=== PATIENT | female | born 1960 | race Caucasian/White ===

== ENCOUNTER 2022-07-14 12:40 | Inpatient (IN) | payer SELFPAY ==
--- OUTSIDE RECORDS SUMMARY | 2022-07-14 12:45 | XMS REPORT | Continuity of Care Document ---
:1960 Author Organization [facility] t Address [address] [place] [address] Care Team Providers Name Role Phone Cecilia Jimenez Primary Care Physician Remedios Sullivan Attending Clinician Unavailable Chayito Dick Attending Clinician Unavailable KAILA BERGER Attending Clinician Unavailable Juno Angel Attending Clinician Lesa Chan Attending Clinician MAY GAVIN Attending Clinician Unavailable Jeffry Gauthier Attending Clinician Chadd Perez Attending Clinician KAILA BERGER Admitting Clinician Unavailable Jeffry Gauthier Admitting Clinician Chadd Perez Admitting Clinician Problems Condition Condition Condition Status Onset Resolution Last Treating Co mments Source Name Details Category Date Date Treatment Clinician Date BROUGHT BY BROUGHT Diagnosis Active 2018-03-28 Fredy MORAES BY 03-28 16:13:00 l NG, CHEST DR/PAO 00:00: Her aquino PAIN, HRA NG, CHEST 00 PAIN, HRA Active 03/28/2018 [facility] COPD COPD Diagnosis Active 2018-03-29 Mem oria EXACERBATI EXACERBATI - 10:12:00 l ON ON Active 00:00: Jonah 03/28/2018 00 [facility] PNA PNA Diagnosis Active 2016-102017-11-08 Mem oria Active 12-24 21:57:00 l 10/23/2017 00:00: Dean mo [address] No known No known Disease Unive rs active active ity of problems problems [facility] Pneumonia, Pneumonia Problem 2017-11-02 Memoria unspecifie , 01:13:22 l d organism unspecifie He rmann d organism 8 [facility] Chronic Chronic Problem 2018-04-02 Me moria obstructiv obstructiv 01:43:25 l e e Jonah pulmonary pulmonary disease disease with with (acute) (acute) exacerbati exacerbati on on 04/02/2018 [facility] Chronic Chronic Problem Resolve 2022-02-23 M emoria obstructiv obstructiv d 00:35:14 l e lung e lung [place] disease disease (disorder) (disorder) Resolved Problem 02/23/2022 [facility] Hypertensi Hypertens Problem Resolve 2022-02-23 Memoria ve yuki d 00:35:14 l disorder, disorder, Herm clara systemic systemic arterial arterial (disorder) (disorder) Resolved Problem 02/23/2022 [facility] Congestive Congestiv Problem Active 2022-02-23 Memoria heart e heart 00:35:14 l failure failure [place] (disorder) (disorder) Active Problem 02/23/2022 [facility] Ganglion Ganglion Problem Active 2022-02-23 Memoria cyst cyst 00:35:14 l (disorder) (disorder) He rmann Active Problem 02/23/2022 [facility] Hand pain Hand pain Problem Active 2022-02-23 Memoria (finding) (finding) 00:35:14 l Active Jonah Problem 02/23/2022 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 Social History Social Habit Start Date Stop Date Quantity Comments Source Tobacco use and 2021-07-11 2021-07-11 Never used [facility] [place] exposure 00:00:00 00:00:00 Medical Branch Social History 2018-03-29 2018-03-29 [facility] ermann 03:48:29 03:48:29 Sex Assigned At [birth year] [facility] 00:00:00 00:00:00 Smoking Status Start Date Stop Date Source Tobacco smoking consumption [facility] unknown Current some day smoker 2021-07-11 00:00:00 [facility] Medications Ordered Filled Start Stop Current Ordering Indication Dosage Frequency Signature Comments Components Source Medication Medication Date Date Medication? Clinician (SIG) Name Name gabapentin No 300 mg = 1 M emoria 300 MG Oral 2-28 cap, PO, l Capsule 23:40: Bedtime, # Herm clara 00 30 cap, 2 Refill(s), Pharmacy: [id number], 170.18, cm, 12/18/21 10:08:00 BEAM RACKER, Height, 85, kg, 12/18/21 10:08:00 BEAM RACKER, Weight ondansetron Yes [id number] 8mg Take 1 Univers (ZOFRAN 9-11 tablet by ity of ODT) 8 mg 00:00: mouth [place] disintegrat 00 every 8 Medic al ing tablet (eight) Branch hours as needed for Nausea and Vomiting (N/V). diphenoxyla Yes [id number] 2{tbl} Take 2 Univers te-atropine 9-11 tablets by it y of 2.5-0.025 00:00: mouth [place] mg tablet 00 every 6 Medical (six) Branch hours as needed for Other (diarrhea) . atorvastati Yes One tab po Univers n 10 mg 4-05 each night ity of tablet 00:00: for 00 cholestero Medical l Branch fluticasone 2021- No 1{puff} Inhale 1 Univers propionate 4-05 04-06 Puff. ity of (FLOVENT 00:00: 04:59 [place] HFA) 110 00 :00 Medical mcg/actuati Branch on inhaler PARoxetine 2019-10 Yes 40mg Take 40 mg U nivers 40 mg 2-18 by mouth. ity of tablet 00:00: [place] 00 Medical Branch ALPRAZolam 2019-10 Yes TAKE 1 Unive rs 0.5 mg 2-02 TABLET BY ity of tablet 00:00: MOUTH 00 THREE Medical TIMES A Branch DAY NEEDED FOR ANXIETY PROAIR HFA 2019-10 Yes INHALE 2 Uni vers 90 1-16 PUFFS BY ity of mcg/actuati 00:00: MOUTH [place] on inhaler 00 EVERY 4 TO Med ical 6 HOURS Branch NEEDED levothyroxi 2019-10 Yes TAKE 1 Univ ers ne 50 mcg 1-12 TABLET BY ity o f tablet 00:00: MOUTH ON 00 AN EMPTY Medical STOMACH Branch albuterol 2019-10 Yes Univers 2.5 mg /3 1-03 ity of mL (0.083 00:00: [place] %) 00 Medical nebulizer Branch solution carvediloL 2019-10 Yes 3.125mg Take 3.125 Univers 3.125 mg 1-03 mg by ity of tablet 00:00: mouth 2 00 (two) Medical times Branch daily. famotidine 2019-10 Yes 20mg Take 20 mg U nivers 20 mg 1-03 by mouth 2 ity of tablet 00:00: (two) [place] 00 times Medical daily. Branch gabapentin 2019-10 Yes 300mg Take 300 Un nasir 300 mg 1-03 mg by ity of capsule 00:00: mouth 00 daily. Medical Branch Levothyroxi Levothyroxi Yes Remedios 1 tablet Common ne Sodium ne Sodium 7-13 [place] in the Sp david 00:00: morning on an empty St stomach [facility] carvedilol No Notes: [place] morelos 03-31 Give with l 02:00: food. Jonah 00 (Same As: Coreg) Albuterol Yes 3 mL, NEB, Me moria 0.833 MG/ML 5-31 QID, PRN l / 22:31: as needed [place] Ipratropium 09 for [place] shortness 0.167 MG/ML of breath Inhalant or Solution wheezing, # 180 mL, 2 Refill(s), Pharmacy: [id number] Ventolin Yes 2 puff, Memori a HFA 90 5-31 INHALER, l mcg/inh 22:31: Q4H, PRN Dean n inhalation 02 wheezing, aerosol coughing, with or adapter shortness of breath, # 1 ea, 1 Refill(s), Pharmacy: [facility] doxycycline Yes 100 mg = 1 Memoria hyclate 100 5-31 tab, PO, l MG Oral 22:30: Q12H, X 10 Herm clara Tablet 50 day, # 20 tab, 0 Refill(s), Pharmacy: [facility] losartan 50 Yes 50 mg = 1 M emoria mg oral 5-31 tab, PO, l tablet 19:00: Daily, # Jonah 36 30 tab, 2 Refill(s), Pharmacy: [facility] Guaifenesin Yes 200 mg = Me moria 20 MG/ML 5-31 10 mL, PO, l Oral 19:00: QID, X 7 [place] Solution 27 day, # 280 mL, 0 Refill(s), Pharmacy: [facility] Famotidine Yes 20 mg = 1 Me moria 20 MG Oral 5-31 tab, PO, l Tablet 19:00: Q12H, # 60 Paula nn [Pepcid] 16 tab, 0 Refill(s), Pharmacy: [facility]08 carvedilol Yes 3.125 mg, Me moria 3.125 mg 5-31 PO, Q12H, l oral tablet 18:59: Hold if HR Jonah 38 is less than 60, # 60 tab, 0 Refill(s), Pharmacy: [facility]08 Ventolin No 2 puff, Memori a HFA 90 5-31 INHALER, l mcg/inh 18:59: Q4H, PRN Dean n inhalation 25 wheezing, aerosol coughing, with or adapter shortness of breath, # 1 ea, 1 Refill(s) Albuterol 2017-0 No 3 mL, NEB, Me moria 0.833 MG/ML 5-31 QID, PRN l / 18:59: as needed Jonah Ipratropium 15 for [place] shortness 0.167 MG/ML of breath Inhalant or Solution wheezing, # 180 mL, 2 Refill(s) doxycycline No 100 mg = 1 Memoria hyclate 100 5-31 tab, PO, l MG Oral 18:58: Q12H, X 10 Herm clara Tablet 48 day, # 20 tab, 0 Refill(s) Ventolin No 2 puff, Memori a HFA 90 5-31 INHALER, l mcg/inh 18:31: Q4H, PRN Dean n inhalation 46 wheezing, aerosol coughing, with or adapter shortness of breath, # 1 ea, 1 Refill(s), Pharmacy: [facility] Albuterol No 3 mL, NEB, Me moria 0.833 MG/ML 5-31 QID, PRN l / 18:31: as needed [place] Ipratropium 41 for [place] shortness 0.167 MG/ML of breath Inhalant or Solution wheezing, # 180 mL, 2 Refill(s), Pharmacy: [facility] carvedilol No 3.125 mg, Me moria 3.125 mg 5-31 PO, Q12H, l oral tablet 18:31: Hold if HR [place] 00 is less than 60, # 60 tab, 0 Refill(s), Pharmacy: [facility] doxycycline 2017-0 No 100 mg = 1 Memoria hyclate 100 5-31 tab, PO, l MG Oral 18:31: Q12H, X 10 Herm clara Tablet 00 day, # 20 tab, 0 Refill(s), Pharmacy: [facility] Famotidine 2017- No 20 mg = 1 Me moria 20 MG Oral 5-31 tab, PO, l Tablet 18:31: Q12H, # 60 Paula nn [Pepcid] 00 tab, 0 Refill(s), Pharmacy: [facility] predniSONE 2017- Yes See Memoria 20 mg oral 5-31 Special l tablet 18:31: Instructio Paula nn 00 ns, PO, Daily, 16 day regimen: Days 1-4 - 40 mg (2 tabs) daily Days 5-8 - 30 mg (1 1/2 tabs) daily Days 9-12 - 20 mg (1 tab) daily Day 13-16 - 10 mg (1/2 tab) daily, X 16 day, # 24 tab, 0 Refill(s) Guaifenesin No 200 mg = Me moria 20 MG/ML 5-31 10 mL, PO, l Oral 18:31: QID, X 7 [place] Solution 00 day, # 280 mL, 0 Refill(s), Pharmacy: [facility] Acetaminoph No Notes: Yadiel felipe en 325 MG / 5-31 (Same as: l Hydrocodone 18:28: [place] Paula nn Bitartrate 00 325/5) Do 5 MG Oral not exceed Tablet 4gm/day of acetaminop hen. Guaifenesin No Notes: Yadiel felipe 5-30 (Same as: l 22:00: Robitussin ) Aspirin No Notes: Memoria 5-30 Take with l 14:00: food. Alprazolam No Notes: Memor ia 1 MG Oral 5-30 With food l Tablet 14:00: or milk (Same as: Xanax) Losartan No Notes: Memoria 5-30 (Same as: l 14:00: Cozaar) Levofloxaci No Notes: Yadiel felipe n 5-30 (Same l 14:00: as:Levaqui n) Famotidine No Notes: Memor ia 20 MG Oral 5-30 (Same as: l Tablet 14:00: Pepcid) [Pepcid] methylPREDN No Notes: Yadiel felipe ISolone 5-30 (Same l SODium 07:00: as:Solu-ME Paula nn SUCCinate 00 DROL, A-Methapre d) Lovenox No Notes: Memoria 5-30 (Same as: l 06:00: Lovenox) Acetaminoph No Notes: Do M emoria en 300 MG / 5-30 not exceed l Codeine 05:46: 4gm/day of Herm clara Phosphate 00 acetaminop 30 MG Oral hen. (Same Tablet as: [Tylenol Tylenol with with Codeine #3] Codeine # 3) Albuterol No Notes: Memori a 0.833 MG/ML 5-30 (Same as: l / 04:00: Duoneb) Ipratropium 00 [place] 0.167 MG/ML Inhalant Solution NS 1,000 mL No 1,000 mL, M emoria 5-30 Rate: 75 l 03:51: ml/hr, Infuse over: 13.3 hr, Route: IV, Dosing Weight 96 kg, Total Volume: 1,000, Start date: 03/28/18 22:51:00 CDT, Duration: 30 day, Stop date: 04/27/18 22:50:00 CDT, 2.17, m2 Albuterol No Notes: SEE Me moria 0.83 MG/ML 5-30 RT l Inhalant 03:50: DOCUMENTAT Her aquino Solution 00 ION (Same as: Proventil) Alprazolam Yes 1 mg = 1 Mem oria 1 MG Oral 5-30 tab, PO, l Tablet 03:49: BID, 0 [place] 00 Refill(s) Ceftriaxone No Notes: Yadiel felipe 5-30 (Same As: l 02:17: Rocephin). Use with 100 mL NS and infuse over 30 min MEDICATION WASTE Product Size: 1000 mg Product Wasted: ___ mg Azithromyci No Notes: Yadiel felipe n 5-30 (Same As: l 02:17: Zithromax IV) Magnesium No Notes: Memori a Sulfate 5-30 WASTE: F/P l 01:47: - Sink; E [place] [facility] methylPREDN No Notes: Yadiel felipe ISolone 5-29 (Same l SODium 23:36: as:Solu-ME Paula nn SUCCinate 00 DROL, A-Methapre d) Albuterol No Notes: Memori a 0.833 MG/ML 5-29 (Same as: l / 23:36: Duoneb) Ipratropium 00 [place] 0.167 MG/ML Inhalant Solution Saline No Notes: Memoria Flush 0.9% -29 (Same as: l 20:07: BD [place] 00 Posiflush) Reglan No Notes: Memoria 5-29 (Same as: l 20:06: Reglan) Albuterol No Notes: Memori a 0.833 MG/ML -29 (Same as: l / 20:05: Duoneb) Ipratropium 00 [place] 0.167 MG/ML Inhalant Solution [DuoNeb] Dexamethaso No 10 mg, 2.5 Memoria ne -29 mL, Route: l 20:05: IVP, Drug form: INJ, ONCE, Dosing Weight 90.273, kg, Priority: STAT, Start date: 03/28/18 15:05:00 CDT, Stop date: 03/28/18 15:05:00 CDT Fluconazole 2016-10 Yes 150 mg = 1 Memoria 150 MG Oral 2-31 tab, PO, l Tablet 19:26: ONCE, # 1 Dean n [Diflucan] 00 tab, 0 Refill(s) Levofloxaci 2016-10 No 750 mg = 1 Memoria n 750 MG 2-31 tab, PO, l Oral Tablet 18:13: Daily, X 2 [place] [Levaquin] 00 day, # 2 tab, 0 Refill(s) Oxygen 2016-10 Yes 1 btl, Memoria 2-31 MISC, PRN, l 18:10: PRN Jonah 00 Shortness of breath, # 1 btl, 2 Refill(s) Paroxetine 2016-10 Yes 30 mg = 1 Me moria 30 MG Oral 2-31 tab, PO, l Tablet 18:05: Daily, # [place] [Paxil] 00 30 tab, 2 Refill(s), Pharmacy: [facility] Symbicort 2016-10 Yes 1 puff, Memor ia 80/4.5 2-31 INHALATION l inhalation 18:05: , BID, # 1 H ermann aerosol 00 ea, 2 with Refill(s), adapter Pharmacy: [facility] losartan 50 2016-10 Yes 50 mg = 1 M emoria mg oral 2-31 tab, PO, l tablet 18:05: Daily, # Jonah 00 30 tab, 2 Refill(s), Pharmacy: [facility] Alprazolam 2016-10 Yes 0.25 mg = Me moria 0.25 MG 2-31 1 tab, PO, l Oral Tablet 18:05: BID, PRN He rmann [Xanax] 00 as needed for anxiety, X 10 day, # 20 tab, 0 Refill(s) Ventolin 2016-10 Yes 2 puff, Memori a HFA 90 2-31 INHALER, l mcg/inh 18:05: Q4H, PRN Dean n inhalation 00 wheezing, aerosol coughing, with or adapter shortness of breath, # 1 ea, 1 Refill(s), Pharmacy: [facility] predniSONE 2016-10 Yes See Memoria 10 mg oral 2-31 Special l tablet 18:05: Instructio Paula nn 00 ns, PO, Daily, 16 day regimen: 1st week - 40 mg (4 tabs) daily x 4 days, 2nd week - 30 mg (3 tabs) daily x 4 days, 3rd week - 20 mg (2 tabs) daily x 4days, 4th week - 10 mg (1 tab) daily x 4 days then stop. X16 days, #42 Tabs, X... Albuterol 2016-10 Yes 3 mL, NEB, Me moria 0.833 MG/ML 2-31 QID, PRN l / 18:05: as needed Jonah Ipratropium 00 for [place] shortness 0.167 MG/ML of breath Inhalant or Solution wheezing, # 180 mL, 2 Refill(s), Pharmacy: [facility] Prednisone 2016-10 No Notes: Memor ia 2-31 Take with l 15:00: food. [place] Alprazolam 2016-10 No Notes: Memor ia 2-30 With food l 23:00: or milk [place] 00 (Same as: Xanax) Albuterol 2016-10 No Notes: Memori a 0.833 MG/ML 2-30 (Same as: l / 15:25: Duoneb) [place] Ipratropium 00 [place] 0.167 MG/ML Inhalant Solution methylPREDN 2016-10 No Notes: Yadiel felipe ISolone 2-30 (Same l SODium 15:00: as:Solu-ME Paula nn SUCCinate 00 DROL, A-Methapre d) Levaquin 2016-10 No Notes: Do Yadiel felipe 2-29 not give l 16:00: w/antacids , dairy pdt & minerals Take 1 hr before or 2 hr after dairy pdt (Same as:Levaqui n) Lasix 2016-10 No Notes: Memoria 2-29 (Same as: l 15:34: Lasix) K-Dur 20 2016-10 No Notes: Memoria 2-29 (Same as: l 15:29: K-Dur 20) "Do Not Crush" With food and full glass of water Lasix 2016-10 No Notes: Memoria 2-28 (Same as: l 16:25: Lasix) Famotidine 2016-10 No Notes: Memor ia 20 MG Oral 2-27 (Same as: l Tablet 23:00: Pepcid) Symbicort 2016-10 No Notes: Memori a 160/4.5 2-27 (Same as: l inhalation 19:00: Symbicort) H ermann aerosol 00 WASTE: with Aerosol - adapter Return to Pharmacy methylPREDN 2016-10 No Notes: Yadiel felipe ISolone 2-27 (Same l SODium 03:00: as:Solu-ME Paula nn SUCCinate 00 DROL, A-Methapre d) Paxil 2016-10 No Notes: Memoria 2-26 (Same as: l 15:00: Paxil) Losartan 2016-10 No Notes: Memoria 2-26 (Same as: l 15:00: Cozaar) Aspirin 2016-10 No Notes: Do Memor ia 2-26 not crush l 15:00: or chew. (Same As: Ecotrin) Alprazolam 2016-10 No Notes: Memor ia 0.25 MG 2-26 With food l Oral Tablet 15:00: or milk Her aquino [Xanax] 00 (Same as: Xanax) Alprazolam 2016-10 No Notes: Memor ia 0.25 MG 2-26 With food l Oral Tablet 14:23: or milk Her aquino [Xanax] 00 (Same as: Xanax) potassium 2016-10 No Notes: Memori a chloride 20 - (Same as: l mEq oral 14:13: K-Dur 20) Herm clara tablet, 00 "Do Not extended Crush" release With food and full glass of water Azithromyci 2016-10 No Notes: Yadiel felipe n 2-26 Take 1 l 05:00: hour Jonah 00 before or 2 hours after meals. (Same As: Zithromax) Mupirocin 2016-10 No 1 appl, Memor ia 0.02 MG/MG 12-26 Route: l Topical 03:00: TOP, Q12H, Herm clara Ointment 00 Drug form: OINT, Start date: 10/24/17 21:00:00 BEAM RACKER, Duration: 5 day, Stop date: 10/29/17 9:00:00 BEAM RACKER Benadryl 2016-10 No Notes: Memoria 2-26 (Same as: l 01:22: Benadryl) Famotidine 2016-10 No Notes: Memor ia 40 MG Oral 12-26 (Same as: l Tablet 01:22: Pepcid) [place] [Pepcid] 00 Benadryl 2016-10 No Notes: Memoria 2-25 (Same as: l 19:59: Benadryl) pneumococca 2016-10 No Notes: Yadiel felipe l capsular 2-25 (Same as: l polysacchar 15:00: Pneumovax H ermann miky type 1 00 23) vaccine / Refrigerat pneumococca e l capsular polysacchar imky type 10A vaccine / pneumococca l capsular polysacchar miky type 11A vaccine / pneumococca l capsular polysacchar miky type 12F vaccine / pneumococca l capsular polysacchar Albuterol 2016-10 No Notes: Memori a 0.833 MG/ML 2-25 (Same as: l / 08:00: Duoneb) Ipratropium 00 [place] 0.167 MG/ML Inhalant Solution Aspirin 2016-10 Yes 81 mg, PO, Yadiel felipe 2-25 Daily, 0 l 06:11: Refill(s) Alprazolam 2016-10 No 0.25 mg = Me moria 0.25 MG 2-25 1 tab, PO, l Oral Tablet 06:11: BID, 0 Herm clara [Xanax] 00 Refill(s) Paroxetine 2016-10 No 30 mg = 1 Me moria 30 MG Oral 2-25 tab, PO, l Tablet 06:11: Daily, # [place] [Paxil] 00 30 tab, 0 Refill(s) Acetaminoph 2016-10 Yes 1 tab, PO, Memoria en 300 MG / 2-25 Q4H, PRN l Codeine 06:11: Pain, # 42 Herm clara Phosphate 00 tab, 0 30 MG Oral Refill(s) Tablet [Tylenol with Codeine #3] losartan 50 2016-10 No 50 mg = 1 M emoria mg oral 2-25 tab, PO, l tablet 06:11: Daily, # Jonah 00 30 tab, 0 Refill(s) Symbicort 2016-10 No 1 puff, Memor ia 80/4.5 2-25 INHALATION l inhalation 06:11: , BID, 0 Her aquino aerosol 00 Refill(s) with adapter Albuterol 2016-10 No 3 mL, NEB, Me moria 0.833 MG/ML 2-25 PRN, 0 l / 06:11: Refill(s) [place] Ipratropium 00 [place] 0.167 MG/ML Inhalant Solution ProAir HFA 2016-10 No 2 puff, Yadiel felipe 2-25 PO, Q4H, l 06:11: PRN Jonah 00 Wheezing / cough / shortness of breath, # 1 ea, 0 Refill(s) heparin 2016-10 No Notes: Memoria 2-25 porcine l 06:00: heparin Jonah 00 methylPREDN 2016-10 No Notes: Yadiel felipe ISolone 2-25 (Same l SODium 06:00: as:Solu-ME Paula nn SUCCinate 00 DROL, A-Methapre d) Ceftriaxone 2016-10 No Notes: Yadiel felipe 2-25 (Same As: l 05:00: Rocephin). [place] 00 Use with 100 mL NS and infuse over 30 min MEDICATION WASTE Product Size: 1000 mg Product Wasted: ___ mg Levofloxaci 2016-10 No Notes: Yadiel felipe n 2-25 (Same l 05:00: as:Levaqui [place] 00 n) azithromyci 2016-10 No Notes: Yadiel felipe n 250 mg 2-25 Take 1 l oral tablet 04:47: hour Dean n 00 before or 2 hours after meals. (Same As: Zithromax) Diphenhydra 2016-10 No 25 mg, 1 Me moria mine 2-25 tab, l Hydrochlori 04:37: Route: PO, [place] de 25 MG 00 Drug form: Disintegrat TAB, ONCE, ing Tablet Dosing Weight 90.273, kg, Priority: STAT, Start date: 10/23/17 22:37:00 BEAM RACKER, Stop date: 10/23/17 22:37:00 BEAM RACKER Albuterol 2016-10 No Notes: SEE Me moria 0.83 MG/ML 2-25 RT l Inhalant 04:33: DOCUMENTAT Her aquino Solution 00 ION (Same as: Proventil) Immunizations Ordered Immunization Filled Immunization Date Status Commen ts Source Name Name pneumococcal 2017-10-25 Completed [facility] 23-valent vaccine 14:46:00 [place] Vital Signs Vital Name Observation Time Observation Value Comments Source Systolic (mm Hg) 2022-01-04 15:39:00 Yadiel rial Jonah Diastolic (mm Hg) 2022-01-04 15:39:00 Mem orial [place] Heart Rate 2022-01-04 15:39:00 [facility] [place] Respitory Rate 2022-01-04 15:39:00 Memori al Jonah Height 2022-01-04 15:39:00 170.18 cm [facility] [place] Weight 2022-01-04 15:39:00 [facility] Jonah BMI Calculated 2022-01-04 15:39:00 Memori al [place] Systolic (mm Hg) 2021-12-18 16:08:00 Yadiel rial Jonah Diastolic (mm Hg) 2021-12-18 16:08:00 Mem orial [place] Heart Rate 2021-12-18 16:08:00 [facility] [place] Respitory Rate 2021-12-18 16:08:00 Memori al [place] Height 2021-12-18 16:08:00 170.18 cm [facility] [place] Weight 2021-12-18 16:08:00 [facility] Jonah BMI Calculated 2021-12-18 16:08:00 Memori al [place] Heart Rate 2018-03-30 21:23:00 [facility] [place] Temperature Oral (F) 2018-03-30 21:23:00 98.1 F [facility] [place] Systolic (mm Hg) 2018-03-30 21:23:00 Yadiel rial Jonah Diastolic (mm Hg) 2018-03-30 21:23:00 Mem orial [place] Heart Rate 2018-03-30 16:21:00 [facility] [place] Temperature Oral (F) 2018-03-30 16:21:00 98.2 F [facility] [place] Systolic (mm Hg) 2018-03-30 16:21:00 Yadiel rial [place] Diastolic (mm Hg) 2018-03-30 16:21:00 Mem orial [place] Respitory Rate 2018-03-30 16:21:00 Memori al [place] Respitory Rate 2018-03-30 12:30:00 Memori al [place] Systolic (mm Hg) 2018-03-30 12:26:00 Yadiel rial [place] Diastolic (mm Hg) 2018-03-30 12:26:00 Mem orial Jonah Temperature Oral (F) 2018-03-30 12:26:00 98.2 F [facility] [place] Heart Rate 2018-03-30 12:26:00 [facility] [place] Respitory Rate 2018-03-30 08:36:00 Memori al [place] Height 2018-03-29 03:26:00 172.72 cm [facility] [place] Weight 2018-03-29 03:26:00 [facility] [place] BMI Calculated 2018-03-29 03:26:00 Memori al [place] Heart Rate 2017-10-30 17:49:00 [facility] [place] Respitory Rate 2017-10-30 17:49:00 Memori al [place] Systolic (mm Hg) 2017-10-30 17:49:00 Yadiel rial Jonah Diastolic (mm Hg) 2017-10-30 17:49:00 Mem orial [place] Temperature Oral (F) 2017-10-30 17:49:00 98.0 F [facility] [place] Respitory Rate 2017-10-30 15:24:00 Memori al [place] Heart Rate 2017-10-30 14:06:00 [facility] [place] Temperature Oral (F) 2017-10-30 14:06:00 98.5 F [facility] [place] Respitory Rate 2017-10-30 14:06:00 Memori al [place] Systolic (mm Hg) 2017-10-30 14:06:00 Yadiel thakur Jonah Diastolic (mm Hg) 2017-10-30 14:06:00 Mem orial [place] Systolic (mm Hg) 2017-10-30 09:30:00 Yadiel wangl [place] Diastolic (mm Hg) 2017-10-30 09:30:00 Kassie Ballardann Heart Rate 2017-10-30 09:30:00 [facility] Temperature Oral (F) 2017-10-30 09:30:00 [facility] Calculated 2017-10-24 04:03:00 Geoff Bearann Weight 2017-10-24 04:03:00 [facility] Height 2017-10-24 04:03:00 172.72 cm [facility] Procedures Procedure Date / Time Performed Performing Clinician Sourc e Oophorectomy [facility] Plan of Care Planned Activity Planned Date Details Comments Source Future Scheduled 2022-07-02 SHINGLES VACCINES (1 Met [facility] Test 21:47:45 of 2) [code = SHINGLES VACCINES (1 of 2)] Future Scheduled 2022-07-02 INFLUENZA VACCINE Method [facility] Test 21:47:45 [code = INFLUENZA VACCINE] Future Scheduled 2022-07-02 HEPATITIS B VACCINES Met [facility] Test 21:47:45 (1 of 3 - 3-dose series) [code = HEPATITIS B VACCINES (1 of 3 - 3-dose series)] Future Scheduled 2022-07-02 COVID-19 VACCINE (#1) [facility] Test 21:47:45 [code = COVID-19 VACCINE (#1)] Future Scheduled 2022-07-02 Hepatitis C screening [facility] Test 21:47:45 (procedure) [code = [id number]] Future Scheduled 2022-07-02 Screening for [facility] Test 21:47:45 malignant neoplasm of cervix (procedure) [code = [id number]] Future Scheduled 2022-07-02 BREAST CANCER [facility] Test 21:47:45 SCREENING [code = BREAST CANCER SCREENING] Future Scheduled 2022-07-02 COLONOSCOPY SCREENING [facility] Test 21:47:45 [code = COLONOSCOPY SCREENING] Future Scheduled 2022-07-02 Hepatitis C screening [facility] Test 21:47:45 (procedure) [code = [id number]] Future Scheduled 2022-07-02 [facility] [facility] Test 21:47:45 malignant neoplasm of cervix (procedure) [code = 434444416] Future Scheduled 2022-07-02 BREAST CANCER [facility] Test 21:47:45 SCREENING [code = BREAST CANCER SCREENING] Future Scheduled 2022-07-02 COLONOSCOPY SCREENING [facility] Test 21:47:45 [code = COLONOSCOPY SCREENING] Future Scheduled 2022-07-02 SHINGLES VACCINES (1 Met [facility] Test 21:47:45 of 2) [code = SHINGLES VACCINES (1 of 2)] Future Scheduled 2022-07-02 INFLUENZA VACCINE Method [facility] Test 21:47:45 [code = INFLUENZA VACCINE] Future Scheduled 2022-07-02 HEPATITIS B VACCINES Met [facility] Test 21:47:45 (1 of 3 - 3-dose series) [code = HEPATITIS B VACCINES (1 of 3 - 3-dose series)] Future Scheduled 2022-07-02 COVID-19 VACCINE (#1) [facility] Test 21:47:45 [code = COVID-19 VACCINE (#1)] Encounters Start End Encounter Admission Attending Care Care Encounter Source Date/Time Date/Time Type Type Clinicians Facility Department ID 2022-02-09 [facility] [id number] Common 09:47:00 Remedios [facility] 2022-01-21 [facility] S[facility] [id number] Common 10:25:01 Remedios [facility] 2021-11-25 Outpatient Safford, STSHANNALC STLC [id number] Common 14:36:53 Remedios [facility] 2021-11-25 [facility] [id number] Common 12:27:48 Remedios [id number] [facility] 2021-11-25 [facility] [id number] Common 12:12:39 Remedios [id number] [facility] 2021-11-25 [facility] [id number] Common 11:29:59 Remedios [id number] [facility] 2021-11-25 Outpatient Matthewender, STLMLC STLMLC [id number] Common 11:29:54 Chayito [id number] [facility] 2021-11-25 Outpatient Millender, STLMLC STLMLC [id number] Common 11:29:09 Chayito [id number] [facility] 2021-11-25 Outpatient Matthewender, STLMLC STLMLC [id number] Common 11:16:08 Chayito [id number] [facility] 2021-11-25 Outpatient Millender, STLMLC STLMLC [id number] Common 11:01:11 Chayito 91515 [facility] 2021-11-25 Outpatient Matthewender, STLMLC STLMLC [id number] Common 10:57:44 Chayito [id number] [facility] 2021-11-25 Outpatient Matthewender, STLMLC STLMLC [id number] Common 10:57:35 Chayito [id number] [facility] 2022-07-10 2022-07-13 Inpatient [facility] [id number] [facility] 20:04:00 17:04:00 KAILA 2022-02-19 2022-02-21 Outside nullFlavo MNA [id number] Memoria 14:47:36 04:59:59 Medical r Neurology 01 [facility] Bryan Mckenzie 2022-02-19 2022-02-20 Outpatient MHMISCHER MISCHER [id number] 09:47:36 23:59:59 2022-02-10 2022-02-10 ambulatory STLMLC STLMLC [id number] Common 00:00:00 00:00:00 [facility] 2022-01-25 2022-01-25 ambulatory STLMLC STLMLC [id number] Common 00:00:00 00:00:00 [facility] 2022-01-21 2022-01-21 ambulatory STLMLC STLMLC [id number] Common 00:00:00 00:00:00 [facility] 2022-01-18 2022-01-20 Outside nullFlavo MNA [id number] Memoria 15:32:25 04:59:59 Medical r Neurology 00 l Records Bryan Mckenzie 2022-01-18 2022-01-19 Outpatient MHMISCHER MHMISCHER [id number] 10:32:25 23:59:59 00 2022-01-11 2022-01-11 ambulatory STLMLC STLMLC [id number] Common 00:00:00 00:00:00 [facility] 2022-01-04 2022-01-05 Outpatient nullFlavo MNA [id number] Memoria 15:30:00 05:59:59 r Neurology 01 l Bryan Mckenzie 2022-01-05 2022-01-05 ambulatory STLMLC STLMLC [id number] Common 00:00:00 00:00:00 [facility] 2022-01-04 2022-01-04 Outpatient NATHAN AngelSCHER MHMISCHER [id number] 09:30:00 23:59:59 Juno Frandy 2022-01-04 2022-01-04 Outpatient MHIE MHIE [id number] Memoria 09:30:00 09:30:00 01 l Jonah 2021-12-30 2021-12-30 ambulatory STLMLC STLMLC [id number] Common 00:00:00 00:00:00 [facility] 2021-12-18 2021-12-19 Outpatient nullFlavo MNA [id number] Memoria 16:00:00 05:59:59 r Neurology 00 l Bryan Mckenzie 2021-12-18 2021-12-18 Outpatient NATHAN AngelSCHER MHMISCHER [id number] 10:00:00 23:59:59 Juno Frandy 2021-12-18 2021-12-18 Outpatient MHIE MHIE [id number] Memoria 10:00:00 10:00:00 00 reyes Mckenzie 2021-12-04 2021-12-04 ambulatory STLMLC STLMLC [id number] Common 00:00:00 00:00:00 [facility] 2021-12-03 2021-12-03 ambulatory STLMLC STLMLC [id number] Common 00:00:00 00:00:00 [facility] 2021-12-01 2021-12-01 ambulatory STLMLC STLMLC [id number] Common 00:00:00 00:00:00 [facility] 2021-11-25 2021-11-25 ambulatory STLMLC STLMLC [id number] Common 00:00:00 00:00:00 [facility] 2021-11-25 2021-11-25 ambulatory STLMLC STLMLC [id number] Common 00:00:00 00:00:00 [facility] 2021-11-25 2021-11-25 ambulatory STLMLC STLMLC [id number] Common 00:00:00 00:00:00 [facility] 2021-09-08 2021-09-08 Telephone Bakari [facility] [id number] 00:00:00 00:00:00 [facility] [id number] it y of [place] [id number] Francisco Javier as ZACK?BLEA [id number] [address] MEDICAL OFFICE BUILDING 2021-02-18 2021-02-18 Outpatient [facility] [id number] [place] [address] 00:00:00 00:00:[address] 2021-02-18 2021-02-18 Outpatient [facility] [id number] [address] [place] [address] 00:00:00 00:00:00 MAY [address] 2021-02-09 2021-02-09 Outpatient STLMLC STLMLC [id number] Common 00:00:00 00:00:00 [facility] 2020-12-03 2020-12-03 Outpatient STLMLC STLMLC [id number] Common 00:00:00 00:00:00 [facility] 2020-09-11 2020-09-11 Outpatient STLMLC STLMLC [id number] Common 00:00:00 00:00:00 [facility] 2020-09-09 2020-09-09 Outpatient STLMLC STLMLC [id number] Common 00:00:00 00:00:00 [facility] 2020-09-09 2020-09-09 Outpatient STLMLC STLMLC [id number] Common 00:00:00 00:00:00 [facility] 2020-09-02 2020-09-02 Outpatient STLMLC STLMLC [id number] Common 00:00:00 00:00:00 [facility] 2020-08-04 2020-08-04 Outpatient STLMLC STLMLC [id number] Common 00:00:00 00:00:00 [facility] 2020-07-22 2020-07-22 Outpatient STLMLC STLMLC [id number] Common 00:00:00 00:00:00 [facility] 2020-07-22 2020-07-22 Outpatient STLMLC STLMLC [id number] Common 00:00:00 00:00:00 [facility] 2020-07-15 2020-07-15 Outpatient STLMLC STLMLC [id number] Common 00:00:00 00:00:00 [facility] 2020-07-09 2020-07-09 Out[facility] [id number] Common 13:46:00 13:46:[address] [facility] [address] [facility] 2020-05-12 2020-05-12 [facility] [id number] Common 17:56:00 17:56:00 [address] [facility] [address] [facility] 2020-05-12 2020-05-12 [facility] [id number] Common 16:29:00 16:29:00 [address] [facility] [address] [facility] 2020-05-05 2020-05-05 [facility] [id number] Common 14:20:00 14:20:00 [address] [facility] [address] [facility] 2020-01-17 2020-01-17 [facility] [id number] Common 10:06:00 10:06:[address] [facility] 2019-12-31 2019-12-31 [facility] [id number] Common 08:14:00 08:14:[address] [facility] 2019-11-30 2019-11-30 [facility] [id number] Common 10:00:00 10:00:00 [address] [facility] [address] [facility] 2019-11-16 2019-11-16 [facility] [id number] Common 08:15:00 08:15:00 [address] [facility] [address] [facility] 2019-11-02 2019-11-02 [facility] [id number] Common 11:03:00 11:03:00 [address] [facility] [address] [facility] 2019-09-07 2019-09-07 [facility] [id number] Common 15:40:00 15:40:00 [address] [facility] [address] [facility] 2019-07-31 2019-07-31 [facility] [id number] Common 15:00:00 15:00:00 [address] [facility] [address] [facility] 2018-03-28 2018-03-30 [facility] [id number] Memoria 19:51:00 20:00:00 yareli Mckenzie 00 l [facility] 2018-03-28 2018-03-30 Outpatient Disha [facility] [id number] 14:51:00 15:00:00 Jeffry Owens 2017-10-24 2017-10-30 Inpatient nullFlavo [facility] [id number] Memoria 03:14:00 19:52:00 yareli Mckenzie 59 l [facility] 2017-10-23 2017-10-30 Outpatient Chris [facility] [id number] 21:14:00 13:52:00 Chadd Rooney Results Test Description Test Time Test Comments Results Result Comments Source ELECTROLYTES 2018-03-30 17:04:00 Test Item Value Reference Range Interpretation Comme nts CO2 (test code = CO2) [facility]xdltkcHEVKZHHQAFGN2553-02-65 17:04:00 Test Item Value Reference Range Interpretation Comments Calcium Lvl (test code = Calcium Lvl) 8.2 8.5-10.5 [facility]HGQP7997-47-05 17:04:00 Test Item Value Reference Range Interpretation Comments eGFR (test code = eGFR) 90 [facility] HospitalFhzhdekRVYNJSJACAQP4712-81-73 17:04:00 Test Item Value Reference Range Interpretation Comments Glucose Lvl (test code = Glucose Lvl) 141 70-99 [facility]XzhfdabVXVDCPKDZGMK4776-77-86 17:04:00 Test Item Value Reference Range Interpretation Comments Sodium Lvl (test code = Sodium Lvl) 135 135-145 [facility] HospitalAviedtmYIJWZGQDNJAG7810-02-19 17:04:00 Test Item Value Reference Range Interpretation Comments Chloride Lvl (test code = Chloride Lvl) 106 95-109 [facility] HospitalKerfhmvMIYTBYESZPKT2970-98-12 17:04:00 Test Item Value Reference Range Interpretation Comments Potassium Lvl (test code = Potassium 4.3 3.5-5.1 Lvl) [facility] HospitalYjyrctcDPIEKPUDSBLR1605-12-35 17:04:00 Test Item Value Reference Range Interpretation Comments Creatinine Lvl (test code = Creatinine 0.74 0.50-1.40 Lvl) [facility] HospitalLmcohjqGVVWZIGTTQEB1426-47-73 17:04:00 Test Item Value Reference Range Interpretation Comments BUN (test code = BUN) 11 7-22 [facility] HospitalYvzyewnWXPPRMRLIIHL3749-43-66 17:04:00 Test Item Value Reference Range Interpretation Comments AGAP (test code = AGAP) 12.3 10.0-20.0 [facility] HospitalDfjpoexEYHFRPQXMU0221-12-64 17:04:00 Test Item Value Reference Range Interpretation Comments Basophils # (test code 0.1 See_Comment [Aut omated message] The = Basophils #) system which generated this result tra nsmitted reference range : <=0.2. The reference r jodi was not used to int erpret this result as normal/abnormal . [facility] HospitalCchpsvqNEPYNDIFMG9442-12-41 17:04:00 Test Item Value Reference Range Interpretation Comments Monocytes # (test code 1.4 See_Comment [Aut omated message] The = Monocytes #) system which generated this result tra nsmitted reference range : <=0.8. The reference r jodi was not used to int erpret this result as normal/abnormal . [facility] HospitalDkguwyuGQEBBXQGIK3837-65-66 17:04:00 Test Item Value Reference Range Interpretation Comments Lymphocytes # (test code = Lymphocytes 1.7 1.0-5.5 #) [facility] HospitalUvslmxePYAYQAJQHL9205-03-15 17:04:00 Test Item Value Reference Range Interpretation Comments Segs-Bands # (test code = Segs-Bands #) 19.4 1.5-8.1 [facility] HospitalBmlprfmAGKTJRMUST9450-12-86 17:04:00 Test Item Value Reference Range Interpretation Comments Basophils (test code = 0.4 See_Comment [Aut omated message] The Basophils) system which ge nerated this result tra nsmitted reference range : <=1.0. The reference r jodi was not used to int erpret this result as normal/abnormal . [facility] HospitalHsmgvtfZYXJDDXTFL7512-83-30 17:04:00 Test Item Value Reference Range Interpretation Comments Monocytes (test code = Monocytes) 6.1 2.0-12.0 [facility] HospitalFwdzinfCRQMLZOTRL5080-76-01 17:04:00 Test Item Value Reference Range Interpretation Comments Lymphocytes (test code = Lymphocytes) 7.7 20.0-40.0 [facility] HospitalTcymrwaJFPGFZGPLA1821-72-95 17:04:00 Test Item Value Reference Range Interpretation Comments Segs (test code = Segs) 85.8 45.0-75.0 [facility] HospitalVouztioRYCHPYOBCE5103-39-52 17:04:00 Test Item Value Reference Range Interpretation Comments MPV (test code = MPV) 7.4 7.4-10.4 [facility] HospitalBzemgoeYWVFFIUIAH4274-95-87 17:04:00 Test Item Value Reference Range Interpretation Comments Platelet (test code = Platelet) 387 133-450 [facility] HospitalMcwmvvvMYIVRPUZAV0328-59-71 17:04:00 Test Item Value Reference Range Interpretation Comments MCHC (test code = MCHC) 34.1 32.0-36.0 [facility] HospitalAfbbsdyGDXPRCZANZ3349-13-60 17:04:00 Test Item Value Reference Range Interpretation Comments RDW (test code = RDW) 14.1 11.5-14.5 [facility] HospitalYtzchtaTECBJGNJIK0209-63-11 17:04:00 Test Item Value Reference Range Interpretation Comments MCH (test code = MCH) 32.8 pg 27.0-31.0 [facility] HospitalQcypwpkIZLBSJGNEE4924-48-76 17:04:00 Test Item Value Reference Range Interpretation Comments MCV (test code = MCV) 96.3 80.0-98.0 [facility]KyeyqcxLFAAAYGXNZ8361-93-38 17:04:00 Test Item Value Reference Range Interpretation Comments Hct (test code = Hct) 37.7 36.0-48.0 [facility]JhhxuvyUINVJQTOOP7902-57-03 17:04:00 Test Item Value Reference Range Interpretation Comments Hgb (test code = Hgb) 12.9 12.0-16.0 [facility] HospitalJcunxlgBEYQSKCWHX1459-35-34 17:04:00 Test Item Value Reference Range Interpretation Comments RBC (test code = RBC) 3.92 4.20-5.40 [facility] HospitalFzkheclETMEXQQXFZ0435-26-48 17:04:00 Test Item Value Reference Range Interpretation Comments WBC (test code = WBC) 22.6 3.7-10.4 [facility] FDIQPTBTF9882-29-95 15:41:24 Test Item Value Reference Range Interpretation Comments Hgb A1C (test code = Hgb A1C) 5.5 [facility] HospitalD[facility]zywoodH[facility] CLOBAGF0723-25-29 11:37:00 Test Item Value Reference Range Interpretation Comments Total CK (test code = Total CK) 99 12-191 [facility] OCNKVCU9751-54-35 11:37:00 Test Item Value Reference Range Interpretation Comments Troponin-I (test code no gt See_Comment [Auto mated message] The = Troponin-I) system which g enerated this result transmit narayna reference range : <=0.40. The reference r jodi was not used to interpr et this result as shreya l/abnormal. [facility]wood[facility] XIIPFZE1382-67-81 11:37:00 Test Item Value Reference Range Interpretation Comments CK MB Index (test no gt See_Comment [Automate d message] The code = CK MB Index) system w [facility] generated this result transmit narayan reference range : <=2.5. The reference range was not used to interpr et this result as shreya l/abnormal. [facility] MLSWRDA0039-87-51 11:37:00 Test Item Value Reference Range Interpretation Comments CK MB (test code = CK MB) no gt 0.5-3.6 [facility] CI[facility]ZDSE8187[facility]04-40 07:00:00 Test Item Value Reference Range Interpretation Comments CK MB Index (test 1.0 1 See_Comment [Automate d message] The code = CK MB Index) [facility] generated this result transmit narayan reference range : <=2.5. The reference range was not used to interpr et this result as shreya l/abnormal. [facility] 07:00:00 Test Item Value Reference Range Interpretation Comments CK MB (test code = CK MB) 1.2 0.5-3.6 [facility]2018-05-30 07:00:00 Test Item Value Reference Range Interpretation Comments Troponin-I (test code no gt See_Comment [Auto mated message] The = Troponin-I) system which g enerated this result transmit narayan reference range : <=0.40. The reference r jodi was not used to interpr et this result as shreya l/abnormal. [facility]2018-05-30 07:00:00 Test Item Value Reference Range Interpretation Comments Total CK (test code = Total CK) 117 12-191 [facility] [employer] YITHE1257-74-91 07:00:00 Test Item Value Reference Range Interpretation Comments eGFR (test code = eGFR) 94 [facility]Lett[facility] NWLPF0832-80-13 07:00:00 Test Item Value Reference Range Interpretation Comments Bili Total (test code = Bili Total) 0.4 0.2-1.3 [facility] [employer] SQXEH1469-17-47 07:00:00 Test Item Value Reference Range Interpretation Comments Alk Phos (test code = Alk Phos) 135 39-136 [facility] [employer] AXHED5574-23-44 07:00:00 Test Item Value Reference Range Interpretation Comments Potassium Lvl (test code = Potassium 3.7 3.5-5.1 Lvl) [facility] [employer]2018-05-30 07:00:00 Test Item Value Reference Range Interpretation Comments Chloride Lvl (test code = Chloride Lvl) 100 95-109 [facility] [employer] [id number] 07:00:00 Test Item Value Reference Range Interpretation Comments Sodium Lvl (test code = Sodium Lvl) 130 135-145 [facility] [employer] POVLD1592-40-79 07:00:00 Test Item Value Reference Range Interpretation Comments Calcium Lvl (test code = Calcium Lvl) 8.6 8.5-10.5 [facility]2018-05-30 07:00:00 Test Item Value Reference Range Interpretation Comments B/C Ratio (test code = B/C Ratio) 6 1 6-25 [place] 074858-05-30 07:00:00 Test Item Value Reference Range Interpretation Comments Total Protein (test code = Total 7.4 6.4-8.4 Protein) [facility]2018-05-30 07:00:00 Test Item Value Reference Range Interpretation Comments BUN (test code = BUN) 4 7-22 [place] 074858-05-30 07:00:00 Test Item Value Reference Range Interpretation Comments Creatinine Lvl (test code = Creatinine 0.71 0.50-1.40 Lvl) [place] 074858-05-30 07:00:00 Test Item Value Reference Range Interpretation Comments ALT (test code = ALT) 15 See_Comment [Auto mated message] The system which ge nerated this result transmit narayan reference range : <=65. The reference range was not used to interpr et this result as shreya l/abnormal. [place] 074858-05-30 07:00:00 Test Item Value Reference Range Interpretation Comments AST (test code = AST) 17 See_Comment [Auto mated message] The system which ge nerated this result transmit narayan reference range : <=37. The reference range was not used to interpr et this result as shreya l/abnormal. [place] 074858-05-30 07:00:00 Test Item Value Reference Range Interpretation Comments AGAP (test code = AGAP) 11.7 10.0-20.0 [place] 074858-05-30 07:00:00 Test Item Value Reference Range Interpretation Comments CO2 (test code = CO2) 22 24-32 [place] 074858-05-30 07:00:00 Test Item Value Reference Range Interpretation Comments A/G Ratio (test code = A/G Ratio) 0.8 1 0.7-1.6 [place] 074858-05-30 07:00:00 Test Item Value Reference Range Interpretation Comments Albumin Lvl (test code = Albumin Lvl) 3.2 3.5-5.0 [place] 074858-05-30 07:00:00 Test Item Value Reference Range Interpretation Comments Globulin (test code = Globulin) 4.2 2.7-4.2 [facility]2018-05-30 07:00:00 Test Item Value Reference Range Interpretation Comments Glucose Lvl (test code = Glucose Lvl) 215 70-99 [facility]2018-05-30 07:00:00 Test Item Value Reference Range Interpretation Comments Osmolality (test code = Osmolality) 280 280-300 [facility] HospitalIiafdmnBZSNGAQIBD8397-88-11 07:00:00 Test Item Value Reference Range Interpretation Comments MPV (test code = MPV) 7.3 7.4-10.4 [facility] HospitalIzsatpfAXSPGOYCCL8429-27-19 07:00:00 Test Item Value Reference Range Interpretation Comments MCHC (test code = MCHC) 34.5 32.0-36.0 [facility] HospitalWgzdneuXNRIKJRRDA8354-26-75 07:00:00 Test Item Value Reference Range Interpretation Comments RDW (test code = RDW) 13.8 11.5-14.5 [facility] HospitalFdbykbaKKNRSBCYFC1290-67-06 07:00:00 Test Item Value Reference Range Interpretation Comments MCH (test code = MCH) 32.4 pg 27.0-31.0 [facility] HospitalGvcxbznGBPMTGHMEQ3607-87-73 07:00:00 Test Item Value Reference Range Interpretation Comments Platelet (test code = Platelet) 389 133-450 [facility] HospitalWmtimeaWRYLQHEEFU9533-29-31 07:00:00 Test Item Value Reference Range Interpretation Comments WBC (test code = WBC) 16.1 3.7-10.4 [facility] HospitalHnavfxzGHMXVQUCGF0869-23-81 07:00:00 Test Item Value Reference Range Interpretation Comments RBC (test code = RBC) 4.35 4.20-5.40 [facility] HospitalRtmmepoSLNBCXDWUY2002-29-61 07:00:00 Test Item Value Reference Range Interpretation Comments Hgb (test code = Hgb) 14.1 12.0-16.0 [facility] HospitalNqcksinNJMHWBCBMQ5944-09-91 07:00:00 Test Item Value Reference Range Interpretation Comments Hct (test code = Hct) 40.9 36.0-48.0 [facility] HospitalFtqdxgeANEIXZSMJZ0005-40-01 07:00:00 Test Item Value Reference Range Interpretation Comments MCV (test code = MCV) 94.0 80.0-98.0 [facility] HospitalVjbbislZCSUXJCZTI5141-59-93 07:00:00 Test Item Value Reference Range Interpretation Comments Lymphocytes # (test code = Lymphocytes 0.6 1.0-5.5 #) [facility] HospitalFncmzoiPOYKTMSWYR8176-94-41 07:00:00 Test Item Value Reference Range Interpretation Comments Segs-Bands # (test code = Segs-Bands #) 15.3 1.5-8.1 [facility] HospitalTgfdiozSJIEWAISUI1570-80-76 07:00:00 Test Item Value Reference Range Interpretation Comments Basophils (test code = 0.1 See_Comment [Aut omated message] The Basophils) system which ge nerated this result tra nsmitted reference range : <=1.0. The reference r jodi was not used to int erpret this result as normal/abnormal . [facility] HospitalSzyxfitQXSIXCWEDT3868-16-66 07:00:00 Test Item Value Reference Range Interpretation Comments Lymphocytes (test code = Lymphocytes) 3.5 20.0-40.0 [facility] HospitalQccgjsvDXODFHLKGY1682-81-73 07:00:00 Test Item Value Reference Range Interpretation Comments Monocytes (test code = Monocytes) 1.2 2.0-12.0 [facility] HospitalBmcnftgQNHWAKOVVZ4138-23-50 07:00:00 Test Item Value Reference Range Interpretation Comments Monocytes # (test code 0.2 See_Comment [Aut omated message] The = Monocytes #) system which generated this result tra nsmitted reference range : <=0.8. The reference r jodi was not used to int erpret this result as normal/abnormal . [facility] HospitalCwgbuykWBWMFCORXQ5370-16-72 07:00:00 Test Item Value Reference Range Interpretation Comments RBC Morph (test code = Normal (03/29/18 2:00 RBC Morph) AM) [facility] HospitalVbgllvsXJRTWQQGBW0300-75-62 07:00:00 Test Item Value Reference Range Interpretation Comments Segs (test code = Segs) 95.2 45.0-75.0 [facility] HospitalAthhjhlAVBCDVUHGP1231-05-26 07:00:00 Test Item Value Reference Range Interpretation Comments Plt Morph (test code = Normal (03/29/18 2:00 Plt Morph) AM) [facility]2018-05-30 05:14:00 Test Item Value Reference Range Interpretation Comments Lactic Acid Lvl (test code = Lactic 1.7 0.5-2.2 Acid Lvl) [facility]2018-05-30 03:04:00 Test Item Value Reference Range Interpretation Comments Lactic Acid Lvl (test code = Lactic 3.5 0.5-2.2 Acid Lvl) [facility] AND [id number] 20:23:00 Test Item Value Reference Range Interpretation Comments UA Urobilinogen (test code = UA <=1.0 mg/dL 0.1-1.0 Urobilinogen) [facility] AND [id number] 20:23:00 Test Item Value Reference Range Interpretation Comments UA Color (test code = UA Color) [facility] AND [id number] 20:23:00 Test Item Value Reference Range Interpretation Comments UA Nitrite (test code Negative (03/28/18 3:23 = UA Nitrite) PM) [facility] AND [id number] 20:23:00 Test Item Value Reference Range Interpretation Comments UA Leuk Est (test Negative (03/28/18 3:23 code = UA Leuk Est) PM) [facility] AND [id number] 20:23:00 Test Item Value Reference Range Interpretation Comments UA Bili (test code = Negative *NA*(03/28/18 UA Bili) 3:23 PM) [facility] AND [id number] 20:23:00 Test Item Value Reference Range Interpretation Comments UA Blood (test code = Negative (03/28/18 3:23 UA Blood) PM) [facility] AND [id number] 20:23:00 Test Item Value Reference Range Interpretation Comments UA Sq Epi (test code = UA Sq Epi) None Seen [facility] AND [id number] 20:23:00 Test Item Value Reference Range Interpretation Comments UA Glucose (test code = UA Negative mg/dL Glucose) [facility] AND [id number] 20:23:00 Test Item Value Reference Range Interpretation Comments UA Ketones (test code = UA Negative mg/dL Ketones) [facility] AND [id number] 20:23:00 Test Item Value Reference Range Interpretation Comments UA Protein (test code = UA Negative mg/dL Protein) [facility] AND [id number] 20:23:00 Test Item Value Reference Range Interpretation Comments UA pH (test code = UA pH) 6.0 1 5.0-8.0 [facility] [id number] 20:23:00 Test Item Value Reference Range Interpretation Comments UA Turbidity (test code = Clear (03/28/18 3:23 [facility]A Turbidity) PM) [facility] [id number] 20:23:00 Test Item Value Reference Range Interpretation Comments UA Spec Grav (test code = UA Spec 1.002 1 Grav) [facility] [id number] 20:10:00 Test Item Value Reference Range Interpretation Comments BNP (test code = BNP) no gt [facility] netFactorannCARDIAC [id number] 20:10:00 Test Item Value Reference Range Interpretation Comments Troponin-I (test code no gt See_Comment [Auto mated message] The = Troponin-I) system which g enerated this result transmit narayan reference range : <=0.40. The reference r jodi was not used to interpr et this result as shreya l/abnormal. [facility] HospitalDraftstreetCARForaAC [id number] 20:10:00 Test Item Value Reference Range Interpretation Comments proBNP (test code = 30 See_Comment [Automa narayan message] The proBNP) system which ge nerated this result tra nsmitted reference range : <=125. The reference r jodi was not used to int erpret this result as shreya l/abnormal. [facility] Operating AnalyticsCHEM [id number] 20:10:00 Test Item Value Reference Range Interpretation Comments Lipase Lvl (test code = Lipase Lvl) 71 73-393 [facility] XujuiwbFMEUUPTHRHPQ5857-57-79 20:10:00 Test Item Value Reference Range Interpretation Comments AGAP (test code = AGAP) 15.9 10.0-20.0 [facility] OxkdjjtHDNHONRUQNZX8870-62-84 20:10:00 Test Item Value Reference Range Interpretation Comments A/G Ratio (test code = A/G Ratio) 0.7 1 0.7-1.6 [facility] AqrikfhFEUAOTZLWHKO5358-22-62 20:10:00 Test Item Value Reference Range Interpretation Comments Globulin (test code = Globulin) 4.8 2.7-4.2 [facility] RhjxgjmGDLRAURJDLMU0829-56-44 20:10:00 Test Item Value Reference Range Interpretation Comments B/C Ratio (test code = B/C Ratio) 6 1 6-25 [facility]KdrsppoEPKHSFSQFXNH2491-07-88 20:10:00 Test Item Value Reference Range Interpretation Comments eGFR (test code = eGFR) 99 [facility] HospitalZjnxaabUJJBVZFVMLGF4694-55-36 20:10:00 Test Item Value Reference Range Interpretation Comments Bili Total (test code = Bili Total) 0.5 0.2-1.3 [facility] HospitalPjleobnYZZGZEMPJGJG4295-08-87 20:10:00 Test Item Value Reference Range Interpretation Comments Alk Phos (test code = Alk Phos) 147 39-136 [facility] HospitalJxweyqxTQBSFFRNSCEU3466-34-40 20:10:00 Test Item Value Reference Range Interpretation Comments AST (test code = AST) 17 See_Comment [Auto mated message] The system which ge nerated this result transmit narayan reference range : <=37. The reference range was not used to interpr et this result as shreya l/abnormal. [facility] HospitalFqynddhXEFLJVXFJPOX3851-69-14 20:10:00 Test Item Value Reference Range Interpretation Comments ALT (test code = ALT) 18 See_Comment [Auto mated message] The system which ge nerated this result transmit narayan reference range : <=65. The reference range was not used to interpr et this result as shreya l/abnormal. [facility] HospitalDibjaiuBICPFBCHQZBB3661-28-32 20:10:00 Test Item Value Reference Range Interpretation Comments CO2 (test code = CO2) 21 24-32 [facility] HospitalUzbszluBAIQJZZRLCRN7522-93-77 20:10:00 Test Item Value Reference Range Interpretation Comments Calcium Lvl (test code = Calcium Lvl) 8.8 8.5-10.5 [facility] HospitalIuxdwmdMYGCIWPLVORN7572-53-52 20:10:00 Test Item Value Reference Range Interpretation Comments Chloride Lvl (test code = Chloride Lvl) 94 95-109 [facility] HospitalXknyoxaHLTSZHNWETPC5446-79-99 20:10:00 Test Item Value Reference Range Interpretation Comments Potassium Lvl (test code = Potassium 3.9 3.5-5.1 Lvl) [facility] HospitalKtahmbbEADLFSOCBWSX2553-69-67 20:10:00 Test Item Value Reference Range Interpretation Comments Sodium Lvl (test code = Sodium Lvl) 127 135-145 [facility] HospitalMriuitlLKLTDQAVWRRS7794-08-75 20:10:00 Test Item Value Reference Range Interpretation Comments BUN (test code = BUN) 4 7-22 [facility] HospitalLxsrkvuNTBYXHSQGUQM2496-71-23 20:10:00 Test Item Value Reference Range Interpretation Comments Creatinine Lvl (test code = Creatinine 0.66 0.50-1.40 Lvl) [facility] HospitalXxtllmnWJSRMAKZEOPR5140-43-07 20:10:00 Test Item Value Reference Range Interpretation Comments Glucose Lvl (test code = Glucose Lvl) 92 70-99 [facility] HospitalUgnedjqTEKWZWNHHTPK6436-80-13 20:10:00 Test Item Value Reference Range Interpretation Comments Albumin Lvl (test code = Albumin Lvl) 3.4 3.5-5.0 [facility] HospitalDmtkqzgXSJLLVNHEUOA0720-08-60 20:10:00 Test Item Value Reference Range Interpretation Comments Total Protein (test code = Total 8.2 6.4-8.4 Protein) [facility] HospitalYnadbysGZIVHVFHCE7350-85-81 20:10:00 Test Item Value Reference Range Interpretation Comments Basophils (test code = 0.9 See_Comment [Aut omated message] The Basophils) system which ge nerated this result tra nsmitted reference range : <=1.0. The reference r jodi was not used to int erpret this result as normal/abnormal . [facility] HospitalNholzlyEGSCFGJVXL6089-67-24 20:10:00 Test Item Value Reference Range Interpretation Comments Eosinophils (test code = 3.7 See_Comment [A utomated message] The Eosinophils) system which ge nerated this result tra nsmitted reference range : <=4.0. The reference r jodi was not used to int erpret this result as normal/abnormal . [facility] HospitalNevdpseFEAHYEFFSZ2088-75-29 20:10:00 Test Item Value Reference Range Interpretation Comments Monocytes (test code = Monocytes) 8.1 2.0-12.0 [facility] HospitalTurfafqAZZYXUNWAL8702-30-65 20:10:00 Test Item Value Reference Range Interpretation Comments Lymphocytes (test code = Lymphocytes) 15.5 20.0-40.0 [facility] HospitalIpkhvsmYFUAMPWIEJ9806-36-40 20:10:00 Test Item Value Reference Range Interpretation Comments Segs-Bands # (test code = Segs-Bands #) 14.3 1.5-8.1 [facility] HospitalXeuhwhiRUEKVEKTSF6057-27-52 20:10:00 Test Item Value Reference Range Interpretation Comments Segs (test code = Segs) 71.8 45.0-75.0 [facility] HospitalDnmfxzkPKDERIJBPT4342-25-23 20:10:00 Test Item Value Reference Range Interpretation Comments Basophils # (test code 0.2 See_Comment [Aut omated message] The = Basophils #) system which generated this result tra nsmitted reference range : <=0.2. The reference r jodi was not used to int erpret this result as normal/abnormal . [facility] HospitalOxngqmlGKCEUGVXEF8297-24-58 20:10:00 Test Item Value Reference Range Interpretation Comments Eosinophils # (test code 0.7 See_Comment [A utomated message] The = Eosinophils #) system whic h generated this result tra nsmitted reference range : <=0.5. The reference r jodi was not used to int erpret this result as normal/abnormal . [facility] HospitalEoauxhiYZVBKREYDW1241-89-65 20:10:00 Test Item Value Reference Range Interpretation Comments Monocytes # (test code 1.6 See_Comment [Aut omated message] The = Monocytes #) system which generated this result tra nsmitted reference range : <=0.8. The reference r jodi was not used to int erpret this result as normal/abnormal . [facility] HospitalDmfcgraUKKSZYTPBJ1225-10-83 20:10:00 Test Item Value Reference Range Interpretation Comments Lymphocytes # (test code = Lymphocytes 3.1 1.0-5.5 #) [facility] HospitalJklbkosJYASEWJDBV6769-03-73 20:10:00 Test Item Value Reference Range Interpretation Comments MCHC (test code = MCHC) 35.0 32.0-36.0 [facility] HospitalDwfhsbwMVKMYIHQAO2530-10-72 20:10:00 Test Item Value Reference Range Interpretation Comments RDW (test code = RDW) 14.1 11.5-14.5 [facility] HospitalHxeaugrDOWYPDNCTC0906-64-61 20:10:00 Test Item Value Reference Range Interpretation Comments MCH (test code = MCH) 33.1 pg 27.0-31.0 [facility] HospitalEcbvwegAZLPMOLZYD0838-09-40 20:10:00 Test Item Value Reference Range Interpretation Comments MCV (test code = MCV) 94.5 80.0-98.0 [facility] HospitalFbdpepfCMVYRFAECY3170-05-17 20:10:00 Test Item Value Reference Range Interpretation Comments MPV (test code = MPV) 7.5 7.4-10.4 [facility] HospitalSocypuzMUQFMYOMBW4895-99-08 20:10:00 Test Item Value Reference Range Interpretation Comments Platelet (test code = Platelet) 405 133-450 [facility] HospitalIhisqilXXKRVIOFQE5612-91-29 20:10:00 Test Item Value Reference Range Interpretation Comments RBC (test code = RBC) 4.56 4.20-5.40 [facility] HospitalXzkdbnpTTAWPQEIEF9622-36-96 20:10:00 Test Item Value Reference Range Interpretation Comments Hgb (test code = Hgb) 15.1 12.0-16.0 [facility] HospitalTftbqjiBBDBWDWZWC5980-28-31 20:10:00 Test Item Value Reference Range Interpretation Comments WBC (test code = WBC) 20.0 3.7-10.4 [facility] HospitalAjpijmcJHRLESPOUS1106-37-47 20:10:00 Test Item Value Reference Range Interpretation Comments Hct (test code = Hct) 43.1 36.0-48.0 [facility]2017-12-31 10:37:00 Test Item Value Reference Range Interpretation Comments eGFR (test code = eGFR) 116 [facility]2017-12-31 10:37:00 Test Item Value Reference Range Interpretation Comments AGAP (test code = AGAP) 12.7 10.0-20.0 [facility]2017-12-31 10:37:00 Test Item Value Reference Range Interpretation Comments CO2 (test code = CO2) 26 24-32 [facility]2017-12-31 10:37:00 Test Item Value Reference Range Interpretation Comments Sodium Lvl (test code = Sodium Lvl) 133 135-145 [facility]2017-12-31 10:37:00 Test Item Value Reference Range Interpretation Comments Potassium Lvl (test code = Potassium 3.7 3.5-5.1 Lvl) [facility]2017-12-31 10:37:00 Test Item Value Reference Range Interpretation Comments Chloride Lvl (test code = Chloride Lvl) 98 95-109 [facility]2017-12-31 10:37:00 Test Item Value Reference Range Interpretation Comments BUN (test code = BUN) 7 7-22 [facility]2017-12-31 10:37:00 Test Item Value Reference Range Interpretation Comments Creatinine Lvl (test code = Creatinine 0.40 0.50-1.40 Lvl) [facility]2017-12-31 10:37:00 Test Item Value Reference Range Interpretation Comments Glucose Lvl (test code = Glucose Lvl) 106 70-99 [facility]2017-12-31 10:37:00 Test Item Value Reference Range Interpretation Comments Calcium Lvl (test code = Calcium Lvl) 8.5 8.5-10.5 [facility]2017-12-31 10:37:00 Test Item Value Reference Range Interpretation Comments Magnesium Lvl (test code = Magnesium 2.3 1.8-2.4 Lvl) [facility] HospitalJqvipjnDKDFFHBGRR2684-99-40 10:37:00 Test Item Value Reference Range Interpretation Comments Hct (test code = Hct) 35.3 36.0-48.0 [place] [address]-12-31 10:37:00 Test Item Value Reference Range Interpretation Comments RBC (test code = RBC) 3.71 4.20-5.40 [facility] HospitalBhyzomqWCQHYIFVSS9770-84-22 10:37:00 Test Item Value Reference Range Interpretation Comments Hgb (test code = Hgb) 11.9 12.0-16.0 [place] 839657-12-31 10:37:00 Test Item Value Reference Range Interpretation Comments MCV (test code = MCV) 95.1 80.0-98.0 [place] [address]-12-31 10:37:00 Test Item Value Reference Range Interpretation Comments MCHC (test code = MCHC) 33.8 32.0-36.0 [facility] HospitalZyfyzmnZZCCBYEVEX1960-99-69 10:37:00 Test Item Value Reference Range Interpretation Comments MCH (test code = MCH) 32.2 pg 27.0-31.0 [place] [address]-12-31 10:37:00 Test Item Value Reference Range Interpretation Comments MPV (test code = MPV) 7.7 7.4-10.4 [facility] HospitalWdbebzxGVAIQVVOFS8844-29-70 10:37:00 Test Item Value Reference Range Interpretation Comments RDW (test code = RDW) 13.7 11.5-14.5 [facility] HospitalChpzqzbBLPHFCXLQI4316-93-62 10:37:00 Test Item Value Reference Range Interpretation Comments Platelet (test code = Platelet) 496 711-848 [facility] HospitalYbzpufoXZHUWHOJJX0172-06-47 10:37:00 Test Item Value Reference Range Interpretation Comments WBC (test code = WBC) 18.2 3.7-10.4 [facility] HospitalPgyodgtUXPDDSPXKK8813-80-17 10:37:00 Test Item Value Reference Range Interpretation Comments Segs-Bands # (test code = Segs-Bands #) 12.4 1.5-8.1 [facility] HospitalZpvigttZTWLBTHXEV4602-08-42 10:37:00 Test Item Value Reference Range Interpretation Comments Basophils (test code = 0.4 See_Comment [Aut omated message] The Basophils) system which ge nerated this result tra nsmitted reference range : <=1.0. The reference r jodi was not used to int erpret this result as normal/abnormal . [facility] HospitalGpydusaWAASKJSVDC9948-74-08 10:37:00 Test Item Value Reference Range Interpretation Comments Segs (test code = Segs) 68.0 45.0-75.0 [facility] HospitalCllshayGLUOWANWTJ9451-21-69 10:37:00 Test Item Value Reference Range Interpretation Comments Lymphocytes (test code = Lymphocytes) 20.1 20.0-40.0 [facility] HospitalWqxmjmxPZXDAYIQAT1466-52-40 10:37:00 Test Item Value Reference Range Interpretation Comments Monocytes (test code = Monocytes) 9.3 2.0-12.0 [facility] HospitalXcbmorpSENVGBEQCB5423-40-25 10:37:00 Test Item Value Reference Range Interpretation Comments Eosinophils (test code = 2.2 See_Comment [A utomated message] The Eosinophils) system which ge nerated this result tra nsmitted reference range : <=4.0. The reference r jodi was not used to int erpret this result as normal/abnormal . [facility] HospitalYnyneqeQCKJUQOCTE9520-64-78 10:37:00 Test Item Value Reference Range Interpretation Comments Basophils # (test code 0.1 See_Comment [Aut omated message] The = Basophils #) system which generated this result tra nsmitted reference range : <=0.2. The reference r jodi was not used to int erpret this result as normal/abnormal . [facility] HospitalPsdrevlEZBTHBCSHP3648-61-83 10:37:00 Test Item Value Reference Range Interpretation Comments Eosinophils # (test code 0.4 See_Comment [A utomated message] The = Eosinophils #) system whic h generated this result tra nsmitted reference range : <=0.5. The reference r jodi was not used to int erpret this result as normal/abnormal . [facility] HospitalAvprosnJEKSDJUYVS7784-63-54 10:37:00 Test Item Value Reference Range Interpretation Comments Monocytes # (test code 1.7 See_Comment [Aut omated message] The = Monocytes #) system which generated this result tra nsmitted reference range : <=0.8. The reference r jodi was not used to int erpret this result as normal/abnormal . [facility] HospitalYlsvnzgXUOYAACZSV8579-41-25 10:37:00 Test Item Value Reference Range Interpretation Comments Lymphocytes # (test code = Lymphocytes 3.7 1.0-5.5 #) [facility]2017-12-30 15:39:00 Test Item Value Reference Range Interpretation Comments eGFR (test code = eGFR) 102 [facility]2017-12-30 15:39:00 Test Item Value Reference Range Interpretation Comments Chloride Lvl (test code = Chloride Lvl) 93 95-109 [facility]2017-12-30 15:39:00 Test Item Value Reference Range Interpretation Comments CO2 (test code = CO2) 23 24-32 [facility]2017-12-30 15:39:00 Test Item Value Reference Range Interpretation Comments Calcium Lvl (test code = Calcium Lvl) 8.3 8.5-10.5 [facility]2017-12-30 15:39:00 Test Item Value Reference Range Interpretation Comments Sodium Lvl (test code = Sodium Lvl) 129 135-145 [facility]2017-12-30 15:39:00 Test Item Value Reference Range Interpretation Comments Potassium Lvl (test code = Potassium 3.5 3.5-5.1 Lvl) [facility]2017-12-30 15:39:00 Test Item Value Reference Range Interpretation Comments BUN (test code = BUN) 7 7-22 [facility]2017-12-30 15:39:00 Test Item Value Reference Range Interpretation Comments Creatinine Lvl (test code = Creatinine 0.61 0.50-1.40 Lvl) [facility]2017-12-30 15:39:00 Test Item Value Reference Range Interpretation Comments Glucose Lvl (test code = Glucose Lvl) 148 70-99 [facility]2017-12-30 15:39:00 Test Item Value Reference Range Interpretation Comments AGAP (test code = AGAP) 16.5 10.0-20.0 [facility]2017-12-30 15:39:00 Test Item Value Reference Range Interpretation Comments Magnesium Lvl (test code = Magnesium 2.0 1.8-2.4 Lvl) [facility] HospitalRftsfpoQDBDDHRDHP8784-02-07 15:39:00 Test Item Value Reference Range Interpretation Comments Platelet (test code = Platelet) 519 133-450 [facility] HospitalNjtxiutHIUBFNGWFF7832-99-70 15:39:00 Test Item Value Reference Range Interpretation Comments MPV (test code = MPV) 8.0 7.4-10.4 [facility] HospitalOukuxcgEUWKURNZJS7378-10-90 15:39:00 Test Item Value Reference Range Interpretation Comments WBC (test code = WBC) 16.0 3.7-10.4 [facility] HospitalWrccqbeJCLMWPFFWF3031-73-08 15:39:00 Test Item Value Reference Range Interpretation Comments RBC (test code = RBC) 3.82 4.20-5.40 [facility] HospitalCrvzdllTLRDLKSMLO6559-74-22 15:39:00 Test Item Value Reference Range Interpretation Comments Hct (test code = Hct) 37.2 36.0-48.0 [facility] HospitalDbmlehwCHNRMAEJWD4229-80-43 15:39:00 Test Item Value Reference Range Interpretation Comments Hgb (test code = Hgb) 12.6 12.0-16.0 [facility] HospitalRvevrrqPYPDZBRRDN1304-30-73 15:39:00 Test Item Value Reference Range Interpretation Comments MCV (test code = MCV) 97.2 80.0-98.0 [facility] HospitalOwxyeugLNLQNKPPJO6439-42-58 15:39:00 Test Item Value Reference Range Interpretation Comments MCHC (test code = MCHC) 34.0 32.0-36.0 [facility] HospitalGprmhltEHCHJICGKF8536-84-60 15:39:00 Test Item Value Reference Range Interpretation Comments MCH (test code = MCH) 33.1 pg 27.0-31.0 [facility] HospitalIckyefcYFLWHAPHUO4755-73-46 15:39:00 Test Item Value Reference Range Interpretation Comments RDW (test code = RDW) 13.3 11.5-14.5 [facility] HospitalOynvdcsDNNXLVVHMU4413-28-29 15:39:00 Test Item Value Reference Range Interpretation Comments Atypical Lymphs (test code = Atypical 1.0 Lymphs) [facility] HospitalTtwoypbJCXQHKZXII6185-22-42 15:39:00 Test Item Value Reference Range Interpretation Comments RBC Morph (test code = Normal (10/29/17 9:39 RBC Morph) AM) [facility] HospitalJjbghzeCUXSLTFBYG6170-02-01 15:39:00 Test Item Value Reference Range Interpretation Comments Metamyelocytes (test code 3.0 See_Comment [ Automated message] = Metamyelocytes) The system which generated this result transmitted ref erence range: <=1.0. T he reference range was not used to int erpret this result as normal/abnormal . [facility] HospitalZhiaelxFFHLWKQDYU8590-82-18 15:39:00 Test Item Value Reference Range Interpretation Comments Eosinophils (test code = 4.0 See_Comment [A utomated message] The Eosinophils) system which ge nerated this result tra nsmitted reference range : <=4.0. The reference r jodi was not used to int erpret this result as normal/abnormal . [facility] HospitalBomfhnwCPINZRKWLH5509-91-48 15:39:00 Test Item Value Reference Range Interpretation Comments Monocytes (test code = Monocytes) 13.0 2.0-12.0 [facility] HospitalHwklllbEOBNWFVRMO8187-21-72 15:39:00 Test Item Value Reference Range Interpretation Comments Plt Morph (test code = Clumped (10/29/17 9:39 Plt Morph) AM) [facility] HospitalPackycbATCHPQYSUS9301-67-69 15:39:00 Test Item Value Reference Range Interpretation Comments Segs (test code = Segs) 60.0 45.0-75.0 [facility] HospitalKynacfbYWAHSTVYIG1239-67-08 15:39:00 Test Item Value Reference Range Interpretation Comments Monocytes # (test code 2.1 See_Comment [Aut omated message] The = Monocytes #) system which generated this result tra nsmitted reference range : <=0.8. The reference r jodi was not used to int erpret this result as normal/abnormal . [facility] HospitalXpotjwpVMTYQNBXTM1992-39-91 15:39:00 Test Item Value Reference Range Interpretation Comments Bands (test code = 0.0 See_Comment [Automat ed message] The Bands) system which ge nerated this result transmit narayan reference range : <=11.0. The reference r jodi was not used to interpr et this result as shreya l/abnormal. [facility] HospitalBplmvkgAKGVPQXKQX1419-84-28 15:39:00 Test Item Value Reference Range Interpretation Comments Eosinophils # (test code 0.6 See_Comment [A utomated message] The = Eosinophils #) system whic h generated this result tra nsmitted reference range : <=0.5. The reference r jodi was not used to int erpret this result as normal/abnormal . [facility] HospitalBdvuqnfVLBQPEXDTN8073-38-18 15:39:00 Test Item Value Reference Range Interpretation Comments Lymphocytes (test code = Lymphocytes) 19.0 20.0-40.0 [facility] HospitalZqkntqjAGNDQMLNHE1053-97-19 15:39:00 Test Item Value Reference Range Interpretation Comments Lymphocytes # (test code = Lymphocytes 3.2 1.0-5.5 #) [facility] HospitalZtiwhdbVBRAYGIYMF2677-34-79 15:39:00 Test Item Value Reference Range Interpretation Comments Segs-Bands # (test code = Segs-Bands #) 9.6 1.5-8.1 [facility] FDLVM8035-63-27 12:40:00 Test Item Value Reference Range Interpretation Comments Magnesium Lvl (test code = Magnesium 2.4 1.8-2.4 Lvl) [facility]BrxmgreZHGDMKOZZWRC4371-82-32 12:40:00 Test Item Value Reference Range Interpretation Comments Chloride Lvl (test code = Chloride Lvl) 96 95-109 [facility] HospitalTjtuptuWAARKYPOJLEY9312-18-10 12:40:00 Test Item Value Reference Range Interpretation Comments Potassium Lvl (test code = Potassium 3.4 3.5-5.1 Lvl) [facility] HospitalMbwjmltGNQAOQMQQNGB9682-32-67 12:40:00 Test Item Value Reference Range Interpretation Comments Calcium Lvl (test code = Calcium Lvl) 8.5 8.5-10.5 [facility] HospitalMhdfkhwWLAYNNCMNBWS4887-31-99 12:40:00 Test Item Value Reference Range Interpretation Comments CO2 (test code = CO2) 28 24-32 [facility] HospitalTshjellBSJDWHPHHNES4611-61-42 12:40:00 Test Item Value Reference Range Interpretation Comments BUN (test code = BUN) 6 7-22 [facility]LrejdrmGNGFHVAFJCWL3676-65-27 12:40:00 Test Item Value Reference Range Interpretation Comments Glucose Lvl (test code = Glucose Lvl) 119 70-99 [facility]HmcgkrxCOBRWTVOWXNK1804-69-34 12:40:00 Test Item Value Reference Range Interpretation Comments Creatinine Lvl (test code = Creatinine 0.41 0.50-1.40 Lvl) [facility] HospitalEogaziwFMKQJWKPXOAO5426-98-02 12:40:00 Test Item Value Reference Range Interpretation Comments Sodium Lvl (test code = Sodium Lvl) 132 135-145 [facility] HospitalZpsofvwZBXMSYQUSZSR9518-19-26 12:40:00 Test Item Value Reference Range Interpretation Comments eGFR (test code = eGFR) 116 [facility] HospitalMdeisayIVRFNCXKMYHW8988-41-60 12:40:00 Test Item Value Reference Range Interpretation Comments AGAP (test code = AGAP) 11.4 10.0-20.0 [facility]ZuguslhKMXDWTAUPC2118-05-44 12:40:00 Test Item Value Reference Range Interpretation Comments MPV (test code = MPV) 7.9 7.4-10.4 [facility] HospitalUqviuplESUPHNTFTT9067-20-44 12:40:00 Test Item Value Reference Range Interpretation Comments Platelet (test code = Platelet) 481 133-450 [facility] HospitalPtemohoEOHCCKDAJD0073-05-29 12:40:00 Test Item Value Reference Range Interpretation Comments RDW (test code = RDW) 13.3 11.5-14.5 [facility] HospitalOpylymaCIUHOPZJFZ7567-00-94 12:40:00 Test Item Value Reference Range Interpretation Comments MCHC (test code = MCHC) 33.9 32.0-36.0 [facility] HospitalZkoeeevSPDZYOGVWN4718-00-72 12:40:00 Test Item Value Reference Range Interpretation Comments RBC (test code = RBC) 3.89 4.20-5.40 [facility] HospitalNvmblopDOLEBGYTYL3367-95-02 12:40:00 Test Item Value Reference Range Interpretation Comments WBC (test code = WBC) 18.2 3.7-10.4 [facility] HospitalPndcmshEIQMPENVCG8432-57-26 12:40:00 Test Item Value Reference Range Interpretation Comments Hgb (test code = Hgb) 12.5 12.0-16.0 [facility] HospitalLuaniudDTYHHRKZXU6085-46-34 12:40:00 Test Item Value Reference Range Interpretation Comments MCV (test code = MCV) 94.9 80.0-98.0 [facility] HospitalUosxokfYNYCZYAVZI4329-64-15 12:40:00 Test Item Value Reference Range Interpretation Comments MCH (test code = MCH) 32.2 pg 27.0-31.0 [facility] HospitalRoukqelCAMTQMYPAR4835-71-16 12:40:00 Test Item Value Reference Range Interpretation Comments Hct (test code = Hct) 36.9 36.0-48.0 [facility] HospitalDywchqpENYOWMMDEW6217-60-52 12:40:00 Test Item Value Reference Range Interpretation Comments Lymphocytes # (test code = Lymphocytes 2.9 1.0-5.5 #) [facility] HospitalXvvduahANKWIIZOUK9956-05-97 12:40:00 Test Item Value Reference Range Interpretation Comments Eosinophils # (test code 0.2 See_Comment [A utomated message] The = Eosinophils #) system whic h generated this result tra nsmitted reference range : <=0.5. The reference r jodi was not used to int erpret this result as normal/abnormal . [facility] HospitalOkbtsnvKPYNHWQWUK6797-80-10 12:40:00 Test Item Value Reference Range Interpretation Comments Monocytes # (test code 1.3 See_Comment [Aut omated message] The = Monocytes #) system which generated this result tra nsmitted reference range : <=0.8. The reference r jodi was not used to int erpret this result as normal/abnormal . [facility] HospitalRgbaehyRHOYPQMGFC4267-51-33 12:40:00 Test Item Value Reference Range Interpretation Comments Basophils # (test code 0.1 See_Comment [Aut omated message] The = Basophils #) system which generated this result tra nsmitted reference range : <=0.2. The reference r jodi was not used to int erpret this result as normal/abnormal . [facility] HospitalGzewjilQEHLZKDAFR0195-58-20 12:40:00 Test Item Value Reference Range Interpretation Comments Segs-Bands # (test code = Segs-Bands #) 13.6 1.5-8.1 [facility] HospitalUnupbsiBOIXDSCHIL3421-49-42 12:40:00 Test Item Value Reference Range Interpretation Comments Basophils (test code = 0.7 See_Comment [Aut omated message] The Basophils) system which ge nerated this result tra nsmitted reference range : <=1.0. The reference r jodi was not used to int erpret this result as normal/abnormal . [facility] HospitalYiratqjLGDTBLYBPV9994-97-68 12:40:00 Test Item Value Reference Range Interpretation Comments Eosinophils (test code = 1.3 See_Comment [A utomated message] The Eosinophils) system which ge nerated this result tra nsmitted reference range : <=4.0. The reference r jodi was not used to int erpret this result as normal/abnormal . [facility] HospitalTyxxntjHGACAVJUIO3548-30-02 12:40:00 Test Item Value Reference Range Interpretation Comments Monocytes (test code = Monocytes) 7.2 2.0-12.0 [facility] HospitalVtxusanHBNOVXTBYV9521-62-22 12:40:00 Test Item Value Reference Range Interpretation Comments Lymphocytes (test code = Lymphocytes) 16.2 20.0-40.0 [facility] HospitalTficfdgCEOUORRSTE8058-29-99 12:40:00 Test Item Value Reference Range Interpretation Comments Segs (test code = Segs) 74.6 45.0-75.0 [facility] HospitalRcsosauNMKVOCLALX8373-97-75 12:26:00 Test Item Value Reference Range Interpretation Comments Basophils (test code = 0.6 See_Comment [Aut omated message] The Basophils) system which ge nerated this result tra nsmitted reference range : <=1.0. The reference r jodi was not used to int erpret this result as normal/abnormal . [facility] HospitalHvkmkapPCKOUETHTD6163-71-53 12:26:00 Test Item Value Reference Range Interpretation Comments Basophils # (test code 0.1 See_Comment [Aut omated message] The = Basophils #) system which generated this result tra nsmitted reference range : <=0.2. The reference r jodi was not used to int erpret this result as normal/abnormal . [facility] HospitalZdzztlkNEWQJGULPT0585-80-29 12:26:00 Test Item Value Reference Range Interpretation Comments RBC Morph (test code = Normal (10/26/17 6:26 RBC Morph) AM) [facility] HospitalOydadinEEQAWTLOOV0994-97-25 12:26:00 Test Item Value Reference Range Interpretation Comments Plt Morph (test code = Normal (10/26/17 6:26 Plt Morph) AM) [facility] MFMYCWP1986-79-15 05:00:00 Test Item Value Reference Range Interpretation Comments BNP (test code = BNP) [facility] LNCNVPY2385[facility]70[facility]40 05:00:00 Test Item Value Reference Range Interpretation Comments Troponin-I (test code no gt See_Comment [Auto mated message] The = Troponin-I) system which g enerated this result transmit narayan reference range : <=0.40. The reference r jodi was not used to interpr et this result as shreya l/abnormal. [facility]Lett[facility] [id number] 05:00:00 Test Item Value Reference Range Interpretation Comments A/G Ratio (test code = A/G Ratio) 0.4 0.7-1.6 [facility]2017-12-25 05:00:00 Test Item Value Reference Range Interpretation Comments Globulin (test code = Globulin) 5.0 2.7-4.2 [facility]Lett[facility] PUKCE9747-00-17 05:00:00 Test Item Value Reference Range Interpretation Comments B/C Ratio (test code = B/C Ratio) 22 -25 [facility]Lett[facility] [id number] 05:00:00 Test Item Value Reference Range Interpretation Comments AST (test code = AST) 23 See_Comment [Auto mated message] The system which ge nerated this result transmit narayan reference range : <=37. The reference range was not used to interpr et this result as shreya l/abnormal. [facility]Lett[facility] [id number] 05:00:00 Test Item Value Reference Range Interpretation Comments ALT (test code = ALT) 21 See_Comment [Auto mated message] The system which ge nerated this result transmit narayan reference range : <=65. The reference range was not used to interpr et this result as shreya l/abnormal. [facility]Lett[facility] [id number] 05:00:00 Test Item Value Reference Range Interpretation Comments Albumin Lvl (test code = Albumin Lvl) 2.0 3.5-5.0 [facility]Lett[facility] [id number] 05:00:00 Test Item Value Reference Range Interpretation Comments Total Protein (test code = Total 7.0 6.4-8.4 Protein) [facility] HospitalDraftstreetFORMERLY [facility] SUR[facility] COUNTYLDDGZ7988-82-17 05:00:00 Test Item Value Reference Range Interpretation Comments Alk Phos (test code = Alk Phos) 79 39-136 [facility] HospitalLettuce [id number] 05:00:00 Test Item Value Reference Range Interpretation Comments Bili Total (test code = Bili Total) 0.2 0.2-1.3 [facility] HospitalGhebesoNQQEASLQUB7580-31-81 05:00:00 Test Item Value Reference Range Interpretation Comments Neut Vac (test code = Neut Vac) Slight [facility] HospitalUjwsjyrUVADLTUBUX9288-21-04 05:00:00 Test Item Value Reference Range Interpretation Comments Toxic Gran (test code Moderate *ABN*(10/23/17 = Toxic Gran) 11:00 PM) [facility] HospitalGllvhxgSZXLYUQAEG0227-73-52 05:00:00 Test Item Value Reference Range Interpretation Comments Plt Morph (test code = Normal (10/23/17 11:00 Plt Morph) PM) [facility] HospitalLxnmuopSMSFTYWZUY1002-55-65 05:00:00 Test Item Value Reference Range Interpretation Comments RBC Morph (test code = Normal (10/23/17 11:00 RBC Morph) PM) [facility] HospitalMjhgqpnKEJZSMCZLN9842-05-57 05:00:00 Test Item Value Reference Range Interpretation Comments PT (test code = PT) 13.0 s 12.0-14.7 [facility] HospitalIcfzbuxXIUAOIPGRN0076-61-06 05:00:00 Test Item Value Reference Range Interpretation Comments PTT (test code = PTT) 31.2 s 22.9-35.8 [facility] HospitalMbgmirhKBSKXTMCHN0006-20-20 05:00:00 Test Item Value Reference Range Interpretation Comments INR (test code = INR) 0.98 0.85-1.17 [facility]
[2022-07-14] MEDS ORDERED: NA CHLORIDE 0.9% 250 ML ONE ×2 (12:59→14:02)
[2022-07-14] MEDS ORDERED: dilTIAZem HCL 25 MG/5 ML VIAL IV ONE (12:59)
[2022-07-14] MEDS ORDERED: MAGNESIUM SULFATE 1 gm IVPB 1 GM/100 ML BAG IV ONE (12:59)
[2022-07-14 13:12] LABS: Absolute Lymphocytes (CBC) 2.2 K/uL (0.7-4.9); Hematocrit 36.4 % (36.0-45.0); Lymphocytes % 20.6 % (15.3-44.8); MCV 96.8 fL (80-100); MPV 7.7 fL (7.6-11.3); RBC Red Blood Cell Count 3.75 M/uL (3.86-4.86)
[2022-07-14 13:17] LABS: Protime INR 0.98
[2022-07-14 13:32] LABS: Bicarbonate 26 mmol/L (21-32); Glomerular Filtration Rate 108 ml/min (=/>90); Glucose Level 165 mg/dL (74-106); NT PRO-BNP 5007 pg/mL (<125); Sodium Level 139 mmol/L (136-145); Troponin High Sensitivity 8.7 pg/mL (<58.9)
[2022-07-14 13:33] LABS: BUN Blood Urea Nitrogen < 3 mg/dL (7-18)
[2022-07-14 13:35] LABS: Potassium 2.8 mmol/L (3.5-5.1)
[2022-07-14] MEDS ORDERED: KCL 20 MEQ/100 mL IVPB 100 ML IV ONE (14:02)
--- NOTE | 2022-07-14 14:46 | RAD REPORT ---
EXAM DESCRIPTION: RAD - Chest Single View - 07/14/2022 2:37 pm CLINICAL HISTORY: Chest pain COMPARISON: Chest Pa And Lat (2 Views) dated 10/20/2017; Chest Single View dated 10/19/2017; CHEST S THOMAS VIEW dated 05/30/2015; CHEST PA AND LAT 2 VIEW dated 03/22/2012 FINDINGS: Lines: None. Lungs: Increased interstitial markings in the lung bases are nonspecific. Calcified lung nodules. Pleural: No significant pleural effusions or pneumothorax. Cardiac: The heart size is within normal limits. Mediastinum: Within normal limits. Bones: No acute fractures. Other: None IMPRESSION: Increased prominence of pulmonary interstitial markings in the lower lungs bilaterally f avored technique related. No definite acute process identified.
--- NOTE | 2022-07-14 15:58 | ER ---
Nurse's Notes [facility] Name: Tonya Michael Age: 62 yrs Sex: Female : 1960 Arrival Date: 07/14/2022 Time: 12:44 Bed 17 Private MD: Kaushal Johnston Diagnosis: Paroxysmal atrial fibrillation;Tachycardia, unspecified;COPD/ Chronic obstructive pulmonary disease with (acute) exacerbation Presentation: 07/14 12:40 Acuity: MARGARET 1 jl7 12:40 Chief complaint: EMS states: Toned out for SOB, gave 125 mg Solu-medrol and NEB jl7 treatment; noted pt in A Fib RVR gave 17.5 mg Cardizem X2,. Pt remains in A.fib on arrival to ED. 12:40 Coronavirus screen: Vaccine status: Patient reports receiving the 2nd dose of the covid jl7 vaccine. At this time, the client does not indicate any symptoms associated with coronavirus-19. Ebola Screen: No symptoms or risks identified at this time. Initial Sepsis Screen: Does the patient meet any 2 criteria? No. Patient's initial sepsis screen is negative. Does the patient have a suspected source of infection? No. Patient's initial sepsis screen is negative. Risk Assessment: Do you want to hurt yourself or someone else? Patient reports no desire to harm self or others. Onset of symptoms was July 14, 2022. Care prior to arrival: Medication(s) given: Albuterol Neb x 1, 17.5 mg Cardizem IVP x 2 IV initiated. 18 GA, in the right forearm, \T\ 22 in left hand. 12:40 Method Of Arrival: EMS: [facility] jl7 Triage Assessment: 12:40 General: Appears in no apparent distress. uncomfortable, Behavior is calm, cooperative, jl7 appropriate for age. Pain: Denies pain. Historical: - Allergies: 14:00 No Known Allergies; jl7 - Home Meds: 14:00 Keppra 500 mg Oral tab 1 tab 2 times per day [Active]; losartan 50 mg oral tab 1 tab jl7 once daily [Active]; paroxetine HCl 40 mg oral tab 1 tab once daily [Active]; metoprolol succinate 25 mg oral Tb24 2 tabs once daily [Active]; - PMHx: 14:00 CHF; COPD; Atrial fibrillation; jl7 - PSHx: 14:00 Cholecystectomy; jl7 - Immunization history:: Client reports receiving the 2nd dose of the Covid vaccine. - Social history:: Smoking status: Patient reports the use of cigarette tobacco products, smokes one-half pack cigarettes per day. Screenin:11 Abuse screen: Denies threats or abuse. Denies injuries from another. Nutritional ph screening: No deficits noted. Tuberculosis screening: No symptoms or risk factors identified. Fall Risk No fall in past 12 months (0 pts). No secondary diagnosis (0 pts). IV access (20 points). Ambulatory Aid- None/Bed Rest/Nurse Assist (0 pts). Gait- Weak (10 pts.). Mental Status- Oriented to own ability (0 pts). Total Hansen Fall Scale indicates Low Risk Score (25-44 pts). Fall prevention measures have been instituted. Side Rails Up X 2 Placed close to Nursing Station Frequent Obs/Assesments occuring Family Present and informed to notify staff if they need to leave bedside As available Patient and Family Educated on Fall Prevention Program and strategies. Assessment: 13:45 Reassessment: Pt cardiac rhythm converted to sinus rhythm, ERD notified, repeat EKG jl7 done. 14:10 Reassessment: Patient appears in no apparent distress at this time. Patient and/or ph family updated on plan of care and expected duration. Pain level reassessed. Patient is alert, oriented x 3, equal unlabored respirations, skin warm/dry/pink. 15:00 Reassessment: Patient appears in no apparent distress at this time. Patient and/or jl7 family updated on plan of care and expected duration. Pain level reassessed. Patient is alert, oriented x 3, equal unlabored respirations, skin warm/dry/pink. Patient states feeling better. Patient states symptoms have improved. 16:00 Reassessment: Patient appears in no apparent distress at this time. No changes from jl7 previously documented assessment. Patient and/or family updated on plan of care and expected duration. Pain level reassessed. Patient is alert, oriented x 3, equal unlabored respirations, skin warm/dry/pink. Pt's remains at bedside. 17:00 Reassessment: Patient appears in no apparent distress at this time. No changes from jl7 previously documented assessment. Patient and/or family updated on plan of care and expected duration. Pain level reassessed. Patient is alert, oriented x 3, equal unlabored respirations, skin warm/dry/pink. 18:00 Reassessment: Patient appears in no apparent distress at this time. No changes from jl7 previously documented assessment. Patient and/or family updated on plan of care and expected duration. Pain level reassessed. Patient is alert, oriented x 3, equal unlabored respirations, skin warm/dry/pink. Vital Signs: 12:40 BP 109 / 93; Pulse 144; Resp 23; Temp 98.4; Pulse Ox 97% on R/A; Weight 82.5 kg; Height jl7 5 ft. 4 in. (162.56 cm); Pain 0/10; 12:54 BP 120 / 80; Pulse 141; Resp 19; Pulse Ox 97% ; jl7 13:15 BP 123 / 80; Pulse 130; Resp 20; Pulse Ox 92% ; jl7 13:30 BP 125 / 76; Pulse 135; Resp 22; Pulse Ox 93% ; jl7 13:45 BP 119 / 71; Pulse 87; Resp 17; Pulse Ox 93% ; jl7 14:10 BP 97 / 69; Pulse 84; Resp 18; Pulse Ox 96% on R/A; ph 14:30 BP 120 / 78; Pulse 82; Resp 18; Pulse Ox 92% ; jl7 15:00 BP 125 / 73; Pulse 79; Resp 20; Pulse Ox 91% ; jl7 15:30 BP 115 / 70; Pulse 83; Resp 19; Pulse Ox 93% ; jl7 16:15 BP 120 / 68; Pulse 85; Resp 16; Pulse Ox 96% ; jl7 17:00 BP 127 / 76; Pulse 92; Resp 19; Pulse Ox 96% ; jl7 17:45 BP 111 / 68; Pulse 87; Resp 16; Pulse Ox 94% ; jl7 18:30 BP 130 / 80; Pulse 82; Resp 16; Pulse Ox 93% on R/A; jl7 12:40 Body Mass Index 31.22 (82.50 kg, 162.56 cm) jl7 Vitals: 14:10 Cardiac Rhythm Assessment Regular. ED Course: 12:40 Arm band placed on right wrist. jl7 12:44 Patient arrived in ED. rn 12:45 Kaushal Johnston MD is Attending Physician. rn 13:18 Bill Brunner RN is Primary Nurse. jl7 13:19 Triage completed. jl7 13:30 No provider procedures requiring assistance completed. Initial lab(s) drawn, by po obando sent to lab. EKG done, by ED staff, reviewed by Kaushal Johnston MD. 14:11 Patient has correct armband on for positive identification. Placed in gown. Bed in low ph position. Call light in reach. Side rails up X2. Client placed on continuous cardiac and pulse oximetry monitoring. NIBP monitoring applied. 14:11 Maintain EMS IV. Dressing intact. Good blood return noted. Site clean \T\ dry. Gauge \T\ ph site: 18G RFA. 14:39 XRAY Chest (1 view) In Process Unspecified. EDMS 15:57 Thai Ronquillo MD is Hospitalizing Provider. rn 19:27 Attending Physician role handed off by Kaushal Johnston MD tw5 19:41 Marcia Gonzalez F[facility]-C [facility]. kb 19:41 Milind Neves MD is Attending Physician. kb 20:12 Kaushal Johnston MD is Private Physician. kdr 23:15 Primary Nurse role handed off by Bill Brunner RN 07/15 05:24 Sonja Hill is Primary Nurse. tw5 05:24 Patient admitted, IV remains in place. tw5 Administered Medications: 07/14 12:48 Drug: Cardizem (diltiazem) 20 mg Route: IVP; Site: right forearm; jl7 13:45 Follow up: Response: No adverse reaction; Cardiac rhythm changed jl7 12:48 Drug: NS 0.9% 250 ml Route: IV; Rate: 1 bolus; Site: right forearm; jl7 16:10 Follow up: Response: No adverse reaction; IV Status: Completed infusion; IV Intake: jl7 250ml 12:51 Drug: Magnesium Sulfate 1 grams Route: IVPB; Infused Over: 1 hrs; Site: right upper arm;jl7 13:20 Follow up: Response: No adverse reaction; IV Status: Infusion continued jl7 14:10 Drug: Potassium Chloride 20 mEq Route: IV; Rate: calculated rate; Site: right forearm; ph 16:10 Follow up: Response: No adverse reaction; IV Status: Completed infusion jl7 Medication: 14:11 VIS not applicable for this client. ph Intake: 16:10 IV: 250ml; Total: 250ml. jl7 Outcome: 15:58 Decision to Hospitalize by Provider. rn 19:23 Patient left the ED. jl7 07/15 05:24 Admitted to Med/surg tw5 Admitted to ER Hold. Please see [facility] for further documentation. Condition: stable Instructed on 05:40 Patient left the ED. bb Signatures: Dispatcher [employer] EDMS Marcia Gonzalez, GRANITE BLOCK PAVER-C GRANITE BLOCK PAVER-CkMilind Canales MD MD kdr Ballard, Brenda RN RN bb Kaushal Johnston MD MD rn Hall, Patricia, RN RN Bill Brunner RN RN [place] [facility]
--- NOTE | 2022-07-14 15:59 | EDPHYS ---
Physician Documentation [facility] Name: Tonya Michael Age: 62 yrs Sex: Female : 1960 Arrival Date: 07/14/2022 Time: 12:44 Bed 17 Private MD: Kaushal Johnston ED Physician HPI: 07/14 15:49 This 62 yrs old Female presents to ER via EMS with complaints of A Fib RVR. rn 15:49 The patient presents with a history of irregular heart beat, heart racing. Onset: The rn symptoms/episode began/occurred this morning. Duration: The patient or guardian reports a single episode. Modifying factors: The symptoms are aggravated by nothing. The symptoms are alleviated by nothing. Severity of symptoms: At their worst the symptoms were severe. The patient has experienced similar episodes in the past. The patient has been recently seen by a physician:. Pt reports sob and palpitations, heart racing, began today. Has hx of afib. States last week "" and flown to [facility]. EMS reports that they ran on her, was resp failure, intubated and coded, life flight resuscitated. + chest pain and sob. . Historical: - Allergies: 14:00 No Known Allergies; jl7 - Home Meds: 14:00 Keppra 500 mg Oral tab 1 tab 2 times per day [Active]; losartan 50 mg oral tab 1 tab jl7 once daily [Active]; paroxetine HCl 40 mg oral tab 1 tab once daily [Active]; metoprolol succinate 25 mg oral Tb24 2 tabs once daily [Active]; - PMHx: 14:00 CHF; COPD; Atrial fibrillation; jl7 - PSHx: 14:00 Cholecystectomy; jl7 - Immunization history:: Client reports receiving the 2nd dose of the Covid vaccine. - Social history:: Smoking status: Patient reports the use of cigarette tobacco products, smokes one-half pack cigarettes per day. ROS: 15:52 Constitutional: Negative for fever, chills, and weight loss, Eyes: Negative for injury, rn pain, redness, and discharge, Neck: Negative for injury, pain, and swelling, Cardiovascular: + chest pain and Exam: 13:39 ECG was reviewed by the Attending Physician. rn Vital Signs: 12:40 BP 109 / 93; Pulse 144; Resp 23; Temp 98.4; Pulse Ox 97% on R/A; Weight 82.5 kg; Height jl7 5 ft. 4 in. (162.56 cm); Pain 0/10; 12:54 BP 120 / 80; Pulse 141; Resp 19; Pulse Ox 97% ; jl7 13:15 BP 123 / 80; Pulse 130; Resp 20; Pulse Ox 92% ; jl7 13:30 BP 125 / 76; Pulse 135; Resp 22; Pulse Ox 93% ; jl7 13:45 BP 119 / 71; Pulse 87; Resp 17; Pulse Ox 93% ; jl7 14:10 BP 97 / 69; Pulse 84; Resp 18; Pulse Ox 96% on R/A; ph 14:30 BP 120 / 78; Pulse 82; Resp 18; Pulse Ox 92% ; jl7 15:00 BP 125 / 73; Pulse 79; Resp 20; Pulse Ox 91% ; jl7 15:30 BP 115 / 70; Pulse 83; Resp 19; Pulse Ox 93% ; jl7 16:15 BP 120 / 68; Pulse 85; Resp 16; Pulse Ox 96% ; jl7 17:00 BP 127 / 76; Pulse 92; Resp 19; Pulse Ox 96% ; jl7 17:45 BP 111 / 68; Pulse 87; Resp 16; Pulse Ox 94% ; jl7 18:30 BP 130 / 80; Pulse 82; Resp 16; Pulse Ox 93% on R/A; jl7 12:40 Body Mass Index 31.22 (82.50 kg, 162.56 cm) 7 MDM: 12:45 Patient medically screened. rn 15:55 Differential diagnosis: arrythmia, dehydration, stress disorder. Data reviewed: vital rn signs, nurses notes, lab test result(s), EKG, radiologic studies, plain films, and as a result, I will admit patient. Counseling: I had a detailed discussion with the patient and/or guardian regarding: the historical points, exam findings, and any diagnostic results supporting the discharge/admit diagnosis, lab results, radiology results, the need for further work-up and treatment in the hospital. Response to treatment: the patient's symptoms have markedly improved after treatment, and as a result, I will admit patient. Admission orders: after a detailed discussion of the patient's condition and case, the admit orders are written by me. 15:55 ED course: Pt reports still sob but not as bad, now back in sinus rhythm, patient too rn scared to go home, had cardiac arrest last week for COPD/afib, will obs to hospitalist service. . 07/14 12:46 Order name: Basic Metabolic Panel; Complete Time: 13:36 rn 07/14 12:46 Order name: CBC with Diff; Complete Time: 13:36 rn 07/14 12:46 Order name: NT PRO-BNP; Complete Time: 13:36 rn 07/14 12:46 Order name: PT-INR; Complete Time: 13:36 rn 07/14 12:46 Order name: Troponin HS; Complete Time: 13:36 rn 07/14 17:14 Order name: SARS-COV-2 Antigen Rapid; Complete Time: 19:41 bd 07/14 17:19 Order name: Magnesium; Complete Time: 02:57 EDMS 07/14 17:19 Order name: Thyroid Stimulating Hormone; Complete Time: 02:57 EDMS 07/14 17:19 Order name: CBC with Automated Diff EDMS 07/14 17:19 Order name: CBC with Automated Diff EDMS 07/14 17:19 Order name: CBC with Automated Diff EDMS 07/14 17:19 Order name: CBC with Automated Diff EDMS 07/14 17:19 Order name: Comprehensive Metabolic Panel EDMS 07/14 17:19 Order name: Comprehensive Metabolic Panel EDMS 07/14 12:46 Order name: XRAY Chest (1 view); Complete Time: 14:59 rn 07/14 17:19 Order name: Comprehensive Metabolic Panel EDMS 07/14 17:19 Order name: Comprehensive Metabolic Panel EDMS 07/14 17:19 Order name: Magnesium EDMS 07/14 17:19 Order name: Magnesium EDMS 07/14 17:19 Order name: Phosphorus EDMS 07/14 17:19 Order name: Phosphorus EDMS 07/14 17:19 Order name: D-Dimer; Complete Time: 02:57 EDMS 07/14 21:13 Order name: Troponin High Sensitivity; Complete Time: 02:57 EDMS 07/14 21:22 Order name: Potassium; Complete Time: 02:57 EDMS 07/14 22:04 Order name: CT; Complete Time: 02:57 EDMS 07/15 01:24 Order name: Troponin High Sensitivity; Complete Time: 02:57 EDMS 07/14 12:46 Order name: EKG; Complete Time: 12:47 rn 07/14 12:46 Order name: Cardiac monitoring; Complete Time: 13:22 rn 07/14 12:46 Order name: EKG - Nurse/Tech; Complete Time: 13: rn 07/14 12:46 Order name: IV Saline Lock; Complete Time: 13:22 rn 07/14 12:46 Order name: Labs collected and sent; Complete Time: 13: rn 07/14 12:46 Order name: O2 Per Protocol; Complete Time: 13: rn 07/14 12:46 Order name: O2 Sat Monitoring; Complete Time: 13: rn 07/14 17:19 Order name: CONS Physician Consult EDMS 07/14 17:19 Order name: Heart Healthy EDMS 07/14 17:19 Order name: NPO EDMS EC:39 Rate is 143 beats/min. Rhythm is irregularly irregular. QRS [place] is Normal. MS interval rn is normal. QRS interval is normal. QT interval is normal. No Q waves. T waves are Normal. Clinical impression: Atrial Fibrillation. Interpreted by me. Reviewed by me. Administered Medications: 12:48 Drug: Cardizem (diltiazem) 20 mg Route: IVP; Site: right forearm; jl7 13:45 Follow up: Response: No adverse reaction; Cardiac rhythm changed jl7 12:48 Drug: NS 0.9% 250 ml Route: IV; Rate: 1 bolus; Site: right forearm; jl7 16:10 Follow up: Response: No adverse reaction; IV Status: Completed infusion; IV Intake: jl7 250ml 12:51 Drug: Magnesium Sulfate 1 grams Route: IVPB; Infused Over: 1 hrs; Site: right upper arm;jl7 13:20 Follow up: Response: No adverse reaction; IV Status: Infusion continued jl7 14:10 Drug: Potassium Chloride 20 mEq Route: IV; Rate: calculated rate; Site: right forearm; ph 16:10 Follow up: Response: No adverse reaction; IV Status: Completed infusion jl7 Disposition Summary: 07/14/22 15:58 Hospitalization Ordered Hospitalization Status: Observation rn Provider: Thai Ronquillo rn Condition: Stable rn Problem: new rn Symptoms: have improved rn Bed/Room Type: Standard rn Location: Telemetry/MedSurg (observation)(07/15/22 03:55) Room Assignment: 419(07/15/22 03:55) cg Diagnosis - Paroxysmal atrial fibrillation rn - Tachycardia, unspecified rn - COPD/ Chronic obstructive pulmonary disease with (acute) exacerbation rn Forms: - Medication Reconciliation Form rn - SBAR form government teacher time excluding procedures: 15:55 Critical care time: Bedside Care: 35 minutes. Total time: 35 minutes rn Signatures: Dispatcher [employer] EDMarcia Pedro, ROSIE-C ROSIE-Ckb Kaushal Johnston MD MD rn Attema, Lee, FNP-Padmini [id number] Aileen Jorgensen, RN RN Dianelys Lozoya, RN RN cg Bill Brunner, RN RN jl7 Corrections: (The following items were deleted from the chart) 19:18 15:58 Telemetry/MedSurg (observation) rn 19:18 15:58 rn cg 07/15 03:55 07/14 19:18 BR ER HOLD cg cg 07/15 03:55 07/14 19:18 ERHOLD- cg cg
--- NOTE | 2022-07-14 17:18 | P.HP ---
Certification for Inpatient Patient admitted to: Observation With expected LOS: <2 Midnights Patient will require the following post-hospital care: None Practitioner: I am a practitioner with admitting privileges, knowledge of patient current condition, hospital course, and medical plan of care. Services: Services provided to patient in accordance with Admission requirements found in Title 42 Section 412.3 of the Code of Federal Regulations Patient History Date of Service: 07/14/22 Reason for admission: Atrial Fibrillation with RVR History of Present Illness: Ms. Tonya Michael is a 62 year old female who has a past medical history of chronic congestive heart failure, chronic obstructive pulmonary disease, paroxysmal atrial fibrillation, hypertension, and depression who presents to the [facility] Emergency Department for chest pain and palpitations. She reports that, earlier this morning, she awoke with intermittent palpitations and chest pain. She describes the chest pain as sharp and left-sided. She states that the pain lasts for several minutes at a time without any obvious inciting or alleviating factors. She denies any radiation of the pain. She grades her pain a 9/10 in severity. She states that, about 1 week ago, she had a cardiac incident, but she cannot member the details of this incident. Per discussion with the ED provider, who was able to speak with the EMS personnel that took care of her last week, it appears that she went to respiratory arrest in her home. This was complicated by cardiac arrest and intubation in the field. They state that she took a LifeFlight to [facility] and she was discharged from there yesterday. The details of the hospitalization are unknown at this time. On review of systems, she denies any fevers, chills, headaches, dizziness, syncope, weakness, shortness of breath, wheezing, cough, abdominal pain, nausea/vomiting, diarrhea, constipation, hematochezia, melena, dysuria, hematuria, myalgia, or any other symptoms. She presented to the Emergency Department for further evaluation. Upon presentation, her vital signs were notable for a heart rate of 144 bpm and a respiratory rate of 23 breaths/min. Her EKG was notable for atrial fibrillation with rapid ventricular response. Her laboratory studies were notable for a potassium of 2.8 and a NT-Pro BNP of 5,007. She was given two rounds of diltiazem by EMS prior to arrival. She received an additional dose of dilitiazem in the ED and repeat EKG revealed normal sinus rhythm. Chest x-ray revealed, "increased prominence of pulmonary interstitial markings in the lower lungs bilaterally favored technique related. No definite acute process identified." In the Emergency Department, she was given diltiazem, 250 mL Normal Saline, potassium chloride, and magnesium sulfate. She was admitted to the General Internal Medicine service for further evaluation. Allergies No Known Drug Allergies Allergy (Verified 05/30/15 21:56) Unknown No Known Allergies Allergy (Uncoded 10/19/17 22:16) Unknown Home medications list reviewed: Yes Home Medications: RX: Aspirin [Aspirin EC 81 MG] 1 tab PO DAILY 10/19/17 RX: PARoxetine HCl [Paxil] 40 mg PO BEDTIME 10/19/17 ALPRAZolam [Xanax] 0.25 mg PO Q8H #30 tab 10/22/17 Budesonide/Formoterol Fumarate [Budesonide-Formoterol 160-4.5] 2 puff IN BID 07/14/22 Losartan Potassium [Cozaar] 50 mg PO DAILY 07/14/22 RX: Metoprolol Succinate 25 mg PO DAILY 07/14/22 - Past Medical/Surgical History Diabetic: No -: COPD -: CHF -: AFib -: Depression -: tubal ligation - Family History Mother -: Heart disease, Lung disease, Diabetes Father -: Cancer Notes: colon cancer - Social History Smoking Status: Current every day smoker Counseled patient to stop smoking for: less than 10 minutes Alcohol use: Yes CD- Drugs: Yes Caffeine use: Yes Review of Systems 10-point ROS is otherwise unremarkable General: Unremarkable Eyes: Unremarkable ENT: Unremarkable Respiratory: Unremarkable Cardiovascular: Chest Pain, Palpitations Gastrointestinal: Unremarkable Genitourinary: Unremarkable Musculoskeletal: Unremarkable Integumentary: Unremarkable Neurological: Unremarkable Lymphatics: Unremarkable Physical Examination - Vital Signs Temperature: 98.4 F Blood Pressure: 97/69 Pulse: 84 Respirations: 18 Pulse Ox (%): 96 (room air) - Physical Exam General: Alert, In no apparent distress, Oriented x3 HEENT: Atraumatic, PERRLA, Mucous membr. moist/pink, EOMI, Sclerae nonicteric Neck: Supple, JVD not distended Respiratory: Clear to auscultation bilaterally, Normal air movement Cardiovascular: No edema, Regular rate/rhythm, Normal S1 S2, No gallops, No rubs, No murmurs Gastrointestinal: Normal bowel sounds, Soft and benign, Non-distended, No tenderness, No rebound, No guarding Musculoskeletal: No clubbing Integumentary: No rashes Neurological: Normal speech, Cranial nerves 3-12 intact, Normal affect - Studies Laboratory Data (last 24 hrs) 07/14/22 13:04: PT 10.8, INR 0.98 07/14/22 13:04: WBC 10.70, Hgb 12.6, Hct 36.4, Plt Count 475 H 07/14/22 13:04: Sodium 139, Potassium 2.8 L*, BUN < 3 L, Creatinine 0.48 L, Glucose 165 H Assessment and Plan - Plan # Paroxysmal Atrial Fibrillation with Rapid Ventricular Response # SIRS Criteria (Tachycardia, Tachypnea) likely due to above - no infectious source identified # Chronic Compensated Congestive Heart Failure with Unknown Ejection Fraction # Severe Hypokalemia # Prolonged QTc Interval Differential diagnoses includes, but is not limited to, hyperthyroidism, valvular heart disease, ischemic heart disease, electrolyte derangements, medication noncompliance. Her [id number] = 3 (CHF=1, HTN=1, Sex=1), which warrants anticoagulation. - Evaluation thus far: - Troponin = 8.7 - Initial EKG = atrial fibrillation with RVR - CXR = "no definite acute process identified." - Potassium = 2.8, Magnesium = pending - Target K> 4, Mg >2 - TSH = pending - NT-Pro BNP = 5,007 - Transthoracic echocardiogram ordered - Counseled on importance of medication adherence - Cardiology consulted and spoke with Dr. Coffey - recommendations appreciated - For rate control: - Started metoprolol tartrate 50 mg BID - For anticoagulation: - Started enoxaparin for now, plan to switch to apixaban at discharge # Recent Admission for Cardiopulmonary Arrest - Reports being discharged from [facility] yesterday - Appears stable - Trend troponin - Cardiology notified - Records requested # Hypertension - Continue metoprolol, losartan # Chronic Obstructive Pulmonary Disease - No evidence of exacerbation - Continue home budesonide-formeterol # Depression with Anxiety - Continue PRN alprazolam - Hold paroxetine for now given prolonged QTc interval (500 msec) # Tobacco Use Disorder - Tobacco cessation counseling provided Thai Ronquillo M.D. Discharge Plan: Home Plan to discharge in: 24 Hours - Advance Directives Does patient have a Living Will: No Does patient have a Durable POA for Healthcare: No - Code Status/Comfort Care Code Status Assessed: Yes Code Status: Full Code
[2022-07-14] MEDS ORDERED: ALPRAZOLAM 0.25 MG TABLET PO PRN (18:41)
[2022-07-14] MEDS ORDERED: ALPRAZOLAM 0.25 MG TABLET PO SCH (19:00)
[2022-07-14 19:15] LABS: SARS-CoV-2 Antigen Rapid Res Negative (Negative)
[2022-07-14] MEDS ORDERED: POTASSIUM CL SA 10 MEQ TAB PO ONE (20:00)
[2022-07-14] MEDS ORDERED: KCL 20 MEQ/100 mL IVPB 20 MEQ/100 ML BAG IV SCH (20:00)
[2022-07-14 20:44] VITALS: BMI 28.5
[2022-07-14] MEDS: METOPROLOL TAR 50 MG TAB PO SCH (21:00)
[2022-07-14] MEDS: ENOXAPARIN 80 MG/0.8 ML SQ SCH (21:00)
[2022-07-14] MEDS ORDERED: METOPROLOL TAR 50 MG TAB ONE (21:02)
[2022-07-14] MEDS ORDERED: ENOXAPARIN 80 MG/0.8 ML SQ ONE (21:02)
[2022-07-14 21:08] LABS: Magnesium 1.8 mg/dL (1.8-2.4); Thyroid Stimulating Hormone 1.77 uIU/mL (0.360-3.740)
--- NOTE | 2022-07-14 22:03 | RAD REPORT ---
EXAM DESCRIPTION: CT - Chest For Pe Angio - 07/14/2022 9:39 pm CLINICAL HISTORY: R/O PE, elev. DD COMPARISON: No comparisons TECHNIQUE: Dynamically enhanced axial 3 mm thick images of the chest were obtained during administra tion of <100> mL Isovue 370 IV contrast. Coronal and oblique reconstruction images were generated and reviewed. Exam utilizes a protocol for optimal evaluation of pulmonary arterial tree. Maximum intensity projections 3D imaging was utilized All CT scans are performed using dose optimization technique as appropriate and may include automated exposure control or mA/KV adjustment according to patient size. FINDINGS: Chest Wall: No suspicious thyroid nodules or pathologic lymphadenopathy. Lungs: Minimal dependent atelectasis. No suspicious pulmonary nodules. No evidence of either edema or pneumonia. Pleura: Trace bilateral pleural effusions. Mediastinum/isaac: No pathologic lymphadenopathy. Pulmonary arteries/Aorta: No filling defect identified. No aortic aneurysm. Heart: No significant pericardial effusion. Normal heart size. Coronary artery calcifications in the LAD. Upper abdomen: No acute abnormality. Bones: No acute abnormality. Remote left-sided rib fractures. IMPRESSION: Negative for pulmonary embolism. Trace nonspecific bilateral pleural effusions.
[2022-07-15] MEDS ORDERED: KCL 20 MEQ/100 mL IVPB 100 ML IV ONE (01:08)
[2022-07-15] MEDS ORDERED: POTASSIUM CL SA 10 MEQ TAB PO ONE (01:08)
[2022-07-15] MEDS ORDERED: NA CHLORIDE 0.9% 100 ML ONE (01:17)
[2022-07-15 03:43] LABS: Absolute Lymphocytes (CBC) 2.4 K/uL (0.7-4.9); Hematocrit 30.8 % (36.0-45.0); Lymphocytes % 18.6 % (15.3-44.8); MCV 97.7 fL (80-100); MPV 7.7 fL (7.6-11.3); RBC Red Blood Cell Count 3.15 M/uL (3.86-4.86)
[2022-07-15 03:57] LABS: ALT/SGPT 14 U/L (12-78); AST/SGOT 13 U/L (15-37); Albumin 2.2 g/dL (3.4-5.0); Alkaline Phosphatase 95 U/L (45-117); Bicarbonate 29 mmol/L (21-32); Bilirubin Total 0.2 mg/dL (0.2-1.0); Glomerular Filtration Rate 108 ml/min (=/>90); Glucose Level 126 mg/dL (74-106); Magnesium 2.2 mg/dL (1.8-2.4); Phosphorus 2.9 mg/dL (2.5-4.9); Potassium 4.3 mmol/L (3.5-5.1); Sodium Level 140 mmol/L (136-145)
[2022-07-15 03:59] LABS: BUN Blood Urea Nitrogen < 3 mg/dL (7-18)
[2022-07-15] MEDS: ENOXAPARIN 80 MG/0.8 ML SQ SCH ×2 (08:11→20:39)
[2022-07-15] MEDS: ASPIRIN EC 81 MG TAB PO SCH (08:11)
[2022-07-15] MEDS: LOSARTAN POTASSIUM 50 MG TABLET PO SCH (08:12)
[2022-07-15] MEDS: METOPROLOL TAR 50 MG TAB PO SCH ×2 (08:12→20:37)
[2022-07-15] MEDS ORDERED: ONDANSETRON 4 MG/2 ML VIAL IV PRN (09:06)
--- NOTE | 2022-07-15 13:34 | EKG ---
Test Date: 2022-07-15 Test Time: 08:21:46 Director Patient Accounting: TW MEASUREMENT RESULTS: Intervals: Rate: 83 TX: 150 QRSD: 82 QT: 398 QTc: 467 [place]: P: 66 TX: 150 QRS: 74 T: 64 INTERPRETIVE STATEMENTS: Normal sinus rhythm Normal ECG Compared to ECG 07/14/2022 13:52:25 ST (T wave) deviation no longer present Prolonged QT interval no longer present Electronically Signed On 07-15-22 13:34:10 CDT by Anderson Coffey
--- NOTE | 2022-07-15 13:37 | EKG ---
Test Date: 2022-07-14 Test Time: 12:46:04 Steam Pressure Chamber Operator: KV MEASUREMENT RESULTS: Intervals: Rate: 143 AL: QRSD: 78 QT: 320 QTc: 493 [place]: P: AL: QRS: 65 T: -76 INTERPRETIVE STATEMENTS: Atrial fibrillation with rapid ventricular response Marked ST abnormality, possible inferior subendocardial injury Abnormal ECG Compared to ECG 10/19/2017 14:00:11 Sinus tachycardia no longer present Possible ischemia no longer present ST (T wave) deviation still present Electronically Signed On 07-15-22 13:35:09 CDT by Anderson Coffey
--- NOTE | 2022-07-15 14:20 | ECHO ---
HEIGHT: 5 ft 8 in WEIGHT: 187 lb 6.287 oz DATE OF STUDY: 07/15/[address]: Robles Tabor MD 2-DIMENSIONAL: YES M.MODE: YES DOPPLER: YES COLOR FLOW: YES TDS: NO PORTABLE: YES DEFINITY: NO BUBBLE STUDY: NO DIAGNOSIS: ATRIAL FIBRILLATION CARDIAC HISTORY: CATHERIZATION: NO SURGERY: NO PROSTHETIC VALVE: NO PACEMAKER: NO MEASUREMENTS (cm) DIASTOLIC (NORMALS) SYSTOLIC (NORMALS) IVSd 0.9 (0.6-1.2) LA Diam 2.2 (1.9-4.0) LVEF 69% LVIDd 3.1 (3.5-5.7) LVIDs 1.9 (2.0-3.5) %FS 37% LVPWd 1.1 (0.6-1.2) Ao Diam 1.7 (2.0-3.7) 2 DIMENSIONAL ASSESSMENT: RIGHT ATRIUM: NORMAL LEFT ATRIUM: NORMAL RIGHT VENTRICLE: NORMAL LEFT VENTRICLE: NORMAL TRICUSPID VALVE: NORMAL MITRAL VALVE: PULMONIC VALVE: NORMAL AORTIC VALVE: PERICARDIAL EFFUSION: NONE AORTIC ROOT: NORMAL LEFT VENTRICULAR WALL MOTION: NORMAL DOPPLER/COLOR FLOW: SEE BELOW COMMENTS: NORMAL LEFT VENTRICULAR EJECTION FRACTION 60-65%. NORMAL WALL MOTION. MILD MITRAL AND AORTIC REGURGITATION. TECHNOLOGIST: Clinton TREJO
--- NOTE | 2022-07-15 20:29 | P.PN ---
Subjective Date of Service: 07/15/22 Chief Complaint: Atrial Fibrillation with RVR Subjective: Improving No acute events overnight. She has not had any recurrence of rapid ventricular response. She reports that she is no longer experiencing chest pain or palpitaitons. Review of Systems 10-point ROS is otherwise unremarkable Respiratory: Unremarkable Cardiovascular: Unremarkable Physical Examination - Vital Signs Temperature: 98.6 F Blood Pressure: 159/79 Pulse: 82 Respirations: 18 Pulse Ox (%): 98 Assessment And Plan - Plan - Physical Exam General: Alert, In no apparent distress, Oriented x3 HEENT: Atraumatic, PERRLA, Mucous membr. moist/pink, EOMI, Sclerae nonicteric Neck: Supple, JVD not distended Respiratory: Clear to auscultation bilaterally, Normal air movement Cardiovascular: No edema, Regular rate/rhythm, Normal S1 S2, No gallops, No rubs, No murmurs Gastrointestinal: Normal bowel sounds, Soft and benign, Non-distended, No tenderness, No rebound, No guarding Musculoskeletal: No clubbing Integumentary: No rashes Neurological: Normal speech, Cranial nerves 3-12 intact, Normal affect # Paroxysmal Atrial Fibrillation with Rapid Ventricular Response # SIRS Criteria (Tachycardia, Tachypnea) likely due to above - no infectious source identified # Chronic Compensated Congestive Heart Failure with Unknown Ejection Fraction # Severe Hypokalemia # Prolonged QTc Interval Differential diagnoses includes, but is not limited to, hyperthyroidism, valvular heart disease, ischemic heart disease, electrolyte derangements, medication noncompliance. Her [id number] = 3 (CHF=1, HTN=1, Sex=1), which warrants anticoagulation. - Evaluation thus far: - Troponin = 8.7 - Initial EKG = atrial fibrillation with RVR - CXR = "no definite acute process identified." - Potassium = 2.8, Magnesium = pending - Target K> 4, Mg >2 - TSH = 1.77 - NT-Pro BNP = 5,007 - Transthoracic echocardiogram = "normal left ventricular ejection fraction 60-65%. normal wall motion. mild mitral and aortic regurgitation." - Counseled on importance of medication adherence - Cardiology consulted and spoke with Dr. Coffey - recommendations appreciated - For rate control: - Started metoprolol tartrate 50 mg BID - For anticoagulation: - Started enoxaparin for now, plan to switch to apixaban at discharge # Recent Admission for Cardiopulmonary Arrest - Reports being discharged from [facility] yesterday - Appears stable - Trend troponin - Cardiology notified - Records requested # Hypertension - Continue metoprolol, losartan # Chronic Obstructive Pulmonary Disease - No evidence of exacerbation - Continue home budesonide-formeterol # Depression with Anxiety - Continue PRN alprazolam - Hold paroxetine for now given prolonged QTc interval (500 msec) # Tobacco Use Disorder - Tobacco cessation counseling provided - Possible discharge tomorrow if no recurrent episodes of AFib. Waiting for records regarding possible cardiopulmonary arrest from [facility]. Thai Ronquillo M.D.
[2022-07-16 06:01] LABS: Absolute Lymphocytes (CBC) 3.3 K/uL (0.7-4.9); Hematocrit 33.2 % (36.0-45.0); Lymphocytes % 31.1 % (15.3-44.8); MCV 98.5 fL (80-100); MPV 8.2 fL (7.6-11.3); RBC Red Blood Cell Count 3.36 M/uL (3.86-4.86)
[2022-07-16 06:16] LABS: Albumin 2.3 g/dL (3.4-5.0); Bilirubin Total 0.2 mg/dL (0.2-1.0); Potassium 4.7 mmol/L (3.5-5.1); Protein, Total 6.2 g/dL (6.4-8.2)
[2022-07-16] MEDS: LOSARTAN POTASSIUM 50 MG TABLET PO SCH (07:56)
[2022-07-16] MEDS: METOPROLOL TAR 50 MG TAB PO SCH ×2 (07:56→20:22)
[2022-07-16] MEDS: ASPIRIN EC 81 MG TAB PO SCH (07:56)
[2022-07-16] MEDS: ENOXAPARIN 80 MG/0.8 ML SQ SCH ×2 (08:07→20:22)
[2022-07-16] MEDS ORDERED: METOPROLOL TARTRATE 5 MG/5 ML INJ IV STA (08:31)
[2022-07-16] MEDS: AMIODARONE HCL 200 MG TAB PO SCH ×2 (16:45→21:00)
--- NOTE | 2022-07-16 20:13 | P.PN ---
Subjective Date of Service: 07/16/22 Chief Complaint: Atrial Fibrillation with RVR No acute events overnight. This morning during rounds, she reverted back into atrial fibrillation with rapid ventricular response. Attempted IV metoprolol, with intermittent success. Spoke with Dr. Tabor, who recommended amiodarone 400 mg PO BID. Review of Systems 10-point ROS is otherwise unremarkable Cardiovascular: Palpitations Physical Examination - Vital Signs Temperature: 98.7 F Blood Pressure: 167/94 Pulse: 131 Respirations: 18 Pulse Ox (%): 99 Assessment And Plan - Plan - Physical Exam General: Alert, In no apparent distress, Oriented x3 HEENT: Atraumatic, PERRLA, Mucous membr. moist/pink, EOMI, Sclerae nonicteric Neck: Supple, JVD not distended Respiratory: Clear to auscultation bilaterally, Normal air movement Cardiovascular: No edema, Irregular, irregular rate/rhythm, Normal S1 S2, No gallops, No rubs, No murmurs Gastrointestinal: Normal bowel sounds, Soft and benign, Non-distended, No tenderness, No rebound, No guarding Musculoskeletal: No clubbing Integumentary: No rashes Neurological: Normal speech, Cranial nerves 3-12 intact, Normal affect # Paroxysmal Atrial Fibrillation with Rapid Ventricular Response # SIRS Criteria (Tachycardia, Tachypnea) likely due to above - no infectious source identified # Chronic Compensated Congestive Heart Failure with Unknown Ejection Fraction # Severe Hypokalemia # Prolonged QTc Interval Differential diagnoses includes, but is not limited to, hyperthyroidism, valvular heart disease, ischemic heart disease, electrolyte derangements, medication noncompliance. Her [id number] = 3 (CHF=1, HTN=1, Sex=1), which warrants anticoagulation. - Evaluation thus far: - Troponin = 8.7 - Initial EKG = atrial fibrillation with RVR - CXR = "no definite acute process identified." - Potassium = 2.8, Magnesium = pending - Target K> 4, Mg >2 - TSH = 1.77 - NT-Pro BNP = 5,007 - Transthoracic echocardiogram = "normal left ventricular ejection fraction 60-65%. normal wall motion. mild mitral and aortic regurgitation." - Counseled on importance of medication adherence - Cardiology consulted and spoke with Dr. Coffey - recommendations appreciated - For rate control: - Started metoprolol tartrate 50 mg BID - Per Dr. Baradhi, started amiodarone 400 mg PO BID - For anticoagulation: - Started enoxaparin for now, plan to switch to apixaban at discharge # Recent Admission for Cardiopulmonary Arrest - Reports being discharged from [facility] yesterday - Appears stable - Trend troponin - Cardiology notified - Records requested # Hypertension - Continue metoprolol, losartan # Chronic Obstructive Pulmonary Disease - No evidence of exacerbation - Continue home budesonide-formeterol # Depression with Anxiety - Continue PRN alprazolam - Hold paroxetine for now given prolonged QTc interval (500 msec) # Tobacco Use Disorder - Tobacco cessation counseling provided - Waiting for records regarding possible cardiopulmonary arrest from [facility]. Thai Ronquillo M.D.
[2022-07-17] MEDS: AMIODARONE HCL 200 MG TAB PO SCH ×2 (05:28→18:10)
[2022-07-17 06:32] LABS: Absolute Lymphocytes (CBC) 2.5 K/uL (0.7-4.9); Hematocrit 34.4 % (36.0-45.0); Lymphocytes % 25.7 % (15.3-44.8); MCV 98.7 fL (80-100); MPV 7.8 fL (7.6-11.3); RBC Red Blood Cell Count 3.48 M/uL (3.86-4.86)
[2022-07-17 06:52] LABS: Albumin 2.3 g/dL (3.4-5.0); Bilirubin Total 0.2 mg/dL (0.2-1.0); Potassium 3.3 mmol/L (3.5-5.1); Protein, Total 6.1 g/dL (6.4-8.2)
[2022-07-17] MEDS: METOPROLOL TAR 50 MG TAB PO SCH ×2 (08:39→21:15)
[2022-07-17] MEDS: ENOXAPARIN 80 MG/0.8 ML SQ SCH ×2 (08:39→21:14)
[2022-07-17] MEDS: LOSARTAN POTASSIUM 50 MG TABLET PO SCH (08:39)
[2022-07-17] MEDS: ASPIRIN EC 81 MG TAB PO SCH (08:39)
[2022-07-17] MEDS ORDERED: POTASSIUM 25 MEQ EFFERV TAB PO ONE (09:00)
[2022-07-17 13:00] LABS: C.diff Antigen/Toxin Ag neg : Tox neg (NEG : NEG)
[2022-07-17] MEDS: LOPERAMIDE HCL 2 MG CAPSULE PO PRN (15:41)
--- NOTE | 2022-07-17 18:54 | P.PN ---
Subjective Date of Service: 07/17/22 Chief Complaint: Atrial Fibrillation with RVR Overnight, she transiently reverted back into atrial fibrillation with rapid ventricular response. However, this morning, her rate appears controlled. She endorses concern going home given the frequency of these episodes. Will monitor her one additional day, and if she remains in normal sinus rhythm, plan is for discharge tomorrow. Additionally, she reports significant diarrhea and recently completing an outpatient course of amoxicillin. Review of Systems 10-point ROS is otherwise unremarkable Cardiovascular: Palpitations Physical Examination - Vital Signs Temperature: 98.3 F Blood Pressure: 140/73 Pulse: 70 Respirations: 14 Pulse Ox (%): 98 Assessment And Plan - Plan - Physical Exam General: Alert, In no apparent distress, Oriented x3 HEENT: Atraumatic, PERRLA, Mucous membr. moist/pink, EOMI, Sclerae nonicteric Neck: Supple, JVD not distended Respiratory: Clear to auscultation bilaterally, Normal air movement Cardiovascular: No edema, Regular rate/rhythm, Normal S1 S2, No gallops, No rubs, No murmurs Gastrointestinal: Normal bowel sounds, Soft and benign, Non-distended, No tenderness, No rebound, No guarding Musculoskeletal: No clubbing Integumentary: No rashes Neurological: Normal speech, Cranial nerves 3-12 intact, Normal affect # Paroxysmal Atrial Fibrillation with Rapid Ventricular Response # SIRS Criteria (Tachycardia, Tachypnea) likely due to above - no infectious source identified # Chronic Compensated Congestive Heart Failure with Unknown Ejection Fraction # Severe Hypokalemia # Prolonged QTc Interval Differential diagnoses includes, but is not limited to, hyperthyroidism, valvular heart disease, ischemic heart disease, electrolyte derangements, medication noncompliance. Her [id number] = 3 (CHF=1, HTN=1, Sex=1), which warrants anticoagulation. - Evaluation thus far: - Troponin = 8.7 - Initial EKG = atrial fibrillation with RVR - CXR = "no definite acute process identified." - Potassium = 2.8, Magnesium = pending - Target K> 4, Mg >2 - TSH = 1.77 - NT-Pro BNP = 5,007 - Transthoracic echocardiogram = "normal left ventricular ejection fraction 60-65%. normal wall motion. mild mitral and aortic regurgitation." - Counseled on importance of medication adherence - Cardiology consulted and spoke with Dr. Coffey - recommendations appreciated - For rate control: - Started metoprolol tartrate 50 mg BID - Per Dr. Tabor, started amiodarone 400 mg PO BID - For anticoagulation: - Started enoxaparin for now, plan to switch to apixaban at discharge - If she remains in normal sinus rhythm overnight, plan to discharge tomorrow morning # Acute Diarrhea with Recent Outpatient Course of Antibiotics - Ordered Clostridium Difficile stool antigen - If negative, will order PRN loperamide # Recent Admission for Cardiopulmonary Arrest - Reports being discharged from [facility] yesterday - Appears stable - Trend troponin - Cardiology notified - Records requested # Hypertension - Continue metoprolol, losartan # Chronic Obstructive Pulmonary Disease - No evidence of exacerbation - Continue home budesonide-formeterol # Depression with Anxiety - Continue PRN alprazolam - Hold paroxetine for now given prolonged QTc interval (500 msec) # Tobacco Use Disorder - Tobacco cessation counseling provided - Waiting for records regarding possible cardiopulmonary arrest from [facility]. Thai Ronquillo M.D.
[2022-07-18] MEDS: LOPERAMIDE HCL 2 MG CAPSULE PO PRN (00:24)
[2022-07-18] MEDS: AMIODARONE HCL 200 MG TAB PO SCH (05:59)
--- NOTE | 2022-07-18 08:12 | P.DS ---
Admission Date: 07/14/22 Discharge Date: 07/18/22 Disposition: ROUTINE DISCHARGE Discharge Condition: GOOD Reason for Admission: Atrial Fibrillation with RVR Consultations: 1. Cardiology Hospital Course: DIAGNOSES: # Paroxysmal Atrial Fibrillation with Rapid Ventricular Response # SIRS Criteria (Tachycardia, Tachypnea) likely due to above - no infectious source identified # Chronic Compensated Congestive Heart Failure with Unknown Ejection Fraction # Severe Hypokalemia # Prolonged QTc Interval # Acute Diarrhea - likely Antibiotic-Induced # Recent Admission for Reported Cardiopulmonary Arrest # Hypertension # Chronic Obstructive Pulmonary Disease # Depression with Anxiety # Tobacco Use Disorder HOSPITAL COURSE: Ms. Tonya Michael is a pleasant 62 year old female with a past medical history significant for chronic congestive heart failure, chronic obstructive pulmonary disease, depression, anxiety, and tobacco use disorder who was admitted to the [facility] on 07/14/2022 for chest pain and palpitations. She was admitted to the Medicine service. She was found to be in atrial fibrillation with rapid ventricular response. Her metoprolol was up-titrated with intermittent rate-control. Cardiology was consulted and Dr. Tabor evaluated her. He recommended that she be started on amiodarone 400 mg BID. With this regimen, her rate remained controlled for greater than 24 hours. Given her elevated [id number] score, she was started on apixaban. Dr. Tabor has cleared her for discharge with close outpatient follow-up. On 07/18/2022, she was seen on morning rounds and deemed medically stable for discharge. She was discharged with instructions to schedule follow-up appointments with her PCP in 3-5 days and with Cardiology (Dr. Tabor) in 3-5 days. She was provided prescriptions for metoprolol, amiodarone, and apixaban. She was given the opportunity to ask questions and reported no further questions. Furthermore, all questions were answered to the best of my ability. A copy of this discharge summary will be sent to the above providers to facilitate continuity of care. Today, I personally spent 20 minutes on her case, of which greater than 50% of the time was spent in patient education, counseling, and coordination of care as described above. - Physical Exam General: Alert, In no apparent distress, Oriented x3 HEENT: Atraumatic, PERRLA, Mucous membr. moist/pink, EOMI, Sclerae nonicteric Neck: Supple, JVD not distended Respiratory: Clear to auscultation bilaterally, Normal air movement Cardiovascular: No edema, Regular rate/rhythm, Normal S1 S2, No gallops, No rubs, No murmurs Gastrointestinal: Normal bowel sounds, Soft and benign, Non-distended, No tenderness, No rebound, No guarding Musculoskeletal: No clubbing Integumentary: No rashes Neurological: Normal speech, Cranial nerves 3-12 intact, Normal affect Vital Signs/Physical Exam: Temp Pulse Resp BP Pulse Ox 98.1 F 71 15 137/79 97 07/18/22 04:00 07/18/22 04:00 07/18/22 04:00 07/18/22 04:00 07/18/22 04:00 Laboratory Data at Discharge: WBC 9.70 K/uL (4.3-10.9) 07/17/22 06:23 Hgb 11.8 g/dL (12.0-15.0) L 07/17/22 06:23 Hct 34.4 % (36.0-45.0) L 07/17/22 06:23 Plt Count 442 K/uL (152-406) H 07/17/22 06:23 PT 10.8 SECONDS (9.5-12.5) 07/14/22 13:04 INR 0.98 07/14/22 13:04 Sodium 137 mmol/L (136-145) 07/17/22 06:23 Potassium 4.0 mmol/L (3.5-5.1) D 07/17/22 14:44 BUN 4 mg/dL (7-18) L 07/17/22 06:23 Creatinine 0.47 mg/dL (0.55-1.3) L 07/17/22 06:23 Glucose 97 mg/dL (74-106) 07/17/22 06:23 Phosphorus 2.9 mg/dL (2.5-4.9) 07/15/22 03:28 Magnesium 2.2 mg/dL (1.8-2.4) 07/15/22 03:28 Total Bilirubin 0.2 mg/dL (0.2-1.0) 07/17/22 06:23 AST 18 U/L (15-37) 07/17/22 06:23 ALT 13 U/L (12-78) 07/17/22 06:23 Alkaline Phosphatase 87 U/L (45-117) 07/17/22 06:23 Home Medications: Aspirin [Aspirin EC 81 MG] 1 tab PO DAILY 10/19/17 PARoxetine HCl [Paxil] 40 mg PO DAILY 10/19/17 ALPRAZolam [Xanax*] 0.25 mg PO Q8H #30 tab 10/22/17 Budesonide/Formoterol Fumarate [Budesonide-Formoterol 160-4.5] 2 puff IN BID 07/14/22 Losartan Potassium [Cozaar*] 50 mg PO DAILY 07/14/22 Amiodarone HCl [Cordarone*] 400 mg PO BID #30 tab 07/18/22 Apixaban [Eliquis] 5 mg PO BID 30 Days #60 tablet 07/18/22 Metoprolol Tartrate [Lopressor*] 50 mg PO BID #60 tab 07/18/22 New Medications: Amiodarone HCl [Cordarone*] 400 mg PO BID #30 tab Apixaban [Eliquis] 5 mg PO BID 30 Days #60 tablet Metoprolol Tartrate [Lopressor*] 50 mg PO BID #60 tab Physician Discharge Instructions: 1. Please schedule a follow-up appointment with your PCP in 3-5 days 2. Please schedule a follow-up appointment with Cardiology (Dr. Tabor) in 3-5 days - You have been started on amiodarone and a higher dose of metoprolol - your medication doses may need to be adjusted down the line. Please follow with Dr. Tabor for medication dose adjustments. - You have been started on a blood thinner (Eliquis) for your atrial fibrillation Diet: Regular Activity: Ad kaleigh Followup: Robles Tabor MD [ACTIVE - CAN ADMIT] - (Call to schedule appointment.) Time spent managing pt's care (in minutes): 20
[2022-07-18 08:32] VITALS: BP 141/81; TEMP 98.7
[2022-07-18] MEDS: LOSARTAN POTASSIUM 50 MG TABLET PO SCH (09:53)
[2022-07-18] MEDS: ENOXAPARIN 80 MG/0.8 ML SQ SCH (09:53)
[2022-07-18] MEDS: METOPROLOL TAR 50 MG TAB PO SCH (09:53)
[2022-07-18] MEDS: ASPIRIN EC 81 MG TAB PO SCH (09:53)
[2022-07-18 13:55] VITALS: O2SAT 94
--- NOTE | 2022-07-18 19:03 | PN ---
Date of Progress Note: 07/16/2022 Subjective: The patient had come in with atrial fibrillation. Apparently recently had a cardiac arr est, presumably secondary to ventricular tachycardia. No cardiac workup available to me from [facility]. Negative cardiac workup in my office in 2019. She has had paroxysmal atrial fibrillation , has had a history of ventricular tachycardia on the monitor. When she came in, she came in with at [facility] and since she has been in the hospital that she has had 1 episode on beta-blockers. Echocardiogram was perfectly normal. I will start amiodarone 400 b.i.d. for a week and then 200 mg daily. She can go home and I will see her in the office next week. CHANDRA/OREN Voice ID: [id number] Report ID: [id number]
--- NOTE | 2022-07-18 19:03 | CON ---
Date of Consultation: 07/15/2022 Reason For Consultation: Atrial fibrillation with rapid ventricular response. History Of Present Illness: Ms. Michael is 62, apparently according to her recently had a cardiac arre st. I have no documentation on records from [facility] when she was transported, but apparentl y she was intubated, coded and resuscitated, but I have no records and she stated that they did not d o a left heart catheterization on her, which is going to unusual. Nevertheless, records are pending. She comes back to the hospital with atrial fibrillation with rapid ventricular response when she we nt home. Her medication included Keppra, losartan, paroxetine, and metoprolol. Again, I am surprise d she was not on amiodarone. I will wait for the medical records again. Past Medical History: As stated above. Allergies: NONE. Review of Systems: Negative. Social History: Negative. Family History: Noncontributory. Medications: Listed earlier. Physical Examination: Vital Signs: By the time we saw her; she was in sinus rhythm, although when she came in, her pulse w as 131, blood pressure was 167/94, afebrile. HEENT: Negative. Neck: Supple with no bruit. Chest: Clear to auscultation and percussion. Cardiac: Revealed a regular rhythm and rate. No murmurs, gallops, or rubs. Abdomen: Benign. Extremities: Revealed no clubbing, cyanosis, or edema. Diagnostic Data: Potassium was 3.3. The rest of it was normal. Initial EKG showed atrial fibrillat ion with rapid ventricular response. She had a negative chest x-ray, negative thoracic CTA. Impression And Plan: 1.Atrial fibrillation with rapid ventricular response. 2.History of congestive heart failure. 3.History of chronic obstructive pulmonary disease. 4.Presumed recent cardiac arrest with workup that is unavailable for us at this point. For now, we will continue her present regimen. Her metoprolol is only 25 mg and we should probably at least doub le that up. We should also get an echocardiogram. We will probably should consider the use of amiod arone. Her last workup in my office in March 2020, she had a normal echocardiogram. She had a normal stress test in 2019 in my office. Her clinic records have indicated that she has had ventricular ta chycardia along with paroxysmal atrial fibrillation, recently had gallbladder surgery. I will review her records from [facility], review the records from my office in further details and make further plan s. For now continue beta-blockers, get an echocardiogram. CHANDRA/OREN Voice ID: [id number] Report ID: [id number]
== END 2022-07-18 10:50 | disposition home or self-care (01) | DRG 309 ==
LOC: ER 12:40 → ERHOLD 17:13 → OBSVTOIN 18:18 → 4TH 07-15 05:38
PROVIDERS: ADMIT Internal Medicine; ATTEND Internal Medicine
DX: I48.0 Paroxysmal atrial fibrillation (principal); R65.10 Systemic inflammatory response syndrome (SIRS) of non-infectious origin without acute organ dysfunction; K52.1 Toxic gastroenteritis and colitis; J44.9 Chronic obstructive pulmonary disease, unspecified; I11.0 Hypertensive heart disease with heart failure; I50.9 Heart failure, unspecified; F41.8 Other specified anxiety disorders; E87.6 Hypokalemia; F17.210 Nicotine dependence, cigarettes, uncomplicated; T36.95XA Adverse effect of unspecified systemic antibiotic, initial encounter; R00.0 Tachycardia, unspecified; R94.31 Abnormal electrocardiogram [ECG] [EKG]; Z79.82 Long term (current) use of aspirin; Z90.49 Acquired absence of other specified parts of digestive tract; Z79.01 Long term (current) use of anticoagulants; Z98.51 Tubal ligation status; Z79.899 Other long term (current) drug therapy; Z20.822 Contact with and (suspected) exposure to COVID-19
CPT/HCPCS: 36415; 71045; 71275; 80048; 80053; 83735; 83880; 84100; 84132; 84443; 84484; 85025; 85379; 85610; 87324; 87811; 93005; 93306; 99291; 99292; G0378; J2405; J3475; J3480; J7050; Q9967

== ENCOUNTER 2022-12-09 18:18 | Inpatient (IN) | payer SELFPAY ==
--- OUTSIDE RECORDS SUMMARY | 2022-12-09 18:28 | XMS REPORT | Continuity of Care Document ---
:1960 Author Organization [facility] t Address [address] [place] [address] Care Team Providers Name Role Phone PCP, PATIENT DOES NOT HAVE A Primary Care Physician Unavaila Remedios Roberson Attending Clinician Unavailable Chayito Dick Attending Clinician Unavailable SISLAMAR Attending Clinician Unavailable KAILA BERGER Attending Clinician Unavailable CLIVE GLASGOW Attending Clinician Unavailable Juno Angel Attending Clinician Lesa Chan Attending Clinician Laura Lozoya RN Attending Clinician Unavailable Unknown, Attending Attending Clinician Unavailable UNKNOWN, ATTENDING Attending Clinician Unavailable MAY GAVIN Attending Clinician Unavailable Ghanshyam Walker Attending Clinician GHANSHYAM KIM Attending Clinician Unavailable Adalberto Whitney MD Attending Clinician ADALBERTO WHITNEY Attending Clinician Unavailable Porosalio, Awilda Lab Main Attending Clinician Unavailable Jeffry Gauthier Attending Clinician Chadd Perez Attending Clinician SISLAMAR Admitting Clinician Unavailable KAILA BERGER Admitting Clinician Unavailable VA WILLIAM Admitting Clinician Unavailable Jeffry Gauthier Admitting Clinician Chadd Perez Admitting Clinician Problems Condition Condition Condition Status Onset Resolution Last Treating Co mments Source Name Details Category Date Date Treatment Clinician Date BROUGHT BY BROUGHT Diagnosis Active 2018-03-[address]/VOMITII BY 03-28 16:13:00 l NG, CHEST DR/VOMITII 00:00: Her aquino PAIN, HRA NG, CHEST 00 PAIN, HRA Active 03/28/2018 [facility] COPD COPD Diagnosis Active 2018-03-29 Mem oria EXACERBATI EXACERBATI 03-28 10:12:00 l ON ON Active 00:00: [place] 03/28/2018 00 [facility] PNA PNA Diagnosis Active 2016-102017-11-08 Mem oria Active 12-24 21:57:00 l 10/23/2017 00:00: [place] mo [address] No known No known Disease Unive rs active active ity of problems problems [facility] Ganglion Ganglion Problem Active 2022-02-23 Memoria cyst cyst 00:35:14 l (disorder) (disorder) He rmann Active Problem 02/23/2022 [facility] Hand pain Hand pain Problem Active 2022-02-23 Memoria (finding) (finding) 00:35:14 l Active Jonah Problem 02/23/2022 [facility] PNEUMONIA, PNEUMONIA Diagnosis Active 2017-11-08 Memoria UNSPECIFIE , 21:57:00 l D ORGANISM UNSPECIFIE He rmann D ORGANISM Active [facility] CHRONIC CHRONIC Diagnosis Active 2018-03-29 Memoria OBSTRUCTIV OBSTRUCTIV 10:12:00 l E E [place] PULMONARY PULMONARY DISEASE W DISEASE W Active [facility] ENCNTR 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 Diagnosis 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 2018-03-29 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 FOR 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 10:11:00 l (GENERAL) EXAM [place] (ROUTINE) (GENERAL) (ROUTINE) Active [facility] OTHER OTHER Diagnosis Active 2018-03-29 Me moria SPECIFIED SPECIFIED 10:11:00 l NONINFLAMM NONINFLAMM He jordan ATORY ATORY DISORDER DISORDER Active [facility] Pneumonia, Pneumonia Problem 2017-11-02 Memoria unspecifie , 01:13:22 l d organism unspecifie He rmann d organism 8 [facility] Chronic Chronic Problem 2018-04-02 [facility] obstructiv obstructiv 01:43:25 l e e Jon[place] pulmonary pulmonary disease disease with with (acute) (acute) exacerbati exacerbati on on 04/02/2018 [facility] [id number] 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 right knee [facility] [id number] Other tear Problem Active Co mmon of lateral Spirit meniscus - [facility] of right knee as [facility] current Medical injury, Center subsequent encounter [id number] Status Problem Active Common post Spirit arthroscop - [facility]I y of knee [facility] [id number] Chronic Problem Active Common obstructiv Spirit [facility] Center type [id number] Depression Problem Active Co mmon with Spirit anxiety - [facility] [id number] Hypertensi Problem Active Com mon on, [facility] unspecifie - CHI d type [facility] [id number] Allergic Problem Active Commo n rhinitis, Spirit unspecifie - CHI d [facility] y, Medical unspecifie Center d trigger [id number] Neuropathi Problem Active Co mmon c pain Spirit - [facility] [id number] Hyperglyce Problem Active Com mon birgit Spirit - [facility] [id number] Hypothyroi Problem Active Co mmon dism Spirit (acquired) - [facility] [id number] Abnormal Problem Active Comm on thyroid [facility] function - CHI test [facility] [id number] Abnormal Problem Active Comm on liver [facility] function - CHI test [facility] [id number] Gastroesop Problem Active Co mmon hageal [facility], [facility] Med[facility] not Center specified [id number] Congestive Problem Active Com mon heart Spirit failure, - [facility] unspecifie [facility] HF [facility] chronicity Medica l , Center unspecifie d heart failure type [id number] Centrilobu Problem Active Com mon lar Spirit emphysema - [facility] [id number] Pain in Problem Active Comm on [id number] right hand Spiri t - [facility] [id number] Pain, Problem [place] [address] joint, Spirit knee, - [facility]I right [facility] [id number] Bilateral Problem Active Com mon hand Spirit numbness - [facility] [id number] [place] [address] left hand Spirit - [facility] Allergies, Adverse Reactions, Alerts Allergy Allergy Status Severity Reaction(s) Onset Inactive Treating Comm ents Source Name Type Date Date Clinician NO KNOWN Drug Active Univers ALLERGIE Class ity of S [facility] Social History Social Habit Start Date Stop Date Quantity Comments Source History of Tobacco Common Spirit - [facility] Use [facility] Tobacco use and 2021-07-11 2021-07-11 Never used [facility] [place] exposure 00:00:00 00:00:00 Medical Branch Social History 2018-03-29 2018-03-29 [facility] 03:48:29 03:48:29 Sex Ass[birth year] At [birth year] [facility] 00:00:00 00:00:00 Smoking Status Start Date Stop Date Source Tobacco smoking [facility] al consumption unknown Former Smoker 2022-02-10 00:00:00 2022-02-10 Common Spiri t [facility] St 00:00:00 [facility] nter Current some day smoker 2021-07-11 00:00:00 [facility] Medications Ordered Filled Start Stop Current Ordering Indication Dosage Frequency Signature Comments Components Source Medication Medication Date Date Medication? 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 diphenoxyla Yes [id number] 2{tbl} Take 2 Univers te-atropine 9-11 tablets by it y of 2.5-0.025 00:00: mouth [place] mg tablet 00 every 6 Medical (six) Branch hours as needed for Other (diarrhea) . atorvastati Yes One tab po Univers n 10 mg 4-05 each night ity of tablet 00:00: for cholestero Medical l Branch fluticasone 2021- No 1{puff} Inhale 1 Univers propionate 4-05 04-06 Puff. ity of (FLOVENT 00:00: 04:59 [place] HFA) 110 00 :00 Medical mcg/actuati Branch on inhaler PARoxetine 2019-10 Yes 40mg Take 40 mg U nivers 40 mg 2-18 by mouth. ity of tablet 00:00: Medical Branch ALPRAZolam 2019-10 Yes TAKE 1 [...] ity o f tablet 00:00: MOUTH ON [place] 00 AN EMPTY Medical STOMACH Branch Famotidine Famotidine 2019-10 No 1{table QD Famotidine 10 MG 10 MG 1-03 t_as_ne 10 MG 00:00: eded} Nebulizer - Nebulizer - 2019-10 No Nebulizer 11-02 - 00:00: 00 Famotidine Famotidine 2019-10 No 1{table QD Famotidine 10 MG 10 MG 1-03 t_as_ne 10 MG 00:00: eded} Nebulizer - Nebulizer - 2019-10 No Nebulizer 11-02 - 00:00: 00 Famotidine Famotidine 2019-10 No 1{table QD Famotidine 10 MG 10 MG 1-03 t_as_ne 10 MG 00:00: eded} Nebulizer - Nebulizer - 2019-10 No Nebulizer 11-02 - 00:00: 00 Famotidine Famotidine 2019-10 No 1{table QD Famotidine 10 MG 10 MG 1-03 t_as_ne 10 MG 00:00: eded} Nebulizer - Nebulizer - 2019-10 No Nebulizer 11-02 - 00:00: 00 Famotidine Famotidine 2019-10 No 1{table QD Famotidine 10 MG 10 MG 1-03 t_as_ne 10 MG 00:00: eded} Nebulizer - Nebulizer - 2019-10 No Nebulizer 11-02 - 00:00: 00 Famotidine Famotidine 2019-10 No 1{table QD Famotidine 10 MG 10 MG 1-03 t_as_ne 10 MG 00:00: eded} Famotidine Famotidine 2019-10 No 1{table QD Famotidine 10 MG 10 MG 1-03 t_as_ne 10 MG 00:00: eded} Nebulizer - Nebulizer - 2019-10 No Nebulizer 11-02 - 00:00: 00 Famotidine Famotidine 2019-10 No 1{table QD Famotidine 10 MG 10 MG 1-03 t_as_ne 10 MG 00:00: eded} Nebulizer - Nebulizer - 2019-10 No Nebulizer 11-02 - 00:00: 00 Famotidine Famotidine 2019-10 No 1{table QD Famotidine 10 MG 10 MG 1-03 t_as_ne 10 MG 00:00: eded} 00 Nebulizer - Nebulizer - 2019-10 No Nebulizer 11-02 - 00:00: 00 Nebulizer - Nebulizer - 2019-10 No Nebulizer 11-02 - 00:00: 00 Famotidine Famotidine 2019- No 1{table QD Famotidine 10 MG 10 MG 11-02 t_as_ne 10 MG 00:00: eded} 00 Nebulizer - Nebulizer - 2019-10 No Nebulizer 11-02 - 00:00: 00 Famotidine Famotidine 2019-10 No 1{table QD Famotidine 10 MG 10 MG 11-02 t_as_ne 10 MG 00:00: eded} Nebulizer - Nebulizer - 2019-10 No Nebulizer 11-02 - 00:00: 00 Famotidine Famotidine 2019-10 No 1{table QD Famotidine 10 MG 10 MG 11-02 t_as_ne 10 MG 00:00: eded} Nebulizer - Nebulizer - 2019-10 No Nebulizer 11-02 - 00:00: 00 albuterol 2019-10 Yes Univers 2.5 mg /3 -03 ity of mL (0.083 00:00: [place] %) 00 Medical nebulizer Branch solution carvediloL 2019-10 Yes 3.125mg Take 3.125 Univers 3.125 mg 1-03 mg by ity of tablet 00:00: mouth 2 [place] 00 (two) Medical times Branch daily. famotidine 2019-10 Yes 20mg Take 20 mg U nivers 20 mg -03 by mouth 2 ity of tablet 00:00: (two) [place] 00 times Medical daily. Branch gabapentin 2019-10 Yes 300mg Take 300 Un nasir 300 mg 1-03 mg by ity of capsule 00:00: mouth [place] 00 daily. Medical Branch Levothyroxi Levothyroxi Yes Remedios 1 tablet Common ne Sodium ne Sodium 7-13 [place] in the Sp david 00:00: morning on an empty [facility] Levothyroxi Levothyroxi No QD Levothyrox ne Sodium ne Sodium 7-13 ine Sodium 50 MCG 50 MCG 00:00: 50 MCG 00 Levothyroxi Levothyroxi No QD Levothyrox ne Sodium ne Sodium 7-13 ine Sodium 50 MCG 50 MCG 00:00: 50 MCG 00 Levothyroxi Levothyroxi 2020-0 No QD Levothyrox ne Sodium ne Sodium 7-13 ine Sodium 50 MCG 50 MCG 00:00: 50 MCG 00 Levothyroxi Levothyroxi 2020-0 No QD Levothyrox ne Sodium ne Sodium 7-13 ine Sodium 50 MCG 50 MCG 00:00: 50 MCG 00 Levothyroxi Levothyroxi 2020-0 No QD Levothyrox ne Sodium ne Sodium 7-13 ine Sodium 50 MCG 50 MCG 00:00: 50 MCG 00 Levothyroxi Levothyroxi 2020-0 No QD Levothyrox ne Sodium ne Sodium 7-13 ine Sodium 50 MCG 50 MCG 00:00: 50 MCG 00 Levothyroxi Levothyroxi 2020-0 No QD Levothyrox ne Sodium ne Sodium 7-13 ine Sodium 50 MCG 50 MCG 00:00: 50 MCG 00 Levothyroxi Levothyroxi 2020-0 No QD Levothyrox ne Sodium ne Sodium 7-13 ine Sodium 50 MCG 50 MCG 00:00: 50 MCG 00 Levothyroxi Levothyroxi 2020-0 No QD Levothyrox ne Sodium ne Sodium 7-13 ine Sodium 50 MCG 50 MCG 00:00: 50 MCG 00 Levothyroxi Levothyroxi 2020-0 No QD Levothyrox ne Sodium ne Sodium 7-13 ine Sodium 50 MCG 50 MCG 00:00: 50 MCG 00 Levothyroxi Levothyroxi 2020-0 No QD Levothyrox ne Sodium ne Sodium 7-13 ine Sodium 50 MCG 50 MCG 00:00: 50 MCG 00 Levothyroxi Levothyroxi 2020-0 No QD Levothyrox ne Sodium ne Sodium 7-13 ine Sodium 50 MCG 50 MCG 00:00: 50 MCG 00 Solumedrol Solumedrol 2019-1 No 125mg Common 125mg/2ml 125mg/2ml 0 Spiri t 00:00: - CHI 00 [facility] Solumedrol Solumedrol 2019-1 No 125mg Common 125mg/2ml 125mg/2ml 0 Spiri t 00:00: - CHI 00 [facility] Solumedrol Solumedrol 2019-1 No 125mg Common 125mg/2ml 125mg/2ml 0 Spiri t 00:00: - CHI 00 [facility] Solumedrol Solumedrol 2019-1 No 125mg Common 125mg/2ml 125mg/2ml 0-01 Spiri t 00:00: - CHI 00 [facility] Solumedrol Solumedrol 2019-1 No 125mg Common 125mg/2ml 125mg/2ml 0-01 Spiri t 00:00: - CHI 00 [facility] Solumedrol Solumedrol 2019-1 No 125mg Common 125mg/2ml 125mg/2ml 0-01 Spiri t 00:00: - CHI 00 [facility] Solumedrol Solumedrol 2018-1 No C ommon 125mg/2ml 125mg/2ml 2-20 Spiri t 00:00: - CHI 00 [facility] Solumedrol Solumedrol 2018-1 No C ommon 125mg/2ml 125mg/2ml 2-20 Spiri t 00:00: - CHI 00 [facility] Solumedrol Solumedrol 2018-1 No C ommon 125mg/2ml 125mg/2ml 2-20 Spiri t 00:00: - CHI 00 [facility] Solumedrol Solumedrol 2018-1 No C ommon 125mg/2ml 125mg/2ml 2-20 Spiri t 00:00: - CHI 00 [facility] Solumedrol Solumedrol 2018-1 No C ommon 125mg/2ml 125mg/2ml 2-20 Spiri t 00:00: - CHI 00 [facility] Solumedrol Solumedrol 2018-1 No C ommon 125mg/2ml 125mg/2ml 2-20 Spiri t 00:00: - CHI 00 [facility] Solumedrol Solumedrol 2018-1 No 125mg Common 125mg/2ml 125mg/2ml 2-07 Spiri t 00:00: - CHI 00 [facility] Solumedrol Solumedrol 2018-1 No 125mg Common 125mg/2ml 125mg/2ml 2-07 Spiri t 00:00: - CHI 00 [facility] Solumedrol Solumedrol 2018-1 No 125mg Common 125mg/2ml 125mg/2ml 2-07 Spiri t 00:00: - CHI 00 [facility] Solumedrol Solumedrol 2017-10 No 125mg Common 125mg/2ml 125mg/2ml 12-07 Spiri t 00:00: - CHI [facility] Solumedrol Solumedrol 2017- No 125mg Common 125mg/2ml 125mg/2ml 12-07 Spiri t 00:00: - CHI [facility] Solumedrol Solumedrol 2017-10 No 125mg Common 125mg/2ml 125mg/2ml 2 Spiri t 00:00: - CHI [facility] carvedilol 0 No Notes: Memor ia 6-01 Give with l 02:00: food. Jonah 00 (Same As: Coreg) carvedilol No Notes: Memor ia 6-01 Give with l 02:00: food. Jonah (Same As: Coreg) Albuterol Yes 3 mL, NEB, Me moria 0.833 MG/ML 5-31 QID, PRN l / 22:31: as needed [place] Ipratropium 09 for [place] shortness 0.167 MG/ML of breath Inhalant or Solution wheezing, # 180 mL, 2 Refill(s), Pharmacy: [facility] Albuterol Yes 3 mL, NEB, Me moria 0.833 MG/ML 5-31 QID, PRN l / 22:31: as needed [place] Ipratropium 09 for [place] shortness 0.167 MG/ML of breath Inhalant or Solution wheezing, # 180 mL, 2 Refill(s), Pharmacy: [facility] Ventolin Yes 2 puff, Memori a HFA 90 5-31 INHALER, l mcg/inh 22:31: Q4H, PRN Dean n inhalation 02 wheezing, aerosol coughing, with or adapter shortness of breath, # 1 ea, 1 Refill(s), Pharmacy: [facility] [place] Yes 2 puff, Memori a HFA 90 5-31 INHALER, l mcg/inh 22:31: Q4H, PRN Dean n inhalation 02 wheezing, aerosol coughing, with or adapter shortness of breath, # 1 ea, 1 Refill(s), Pharmacy: [place] [address] doxycycline 0 Yes 100 mg = 1 Memoria hyclate 100 5-31 tab, PO, l MG Oral 22:30: Q12H, X 10 Herm clara Tablet 50 day, # 20 tab, 0 Refill(s), Pharmacy: [facility] doxycycline 0 Yes 100 mg = 1 Memoria hyclate 100 5-31 tab, PO, l MG Oral 22:30: Q12H, X 10 Herm clara Tablet 50 day, # 20 tab, 0 Refill(s), Pharmacy: [facility] losartan 50 0 Yes 50 mg = 1 M emoria mg oral 5-31 tab, PO, l tablet 19:00: Daily, # Jonah 36 30 tab, 2 Refill(s), Pharmacy: [place] [address] losartan 50 0 Yes 50 mg = 1 M emoria mg oral 5-31 tab, PO, l tablet 19:00: Daily, # Jonah 36 30 tab, 2 Refill(s), Pharmacy: [place] [address] Guaifenesin Yes 200 mg = Me moria 20 MG/ML 5-31 10 mL, PO, l Oral 19:00: QID, X 7 [place] Solution 27 day, # 280 mL, 0 Refill(s), Pharmacy: [place] [address] Guaifenesin Yes 200 mg = Me moria 20 MG/ML 5-31 10 mL, PO, l Oral 19:00: QID, X 7 Jonah Solution 27 day, # 280 mL, 0 Refill(s), Pharmacy: [place] [address] Famotidine Yes 20 mg = 1 Me moria 20 MG Oral 5-31 tab, PO, l Tablet 19:00: Q12H, # 60 Paula nn [Pepcid] 16 tab, 0 Refill(s), Pharmacy: [facility] Famotidine Yes 20 mg = 1 Me moria 20 MG Oral 5-31 tab, PO, l Tablet 19:00: Q12H, # 60 Paula nn [Pepcid] 16 tab, 0 Refill(s), [facility]acy: [facility] carvedilol Yes 3.125 mg, Me moria 3.125 mg 5-31 PO, Q12H, l oral tablet 18:59: Hold if HR [place] 38 is less than 60, # 60 tab, 0 Refill(s), Pharmacy: [facility] carvedilol Yes 3.125 mg, Me moria 3.125 mg 5-31 PO, Q12H, l oral tablet 18:59: Hold if HR Jonah 38 is less than 60, # 60 tab, 0 Refill(s), Pharmacy: [facility] Ventolin No 2 puff, Memori a HFA 90 5-31 INHALER, l mcg/inh 18:59: Q4H, PRN Dean n inhalation 25 wheezing, aerosol coughing, with or adapter shortness of breath, # 1 ea, 1 Refill(s) Ventolin No 2 puff, Memori a HFA 90 5-31 INHALER, l mcg/inh 18:59: Q4H, PRN Dean n inhalation 25 wheezing, aerosol coughing, with or adapter shortness of breath, # 1 ea, 1 Refill(s) Albuterol No 3 mL, NEB, Me moria 0.833 MG/ML 5-31 QID, PRN l / 18:59: as needed [place] Ipratropium 15 for [place] shortness 0.167 MG/ML of breath Inhalant or Solution wheezing, # 180 mL, 2 Refill(s) Albuterol No 3 mL, NEB, Me moria 0.833 MG/ML 5-31 QID, PRN l / 18:59: as needed [place] Ipratropium 15 for [place] shortness 0.167 MG/ML of breath Inhalant or Solution wheezing, # 180 mL, 2 Refill(s) doxycycline No 100 mg = 1 Memoria hyclate 100 5-31 tab, PO, l MG Oral 18:58: Q12H, X 10 Herm clara Tablet 48 day, # 20 tab, 0 Refill(s) doxycycline 0 No 100 mg = 1 Memoria hyclate 100 5-31 tab, PO, l MG Oral 18:58: Q12H, X 10 Herm clara Tablet 48 day, # 20 tab, 0 Refill(s) Ventolin 2018-0 No 2 puff, Memori a HFA 90 5-31 INHALER, l mcg/inh 18:31: Q4H, PRN Dean n inhalation 46 wheezing, aerosol coughing, with or adapter shortness of breath, # 1 ea, 1 Refill(s), Pharmacy: [facility] Ventolin 2018-0 No 2 puff, Memori a HFA 90 5-31 INHALER, l mcg/inh 18:31: Q4H, PRN Dean n inhalation 46 wheezing, aerosol coughing, with or adapter shortness of breath, # 1 ea, 1 Refill(s), Pharmacy: [facility] Albuterol 2018-0 No 3 mL, NEB, Me moria 0.833 MG/ML 5-31 QID, PRN l / 18:31: as needed [place] Ipratropium 41 for [place] shortness 0.167 MG/ML of breath Inhalant or Solution wheezing, # 180 mL, 2 Refill(s), Pharmacy: [facility] Albuterol 2018-0 No 3 mL, NEB, Me moria 0.833 MG/ML 5-31 QID, PRN l / 18:31: as needed [place] Ipratropium 41 for [place] shortness 0.167 MG/ML of breath Inhalant or Solution wheezing, # 180 mL, 2 Refill(s), Pharmacy: [facility] carvedilol 2018-0 No 3.125 mg, Me moria 3.125 mg 5-31 PO, Q12H, l oral tablet 18:31: Hold if HR [place] 00 is less than 60, # 60 tab, 0 Refill(s), Pharmacy: [facility] doxycycline 2018-0 No 100 mg = 1 Memoria hyclate 100 5-31 tab, PO, l MG Oral 18:31: Q12H, X 10 Herm clara Tablet 00 day, # 20 tab, 0 Refill(s), Pharmacy: [facility] Famotidine 2017-0 No 20 mg = 1 Me moria [...] PO, l Oral 18:31: QID, X 7 [place] Solution 00 day, # 280 mL, 0 Refill(s), [facility]acy: [facility] carvedilol 2017- No 3.125 mg, Me moria 3.125 mg 5-31 PO, Q12H, l oral tablet 18:31: Hold if HR [place] 00 is less than 60, # 60 tab, 0 Refill(s), [facility]: [facility] doxycycline 2017- No 100 mg = 1 Memoria hyclate 100 5-31 tab, PO, l MG Oral 18:31: Q12H, X 10 Herm clara Tablet 00 day, # 20 tab, 0 Refill(s), Pharmacy: [facility] Famotidine No 20 mg = 1 Me moria 20 MG Oral 5-31 tab, PO, l Tablet 18:31: Q12H, # 60 Paula nn [Pepcid] 00 tab, 0 Refill(s), Pharmacy: [facility] predniSONE Yes See Memoria 20 mg oral 5-31 Special l tablet 18:31: Instructio Paula nn 00 ns, PO, Daily, 16 day regimen: Days 1-4 - 40 mg (2 tabs) daily Days 5-8 - 30 mg (1 1/2 tabs) daily Days 9-12 - 20 mg (1 tab) daily Day 13-16 - 10 mg (1/2 tab) daily, X 16 day, # 24 tab, 0 Refill(s) Guaifenesin 2017- No 200 mg = Me moria 20 MG/ML 5-31 10 mL, PO, l Oral 18:31: QID, X 7 Jonah Solution 00 day, # 280 mL, 0 Refill(s), Pharmacy: [facility] Acetaminoph No Notes: Yadiel felipe en 325 MG / 5-31 (Same as: l Hydrocodone 18:28: [place] Paula nn Bitartrate 00 325/5) Do 5 MG Oral not exceed Tablet 4gm/day of acetaminop hen. Acetaminoph No Notes: Yadiel felipe en 325 MG / 5-31 (Same as: l Hydrocodone 18:28: [place] Paula nn Bitartrate 00 325/5) Do 5 MG Oral not exceed Tablet 4gm/day of acetaminop hen. Guaifenesin No Notes: Yadiel felipe 5-30 (Same as: l 22:00: Robitussin [place] ) Guaifenesin No Notes: Yadiel felipe 5-30 (Same as: l 22:00: Robitussin [place] ) Aspirin No Notes: Memoria 5-30 Take with l 14:00: food. Alprazolam No Notes: Memor ia 1 MG Oral 5-30 With food l Tablet 14:00: or milk Jonah (Same as: Xanax) Losartan No Notes: Memoria 5-30 (Same as: l 14:00: Cozaar) Levofloxaci No Notes: Yadiel felipe n 5-30 (Same l 14:00: as:Levaqui Jonah 00 n) Famotidine No Notes: Memor ia 20 MG Oral 5-30 (Same as: l Tablet 14:00: Pepcid) [place] [Pepcid] 00 Aspirin No Notes: Memoria 5-30 Take with l 14:00: food. [place] 00 Alprazolam No Notes: Memor ia 1 MG Oral 5-30 With food l Tablet 14:00: or milk [place] 00 (Same as: Xanax) Losartan No Notes: Memoria 5-30 (Same as: l 14:00: Cozaar) [place] Levofloxaci No Notes: Yadiel felipe n 5-30 (Same l 14:00: as:Levaqui [place] 00 n) Famotidine No Notes: Memor ia 20 MG Oral 5-30 (Same as: l Tablet 14:00: Pepcid) Jonah [Pepcid] 00 methylPREDN No Notes: Yadiel felipe ISolone 5-30 (Same l SODium 07:00: as:Solu-ME Paula nn SUCCinate 00 DROL, A-Methapre d) methylPREDN No Notes: Yadiel felipe ISolone 5-30 (Same l SODium 07:00: as:Solu-ME Paula nn SUCCinate 00 DROL, A-Methapre d) Lovenox No Notes: Memoria 5-30 (Same as: l 06:00: Lovenox) Jonah 00 Lovenox No Notes: Memoria 5-30 (Same as: l 06:00: Lovenox) Acetaminoph No Notes: Do M emoria en 300 MG / 5-30 not exceed l Codeine 05:46: 4gm/day of Herm clara Phosphate 00 acetaminop 30 MG Oral hen. (Same Tablet as: [Tylenol Tylenol with with Codeine #3] Codeine # 3) Acetaminoph No Notes: Do M emoria en 300 MG / 5-30 not exceed l Codeine 05:46: 4gm/day of Herm clara Phosphate 00 acetaminop 30 MG Oral hen. (Same Tablet as: [Tylenol Tylenol with with Codeine #3] Codeine # 3) Albuterol No Notes: Memori a 0.833 MG/ML 5-30 (Same as: l / 04:00: Duoneb) Ipratropium 00 [place] 0.167 MG/ML Inhalant Solution Albuterol No Notes: Memori a 0.833 MG/ML 5-30 (Same as: 04:00: Duoneb) [place] Ipratropium 00 [place] 0.167 MG/ML Inhalant Solution NS 1,000 mL No 1,000 mL, M emoria 5-30 Rate: 75 l 03:51: ml/hr, Infuse over: 13.3 hr, Route: IV, Dosing Weight 96 kg, Total Volume: 1,000, Start date: 03/28/18 22:51:00 CDT, Duration: 30 day, Stop date: 04/27/18 22:50:00 CDT, 2.17, m2 NS 1,000 mL No 1,000 mL, M [...] aquino Solution 00 ION (Same as: Proventil) Albuterol No Notes: SEE Me moria 0.83 MG/ML 5-30 RT l Inhalant 03:50: DOCUMENTAT Her aquino Solution 00 ION (Same as: Proventil) Alprazolam Yes 1 mg = 1 Mem oria 1 MG Oral 5-30 tab, PO, l Tablet 03:49: BID, 0 Jonah 00 Refill(s) Alprazolam Yes 1 mg = 1 Mem oria 1 MG Oral 5-30 tab, PO, l Tablet 03:49: BID, 0 Refill(s) Ceftriaxone No Notes: Yadiel felipe 5-30 (Same As: l 02:17: Rocephin). Use with 100 mL NS and infuse over 30 min MEDICATION WASTE Product Size: 1000 mg Product Wasted: ___ mg Azithromyci No Notes: Yadiel felipe n 5-30 (Same As: l 02:17: Zithromax IV) Ceftriaxone No Notes: Yadiel felipe 5-30 (Same As: l 02:17: Rocephin). Use with 100 mL NS and infuse over 30 min MEDICATION WASTE Product Size: 1000 mg Product Wasted: ___ mg Azithromyci No Notes: Yadiel felipe n 5-30 (Same As: l 02:17: Zithromax [place] 00 IV) Magnesium No Notes: Memori a Sulfate 5-30 WASTE: F/P l 01:47: - Sink; [facility] [place] [facility] Magnesium No Notes: Memori a Sulfate 5-30 WASTE: F/P l 01:47: - Sink; [facility] [place] [facility] methylPREDN No Notes: Yadiel felipe ISolone 5-29 (Same l SODium 23:36: as:Solu-ME Paula nn SUCCinate 00 DROL, A-Methapre d) Albuterol No Notes: Memori a 0.833 MG/ML 5-29 (Same as: l / 23:36: Duoneb) Jonah Ipratropium 00 [place] 0.167 MG/ML Inhalant Solution methylPREDN No Notes: Yadiel felipe ISolone 5-29 (Same l SODium 23:36: as:Solu-ME Paula nn SUCCinate 00 DROL, A-Methapre d) Albuterol No Notes: Memori a 0.833 MG/ML 5-29 (Same as: l / 23:36: Duoneb) Jonah Ipratropium 00 [place] 0.167 MG/ML Inhalant Solution Saline No Notes: Memoria Flush 0.9% 5-29 (Same as: l 20:07: BD Jonah 00 Posiflush) Saline No Notes: Memoria Flush 0.9% 5-29 (Same as: l 20:07: BD [place] 00 Posiflush) Reglan No Notes: Memoria 5-29 (Same as: l 20:06: Reglan) [place] 00 Reglan No Notes: Memoria 5-29 (Same as: l 20:06: Reglan) [place] 00 Albuterol No Notes: Memori a 0.833 MG/ML 5-29 (Same as: l / 20:05: Duoneb) [place] Ipratropium 00 [place] 0.167 MG/ML Inhalant Solution [DuoNeb] Dexamethaso No 10 mg, 2.5 Memoria ne 5-29 mL, Route: l 20:05: IVP, Drug form: INJ, ONCE, Dosing Weight 90.273, kg, Priority: STAT, Start date: 03/28/18 15:05:00 CDT, Stop date: 03/28/18 15:05:00 CDT Albuterol 2017- No Notes: Memori a 0.833 MG/ML 5-29 (Same as: l / 20:05: Duoneb) [place] Ipratropium 00 [place] 0.167 MG/ML Inhalant Solution [DuoNeb] Dexamethaso No 10 mg, 2.5 Memoria ne 5-29 mL, Route: l 20:05: IVP, Drug form: INJ, ONCE, Dosing Weight 90.273, kg, Priority: STAT, Start date: 03/28/18 15:05:00 CDT, Stop date: 03/28/18 15:05:00 CDT Fluconazole 2016-10 Yes 150 mg = 1 Memoria 150 MG Oral 2-31 tab, PO, l Tablet 19:26: ONCE, # 1 Dean n [Diflucan] 00 tab, 0 Refill(s) Fluconazole 2016-10 Yes 150 mg = 1 Memoria 150 MG Oral 2-31 tab, PO, l Tablet 19:26: ONCE, # 1 Dean n [Diflucan] 00 tab, 0 Refill(s) Levofloxaci 2016-10 No 750 mg = 1 Memoria n 750 MG 2-31 tab, PO, l Oral Tablet 18:13: Daily, X 2 [place] [Levaquin] 00 day, # 2 tab, 0 Refill(s) Levofloxaci 2016-10 No 750 mg = 1 Memoria n 750 MG 2-31 tab, PO, l Oral Tablet 18:13: Daily, X 2 [place] [Levaquin] 00 day, # 2 tab, 0 Refill(s) Oxygen 2016-10 Yes 1 btl, Memoria 2-31 MISC, PRN, l 18:10: PRN [place] 00 Shortness of breath, # 1 btl, 2 Refill(s) Oxygen 2016-10 Yes 1 btl, Memoria 2-31 MISC, PRN, l 18:10: PRN [place] 00 Shortness of breath, # 1 btl, 2 Refill(s) Paroxetine 2016-10 Yes 30 mg = 1 Me moria 30 MG Oral 2-31 tab, PO, l Tablet 18:05: Daily, # [place] [Paxil] 00 30 tab, 2 Refill(s), Pharmacy: [facility] Symbicort 2016-10 Yes 1 puff, Memor ia 80/4.5 2-31 INHALATION l inhalation 18:05: , BID, # 1 H ermann aerosol 00 ea, 2 with Refill(s), adapter Pharmacy: [facility] losartan 50 2016-10 Yes 50 mg = 1 M emoria mg oral 2-31 tab, PO, l tablet 18:05: Daily, # Jon[place] 00 30 tab, 2 Refill(s), Pharmacy: [facility] Alprazolam 2016-10 Yes 0.25 mg [...] ea, 1 Refill(s), Pharmacy: [facility] predniSONE 2016-10 Yes See Memoria [...] 18:05: as needed [place] Ipratropium 00 for [place] shortness 0.167 MG/ML of breath Inhalant or Solution wheezing, # 180 mL, 2 Refill(s), Pharmacy: [facility] Paroxetine 2016-10 Yes 30 mg = 1 Me moria 30 MG Oral 2-31 tab, PO, l Tablet 18:05: Daily, # [place] [Paxil] 00 30 tab, 2 Refill(s), Pharmacy: [facility] Symbicort 2016-10 Yes 1 puff, Memor ia 80/4.5 2-31 INHALATION l inhalation 18:05: , BID, # 1 H ermann aerosol 00 ea, 2 with Refill(s), adapter Pharmacy: [facility] losartan 50 2016-10 Yes 50 mg = 1 M emoria mg oral 2-31 tab, PO, l tablet 18:05: Daily, # [place] 00 30 tab, 2 Refill(s), Pharmacy: [facility] Alprazolam 2016-10 Yes 0.25 mg [...] breath, # 1 ea, 1 Refill(s), Pharmacy: [facility] predniSONE 2016-10 Yes See Memoria [...] QID, PRN l / 18:05: as needed [place] Ipratropium 00 for [place] shortness 0.167 MG/ML of breath Inhalant or Solution wheezing, # 180 mL, 2 Refill(s), Pharmacy: [facility] Prednisone 2016-10 No Notes: Memor ia 2-31 Take with l 15:00: food. [place] Prednisone 2016-10 No Notes: Memor ia 2-31 Take with l 15:00: food. [place] 00 Alprazolam 2016-10 No Notes: Memor ia 2-30 With food l 23:00: or milk [place] 00 (Same as: Xanax) Alprazolam 2016-10 No Notes: Memor ia 2-30 With food l 23:00: or milk [place] 00 (Same as: Xanax) Albuterol 2016-10 No Notes: Memori a 0.833 MG/ML 2-30 (Same as: l / 15:25: Duoneb) [place] Ipratropium 00 [place] 0.167 MG/ML Inhalant Solution Albuterol 2016-10 No Notes: Memori a 0.833 MG/ML 2-30 (Same as: l / 15:25: Duoneb) [place] Ipratropium 00 [place] 0.167 MG/ML Inhalant Solution methylPREDN 2016-10 No Notes: Yadiel felipe ISolone 2-30 (Same l SODium 15:00: as:Solu-ME Paula nn SUCCinate 00 DROL, A-Methapre d) methylPREDN 2016-10 No Notes: Yadiel felipe ISolone 2-30 (Same l SODium 15:00: as:Solu-ME Paula nn SUCCinate 00 DROL, A-Methapre d) Levaquin 2016-10 No Notes: Do Yadiel felipe 2-29 not give l 16:00: w/antacids Jon[place] 00 , dairy pdt & minerals Take 1 hr before or 2 hr after dairy pdt (Same as:Levaqui n) Levaquin 2016-10 No Notes: Do Yadiel felipe 2-29 not give l 16:00: w/antacids [place] 00 , dairy pdt & minerals Take 1 hr before or 2 hr after dairy pdt (Same as:Levaqui n) Lasix 2016-10 No Notes: Memoria 2-29 (Same as: l 15:34: Lasix) [place] Lasix 2016-10 No Notes: Memoria 2-29 (Same as: l 15:34: Lasix) [place] K-Dur 20 2016-10 No Notes: Memoria 2-29 (Same as: l 15:29: K-Dur 20) "Do Not Crush" With food and full glass of water K-Dur 20 2016-10 No Notes: Memoria 2-29 (Same as: l 15:29: K-Dur 20) "Do Not Crush" With food and full glass of water Lasix 2016-10 No Notes: Memoria 2-28 (Same as: l 16:25: Lasix) Lasix 2016-10 No Notes: Memoria 2-28 (Same as: l 16:25: Lasix) Famotidine 2016-10 No Notes: Memor ia 20 MG Oral 2-27 (Same as: l Tablet 23:00: Pepcid) Famotidine 2016-10 No Notes: Memor ia 20 MG Oral 2-27 (Same as: l Tablet 23:00: Pepcid) Symbicort 2016-10 No Notes: Memori a 160/4.5 2-27 (Same as: l inhalation 19:00: Symbicort) H ermann aerosol 00 WASTE: with Aerosol - adapter Return to Pharmacy Symbicort 2016-10 No Notes: Memori a 160/4.5 2-27 (Same as: l inhalation 19:00: Symbicort) H ermann aerosol 00 WASTE: with Aerosol - adapter Return to Pharmacy methylPREDN 2016-10 No Notes: Yadiel felipe ISolone 2-27 (Same l SODium 03:00: as:Solu-ME Paula nn SUCCinate 00 DROL, A-Methapre d) methylPREDN 2016-10 No Notes: Yadiel felipe ISolone [...] Her aquino [Xanax] 00 (Same as: Xanax) Paxil 2016-10 No Notes: Memoria 2-26 (Same as: l 15:00: Paxil) [place] 00 Losartan 2016-10 No Notes: Memoria 2-26 (Same as: l 15:00: Cozaar) Aspirin 2016-10 No Notes: Do Memor ia 2-26 not crush l 15:00: or chew. Jonah (Same As: Ecotrin) Alprazolam 2016-10 No Notes: [...] 2016-10 No Notes: Memori a chloride 20 2-26 (Same as: l mEq oral 14:13: K-Dur 20) Herm clara tablet, 00 "Do Not extended Crush" release With food and full glass of water potassium 2016-10 No Notes: Memori a chloride 20 2-26 (Same as: l mEq oral 14:13: K-Dur 20) Herm clara tablet, 00 "Do Not extended Crush" release With food and full glass of water Azithromyci 2016-10 No Notes: Yadiel felipe n 2-26 Take 1 l 05:00: hour [place] 00 before or 2 hours after meals. (Same As: Zithromax) Azithromyci 2016-10 No Notes: Yadiel felipe n 2-26 Take 1 l 05:00: hour [place] 00 before or 2 hours after meals. (Same As: Zithromax) Mupirocin 2016-10 No 1 appl, Memor ia 0.02 MG/MG 2-26 Route: l Topical 03:00: TOP, Q12H, Herm clara Ointment 00 Drug form: OINT, Start date: 10/24/17 21:00:00 GETTER WELDER, Duration: 5 day, Stop date: 10/29/17 9:00:00 GETTER WELDER Mupirocin 2016-10 No 1 appl, Memor ia 0.02 MG/MG 12-26 Route: l Topical 03:00: TOP, Q12H, Herm clara Ointment Drug form: OINT, Start date: 10/24/17 21:00:00 GETTER WELDER, Duration: 5 day, Stop date: 10/29/17 9:00:00 GETTER WELDER Benadryl 2016-10 No Notes: Memoria 2-26 (Same as: l 01:22: Benadryl) Famotidine 2016-10 No Notes: Memor ia 40 MG Oral 2-26 (Same as: l Tablet 01:22: Pepcid) [place] [Pepcid] Benadryl 2016-10 No Notes: Memoria 2-26 (Same as: l 01:22: Benadryl) Famotidine 2016-10 No Notes: Memor ia 40 MG Oral -26 (Same as: l Tablet 01:22: Pepcid) [place]ah [Pepcid] Benadryl 2016-10 No Notes: Memoria 2-25 (Same as: l 19:59: Benadryl) Benadryl 2016-10 No Notes: Memoria 2-25 (Same as: l 19:59: Benadryl) pneumococca 2016-10 No Notes: Yadiel felipe l capsular 2-25 (Same as: l polysacchar 15:00: Pneumovax H ermann miky type 1 ) vaccine / Refrigerat pneumococca e l capsular polysacchar miky type 10A vaccine / pneumococca l capsular polysacchar miky type 11A vaccine / pneumococca l capsular polysacchar miky type 12F vaccine / pneumococca l capsular polysacchar pneumococca 2016-10 No Notes: Yadiel felipe l capsular 2-25 (Same as: l polysacchar 15:00: Pneumovax H ermann miky type 1 ) vaccine / Refrigerat pneumococca e l capsular polysacchar miky type 10A vaccine / pneumococca l capsular polysacchar miky type 11A vaccine / pneumococca l capsular polysacchar miky type 12F vaccine / pneumococca l capsular polysacchar Albuterol 2016-10 No Notes: Memori a 0.833 MG/ML 2-25 (Same as: / 08:00: Duoneb) [place] Ipratropium 00 [place] 0.167 MG/ML Inhalant Solution Albuterol 2016-10 No Notes: Memori a 0.833 MG/ML 2-25 (Same as: / 08:00: Duone) [place] Ipratropium 00 [place] 0.167 MG/ML Inhalant Solution Aspirin 2016-10 Yes 81 mg, PO, Yadiel felipe 2-25 Daily, 0 l 06:11: Refill(s) [place] 00 Alprazolam 2016-10 No 0.25 mg = Me moria 0.25 MG 2-25 1 tab, PO, l Oral Tablet 06:11: BID, 0 Herm clara [Xanax] 00 Refill(s) Paroxetine 2016-10 No 30 mg = 1 Me moria 30 MG Oral 2-25 tab, PO, l Tablet 06:11: Daily, # [place] [Paxil] 00 30 tab, 0 Refill(s) Acetaminoph [...] 2-25 PRN, 0 l / 06:11: Refill(s) [place] Ipratropium 00 [place] 0.167 MG/ML Inhalant Solution ProAir HFA 2016-10 No 2 puff, Yadiel felipe 2-25 PO, Q4H, l 06:11: PRN [place] 00 Wheezing / cough / shortness of breath, # 1 ea, 0 Refill(s) Paroxetine 2016-10 No 30 mg = 1 Me moria 30 MG Oral 2-25 tab, PO, l Tablet 06:11: Daily, # [place] [Paxil] 00 30 tab, 0 Refill(s) Acetaminoph 2016-10 Yes 1 tab, PO, Memoria en 300 MG / 2-25 Q4H, PRN l Codeine 06:11: Pain, # 42 Herm clara Phosphate 00 tab, 0 30 MG Oral Refill(s) Tablet [Tylenol with Codeine #3] losartan 50 2016-10 No 50 mg = 1 M emoria mg oral 2-25 tab, PO, l tablet 06:11: Daily, # [place] 00 30 tab, 0 Refill(s) Symbicort 2016-10 No 1 puff, Memor ia 80/4.5 2-25 INHALATION l inhalation 06:11: , BID, 0 Her aquino aerosol 00 Refill(s) with adapter Albuterol 2016-10 No 3 mL, NEB, Me moria 0.833 MG/ML 2-25 PRN, 0 l / 06:11: Refill(s) [place] Ipratropium 00 [place] 0.167 MG/ML Inhalant Solution ProAir HFA 2016-10 No 2 puff, Yadiel felipe 2-25 PO, Q4H, l 06:11: PRN Jno[place] 00 Wheezing / cough / shortness of breath, # 1 ea, 0 Refill(s) Aspirin 2016-10 Yes 81 mg, PO, Yadiel felipe 2-25 Daily, 0 l 06:11: Refill(s) [place] 00 Alprazolam 2016-10 No 0.25 mg = Me moria 0.25 MG 2-25 1 tab, PO, l Oral Tablet 06:11: BID, 0 Herm clara [Xanax] 00 Refill(s) heparin 2016-10 No Notes: Memoria 2-25 porcine l 06:00: heparin [place] 00 methylPREDN 2016-10 No Notes: Yadiel felipe ISolone 2-25 (Same l SODium 06:00: as:Solu-ME Paula nn SUCCinate 00 DROL, A-Methapre d) heparin 2016-10 No Notes: Memoria 2-25 porcine l 06:00: heparin [place] 00 methylPREDN 2016-10 No Notes: Yadiel felipe ISolone 2-25 (Same l SODium 06:00: as:Solu-ME Paula nn SUCCinate 00 DROL, A-Methapre d) Ceftriaxone 2016-10 No Notes: Yadiel felipe 2-25 (Same As: l 05:00: Rocephin). [place] 00 Use with 100 mL NS and infuse over 30 min MEDICATION WASTE Product Size: 1000 mg Product Wasted: ___ mg Levofloxaci 2016-10 No Notes: Yadiel felipe n 2-25 (Same l 05:00: as:Levaqui [place] 00 n) Ceftriaxone 2016-10 No Notes: Yadiel felipe 2-25 (Same As: l 05:00: Rocephin). [place] 00 Use with 100 mL NS and infuse over 30 min MEDICATION WASTE Product Size: 1000 mg Product Wasted: ___ mg Levofloxaci 2016-10 No Notes: Yadiel felipe n 2-25 (Same l 05:00: as:Levaqui [place] 00 n) azithromyci 2016-10 No Notes: Yadiel felipe n 250 mg 2-25 Take 1 l oral tablet 04:47: hour Dean n 00 before or 2 hours after meals. (Same As: Zithromax) azithromyci 2016-10 No Notes: Yadiel felipe n 250 mg 2-25 Take 1 l oral tablet 04:47: hour Dean n 00 before or 2 hours after meals. (Same As: Zithromax) Diphenhydra 2016-10 No 25 mg, 1 Me moria mine 2-25 tab, l Hydrochlori 04:37: Route: PO, Jonah de 25 MG 00 Drug form: Disintegrat TAB, ONCE, ing Tablet Dosing Weight 90.273, kg, Priority: STAT, Start date: 10/23/17 22:37:00 GETTER WELDER, Stop date: 10/23/17 22:37:00 GETTER WELDER Diphenhydra 2016-10 No 25 mg, 1 Me moria mine 2-25 tab, l Hydrochlori 04:37: Route: PO, [place] de 25 MG 00 Drug form: Disintegrat TAB, ONCE, ing Tablet Dosing Weight 90.273, kg, Priority: STAT, Start date: 10/23/17 22:37:00 GETTER WELDER, Stop date: 10/23/17 22:37:00 GETTER WELDER Albuterol 2016-10 No Notes: SEE Me moria 0.83 MG/ML 2-25 RT l Inhalant 04:33: DOCUMENTAT Her aquino Solution 00 ION (Same as: Proventil) Albuterol 2016-10 No Notes: SEE Me moria 0.83 MG/ML 2-25 RT l Inhalant 04:33: DOCUMENTAT Her aquino Solution 00 ION (Same as: Proventil) Albuterol Albuterol No 3{ml_as Albuterol Sulfate Sulfate _needed Sulfate (2.5 (2.5 } (2.5 MG/3ML) MG/3ML) MG/3ML) 0.083% 0.083% 0.083% Losartan Losartan No Losartan Potassium Potassium Potassium 50 MG 50 MG 50 MG Gabapentin Gabapentin No 1{capsu QD Gabapentin 300 MG 300 MG le} 300 MG Albuterol-I Albuterol-I No Albuterol- pratropium pratropium Ipratropiu 2.5-0.5mg/3 2.5-0.5mg/3 m ml ml 2.5-0.5mg/ 3ml PARoxetine PARoxetine No 1{table QD PARoxetine HCl 40 MG HCl 40 MG t_in_th HCl 40 MG e_morni ng} Famotidine Famotidine No Famotidine 20 MG 20 MG 20 MG ALPRAZolam ALPRAZolam No ALPRAZolam 0.5 MG 0.5 MG 0.5 MG Carvedilol Carvedilol No Carvedilol 3.125 MG 3.125 MG 3.125 MG EpiPen EpiPen No EpiPen 2-Slick 0.3 2-Slick 0.3 2-Slick 0.3 MG/0.3ML MG/0.3ML MG/0.3ML ProAir HFA ProAir HFA No 2{puffs ProAir HFA 108 (90 108 (90 _as_nee 108 (90 Base) Base) ded} Base) MCG/ACT MCG/ACT MCG/ACT Aspirin 81 Aspirin 81 No 1{table QD Aspirin 81 MG MG t} MG Albuterol Albuterol No 3{ml_as Albuterol Sulfate Sulfate _needed Sulfate (2.5 (2.5 } (2.5 MG/3ML) MG/3ML) MG/3ML) 0.083% 0.083% 0.083% Losartan Losartan No Losartan Potassium Potassium Potassium 50 MG 50 MG 50 MG Gabapentin Gabapentin No 1{capsu QD Gabapentin 300 MG 300 MG le} 300 MG EpiPen EpiPen No EpiPen 2-Slick 0.3 2-Slick 0.3 2-Slick 0.3 MG/0.3ML MG/0.3ML MG/0.3ML Losartan Losartan No Losartan Potassium Potassium Potassium 50 MG 50 MG 50 MG Albuterol-I Albuterol-I No Albuterol- pratropium pratropium Ipratropiu 2.5-0.5mg/3 2.5-0.5mg/3 m ml ml 2.5-0.5mg/ 3ml Albuterol Albuterol No 3{ml_as Albuterol Sulfate Sulfate _needed Sulfate (2.5 (2.5 } (2.5 MG/3ML) MG/3ML) MG/3ML) 0.083% 0.083% 0.083% Famotidine Famotidine No Famotidine 20 MG 20 MG 20 MG ProAir HFA ProAir HFA No 2{puffs ProAir HFA 108 (90 108 (90 _as_nee 108 (90 Base) Base) ded} Base) MCG/ACT MCG/ACT MCG/ACT Carvedilol Carvedilol No Carvedilol 3.125 MG 3.125 MG 3.125 MG Aspirin 81 Aspirin 81 No 1{table QD Aspirin 81 MG MG t} MG PARoxetine PARoxetine No 1{table QD PARoxetine HCl 40 MG HCl 40 MG t_in_th HCl 40 MG e_morni ng} ALPRAZolam ALPRAZolam No ALPRAZolam 0.5 MG 0.5 MG 0.5 MG Gabapentin Gabapentin No 1{capsu QD Gabapentin 300 MG 300 MG le} 300 MG EpiPen EpiPen No EpiPen 2-Slick 0.3 2-Slick 0.3 2-Slick 0.3 MG/0.3ML MG/0.3ML MG/0.3ML Losartan Losartan No Losartan Potassium Potassium Potassium 50 MG 50 MG 50 MG Albuterol-I Albuterol-I No Albuterol- pratropium pratropium Ipratropiu 2.5-0.5mg/3 2.5-0.5mg/3 m ml ml 2.5-0.5mg/ 3ml Albuterol Albuterol No 3{ml_as Albuterol Sulfate Sulfate _needed Sulfate (2.5 (2.5 } (2.5 MG/3ML) MG/3ML) MG/3ML) 0.083% 0.083% 0.083% Famotidine Famotidine No Famotidine 20 MG 20 MG 20 MG ProAir HFA ProAir HFA No 2{puffs ProAir HFA 108 (90 108 (90 _as_nee 108 (90 Base) Base) ded} Base) MCG/ACT MCG/ACT MCG/ACT Carvedilol Carvedilol No Carvedilol 3.125 MG 3.125 MG 3.125 MG Aspirin 81 Aspirin 81 No 1{table QD Aspirin 81 MG MG t} MG PARoxetine PARoxetine No 1{table QD PARoxetine HCl 40 MG HCl 40 MG t_in_th HCl 40 MG e_morni ng} ALPRAZolam ALPRAZolam No ALPRAZolam 0.5 MG 0.5 MG 0.5 MG Gabapentin Gabapentin No 1{capsu QD Gabapentin 300 MG 300 MG le} 300 MG EpiPen EpiPen No EpiPen 2-Slick 0.3 2-Slick 0.3 2-Slick 0.3 MG/0.3ML MG/0.3ML MG/0.3ML Losartan Losartan No Losartan Potassium Potassium Potassium 50 MG 50 MG 50 MG Albuterol-I Albuterol-I No Albuterol- pratropium pratropium Ipratropiu 2.5-0.5mg/3 2.5-0.5mg/3 m ml ml 2.5-0.5mg/ 3ml Albuterol Albuterol No 3{ml_as Albuterol Sulfate Sulfate _needed Sulfate (2.5 (2.5 } (2.5 MG/3ML) MG/3ML) MG/3ML) 0.083% 0.083% 0.083% Famotidine Famotidine No Famotidine 20 MG 20 MG 20 MG ProAir HFA ProAir HFA No 2{puffs ProAir HFA 108 (90 108 (90 _as_nee 108 (90 Base) Base) ded} Base) MCG/ACT MCG/ACT MCG/ACT Carvedilol Carvedilol No Carvedilol 3.125 MG 3.125 MG 3.125 MG Aspirin 81 Aspirin 81 No 1{table QD Aspirin 81 MG MG t} MG PARoxetine PARoxetine No 1{table QD PARoxetine HCl 40 MG HCl 40 MG t_in_th HCl 40 MG e_morni ng} ALPRAZolam ALPRAZolam No ALPRAZolam 0.5 MG 0.5 MG 0.5 MG Gabapentin Gabapentin No 1{capsu QD Gabapentin 300 MG 300 MG le} 300 MG EpiPen EpiPen No EpiPen 2-Slick 0.3 2-Slick 0.3 2-Slick 0.3 MG/0.3ML MG/0.3ML MG/0.3ML Losartan Losartan No Losartan Potassium Potassium Potassium 50 MG 50 MG 50 MG Albuterol-I Albuterol-I No Albuterol- pratropium pratropium Ipratropiu 2.5-0.5mg/3 2.5-0.5mg/3 m ml ml 2.5-0.5mg/ 3ml Albuterol Albuterol No 3{ml_as Albuterol Sulfate Sulfate _needed Sulfate (2.5 (2.5 } (2.5 MG/3ML) MG/3ML) MG/3ML) 0.083% 0.083% 0.083% Famotidine Famotidine No Famotidine 20 MG 20 MG 20 MG ProAir HFA ProAir HFA No 2{puffs ProAir HFA 108 (90 108 (90 _as_nee 108 (90 Base) Base) ded} Base) MCG/ACT MCG/ACT MCG/ACT Carvedilol Carvedilol No Carvedilol 3.125 MG 3.125 MG 3.125 MG Aspirin 81 Aspirin 81 No 1{table QD Aspirin 81 MG MG t} MG PARoxetine PARoxetine No 1{table QD PARoxetine HCl 40 MG HCl 40 MG t_in_th HCl 40 MG e_morni ng} ALPRAZolam ALPRAZolam No ALPRAZolam 0.5 MG 0.5 MG 0.5 MG Gabapentin Gabapentin No 1{capsu QD Gabapentin 300 MG 300 MG le} 300 MG Famotidine Famotidine No Famotidine 20 MG 20 MG 20 MG Gabapentin Gabapentin No 1{capsu QD Gabapentin 300 MG 300 MG le} 300 MG Albuterol-I Albuterol-I No Albuterol- pratropium pratropium Ipratropiu 2.5-0.5mg/3 2.5-0.5mg/3 m ml ml 2.5-0.5mg/ 3ml EpiPen EpiPen No EpiPen 2-Slick 0.3 2-Slick 0.3 2-Slick 0.3 MG/0.3ML MG/0.3ML MG/0.3ML Albuterol Albuterol No 3{ml_as Albuterol Sulfate Sulfate _needed Sulfate (2.5 (2.5 } (2.5 MG/3ML) MG/3ML) MG/3ML) 0.083% 0.083% 0.083% ProAir HFA ProAir HFA No 2{puffs ProAir HFA 108 (90 108 (90 _as_nee 108 (90 Base) Base) ded} Base) MCG/ACT MCG/ACT MCG/ACT PARoxetine PARoxetine No 1{table QD PARoxetine HCl 40 MG HCl 40 MG t_in_th HCl 40 MG e_morni ng} Carvedilol Carvedilol No Carvedilol 3.125 MG 3.125 MG 3.125 MG Losartan Losartan No Losartan Potassium Potassium Potassium 50 MG 50 MG 50 MG ALPRAZolam ALPRAZolam No ALPRAZolam 0.5 MG 0.5 MG 0.5 MG Aspirin 81 Aspirin 81 No 1{table QD Aspirin 81 MG MG t} MG Famotidine Famotidine No Famotidine 20 MG 20 MG 20 MG Gabapentin Gabapentin No 1{capsu QD Gabapentin 300 MG 300 MG le} 300 MG Albuterol-I Albuterol-I No Albuterol- pratropium pratropium Ipratropiu 2.5-0.5mg/3 2.5-0.5mg/3 m ml ml 2.5-0.5mg/ 3ml EpiPen EpiPen No EpiPen 2-Slick 0.3 2-Slick 0.3 2-Slick 0.3 MG/0.3ML MG/0.3ML MG/0.3ML Albuterol Albuterol No 3{ml_as Albuterol Sulfate Sulfate _needed Sulfate (2.5 (2.5 } (2.5 MG/3ML) MG/3ML) MG/3ML) 0.083% 0.083% 0.083% ProAir HFA ProAir HFA No 2{puffs ProAir HFA 108 (90 108 (90 _as_nee 108 (90 Base) Base) ded} Base) MCG/ACT MCG/ACT MCG/ACT PARoxetine PARoxetine No 1{table QD PARoxetine HCl 40 MG HCl 40 MG t_in_th HCl 40 MG e_morni ng} Carvedilol Carvedilol No Carvedilol 3.125 MG 3.125 MG 3.125 MG Losartan Losartan No Losartan Potassium Potassium Potassium 50 MG 50 MG 50 MG ALPRAZolam ALPRAZolam No ALPRAZolam 0.5 MG 0.5 MG 0.5 MG Aspirin 81 Aspirin 81 No 1{table QD Aspirin 81 MG MG t} MG Aspirin 81 Aspirin 81 No 1{table QD Aspirin 81 MG MG t} MG Losartan Losartan No Losartan Potassium Potassium Potassium 50 MG 50 MG 50 MG Famotidine Famotidine No Famotidine 20 MG 20 MG 20 MG Gabapentin Gabapentin No 1{capsu QD Gabapentin 300 MG 300 MG le} 300 MG Albuterol-I Albuterol-I No Albuterol- pratropium pratropium Ipratropiu 2.5-0.5mg/3 2.5-0.5mg/3 m ml ml 2.5-0.5mg/ 3ml EpiPen EpiPen No EpiPen 2-Slick 0.3 2-Slick 0.3 2-Slick 0.3 MG/0.3ML MG/0.3ML MG/0.3ML ProAir HFA ProAir HFA No 2{puffs ProAir HFA 108 (90 108 (90 _as_nee 108 (90 Base) Base) ded} Base) MCG/ACT MCG/ACT MCG/ACT PARoxetine PARoxetine No 1{table QD PARoxetine HCl 40 MG HCl 40 MG t_in_th HCl 40 MG e_morni ng} ALPRAZolam ALPRAZolam No ALPRAZolam 0.5 MG 0.5 MG 0.5 MG Albuterol Albuterol No 3{ml_as Albuterol Sulfate Sulfate _needed Sulfate (2.5 (2.5 } (2.5 MG/3ML) MG/3ML) MG/3ML) 0.083% 0.083% 0.083% Carvedilol Carvedilol No Carvedilol 3.125 MG 3.125 MG 3.125 MG ALPRAZolam ALPRAZolam No ALPRAZolam 0.5 MG 0.5 MG 0.5 MG EpiPen EpiPen No EpiPen 2-Slick 0.3 2-Slick 0.3 2-Slick 0.3 MG/0.3ML MG/0.3ML MG/0.3ML Carvedilol Carvedilol No Carvedilol 3.125 MG 3.125 MG 3.125 MG Aspirin 81 Aspirin 81 No 1{table QD Aspirin 81 MG MG t} MG Albuterol-I Albuterol-I No Albuterol- pratropium pratropium Ipratropiu 2.5-0.5mg/3 2.5-0.5mg/3 m ml ml 2.5-0.5mg/ 3ml Gabapentin Gabapentin No 1{capsu QD Gabapentin 300 MG 300 MG le} 300 MG Losartan Losartan No Losartan Potassium Potassium Potassium 50 MG 50 MG 50 MG PARoxetine PARoxetine No 1{table QD PARoxetine HCl 40 MG HCl 40 MG t_in_th HCl 40 MG e_morni ng} ProAir HFA ProAir HFA No 2{puffs ProAir HFA 108 (90 108 (90 _as_nee 108 (90 Base) Base) ded} Base) MCG/ACT MCG/ACT MCG/ACT Famotidine Famotidine No Famotidine 20 MG 20 MG 20 MG Albuterol Albuterol No 3{ml_as Albuterol Sulfate Sulfate _needed Sulfate (2.5 (2.5 } (2.5 MG/3ML) MG/3ML) MG/3ML) 0.083% 0.083% 0.083% Albuterol-I Albuterol-I No Albuterol- pratropium pratropium Ipratropiu 2.5-0.5mg/3 2.5-0.5mg/3 m ml ml 2.5-0.5mg/ 3ml PARoxetine PARoxetine No 1{table QD PARoxetine HCl 40 MG HCl 40 MG t_in_th HCl 40 MG e_morni ng} Famotidine Famotidine No Famotidine 20 MG 20 MG 20 MG ALPRAZolam ALPRAZolam No ALPRAZolam 0.5 MG 0.5 MG 0.5 MG Carvedilol Carvedilol No Carvedilol 3.125 MG 3.125 MG 3.125 MG EpiPen EpiPen No EpiPen 2-Slick 0.3 2-Slick 0.3 2-Slick 0.3 MG/0.3ML MG/0.3ML MG/0.3ML ProAir HFA ProAir HFA No 2{puffs ProAir HFA 108 (90 108 (90 _as_nee 108 (90 Base) Base) ded} Base) MCG/ACT MCG/ACT MCG/ACT Aspirin 81 Aspirin 81 No 1{table QD Aspirin 81 MG MG t} MG Albuterol Albuterol No 3{ml_as Albuterol Sulfate Sulfate _needed Sulfate (2.5 (2.5 } (2.5 MG/3ML) MG/3ML) MG/3ML) 0.083% 0.083% 0.083% Losartan Losartan No Losartan Potassium Potassium Potassium 50 MG 50 MG 50 MG Gabapentin Gabapentin No 1{capsu QD Gabapentin 300 MG 300 MG le} 300 MG Albuterol-I Albuterol-I No Albuterol- pratropium pratropium Ipratropiu 2.5-0.5mg/3 2.5-0.5mg/3 m ml ml 2.5-0.5mg/ 3ml PARoxetine PARoxetine No 1{table QD PARoxetine HCl 40 MG HCl 40 MG t_in_th HCl 40 MG e_morni ng} Famotidine Famotidine No Famotidine 20 MG 20 MG 20 MG ALPRAZolam ALPRAZolam No ALPRAZolam 0.5 MG 0.5 MG 0.5 MG Carvedilol Carvedilol No Carvedilol 3.125 MG 3.125 MG 3.125 MG EpiPen EpiPen No EpiPen 2-Slick 0.3 2-Slick 0.3 2-Slick 0.3 MG/0.3ML MG/0.3ML MG/0.3ML ProAir HFA ProAir HFA No 2{puffs ProAir HFA 108 (90 108 (90 _as_nee 108 (90 Base) Base) ded} Base) MCG/ACT MCG/ACT MCG/ACT Aspirin 81 Aspirin 81 No 1{table QD Aspirin 81 MG MG t} MG Albuterol Albuterol No 3{ml_as Albuterol Sulfate Sulfate _needed Sulfate (2.5 (2.5 } (2.5 MG/3ML) MG/3ML) MG/3ML) 0.083% 0.083% 0.083% Losartan Losartan No Losartan Potassium Potassium Potassium 50 MG 50 MG 50 MG Gabapentin Gabapentin No 1{capsu QD Gabapentin 300 MG 300 MG le} 300 MG Albuterol-I Albuterol-I No Albuterol- pratropium pratropium Ipratropiu 2.5-0.5mg/3 2.5-0.5mg/3 m ml ml 2.5-0.5mg/ 3ml PARoxetine PARoxetine No 1{table QD PARoxetine HCl 40 MG HCl 40 MG t_in_th HCl 40 MG e_morni ng} Famotidine Famotidine No Famotidine 20 MG 20 MG 20 MG ALPRAZolam ALPRAZolam No ALPRAZolam 0.5 MG 0.5 MG 0.5 MG Carvedilol Carvedilol No Carvedilol 3.125 MG 3.125 MG 3.125 MG EpiPen EpiPen No EpiPen 2-Slick 0.3 2-Slick 0.3 2-Slick 0.3 MG/0.3ML MG/0.3ML MG/0.3ML ProAir HFA ProAir HFA No 2{puffs ProAir HFA 108 (90 108 (90 _as_nee 108 (90 Base) Base) ded} Base) MCG/ACT MCG/ACT MCG/ACT Aspirin 81 Aspirin 81 No 1{table QD Aspirin 81 MG MG t} MG Immunizations Ordered Immunization Filled Immunization Date Status Commen ts Source Name Name pneumococcal 2017-10-25 Completed [facility] 23-valent vaccine 14:46:00 [facility] pneumococcal 2017-10-25 Completed [facility] 23-valent vaccine 14:46:00 [facility] Vital Signs Vital Name Observation Time Observation Value Comments Source height 2022-02-10 15:15:00 68.00 [in_i] [facility] weight 2022-02-10 15:15:00 185 [lb_av] Common S pirit [facility] bmi 2022-02-10 15:15:00 28.13 kg/m2 Common S pirit - [facility] blood pressure 2022-02-10 15:15:00 132 mm[Hg] [facility] - systolic [facility] blood pressure 2022-02-10 15:15:00 72 mm[Hg] [facility] height 2022-01-11 09:45:00 68.00 [in_i] Common S pirit [facility] weight 2022-01-11 09:45:00 185 [lb_av] Common S pirit [facility] bmi 2022-01-11 09:45:00 28.13 kg/m2 Common S pirit - [facility] blood pressure 2022-01-11 09:45:00 132 mm[Hg] [facility] - systolic [facility] blood pressure 2022-01-11 09:45:00 72 mm[Hg] [facility] diastolic [facility] height 2021-12-03 13:15:00 68.00 [in_i] Common S pirit [facility] weight 2021-12-03 13:15:00 184 [lb_av] Common S pirit [facility] bmi 2021-12-03 13:15:00 27.97 kg/m2 Common S pirit - [facility] blood pressure 2021-12-03 13:15:00 132 mm[Hg] [facility] - systolic [facility] blood pressure 2021-12-03 13:15:00 74 mm[Hg] [facility] height 2021-11-25 10:30:00 68.00 [in_i] Common S pirit - [facility] weight 2021-11-25 10:30:00 185 [lb_av] Common S pirit [facility] bmi 2021-11-25 10:30:00 28.13 kg/m2 Common S pirit [facility] blood pressure 2021-11-25 10:30:00 130 mm[Hg] [facility] - [facility] blood pressure 2021-11-25 10:30:00 72 mm[Hg] [facility] Systolic (mm Hg) 2022-01-04 15:39:00 Yadiel rial Jonah Diastolic (mm Hg) 2022-01-04 15:39:00 Mem orial [place] Heart Rate 2022-01-04 15:39:00 [facility] Respitory Rate 2022-01-04 15:39:00 Memori al [facility] Height 2022-01-04 15:39:00 170.18 cm [facility] Weight 2022-01-04 15:39:00 [facility] [place] BMI Calculated 2022-01-04 15:39:00 Memori al [place] Systolic (mm Hg) 2021-12-18 16:08:00 Yadiel rial [place] Diastolic (mm Hg) 2021-12-18 16:08:00 [facility] [place] Heart Rate 2021-12-18 16:08:00 [facility] [place] Respitory Rate 2021-12-18 16:08:00 [facility] [place] Height 2021-12-18 16:08:00 170.18 cm [facility] Weight 2021-12-18 16:08:00 [facility] [place] BMI Calculated 2021-12-18 16:08:00 Memori al [place] Heart Rate 2018-03-30 21:23:00 [facility] Temperature Oral (F) 2018-03-30 21:23:00 98.1 F [facility] Systolic (mm Hg) 2018-03-30 21:23:00 Yadiel rial [place] Diastolic (mm Hg) 2018-03-30 21:23:00 Mem [facility] [place] Heart Rate 2018-03-30 16:21:00 [facility] Temperature Oral (F) 2018-03-30 16:21:00 98.2 F [facility] Systolic (mm Hg) 2018-03-30 16:21:00 Yadiel rial [place] Diastolic (mm Hg) 2018-03-30 16:21:00 Mem [facility] [place] Respitory Rate 2018-03-30 16:21:00 [facility] [place] Respitory Rate 2018-03-30 12:30:00 [facility] [place] Systolic (mm Hg) 2018-03-30 12:26:00 Yadiel rial [place] Diastolic (mm Hg) 2018-03-30 12:26:00 [facility] [place] Temperature Oral (F) 2018-03-30 12:26:00 98.2 F [facility] [place] Heart Rate 2018-03-30 12:26:00 [facility] Respitory Rate 2018-03-30 08:36:00 [facility] [place] Height 2018-03-29 03:26:00 172.72 cm [facility] Weight 2018-03-29 03:26:00 [facility] BMI Calculated 2018-03-29 03:26:00 [facility] [place] Heart Rate 2017-10-30 17:49:00 [facility] Respitory Rate 2017-10-30 17:49:00 [facility] [place] Systolic (mm Hg) 2017-10-30 17:49:00 Yadiel rial [place] Diastolic (mm Hg) 2017-10-30 17:49:00 [facility] [place] Temperature Oral (F) 2017-10-30 17:49:00 98.0 F [facility] Respitory Rate 2017-10-30 15:24:00 Memori al [place] Heart Rate 2017-10-30 14:06:00 [facility] [place] Temperature Oral (F) 2017-10-30 14:06:00 98.5 F [facility] Respitory Rate 2017-10-30 14:06:00 Memori al [place] Systolic (mm Hg) 2017-10-30 14:06:00 Yadiel rial [place] Diastolic (mm Hg) 2017-10-30 14:06:00 Mem orial [place] Systolic (mm Hg) 2017-10-30 09:30:00 Yadiel rial [place] Diastolic (mm Hg) 2017-10-30 09:30:00 Mem [facility] [place] Heart Rate 2017-10-30 09:30:00 [facility] [place] Temperature Oral (F) 2017-10-30 09:30:00 98.0 F [facility] BMI Calculated 2017-10-24 04:03:00 [facility] [place] Weight 2017-10-24 04:03:00 [facility] Height 2017-10-24 04:03:00 172.72 cm [facility] Jon[facility] Procedures Procedure Date / Time Performed Performing Clinician Sourc e Oophorectomy [facility] [place] Plan of Care Planned Activity Planned Date Details Comments Source Future Scheduled 2022-10-25 INFLUENZA VACCINE [facility] Test 10:54:08 [code = INFLUENZA VACCINE] Future Scheduled 2022-10-25 COVID-19 VACCINE (#1) [facility] Test 10:54:08 [code = COVID-19 VACCINE (#1)] Future Scheduled 2022-10-25 Hepatitis C screening [facility] Test 10:54:08 (procedure) [code = 468487464] Future Scheduled 2022-10-[address] [facility] Test 10:54:08 malignant neoplasm of cervix (procedure) [code = 616885449] Future Scheduled 2022-10-[address] [facility] Test 10:54:08 SCREENING [code = BREAST CANCER SCREENING] Future Scheduled 2022-10-25 COLONOSCOPY SCREENING [facility] Test 10:54:08 [code = COLONOSCOPY SCREENING] Future Scheduled 2022-10-25 SHINGLES VACCINES (1 Met [facility] Test 10:54:08 of 2) [code = SHINGLES VACCINES (1 of 2)] Future Scheduled 2022-07-02 Hepatitis C screening [facility] Test 21:47:45 (procedure) [code = 575084201] Future Scheduled 2022-07-[address] [facility] Test 21:47:45 malignant neoplasm of cervix (procedure) [code = 006110703] Future Scheduled 2022-07-[address] [facility] Test 21:47:45 SCREENING [code = BREAST CANCER SCREENING] Future Scheduled 2022-07-02 COLONOSCOPY SCREENING [facility] Test 21:47:45 [code = COLONOSCOPY SCREENING] Future Scheduled 2022-07-02 SHINGLES VACCINES (1 Met [facility] Test 21:47:45 of 2) [code = SHINGLES VACCINES (1 of 2)] Future Scheduled 2022-07-02 INFLUENZA VACCINE [facility] Test 21:47:45 [code = INFLUENZA VACCINE] Future Scheduled 2022-07-02 HEPATITIS B VACCINES Met [facility] Test 21:47:45 (1 of 3 - 3-dose series) [code = HEPATITIS B VACCINES (1 of 3 - 3-dose series)] Future Scheduled 2022-07-02 COVID-19 VACCINE (#1) [facility] Test 21:47:45 [code = COVID-19 VACCINE (#1)] Future Scheduled 2022-07-02 Hepatitis C screening [facility] Test 21:47:45 (procedure) [code = 575718983] Future Scheduled 2022-07-[address] [facility] Test 21:47:45 malignant neoplasm of cervix (procedure) [code = 692115769] Future Scheduled 2022-07-[address] [facility] Test 21:47:45 SCREENING [code = BREAST CANCER SCREENING] Future Scheduled 2022-07-02 COLONOSCOPY SCREENING [facility] Test 21:47:45 [code = COLONOSCOPY SCREENING] Future Scheduled 2022-07-02 SHINGLES VACCINES (1 Met [facility] Test 21:47:45 of 2) [code = SHINGLES VACCINES (1 of 2)] Future Scheduled 2022-07-02 INFLUENZA VACCINE [facility] Test 21:47:45 [code = INFLUENZA VACCINE] Future Scheduled 2022-07-02 HEPATITIS B VACCINES Met [facility] Test 21:47:45 (1 of 3 - 3-dose series) [code = HEPATITIS B VACCINES (1 of 3 - 3-dose series)] Future Scheduled 2022-07-02 COVID-19 VACCINE (#1) [facility] Test 21:47:45 [code = COVID-19 VACCINE (#1)] Encounters Start End Encounter Admission Attending Care Care Encounter Source Date/Time Date/Time Type Type Clinicians Facility Department ID 2022-09-16 Outpatient [facility] [id number] [place] 16:08:46 [id number] [facility] 2022-08-04 Outpatient [facility] [id number] [place] 09:32:09 [id number] [facility] 2022-02-09 Outpatient KULWANT Sullivan [facility] [id number] Common 09:47:00 Remedios [facility] 2022-01-21 Outpatient KULWANT Sullivan [facility] [id number] Common 10:25:01 Rem[facility]ios [facility] 2021-11-25 Outpatient KULWANT Sullivan [facility] [id number] Common 14:36:53 Remedios [facility] 2021-11-25 Outpatient KULWANT Sullivan [facility] [id number] Common 12:27:48 Remedios 23155 [facility] 2021-11-25 Outpatient Nate, STLMLC STLC [id number] Common 12:12:39 Remedios 46281 [facility] 2021-11-25 Outpatient Nate, STLMLC STLMLC [id number] Common 11:29:59 Remedios 80608 [facility] 2021-11-25 Outpatient Kapil, STLMLC STLC [id number] Common 11:29:54 Chayito 05718 [facility] 2021-11-25 Outpatient Kapil, STLMLC STLC [id number] Common 11:29:09 Chayito 33206 [facility] 2021-11-25 Outpatient Kapil, STLMLC STLC [id number] Common 11:16:08 Chayito 50229 [facility] 2021-11-25 Outpatient Kapil, STLMLC STLC [id number] Common 11:01:11 Chayito 90946 [facility] 2021-11-25 Out[facility] [id number] Common 10:57:44 Chayito 43574 [facility] 2021-11-25 Outpatient Kapil, STLMLC ST[facility] [id number] Common 10:57:35 Chayito 18275 [facility] 2022-07-28 2022-07-28 Outpatient SISSON_C [facility] [id number] [place] 00:00:00 00:00:00 [id number] [facility] 2022-07-10 2022-07-13 Inpatient AB, [facility] MED [id number] [facility] 20:04:00 17:04:00 KAILA 2022-07-10 2022-07-10 Emergency E MYAH, [facility] 9367 [facility] 10:20:00 19:08:00 CLIVE 2022-02-19 2022-02-21 Outside nullFlavo MNA [id number] Memoria 14:47:36 04:59:59 Medical [facility] Bryan Mckenzie 2022-02-19 2022-02-21 Outside nullFlavo MNA [id number] Memoria 14:47:36 04:59:59 Medical r Neurology 01 l Records Bryan Mckenzie 2022-02-19 2022-02-20 Outpatient MHMISCHER MHMISCHER [id number] 09:47:36 23:59:59 01 2022-02-10 2022-02-10 Postop STLMLC STLMLC [id number] Co mmon 00:00:00 00:00:00 visit [facility] 2022-01-25 2022-01-25 (TEL) STLMLC STLMLC [id number] Co mmon 00:00:00 00:00:00 [facility] 2022-01-21 2022-01-21 (TEL) STLMLC STLMLC [id number] Co mmon 00:00:00 00:00:00 [facility] 2022-01-18 2022-01-20 Outside nullFlavo MNA [id number] Memoria 15:32:25 04:59:59 Medical r Neurology 00 l Records Bryan Mckenzie 2022-01-18 2022-01-20 Outside nullFlavo MNA [id number] Memoria 15:32:25 04:59:59 Medical r Neurology 00 l Records Bryan Mckenzie 2022-01-18 2022-01-19 Outpatient MHMISCHER MHMISCHER [id number] 10:32:25 23:59:59 2022-01-11 2022-01-11 OFFICE STLMLC STLC [id number] Co mmon 00:00:00 00:00:00 VISIT EST Spir it PT LEVEL 3 [facility] 2022-01-04 2022-01-05 Outpatient nullFlavo MNA [id number] Memoria 15:30:00 05:59:59 r Neurology 01 l Bryan Mckenzie 2022-01-04 2022-01-05 Outpatient nullFlavo MNA [id number] Memoria 15:30:00 05:59:59 r Neurology 01 l Bryan Mckenzie 2022-01-05 2022-01-05 (TEL) STLMLC STLMLC [id number] Co mmon 00:00:00 00:00:00 [facility] 2022-01-04 2022-01-04 Outpatient NATHAN AngelSCHER MISCHER [id number] 09:30:00 23:59:59 Juno 01 Frandy 2022-01-04 2022-01-04 Outpatient MHIE MHIE [id number] Memoria 09:30:00 09:30:00 01 reyes Mckenzie 2021-12-30 2021-12-30 (TEL) STLMLC STLMLC [id number] Co mmon 00:00:00 00:00:00 [facility] 2021-12-18 2021-12-19 Outpatient nullFlavo MNA [id number] Memoria 16:00:00 05:59:59 r Neurology 00 l Bryan Mckenzie 2021-12-18 2021-12-19 Outpatient nullFlavo MNA [id number] Mem[facility] 16:00:00 05:59:59 r Neurology 00 l Bryan Ballardann 2021-12-18 2021-12-18 Outpatient NATHAN AngelSCHSERENE MISCHER [id number] 10:00:00 23:59:59 Juno 00 Frandy 2021-12-18 2021-12-18 Outpatient MHIE MHIE [id number] Memoria 10:00:00 10:00:00 00 reyes Mckenzie 2021-12-04 2021-12-04 (TEL) STLMLC STLMLC [id number] Co mmon 00:00:00 00:00:00 [facility] 2021-12-03 2021-12-03 OFFICE STLMLC STLMLC [id number] Co mmon 00:00:00 00:00:00 VISIT EST Spir it PT LEVEL 3 [facility] 2021-12-01 2021-12-01 (TEL) STLMLC STLMLC [id number] Co mmon 00:00:00 00:00:00 [facility] 2021-11-25 2021-11-25 (TEL) STLMLC STLMLC [id number] Co mmon 00:00:00 00:00:00 [facility] 2021-11-25 2021-11-25 (TEL) STLMLC STLMLC [id number] Co mmon 00:00:00 00:00:00 [facility] 2021-11-25 2021-11-25 [facility] [id number] Co mmon 00:00:00 00:00:00 VISIT NEW Spir it PT LEVEL 4 - [facility] 2021-09-08 2021-09-08 [facility] [id number] Univers 00:00:00 00:00:00 Lesa HEALTH [id number] it y of [place] [id number] Francisco Javier as YONG?BLEA [phone] [facility] [address] [facility] 2021-07-12 2021-07-12 Telephone LUCHO Lozoya [id number] Univers 00:00:00 00:00:00 Laura COVARRUBIAS [id number] i [facility] [id number] Francisco Javier as [phone] [address] 2021-07-11 2021-07-11 Urgent Bakari [facility] [id number] Univers 09:40:57 10:59:01 Care Unknown, [facility] [id number] ity of [place] 4.2.7.2.686 Francisco Javier as Yong?Blea [phone] [facility] [address] 2021-07-11 2021-07-11 Outpatient R UNKNOWN, [facility] [id number] Univers 10:00:00 10:00:00 ATTENDING ity [facility] 2021-02-18 2021-02-18 Outpatient [facility] [id number] [address] [place] [address] 00:00:00 00:00:[address] 2021-02-18 2021-02-18 Outpatient LESLYE, [facility] [id number] [address] [place] [address] 00:00:00 00:00:00 MAY [address] 2021-02-09 2021-02-09 [facility] [id number] Common 00:00:00 00:00:00 [facility] 2020-12-03 2020-12-03 Outpatient STLMLC STLMLC [id number] Common 00:00:00 00:00:00 Spirit - [facility] 2020-10-22 2020-10-22 [facility] [id number] Univers 15:02:12 15:17:12 ne Visit Ghanshyam Gomez [id number] i ty of Surgical [id number] Francisco Javier as Specialti [phone] Mt dical es 198 [facility] 2020-10-22 2020-10-22 Outpatient R [facility] [id number] Univers 15:00:00 15:00:00 GHANSHYAM celis [facility] 2020-10-21 2020-10-21 Telephone [facility] [id number] Univers 00:00:00 00:00:00 Ghanshyam Gomez [id number] it y of Surgical [id number] Francisco Javier as Specialti [phone] Mt dical es 198 [facility] 2020-10-15 2020-10-15 Hospital [facility] [id number] Univers 14:48:59 23:59:00 Encounter Adalberto [facility] [id number] ity of Surgical [id number] Francisco Javier as Specialti [id number] Mt dical es 809 [facility] 2020-10-15 2020-10-15 [facility] [id number] Univers 14:48:59 23:59:00 ADALBERTO celis [facility] 2020-10-15 2020-10-15 Agency Manager Juan, [facility] [id number] Univers 15:29:39 15:44:39 Visit Adalberto Whitney Reyes [place] [id number] it[place]2.7.2.[place] [phone] Mt dical nal 353 [facility] 2020-10-15 2020-10-15 [facility] [id number] Univers 14:22:13 15:03:47 Visit [facility] [id number] y of Surgical [id number] Francisco Javier as Specialti [phone] Mt dical es [address] [place] 2020-09-11 2020-09-11 Outpatient STLMLC STLMLC [id number] Common 00:00:00 00:00:00 [facility] 2020-09-09 2020-09-09 Outpatient STLMLC STLMLC [id number] Common 00:00:00 00:00:00 [facility] 2020-09-09 2020-09-09 Outpatient STLMLC STLMLC [id number] Common 00:00:00 00:00:00 [facility] 2020-09-02 2020-09-02 Outpatient STLMLC STLMLC [id number] Common 00:00:00 00:00:00 [facility] 2020-08-04 2020-08-04 Outpatient STLMLC STLMLC [id number] Common 00:00:00 00:00:00 [facility] 2020-07-22 2020-07-22 Outpatient STLMLC STLMLC [id number] Common 00:00:00 00:00:00 [facility] 2020-07-22 2020-07-22 Outpatient STLMLC STLMLC [id number] Common 00:00:00 00:00:00 [facility] 2020-07-15 2020-07-15 Outpatient STLMLC STLMLC [id number] Common 00:00:00 00:00:00 [facility] 2020-07-09 2020-07-09 Out[facility] [id number] Common 13:46:00 13:46:00 [facility] [address] [facility] 2020-05-12 2020-05-12 Outpatient [facility] [id number] Common 17:56:00 17:56:00 [facility] [address] [facility] 2020-05-12 2020-05-12 Outpatient [facility] [id number] Common 16:29:00 16:29:00 [facility] it [address] [facility] 2020-05-05 2020-05-05 Outpatient [facility] [id number] Common 14:20:00 14:20:[address] [facility] [address] [facility] 2020-01-17 2020-01-17 Outpatient [facility] [id number] Common 10:06:00 10:06:[address] [facility] [address] [facility] 2019-12-31 2019-12-31 Outpatient [facility] [id number] Common 08:14:00 08:14:[address] [facility] 2019-11-30 2019-11-30 Outpatient [facility] [id number] Common 10:00:00 10:00:[address] [facility] [address] [facility] 2019-11-16 2019-11-16 Outpatient [facility] [id number] Common 08:15:00 08:15:[address] [facility] [address] [facility] 2019-11-02 2019-11-02 Outpatient [facility] [id number] Common 11:03:00 11:03:[address] [facility] [address] [facility] 2019-09-07 2019-09-07 Outpatient [facility] [id number] Common 15:40:00 15:40:[address] [facility] [address] [facility] 2019-07-31 2019-07-31 Outpatient [facility] [id number] Common 15:00:00 15:00:[address] [facility] [address] [facility] 2018-03-28 2018-03-[address] [facility] [id number] Memoria 19:51:00 20:00:00 yareli Mckenzie 00 l [facility] 2018-03-28 2018-03-30 Inpatient nullFlavo [facility] [id number] Memoria 19:51:00 20:00:00 yareli Mckenzie 00 l [facility] 2018-03-28 2018-03-30 Outpatient TIFFANY Gauthier [facility] [id number] 14:51:00 15:00:00 Gyanendra K 00 2017-10-24 2017-10-30 Inpatient [facility] [id number] Memoria 03:14:00 19:52:00 r Jonah 58 l [facility] 2017-10-24 2017-10-30 Inpatient [facility] [id number] Memoria 03:14:00 19:52:00 r Jonah 58 l [facility] 2017-10-23 2017-10-30 Outpatient Chris, TIFFANY [facility] [id number] 21:14:00 13:52:00 Peter 58 Results Test Description Test Time Test Comments Results Result Comments Source [facility] 2018-03-30 17:04:00 Test Item Value Reference Range Interpretation Comme nts Creatinine Lvl (test code = Creatinine Lvl) 0.74 0.50-1.40 [facility] 17:04:00 Test Item Value Reference Range Interpretation Comments BUN (test code = BUN) 11 7-22 [facility]AS5464-99-08 17:04:00 Test Item Value Reference Range Interpretation Comments AGAP (test code = AGAP) 12.3 10.0-20.0 [id number] 17:04:00 Test Item Value Reference Range Interpretation Comments Basophils # (test code 0.1 See_Comment [Aut omated message] The = Basophils #) system which generated this result tra nsmitted reference range : <=0.2. The reference r jodi was not used to int erpret this result as normal/abnormal . [facility]yxpdzvZNQIUPYSYZ9030-98-87 17:04:00 Test Item Value Reference Range Interpretation Comments Monocytes # (test code 1.4 See_Comment [Aut omated message] The = Monocytes #) system which generated this result tra nsmitted reference range : <=0.8. The reference r jodi was not used to int erpret this result as normal/abnormal . [facility]woodErfghxgXBRARCWOCJ2215-19-31 17:04:00 Test Item Value Reference Range Interpretation Comments Lymphocytes # (test code = Lymphocytes 1.7 1.0-5.5 #) [facility]RhjqmjwWCBOTGQGQB2400-07-51 17:04:00 Test Item Value Reference Range Interpretation Comments Segs-Bands # (test code = Segs-Bands #) 19.4 1.5-8.1 [facility]wo[id number] 17:04:00 Test Item Value Reference Range Interpretation Comments Basophils (test code = 0.4 See_Comment [Aut omated message] The Basophils) system which ge nerated this result tra nsmitted reference range : <=1.0. The reference r jodi was not used to int erpret this result as normal/abnormal . [facility]woodOuxwndtQVBNSNMWVM7008-93-87 17:04:00 Test Item Value Reference Range Interpretation Comments Monocytes (test code = Monocytes) 6.1 2.0-12.0 [facility]woodDblrwbdQPLTGWFDUB0528-66-21 17:04:00 Test Item Value Reference Range Interpretation Comments Lymphocytes (test code = Lymphocytes) 7.7 20.0-40.0 [facility]woodLndyvkbYTAHGBKYRP9313-62-59 17:04:00 Test Item Value Reference Range Interpretation Comments Segs (test code = Segs) 85.8 45.0-75.0 [facility]woodIatylgwXSKWNOWKZZ4664-17-65 17:04:00 Test Item Value Reference Range Interpretation Comments MPV (test code = MPV) 7.4 7.4-10.4 [facility]woodJqftdngTWASDZCMDR2876-27-42 17:04:00 Test Item Value Reference Range Interpretation Comments Platelet (test code = Platelet) 387 133-450 [facility]woodIhuxoudRBHJBDGADB9392-72-51 17:04:00 Test Item Value Reference Range Interpretation Comments [facility] (test code = MCHC) 34.1 32.0-36.0 [facility]IxhaprjJHZCITFWJF7470-89-02 17:04:00 Test Item Value Reference Range Interpretation Comments RDW (test code = RDW) 14.1 11.5-14.5 [facility]woodAfqxedaGDIGWKFLED5050-76-87 17:04:00 Test Item Value Reference Range Interpretation Comments MCH (test code = MCH) 32.8 pg 27.0-31.0 [facility]woodSgxuateTJOZSSZJVZ1450-88-50 17:04:00 Test Item Value Reference Range Interpretation Comments MCV (test code = MCV) 96.3 80.0-98.0 [place] [address]-05-31 17:04:00 Test Item Value Reference Range Interpretation Comments Hct (test code = Hct) 37.7 36.0-48.0 [facility]woodFzimgumVWPIOYNZFX9443-84-39 17:04:00 Test Item Value Reference Range Interpretation Comments Hgb (test code = Hgb) 12.9 12.0-16.0 [facility]woodEegiyryYTBRJVUSAZ8973-41-22 17:04:00 Test Item Value Reference Range Interpretation Comments RBC (test code = RBC) 3.92 4.20-5.40 [facility]woodCckmsujVQCGQCQNGB2700-74-74 17:04:00 Test Item Value Reference Range Interpretation Comments WBC (test code = WBC) 22.6 3.7-10.4 [facility]ZxlafslXCDZCWUECWJZ2461-19-84 17:04:00 Test Item Value Reference Range Interpretation Comments CO2 (test code = CO2) 21 24-32 [facility] HospitalYexzhqgEERPHNFNQEYI8822-42-61 17:04:00 Test Item Value Reference Range Interpretation Comments Calcium Lvl (test code = Calcium Lvl) 8.2 8.5-10.5 [facility] HospitalIimcbxdCMBHXNAZEVDA5083-35-94 17:04:00 Test Item Value Reference Range Interpretation Comments eGFR (test code = eGFR) 90 [facility] HospitalWhpzsndCWXCCUDPZEQQ8753-25-42 17:04:00 Test Item Value Reference Range Interpretation Comments Glucose Lvl (test code = Glucose Lvl) 141 70-99 [facility] HospitalYgbglibFDRHNBOHVIHS9876-12-76 17:04:00 Test Item Value Reference Range Interpretation Comments Sodium Lvl (test code = Sodium Lvl) 135 135-145 [facility] HospitalMonppvpGVXTKTOAHKVM1576-66-36 17:04:00 Test Item Value Reference Range Interpretation Comments Chloride Lvl (test code = Chloride Lvl) 106 95-109 [facility] HospitalFhjcjqzYOEEWMHOVPMF7652-53-28 17:04:00 Test Item Value Reference Range Interpretation Comments Potassium Lvl (test code = Potassium 4.3 3.5-5.1 Lvl) [facility] HospitalUdxnznpMHJDEKIARBDF9713-84-46 17:04:00 Test Item Value Reference Range Interpretation Comments Creatinine Lvl (test code = Creatinine 0.74 0.50-1.40 Lvl) [facility] HospitalBzncfmhZDUWINMCBVUA4850-64-38 17:04:00 Test Item Value Reference Range Interpretation Comments BUN (test code = BUN) 11 7-22 [facility] HospitalBvlnaqrXGLVMWTWSKIS2139-71-09 17:04:00 Test Item Value Reference Range Interpretation Comments AGAP (test code = AGAP) 12.3 10.0-20.0 [facility]woodQbhufuiSZZJBRDZKU0293-51-38 17:04:00 Test Item Value Reference Range Interpretation Comments Basophils # (test code 0.1 See_Comment [Aut omated message] The = Basophils #) system which generated this result tra nsmitted reference range : <=0.2. The reference r jodi was not used to int erpret this result as normal/abnormal . [facility]woodIjjiwdnASCWOESHHZ1328-25-58 17:04:00 Test Item Value Reference Range Interpretation Comments Monocytes # (test code 1.4 See_Comment [Aut omated message] The = Monocytes #) system which generated this result tra nsmitted reference range : <=0.8. The reference r jodi was not used to int erpret this result as normal/abnormal . [facility]woodNcwsynrVMWZBABOBP9632-30-95 17:04:00 Test Item Value Reference Range Interpretation Comments Lymphocytes # (test code = Lymphocytes 1.7 1.0-5.5 #) [facility]woodHodztejWXFGISVIUM6304-85-84 17:04:00 Test Item Value Reference Range Interpretation Comments Segs-Bands # (test code = Segs-Bands #) 19.4 1.5-8.1 [facility]woodAmqubtjNRCDZRTKIN2113-80-61 17:04:00 Test Item Value Reference Range Interpretation Comments Basophils (test code = 0.4 See_Comment [Aut omated message] The Basophils) system which ge nerated this result tra nsmitted reference range : <=1.0. The reference r jodi was not used to int erpret this result as normal/abnormal . [facility]woodGdffsatCVKMJNKSTV3262-03-40 17:04:00 Test Item Value Reference Range Interpretation Comments Monocytes (test code = Monocytes) 6.1 2.0-12.0 [facility]woodOipetbiOKLZUEZWWA1360-70-29 17:04:00 Test Item Value Reference Range Interpretation Comments Lymphocytes (test code = Lymphocytes) 7.7 20.0-40.0 [facility]woodXhaodapOKWJKXLGCB7504-78-72 17:04:00 Test Item Value Reference Range Interpretation Comments Segs (test code = Segs) 85.8 45.0-75.0 [facility]woodTwmsxeiDIXFODDRMK2888-76-95 17:04:00 Test Item Value Reference Range Interpretation Comments MPV (test code = MPV) 7.4 7.4-10.4 [facility]woodWqbyrkvQYNIHDWDTD8367-01-81 17:04:00 Test Item Value Reference Range Interpretation Comments Platelet (test code = Platelet) 387 133-450 [facility]woodVmldcbaDUBZBIITVK6740-03-98 17:04:00 Test Item Value Reference Range Interpretation Comments MCHC (test code = MCHC) 34.1 32.0-36.0 [facility]woodOqnulvtJSFYCAAEBE6453-92-78 17:04:00 Test Item Value Reference Range Interpretation Comments RDW (test code = RDW) 14.1 11.5-14.5 [facility]woodYjsunccSBLGJSJJDD6917-33-06 17:04:00 Test Item Value Reference Range Interpretation Comments MCH (test code = MCH) 32.8 pg 27.0-31.0 [facility]woodVfpbpgfIYBBZQYBLX6534-53-01 17:04:00 Test Item Value Reference Range Interpretation Comments MCV (test code = MCV) 96.3 80.0-98.0 [facility]woodBnzipjqWLZSGOZNDT9374-38-27 17:04:00 Test Item Value Reference Range Interpretation Comments Hct (test code = Hct) 37.7 36.0-48.0 [facility]woodWjqavobGZFJSYAAVE4087-69-51 17:04:00 Test Item Value Reference Range Interpretation Comments Hgb (test code = Hgb) 12.9 12.0-16.0 [facility]woodXmlyoyxSKABNTKSRU7169-15-05 17:04:00 Test Item Value Reference Range Interpretation Comments RBC (test code = RBC) 3.92 4.20-5.40 [facility]woodHuimpujHXDQRJOEDB2522-71-10 17:04:00 Test Item Value Reference Range Interpretation Comments WBC (test code = WBC) 22.6 3.7-10.4 [facility] HospitalFombcnxQSLUZRWCFCZM2806-17-56 17:04:00 Test Item Value Reference Range Interpretation Comments CO2 (test code = CO2) 21 24-32 [facility] HospitalNwmsvvqBPQMFXMEROIF5166-97-10 17:04:00 Test Item Value Reference Range Interpretation Comments Calcium Lvl (test code = Calcium Lvl) 8.2 8.5-10.5 [facility] HospitalPnvhrhoKQTENJUKDNCS6009-17-51 17:04:00 Test Item Value Reference Range Interpretation Comments eGFR (test code = eGFR) 90 [facility] HospitalEkmbehqXCMWOXBQMSVR7752-86-66 17:04:00 Test Item Value Reference Range Interpretation Comments Glucose Lvl (test code = Glucose Lvl) 141 70-99 [facility]lb[facility]mbVHPCRXIGYIXA8138-77-79 17:04:00 Test Item Value Reference Range Interpretation Comments Sodium Lvl (test code = Sodium Lvl) 135 135-145 [facility] CenterEtuwxktUBNPBLMPNXWN2938-62-22 17:04:00 Test Item Value Reference Range Interpretation Comments Chloride Lvl (test code = Chloride Lvl) 106 95-109 [facility]heTKAKHIREQVOH4673-04-15 17:04:00 Test Item Value Reference Range Interpretation Comments Potassium Lvl (test code = Potassium 4.3 3.5-5.1 Lvl) [facility] YXCCTOSAD1542-25-88 15:41:24 Test Item Value Reference Range Interpretation Comments Hgb A1C (test code = Hgb A1C) 5.5 [facility] NMTETRSQV6320-01-88 15:41:24 Test Item Value Reference Range Interpretation Comments Hgb A1C (test code = Hgb A1C) 5.5 [facility] KWAFRWH2034-82-83 11:37:00 Test Item Value Reference Range Interpretation Comments Total CK (test code = Total CK) 99 12-191 [facility] KCCTULE3181-19-14 11:37:00 Test Item Value Reference Range Interpretation Comments Troponin-I (test code no gt See_Comment [Auto mated message] The = Troponin-I) system which g enerated this result transmit narayan reference range : <=0.40. The reference r jodi was not used to interpr et this result as shreya l/abnormal. [facility] CAXFZAG3921-60-85 11:37:00 Test Item Value Reference Range Interpretation Comments CK MB Index (test no gt See_Comment [Automate d message] The code = CK MB Index) system w [facility] generated this result transmit narayan reference range : <=2.5. The reference range was not used to interpr et this result as shreya l/abnormal. [facility] IFWTKUN4662-97-80 11:37:00 Test Item Value Reference Range Interpretation Comments CK MB (test code = CK MB) no gt 0.5-3.6 [facility] UKEEXKS9509-50-31 11:37:00 Test Item Value Reference Range Interpretation Comments Total CK (test code = Total CK) 99 12-191 [facility] Children[facility] HOCGLZX1571-76-50 11:37:00 Test Item Value Reference Range Interpretation Comments Troponin-I (test code no gt See_Comment [Auto mated message] The = Troponin-I) system which g enerated this result transmit narayan reference range : <=0.40. The reference r jodi was not used to interpr et this result as shreya l/abnormal. [facility]2018-05-30 11:37:00 Test Item Value Reference Range Interpretation Comments CK MB Index (test no gt See_Comment [Automate d message] The code = CK MB Index) system w REMOTV generated this result transmit narayan reference range : <=2.5. The reference range was not used to interpr et this result as shreya l/abnormal. [facility]2018-05-30 11:37:00 Test Item Value Reference Range Interpretation Comments CK MB (test code = CK MB) no gt 0.5-3.6 [facility]2018-05-30 07:00:00 Test Item Value Reference Range Interpretation Comments CK MB Index (test 1.0 1 See_Comment [Automate d message] The code = CK MB Index) system w REMOTV generated this result transmit narayan reference range : <=2.5. The reference range was not used to interpr et this result as shreya l/abnormal. [facility]2018-05-30 07:00:00 Test Item Value Reference Range Interpretation Comments CK MB (test code = CK MB) 1.2 0.5-3.6 [facility]2018-05-30 07:00:00 Test Item Value Reference Range Interpretation Comments Troponin-I (test code no gt See_Comment [Auto mated message] The = Troponin-I) system which g enerated this result transmit narayan reference range : <=0.40. The reference r jodi was not used to interpr et this result as shreya l/abnormal. [facility]2018-05-30 07:00:00 Test Item Value Reference Range Interpretation Comments Total CK (test code = Total CK) 117 12-191 [facility] [employer] [id number] 07:00:00 Test Item Value Reference Range Interpretation Comments eGFR (test code = eGFR) 94 [facility]2018-05-30 07:00:00 Test Item Value Reference Range Interpretation Comments Bili Total (test code = Bili Total) 0.4 0.2-1.3 [facility]2018-05-30 07:00:00 Test Item Value Reference Range Interpretation Comments Alk Phos (test code = Alk Phos) 135 39-136 [facility]2018-05-30 07:00:00 Test Item Value Reference Range Interpretation Comments Potassium Lvl (test code = Potassium 3.7 3.5-5.1 Lvl) [facility]2018-05-30 07:00:00 Test Item Value Reference Range Interpretation Comments Chloride Lvl (test code = Chloride Lvl) 100 95-109 [facility]2018-05-30 07:00:00 Test Item Value Reference Range Interpretation Comments Sodium Lvl (test code = Sodium Lvl) 130 135-145 [facility]2018-05-30 07:00:00 Test Item Value Reference Range Interpretation Comments Calcium Lvl (test code = Calcium Lvl) 8.6 8.5-10.5 [place] 869818-05-30 07:00:00 Test Item Value Reference Range Interpretation Comments B/C Ratio (test code = B/C Ratio) 6 1 6-25 [facility]2018-05-30 07:00:00 Test Item Value Reference Range Interpretation Comments Total Protein (test code = Total 7.4 6.4-8.4 Protein) [facility]2018-05-30 07:00:00 Test Item Value Reference Range Interpretation Comments BUN (test code = BUN) 4 7-22 [facility]2018-05-30 07:00:00 Test Item Value Reference Range Interpretation Comments Creatinine Lvl (test code = Creatinine 0.71 0.50-1.40 Lvl) [facility]2018-05-30 07:00:00 Test Item Value Reference Range Interpretation Comments ALT (test code = ALT) 15 See_Comment [Auto mated message] The system which ge nerated this result transmit narayan reference range : <=65. The reference range was not used to interpr et this result as shreya l/abnormal. [facility]2018-05-30 07:00:00 Test Item Value Reference Range Interpretation Comments AST (test code = AST) 17 See_Comment [Auto mated message] The system which ge nerated this result transmit narayan reference range : <=37. The reference range was not used to interpr et this result as shreya l/abnormal. [facility]2018-05-30 07:00:00 Test Item Value Reference Range Interpretation Comments AGAP (test code = AGAP) 11.7 10.0-20.0 [facility]2018-05-30 07:00:00 Test Item Value Reference Range Interpretation Comments CO2 (test code = CO2) 22 24-32 [facility]2018-05-30 07:00:00 Test Item Value Reference Range Interpretation Comments A/G Ratio (test code = A/G Ratio) 0.8 1 0.7-1.6 [place] 869818-05-30 07:00:00 Test Item Value Reference Range Interpretation Comments Albumin Lvl (test code = Albumin Lvl) 3.2 3.5-5.0 [facility]2018-05-30 07:00:00 Test Item Value Reference Range Interpretation Comments Globulin (test code = Globulin) 4.2 2.7-4.2 [facility]2018-05-30 07:00:00 Test Item Value Reference Range Interpretation Comments Glucose Lvl (test code = Glucose Lvl) 215 70-99 [facility]2018-05-30 07:00:00 Test Item Value Reference Range Interpretation Comments Osmolality (test code = Osmolality) 280 280-300 [facility]InvdzsvWJBQECXANN9997-49-22 07:00:00 Test Item Value Reference Range Interpretation Comments MPV (test code = MPV) 7.3 7.4-10.4 [facility]woodPfrnswlFHEGOBNXYN2787-78-81 07:00:00 Test Item Value Reference Range Interpretation Comments MCHC (test code = MCHC) 34.5 32.0-36.0 [facility]woodXdavzkuSULAIGBZCZ1679-03-62 07:00:00 Test Item Value Reference Range Interpretation Comments RDW (test code = RDW) 13.8 11.5-14.5 [facility]woodHvrixjwPFDGHZEKVD6244-54-87 07:00:00 Test Item Value Reference Range Interpretation Comments MCH (test code = MCH) 32.4 pg 27.0-31.0 [facility]woodGqrnbjsLOGHPNEQXY7330-20-55 07:00:00 Test Item Value Reference Range Interpretation Comments Platelet (test code = Platelet) 389 133-450 [facility]woodOmkovyzIQIXUSRYYU7290-49-90 07:00:00 Test Item Value Reference Range Interpretation Comments WBC (test code = WBC) 16.1 3.7-10.4 [facility]woodZrqdblkKXZUKCVVOH2591-14-96 07:00:00 Test Item Value Reference Range Interpretation Comments RBC (test code = RBC) 4.35 4.20-5.40 [facility]woodWtanztlHANORZJVCP6181-10-87 07:00:00 Test Item Value Reference Range Interpretation Comments Hgb (test code = Hgb) 14.1 12.0-16.0 [facility]woodTvzsxfxOPPZHIRNXZ9614-00-34 07:00:00 Test Item Value Reference Range Interpretation Comments Hct (test code = Hct) 40.9 36.0-48.0 [facility]woodDapvrpnGETIJKUYHC5689-09-97 07:00:00 Test Item Value Reference Range Interpretation Comments MCV (test code = MCV) 94.0 80.0-98.0 [facility]woodJudmbnpQGWISWWDWQ2110-88-10 07:00:00 Test Item Value Reference Range Interpretation Comments Lymphocytes # (test code = Lymphocytes 0.6 1.0-5.5 #) [facility]woodSqbybxfDROTNBPQDO3822-25-72 07:00:00 Test Item Value Reference Range Interpretation Comments Segs-Bands # (test code = Segs-Bands #) 15.3 1.5-8.1 [facility]woodFyouhulRKMKJPRXIZ3699-50-63 07:00:00 Test Item Value Reference Range Interpretation Comments Basophils (test code = 0.1 See_Comment [Aut omated message] The Basophils) system which ge nerated this result tra nsmitted reference range : <=1.0. The reference r jodi was not used to int erpret this result as normal/abnormal . [facility]woodBbgpyxpHAFLLOJXJY5704-66-95 07:00:00 Test Item Value Reference Range Interpretation Comments Lymphocytes (test code = Lymphocytes) 3.5 20.0-40.0 [facility]woodAwqhkxyHRICGELUBF8507-00-81 07:00:00 Test Item Value Reference Range Interpretation Comments Monocytes (test code = Monocytes) 1.2 2.0-12.0 [facility]woodRkcoiwlEGCGFWTGDA0745-67-40 07:00:00 Test Item Value Reference Range Interpretation Comments Monocytes # (test code 0.2 See_Comment [Aut omated message] The = Monocytes #) system which generated this result tra nsmitted reference range : <=0.8. The reference r jodi was not used to int erpret this result as normal/abnormal . [facility] HospitalYxykjtoZOWOATJTGV5271-80-50 07:00:00 Test Item Value Reference Range Interpretation Comments RBC Morph (test code = Normal (03/29/18 2:00 RBC Morph) AM) [facility] HospitalCrokaneNLMYRGLAZZ7649-90-93 07:00:00 Test Item Value Reference Range Interpretation Comments Segs (test code = Segs) 95.2 45.0-75.0 [facility] HospitalRwlcvrkYNICXSUFZH3681-94-40 07:00:00 Test Item Value Reference Range Interpretation Comments Plt Morph (test code = Normal (03/29/18 2:00 Plt Morph) AM) [facility] 07:00:00 Test Item Value Reference Range Interpretation Comments CK MB Index (test 1.0 1 See_Comment [Automate d message] The code = CK MB Index) system w [facility] generated this result transmit narayan reference range : <=2.5. The reference range was not used to interpr et this result as shreya l/abnormal. [facility]-30 07:00:00 Test Item Value Reference Range Interpretation Comments CK MB (test code = CK MB) 1.2 0.5-3.6 [facility]-30 07:00:00 Test Item Value Reference Range Interpretation Comments Troponin-I (test code no gt See_Comment [Auto mated message] The = Troponin-I) system which g enerated this result transmit narayan reference range : <=0.40. The reference r jodi was not used to interpr et this result as shreya l/abnormal. [facility]-30 07:00:00 Test Item Value Reference Range Interpretation Comments Total CK (test code = Total CK) 117 12-191 [facility] [employer] [id number] 07:00:00 Test Item Value Reference Range Interpretation Comments eGFR (test code = eGFR) 94 [facility] [employer] [id number] 07:00:00 Test Item Value Reference Range Interpretation Comments Bili Total (test code = Bili Total) 0.4 0.2-1.3 [facility]2018-05-30 07:00:00 Test Item Value Reference Range Interpretation Comments Alk Phos (test code = Alk Phos) 135 39-136 [facility]2018-05-30 07:00:00 Test Item Value Reference Range Interpretation Comments Potassium Lvl (test code = Potassium 3.7 3.5-5.1 Lvl) [facility]2018-05-30 07:00:00 Test Item Value Reference Range Interpretation Comments Chloride Lvl (test code = Chloride Lvl) 100 95-109 [facility]2018-05-30 07:00:00 Test Item Value Reference Range Interpretation Comments Sodium Lvl (test code = Sodium Lvl) 130 135-145 [facility]2018-05-30 07:00:00 Test Item Value Reference Range Interpretation Comments Calcium Lvl (test code = Calcium Lvl) 8.6 8.5-10.5 [facility]2018-05-30 07:00:00 Test Item Value Reference Range Interpretation Comments B/C Ratio (test code = B/C Ratio) 6 1 6-25 [place] 869818-05-30 07:00:00 Test Item Value Reference Range Interpretation Comments Total Protein (test code = Total 7.4 6.4-8.4 Protein) [facility]2018-05-30 07:00:00 Test Item Value Reference Range Interpretation Comments BUN (test code = BUN) 4 7-22 [place] 869818-05-30 07:00:00 Test Item Value Reference Range Interpretation Comments Creatinine Lvl (test code = Creatinine 0.71 0.50-1.40 Lvl) [facility]2018-05-30 07:00:00 Test Item Value Reference Range Interpretation Comments ALT (test code = ALT) 15 See_Comment [Auto mated message] The system which ge nerated this result transmit narayan reference range : <=65. The reference range was not used to interpr et this result as shreya l/abnormal. [facility]2018-05-30 07:00:00 Test Item Value Reference Range Interpretation Comments AST (test code = AST) 17 See_Comment [Auto mated message] The system which ge nerated this result transmit narayan reference range : <=37. The reference range was not used to interpr et this result as shreya l/abnormal. [facility]2018-05-30 07:00:00 Test Item Value Reference Range Interpretation Comments AGAP (test code = AGAP) 11.7 10.0-20.0 [facility]2018-05-30 07:00:00 Test Item Value Reference Range Interpretation Comments CO2 (test code = CO2) 22 24-32 [facility]2018-05-30 07:00:00 Test Item Value Reference Range Interpretation Comments A/G Ratio (test code = A/G Ratio) 0.8 1 0.7-1.6 [facility]2018-05-30 07:00:00 Test Item Value Reference Range Interpretation Comments Albumin Lvl (test code = Albumin Lvl) 3.2 3.5-5.0 [facility]2018-05-30 07:00:00 Test Item Value Reference Range Interpretation Comments Globulin (test code = Globulin) 4.2 2.7-4.2 [facility]2018-05-30 07:00:00 Test Item Value Reference Range Interpretation Comments Glucose Lvl (test code = Glucose Lvl) 215 70-99 [facility]2018-05-30 07:00:00 Test Item Value Reference Range Interpretation Comments Osmolality (test code = Osmolality) 280 280-300 [facility]SjrucxjSZEGKSRMDL8858-05-68 07:00:00 Test Item Value Reference Range Interpretation Comments MPV (test code = MPV) 7.3 7.4-10.4 [facility]woodTstltohDFBYAKZFGM0909-50-38 07:00:00 Test Item Value Reference Range Interpretation Comments MCHC (test code = MCHC) 34.5 32.0-36.0 [facility]woodGdnbesiDFFYFSJKHG7037-29-76 07:00:00 Test Item Value Reference Range Interpretation Comments RDW (test code = RDW) 13.8 11.5-14.5 [facility]woodLplcawbVLMIXFEJHZ9010-00-90 07:00:00 Test Item Value Reference Range Interpretation Comments MCH (test code = MCH) 32.4 pg 27.0-31.0 [facility]woodGwtreelXXBYPNFFON0265-69-57 07:00:00 Test Item Value Reference Range Interpretation Comments Platelet (test code = Platelet) 389 133-450 [facility]woodQtylywdBYMMHXLKJN4823-89-14 07:00:00 Test Item Value Reference Range Interpretation Comments WBC (test code = WBC) 16.1 3.7-10.4 [facility]woodJyabwcxZLEYIXMVJO9493-40-75 07:00:00 Test Item Value Reference Range Interpretation Comments RBC (test code = RBC) 4.35 4.20-5.40 [facility]woodSethascTLLQVIIQDM1990-75-89 07:00:00 Test Item Value Reference Range Interpretation Comments Hgb (test code = Hgb) 14.1 12.0-16.0 [facility]woodPhmdfeoWFHMCLPSXR3050-91-46 07:00:00 Test Item Value Reference Range Interpretation Comments Hct (test code = Hct) 40.9 36.0-48.0 [facility]woodAxhmsnhGRHTBOIKHI6382-40-30 07:00:00 Test Item Value Reference Range Interpretation Comments MCV (test code = MCV) 94.0 80.0-98.0 [facility]woodRjiqjaoRSFSEKFAFS3428-02-49 07:00:00 Test Item Value Reference Range Interpretation Comments Lymphocytes # (test code = Lymphocytes 0.6 1.0-5.5 #) [id number] 07:00:00 Test Item Value Reference Range Interpretation Comments Segs-Bands # (test code = Segs-Bands #) 15.3 1.5-8.1 [facility]woodMvyuqduQKAGOQIEHC2556-45-83 07:00:00 Test Item Value Reference Range Interpretation Comments Basophils (test code = 0.1 See_Comment [Aut omated message] The Basophils) system which ge nerated this result tra nsmitted reference range : <=1.0. The reference r jodi was not used to int erpret this result as normal/abnormal . [facility]woodVswqzggBGNCROPLTP0490-24-18 07:00:00 Test Item Value Reference Range Interpretation Comments Lymphocytes (test code = Lymphocytes) 3.5 20.0-40.0 [facility]woodLjgdmfoFOMPNETDBB3804-29-05 07:00:00 Test Item Value Reference Range Interpretation Comments Monocytes (test code = Monocytes) 1.2 2.0-12.0 [facility]woodHodhcxgXXWXYDRLMH2962-08-01 07:00:00 Test Item Value Reference Range Interpretation Comments Monocytes # (test code 0.2 See_Comment [Aut omated message] The = Monocytes #) system which generated this result tra nsmitted reference range : <=0.8. The reference r jodi was not used to int erpret this result as normal/abnormal . [facility]woodManvgghJQKORGWQKG7603-04-46 07:00:00 Test Item Value Reference Range Interpretation Comments RBC Morph (test code = Normal (03/29/18 2:00 RBC Morph) AM) [facility]woodCfawazaOLXMALSVJV8967-06-88 07:00:00 Test Item Value Reference Range Interpretation Comments Segs (test code = Segs) 95.2 45.0-75.0 [facility]woodGkxuimtEQHSUFEFSK4640-19-11 07:00:00 Test Item Value Reference Range Interpretation Comments Plt Morph (test code = Normal (03/29/18 2:00 Plt Morph) AM) [facility]2018-05-30 05:14:00 Test Item Value Reference Range Interpretation Comments Lactic Acid Lvl (test code = Lactic 1.7 0.5-2.2 Acid Lvl) [facility]2018-05-30 05:14:00 Test Item Value Reference Range Interpretation Comments Lactic Acid Lvl (test code = Lactic 1.7 0.5-2.2 Acid Lvl) [facility]2018-05-30 03:04:00 Test Item Value Reference Range Interpretation Comments Lactic Acid Lvl (test code = Lactic 3.5 0.5-2.2 Acid Lvl) [facility]2018-05-30 03:04:00 Test Item Value Reference Range Interpretation Comments Lactic Acid Lvl (test code = Lactic 3.5 0.5-2.2 Acid Lvl) [facility]2018-05-29 20:23:00 Test Item Value Reference Range Interpretation Comments UA Urobilinogen (test code = UA <=1.0 mg/dL 0.1-1.0 Urobilinogen) [facility] AND [id number] 20:23:00 Test Item Value Reference Range Interpretation Comments UA Color (test code = UA Color) Ltyellow [facility] AND [id number] 20:23:00 Test Item Value Reference Range Interpretation Comments UA Nitrite (test code Negative (03/28/18 3:23 = UA Nitrite) PM) [facility] AND [id number] 20:23:00 Test Item Value Reference Range Interpretation Comments UA Leuk Est (test Negative (03/28/18 3:23 code = UA Leuk Est) PM) [facility] AND [id number] 20:23:00 Test Item Value Reference Range Interpretation Comments UA Bili (test code = Negative *NA*(03/28/18 UA Bili) 3:23 PM) [facility] AND [id number] 20:23:00 Test Item Value Reference Range Interpretation Comments UA Blood (test code = Negative (03/28/18 3:23 UA Blood) PM) [facility] AND [id number] 20:23:00 Test Item Value Reference Range Interpretation Comments UA Sq Epi (test code = UA Sq Epi) None Seen [facility] AND [id number] 20:23:00 Test Item Value Reference Range Interpretation Comments UA Glucose (test code = UA Negative mg/dL Glucose) [facility] AND [id number] 20:23:00 Test Item Value Reference Range Interpretation Comments UA Ketones (test code = UA Negative mg/dL Ketones) [facility] AND [id number] 20:23:00 Test Item Value Reference Range Interpretation Comments UA Protein (test code = UA Negative mg/dL Protein) [facility] AND [id number] 20:23:00 Test Item Value Reference Range Interpretation Comments UA pH (test code = UA pH) 6.0 1 5.0-8.0 [facility] AND [id number] 20:23:00 Test Item Value Reference Range Interpretation Comments UA Turbidity (test code = Clear (03/28/18 3:23 UA Turbidity) PM) [facility] AND [id number] 20:23:00 Test Item Value Reference Range Interpretation Comments UA Spec Grav (test code = UA Spec 1.002 1 Grav) [facility] AND [id number] 20:23:00 Test Item Value Reference Range Interpretation Comments UA Urobilinogen (test code = UA <=1.0 mg/dL 0.1-1.0 Urobilinogen) [facility] AND [id number] 20:23:00 Test Item Value Reference Range Interpretation Comments UA Color (test code = UA Color) Ltyellow [facility] [id number] 20:23:00 Test Item Value Reference Range Interpretation Comments UA Nitrite (test code Negative (03/28/18 3:23 = UA Nitrite) PM) [facility] [id number] 20:23:00 Test Item Value Reference Range Interpretation Comments UA Leuk Est (test Negative (03/28/18 3:23 code = UA Leuk Est) PM) [facility] AND [id number] 20:23:00 Test Item Value Reference Range Interpretation Comments UA Bili (test code = Negative *NA*(03/28/18 UA Bili) 3:23 PM) [facility] AND [id number] 20:23:00 Test Item Value Reference Range Interpretation Comments UA Blood (test code = Negative (03/28/18 3:23 UA Blood) PM) [facility] AND [id number] 20:23:00 Test Item Value Reference Range Interpretation Comments UA Sq Epi (test code = UA Sq Epi) None Seen [facility] AND [id number] 20:23:00 Test Item Value Reference Range Interpretation Comments UA Glucose (test code = UA Negative mg/dL Glucose) [facility] AND [id number] 20:23:00 Test Item Value Reference Range Interpretation Comments UA Ketones (test code = UA Negative mg/dL Ketones) [facility] AND [id number] 20:23:00 Test Item Value Reference Range Interpretation Comments UA Protein (test code = UA Negative mg/dL Protein) [facility] AND [id number] 20:23:00 Test Item Value Reference Range Interpretation Comments UA pH (test code = UA pH) 6.0 1 5.0-8.0 [facility] AND [id number] 20:23:00 Test Item Value Reference Range Interpretation Comments UA Turbidity (test code = Clear (03/28/18 3:23 UA Turbidity) PM) [facility] [id number] 20:23:00 Test Item Value Reference Range Interpretation Comments UA Spec Grav (test code = UA Spec 1.002 1 Grav) [facility]annCARDIAC [id number] 20:10:00 Test Item Value Reference Range Interpretation Comments BNP (test code = BNP) no gt [facility] GuideslyannCARDIAC [id number] 20:10:00 Test Item Value Reference Range Interpretation Comments Troponin-I (test code no gt See_Comment [Auto mated message] The = Troponin-I) system which g enerated this result transmit narayan reference range : <=0.40. The reference r jodi was not used to interpr et this result as shreya l/abnormal. [facility] enModusCARMax EndoscopyAC EHZOBXF2818-70-07 20:10:00 Test Item Value Reference Range Interpretation Comments proBNP (test code = 30 See_Comment [Automa narayan message] The proBNP) system which ge nerated this result tra nsmitted reference range : <=125. The reference r jodi was not used to int erpret this result as shreay l/abnormal. [facility] [employer]zymeRx [id number] 20:10:00 Test Item Value Reference Range Interpretation Comments Lipase Lvl (test code = Lipase Lvl) 71 73-393 [facility] GanwueeIRDFOMFIBMXO7867-93-10 20:10:00 Test Item Value Reference Range Interpretation Comments AGAP (test code = AGAP) 15.9 10.0-20.0 [facility] LzmtmddZGNAZOBNHNUI4714-06-67 20:10:00 Test Item Value Reference Range Interpretation Comments A/G Ratio (test code = A/G Ratio) 0.7 1 0.7-1.6 [facility] EsfstutVISUZAXOZIOK0088-67-68 20:10:00 Test Item Value Reference Range Interpretation Comments Globulin (test code = Globulin) 4.8 2.7-4.2 [facility] WvuxrxlIGAADNJEPCQZ3632-58-33 20:10:00 Test Item Value Reference Range Interpretation Comments B/C Ratio (test code = B/C Ratio) 6 1 6-25 [facility] AmfucvjYSWPLQMTBSDD7046-41-48 20:10:00 Test Item Value Reference Range Interpretation Comments eGFR (test code = eGFR) 99 [facility] JypcbrdQQUMVNEVERKU8126-39-79 20:10:00 Test Item Value Reference Range Interpretation Comments Bili Total (test code = Bili Total) 0.5 0.2-1.3 [facility] YademncXLSPZQXILCNC5059-31-75 20:10:00 Test Item Value Reference Range Interpretation Comments Alk Phos (test code = Alk Phos) 147 39-136 [facility] HospitalHcyojarAWDWWWTFJAEA6002-58-74 20:10:00 Test Item Value Reference Range Interpretation Comments AST (test code = AST) 17 See_Comment [Auto mated message] The system which ge nerated this result transmit narayan reference range : <=37. The reference range was not used to interpr et this result as shreya l/abnormal. [facility] HospitalDtyftzdWEELGDUTGWIG9485-51-25 20:10:00 Test Item Value Reference Range Interpretation Comments ALT (test code = ALT) 18 See_Comment [Auto mated message] The system which ge nerated this result transmit narayan reference range : <=65. The reference range was not used to interpr et this result as shreya l/abnormal. [facility] HospitalUcvvnxeJSMUHPAJEREU5073-20-86 20:10:00 Test Item Value Reference Range Interpretation Comments CO2 (test code = CO2) 21 24-32 [facility] HospitalTevydmbDJGILCKTFCWN4867-06-96 20:10:00 Test Item Value Reference Range Interpretation Comments Calcium Lvl (test code = Calcium Lvl) 8.8 8.5-10.5 [facility] HospitalEcfyauuESMQSNUSOEXU1129-75-29 20:10:00 Test Item Value Reference Range Interpretation Comments Chloride Lvl (test code = Chloride Lvl) 94 95-109 [facility] HospitalEqmqrmjVUXYLABQXKNM3374-12-30 20:10:00 Test Item Value Reference Range Interpretation Comments Potassium Lvl (test code = Potassium 3.9 3.5-5.1 Lvl) [facility] HospitalRyaouhaSLCKRIXIQNDN7592-47-91 20:10:00 Test Item Value Reference Range Interpretation Comments Sodium Lvl (test code = Sodium Lvl) 127 135-145 [facility] HospitalPikuglyMDVLFXLPKLGB9521-19-16 20:10:00 Test Item Value Reference Range Interpretation Comments BUN (test code = BUN) 4 7-22 [facility] HospitalLhxnufqTTGGIURGCOHM7758-16-20 20:10:00 Test Item Value Reference Range Interpretation Comments Creatinine Lvl (test code = Creatinine 0.66 0.50-1.40 Lvl) [facility] HospitalJmogahaJBCYLMOKUGHI1759-86-13 20:10:00 Test Item Value Reference Range Interpretation Comments Glucose Lvl (test code = Glucose Lvl) 92 70-99 [facility] HospitalBeurcaaRLZAWLDCPPTW1910-69-46 20:10:00 Test Item Value Reference Range Interpretation Comments Albumin Lvl (test code = Albumin Lvl) 3.4 3.5-5.0 [facility] HospitalQdanmuoNLXNJWVHWJCE7328-21-75 20:10:00 Test Item Value Reference Range Interpretation Comments Total Protein (test code = Total 8.2 6.4-8.4 Protein) [facility]woodVbchqlyBSGYBCOZFU3521-09-19 20:10:00 Test Item Value Reference Range Interpretation Comments Basophils (test code = 0.9 See_Comment [Aut omated message] The Basophils) system which ge nerated this result tra nsmitted reference range : <=1.0. The reference r jodi was not used to int erpret this result as normal/abnormal . [facility]woodLflgjngXIIQXCMZBG4914-09-99 20:10:00 Test Item Value Reference Range Interpretation Comments Eosinophils (test code = 3.7 See_Comment [A utomated message] The Eosinophils) system which ge nerated this result tra nsmitted reference range : <=4.0. The reference r jodi was not used to int erpret this result as normal/abnormal . [facility]woodCepremsAWPOASVZSK7042-87-33 20:10:00 Test Item Value Reference Range Interpretation Comments Monocytes (test code = Monocytes) 8.1 2.0-12.0 [facility]woodPhifpxgHZUSEUWECL6292-43-71 20:10:00 Test Item Value Reference Range Interpretation Comments Lymphocytes (test code = Lymphocytes) 15.5 20.0-40.0 [facility]woodFlcnqxdFSCPCEGKDI6086-04-87 20:10:00 Test Item Value Reference Range Interpretation Comments Segs-Bands # (test code = Segs-Bands #) 14.3 1.5-8.1 [facility]woodLcvikxsHXANVAJPLT6474-61-12 20:10:00 Test Item Value Reference Range Interpretation Comments Segs (test code = Segs) 71.8 45.0-75.0 [facility]woodDobzandKYIDRFCETJ7798-73-58 20:10:00 Test Item Value Reference Range Interpretation Comments Basophils # (test code 0.2 See_Comment [Aut omated message] The = Basophils #) system which generated this result tra nsmitted reference range : <=0.2. The reference r jodi was not used to int erpret this result as normal/abnormal . [facility]woodGoofflgYNTLKFRHOK9116-25-91 20:10:00 Test Item Value Reference Range Interpretation Comments Eosinophils # (test code 0.7 See_Comment [A utomated message] The = Eosinophils #) system whic h generated this result tra nsmitted reference range : <=0.5. The reference r jodi was not used to int erpret this result as normal/abnormal . [facility]woodZvycmhsHLFMAHTPEL7425-68-82 20:10:00 Test Item Value Reference Range Interpretation Comments Monocytes # (test code 1.6 See_Comment [Aut omated message] The = Monocytes #) system which generated this result tra nsmitted reference range : <=0.8. The reference r jodi was not used to int erpret this result as normal/abnormal . [facility]woodHquyxbtRRZHIZWOFY3347-69-72 20:10:00 Test Item Value Reference Range Interpretation Comments Lymphocytes # (test code = Lymphocytes 3.1 1.0-5.5 #) [facility]woodYoeiavbSGJWRCERSS5678-10-21 20:10:00 Test Item Value Reference Range Interpretation Comments MCHC (test code = MCHC) 35.0 32.0-36.0 [facility]woodMlepapyLHMJKOVUHR2757-15-39 20:10:00 Test Item Value Reference Range Interpretation Comments RDW (test code = RDW) 14.1 11.5-14.5 [facility]woodKnqivjpPJRQUJCHTM0799-13-77 20:10:00 Test Item Value Reference Range Interpretation Comments MCH (test code = MCH) 33.1 pg 27.0-31.0 [facility]woodJlwjxoiUUXSKBYKCX5007-32-22 20:10:00 Test Item Value Reference Range Interpretation Comments MCV (test code = MCV) 94.5 80.0-98.0 [facility]woodBuffzxuHCAKDOPQXY0005-72-15 20:10:00 Test Item Value Reference Range Interpretation Comments MPV (test code = MPV) 7.5 7.4-10.4 [facility]woodFcfrxacYTDLBWFCZG9972-24-07 20:10:00 Test Item Value Reference Range Interpretation Comments Platelet (test code = Platelet) 405 133-450 [facility]woodXvyrsasPSSBNNRBXB6673-57-19 20:10:00 Test Item Value Reference Range Interpretation Comments RBC (test code = RBC) 4.56 4.20-5.40 [facility]woodSdaduzkXXXUJTWRSZ6740-37-74 20:10:00 Test Item Value Reference Range Interpretation Comments Hgb (test code = Hgb) 15.1 12.0-16.0 [facility] DlfrereLLDDKQXGDJ1563-21-44 20:10:00 Test Item Value Reference Range Interpretation Comments WBC (test code = WBC) 20.0 3.7-10.4 [facility] HospitalAsulsskPPQSDQKCJV6221-82-09 20:10:00 Test Item Value Reference Range Interpretation Comments Hct (test code = Hct) 43.1 36.0-48.0 [facility]annCARDIAC AANINDH3855-16-06 20:10:00 Test Item Value Reference Range Interpretation Comments BNP (test code = BNP) no gt [facility] HermannCARDIAC RNMWQMI4193-01-49 20:10:00 Test Item Value Reference Range Interpretation Comments Troponin-I (test code no gt See_Comment [Auto mated message] The = Troponin-I) system which g enerated this result transmit narayan reference range : <=0.40. The reference r jodi was not used to interpr et this result as shreya l/abnormal. [facility] HospitalFreedom FarmsAC WFENYHL3547-64-29 20:10:00 Test Item Value Reference Range Interpretation Comments proBNP (test code = 30 See_Comment [Automa narayan message] The proBNP) system which ge nerated this result tra nsmitted reference range : <=125. The reference r jodi was not used to int erpret this result as shreya l/abnormal. [facility] enModusCHEM [id number] 20:10:00 Test Item Value Reference Range Interpretation Comments Lipase Lvl (test code = Lipase Lvl) 71 73-393 [facility] HospitalXhuuqaoVZPMVIRWKPQV6035-33-53 20:10:00 Test Item Value Reference Range Interpretation Comments AGAP (test code = AGAP) 15.9 10.0-20.0 [facility] HospitalIyhhartVEYPLIWSRBNS0264-35-50 20:10:00 Test Item Value Reference Range Interpretation Comments A/G Ratio (test code = A/G Ratio) 0.7 1 0.7-1.6 [facility] HospitalQdqpgzoBEYSONOJVPBX3305-47-51 20:10:00 Test Item Value Reference Range Interpretation Comments Globulin (test code = Globulin) 4.8 2.7-4.2 [facility] SxgqhybLRWLZDLIJEPB4456-29-80 20:10:00 Test Item Value Reference Range Interpretation Comments B/C Ratio (test code = B/C Ratio) 6 1 6-25 [facility] HospitalOflzincSDLKGMTSXOWL0027-27-16 20:10:00 Test Item Value Reference Range Interpretation Comments eGFR (test code = eGFR) 99 [facility] HospitalXjztjbtCXDXTZCYXGHX7761-57-25 20:10:00 Test Item Value Reference Range Interpretation Comments Bili Total (test code = Bili Total) 0.5 0.2-1.3 [facility] HospitalBrchhgkBMLSPENZKWWL3673-27-77 20:10:00 Test Item Value Reference Range Interpretation Comments Alk Phos (test code = Alk Phos) 147 39-136 [facility] HospitalSkukkneGVFBXXEEZBAP2063-01-54 20:10:00 Test Item Value Reference Range Interpretation Comments AST (test code = AST) 17 See_Comment [Auto mated message] The system which ge nerated this result transmit narayan reference range : <=37. The reference range was not used to interpr et this result as shreya l/abnormal. [facility] HospitalIxiyaxvSOSNHQPUWFHP9840-80-50 20:10:00 Test Item Value Reference Range Interpretation Comments ALT (test code = ALT) 18 See_Comment [Auto mated message] The system which ge nerated this result transmit narayan reference range : <=65. The reference range was not used to interpr et this result as shreya l/abnormal. [facility] HospitalScdqajnFXCZWSLSFTFL6870-20-66 20:10:00 Test Item Value Reference Range Interpretation Comments CO2 (test code = CO2) 21 24-32 [facility] HospitalKjfmucqVIXUKVRWGUBJ5291-49-32 20:10:00 Test Item Value Reference Range Interpretation Comments Calcium Lvl (test code = Calcium Lvl) 8.8 8.5-10.5 [facility] HospitalHabmvrvLBDJUJUQPLSH0834-99-11 20:10:00 Test Item Value Reference Range Interpretation Comments Chloride Lvl (test code = Chloride Lvl) 94 95-109 [facility] HospitalIixtpmwIQFJZAKEKFYT6888-13-29 20:10:00 Test Item Value Reference Range Interpretation Comments Potassium Lvl (test code = Potassium 3.9 3.5-5.1 Lvl) [facility] HospitalQhdbwkqFMCHFJIQAOCC8788-38-65 20:10:00 Test Item Value Reference Range Interpretation Comments Sodium Lvl (test code = Sodium Lvl) 127 135-145 [facility] HospitalUeyhjwoBRZFXMLYLKKP1649-20-80 20:10:00 Test Item Value Reference Range Interpretation Comments BUN (test code = BUN) 4 7-22 [facility] HospitalRoumslyFQVMVBRFMUDI3361-73-98 20:10:00 Test Item Value Reference Range Interpretation Comments Creatinine Lvl (test code = Creatinine 0.66 0.50-1.40 Lvl) [facility] HospitalPoikqeeWYYVOBSXKGSL9754-25-81 20:10:00 Test Item Value Reference Range Interpretation Comments Glucose Lvl (test code = Glucose Lvl) 92 70-99 [facility] HospitalJeduwjiYNEBKYKXLMXP0898-58-76 20:10:00 Test Item Value Reference Range Interpretation Comments Albumin Lvl (test code = Albumin Lvl) 3.4 3.5-5.0 [facility] HospitalQxzbqetLMMSZDBZXQKO3584-35-03 20:10:00 Test Item Value Reference Range Interpretation Comments Total Protein (test code = Total 8.2 6.4-8.4 Protein) [facility]woodDkapgukVOYIQEEBAE4575-99-62 20:10:00 Test Item Value Reference Range Interpretation Comments Basophils (test code = 0.9 See_Comment [Aut omated message] The Basophils) system which ge nerated this result tra nsmitted reference range : <=1.0. The reference r jodi was not used to int erpret this result as normal/abnormal . [facility]woodJdfqspfBGKYNQVACZ2986-43-17 20:10:00 Test Item Value Reference Range Interpretation Comments Eosinophils (test code = 3.7 See_Comment [A utomated message] The Eosinophils) system which ge nerated this result tra nsmitted reference range : <=4.0. The reference r jodi was not used to int erpret this result as normal/abnormal . [facility]woodEofeikwJJGCDPLADH2732-47-08 20:10:00 Test Item Value Reference Range Interpretation Comments Monocytes (test code = Monocytes) 8.1 2.0-12.0 [facility]woodCsxltprLGRZEFSMGH4564-49-18 20:10:00 Test Item Value Reference Range Interpretation Comments Lymphocytes (test code = Lymphocytes) 15.5 20.0-40.0 [facility]woodBblhdfcVHZFCVQFUW8407-53-55 20:10:00 Test Item Value Reference Range Interpretation Comments Segs-Bands # (test code = Segs-Bands #) 14.3 1.5-8.1 [facility]woodXfgyyjvCBXBQXATMS9041-01-29 20:10:00 Test Item Value Reference Range Interpretation Comments Segs (test code = Segs) 71.8 45.0-75.0 [facility]woodLwzfqedMRUASYMKCX9922-35-58 20:10:00 Test Item Value Reference Range Interpretation Comments Basophils # (test code 0.2 See_Comment [Aut omated message] The = Basophils #) system which generated this result tra nsmitted reference range : <=0.2. The reference r jodi was not used to int erpret this result as normal/abnormal . [facility]woodYttgauhWPQRORAPBO9376-51-80 20:10:00 Test Item Value Reference Range Interpretation Comments Eosinophils # (test code 0.7 See_Comment [A utomated message] The = Eosinophils #) system whic h generated this result tra nsmitted reference range : <=0.5. The reference r jodi was not used to int erpret this result as normal/abnormal . [facility]woodRlaqvrvOBKTVCWXUJ1553-70-98 20:10:00 Test Item Value Reference Range Interpretation Comments Monocytes # (test code 1.6 See_Comment [Aut omated message] The = Monocytes #) system which generated this result tra nsmitted reference range : <=0.8. The reference r jodi was not used to int erpret this result as normal/abnormal . [facility]woodSlsijmmZQDRRZPFDS0715-84-96 20:10:00 Test Item Value Reference Range Interpretation Comments Lymphocytes # (test code = Lymphocytes 3.1 1.0-5.5 #) [facility]woodKcqgkpnRBIQWRAMAE6243-09-32 20:10:00 Test Item Value Reference Range Interpretation Comments MCHC (test code = MCHC) 35.0 32.0-36.0 [facility]woodVezkpypPUSWXQVLFR5908-40-20 20:10:00 Test Item Value Reference Range Interpretation Comments RDW (test code = RDW) 14.1 11.5-14.5 [facility]woodUxirhbqKAFABQYBUV3829-11-98 20:10:00 Test Item Value Reference Range Interpretation Comments MCH (test code = MCH) 33.1 pg 27.0-31.0 [facility]woodEdlxwsoPTPXSTNFUQ6491-02-66 20:10:00 Test Item Value Reference Range Interpretation Comments MCV (test code = MCV) 94.5 80.0-98.0 [facility]woodBvbegpiBRCXJTADGS2405-49-03 20:10:00 Test Item Value Reference Range Interpretation Comments MPV (test code = MPV) 7.5 7.4-10.4 [facility]woodAbvthveLNDDKFRWOS7897-91-76 20:10:00 Test Item Value Reference Range Interpretation Comments Platelet (test code = Platelet) 405 133-450 [facility]woodPxdjluwWTHIATDAPQ8054-20-45 20:10:00 Test Item Value Reference Range Interpretation Comments RBC (test code = RBC) 4.56 4.20-5.40 [facility]woodZlqhyagANOSOUUGWG9078-53-45 20:10:00 Test Item Value Reference Range Interpretation Comments Hgb (test code = Hgb) 15.1 12.0-16.0 [facility]woodVkdbnazXGERWBEMLR1860-64-35 20:10:00 Test Item Value Reference Range Interpretation Comments WBC (test code = WBC) 20.0 3.7-10.4 [facility]woodCescucfDKOZAHKAFD4404-31-77 20:10:00 Test Item Value Reference Range Interpretation Comments Hct (test code = Hct) 43.1 36.0-48.0 [facility]2017-12-31 10:37:00 Test Item Value Reference Range Interpretation Comments Magnesium Lvl (test code = Magnesium 2.3 1.8-2.4 Lvl) [facility]woodKfgqdimEPFGHTFJMO8818-86-03 10:37:00 Test Item Value Reference Range Interpretation Comments Hct (test code = Hct) 35.3 36.0-48.0 [facility]woodPmzaiawWLVDQGSFSH4092-95-86 10:37:00 Test Item Value Reference Range Interpretation Comments RBC (test code = RBC) 3.71 4.20-5.40 [facility]woodZaffjuiQDBBQMDASF4789-72-85 10:37:00 Test Item Value Reference Range Interpretation Comments Hgb (test code = Hgb) 11.9 12.0-16.0 [facility]woodYhfnxkzFHRXZCRLEN1098-17-43 10:37:00 Test Item Value Reference Range Interpretation Comments MCV (test code = MCV) 95.1 80.0-98.0 [facility]woodLlsfvyuIDCIHDBEVG9144-02-46 10:37:00 Test Item Value Reference Range Interpretation Comments MCHC (test code = MCHC) 33.8 32.0-36.0 [facility]woodHtcfclaWEOJDBKWMN3902-05-34 10:37:00 Test Item Value Reference Range Interpretation Comments MCH (test code = MCH) 32.2 pg 27.0-31.0 [facility]woodTmnrxonYBDWDOXHMY1848-84-26 10:37:00 Test Item Value Reference Range Interpretation Comments MPV (test code = MPV) 7.7 7.4-10.4 [facility]woodOuzjpfuXGODUMVRZN2880-57-30 10:37:00 Test Item Value Reference Range Interpretation Comments RDW (test code = RDW) 13.7 11.5-14.5 [facility]woodSujobjvBGJOZTQVWQ0734-34-43 10:37:00 Test Item Value Reference Range Interpretation Comments Platelet (test code = Platelet) 498 133-450 [facility]woodPugbxpoRLUQMBIYWV5357-76-01 10:37:00 Test Item Value Reference Range Interpretation Comments WBC (test code = WBC) 18.2 3.7-10.4 [facility]woodSekldlfCKLJMRSXJZ9281-55-84 10:37:00 Test Item Value Reference Range Interpretation Comments Segs-Bands # (test code = Segs-Bands #) 12.4 1.5-8.1 [facility]woodJaitgttFKJUOXMRGL3670-65-17 10:37:00 Test Item Value Reference Range Interpretation Comments Basophils (test code = 0.4 See_Comment [Aut omated message] The Basophils) system which ge nerated this result tra nsmitted reference range : <=1.0. The reference r jodi was not used to int erpret this result as normal/abnormal . [facility]woodRepbvglUWPKCZULOU3986-84-49 10:37:00 Test Item Value Reference Range Interpretation Comments Segs (test code = Segs) 68.0 45.0-75.0 [facility]woodRmmxocpSLAGDFBXFQ6889-39-18 10:37:00 Test Item Value Reference Range Interpretation Comments Lymphocytes (test code = Lymphocytes) 20.1 20.0-40.0 [facility]woodLnfbrcaJRCNDWAVTK8491-16-82 10:37:00 Test Item Value Reference Range Interpretation Comments Monocytes (test code = Monocytes) 9.3 2.0-12.0 [facility]woodDngrrcoODEUGSSNJM7182-41-81 10:37:00 Test Item Value Reference Range Interpretation Comments Eosinophils (test code = 2.2 See_Comment [A utomated message] The Eosinophils) system which ge nerated this result tra nsmitted reference range : <=4.0. The reference r jodi was not used to int erpret this result as normal/abnormal . [place] [address]-12-31 10:37:00 Test Item Value Reference Range Interpretation Comments Basophils # (test code 0.1 See_Comment [Aut omated message] The = Basophils #) system which generated this result tra nsmitted reference range : <=0.2. The reference r jodi was not used to int erpret this result as normal/abnormal . [facility]woodKaoxxdqLRZVASYHPU5462-45-97 10:37:00 Test Item Value Reference Range Interpretation Comments Eosinophils # (test code 0.4 See_Comment [A utomated message] The = Eosinophils #) system whic h generated this result tra nsmitted reference range : <=0.5. The reference r jodi was not used to int erpret this result as normal/abnormal . [facility]woodFnfpwnzRIOMWAIGDE9273-27-43 10:37:00 Test Item Value Reference Range Interpretation Comments Monocytes # (test code 1.7 See_Comment [Aut omated message] The = Monocytes #) system which generated this result tra nsmitted reference range : <=0.8. The reference r jodi was not used to int erpret this result as normal/abnormal . [facility]woodOglrgmaKPJWHSIUKQ2836-79-00 10:37:00 Test Item Value Reference Range Interpretation Comments Lymphocytes # (test code = Lymphocytes 3.7 1.0-5.5 #) [facility]2017-12-31 10:37:00 Test Item Value Reference Range Interpretation Comments eGFR (test code = eGFR) 116 [facility]2017-12-31 10:37:00 Test Item Value Reference Range Interpretation Comments AGAP (test code = AGAP) 12.7 10.0-20.0 [facility]2017-12-31 10:37:00 Test Item Value Reference Range Interpretation Comments CO2 (test code = CO2) 26 24-32 [facility]2017-12-31 10:37:00 Test Item Value Reference Range Interpretation Comments Sodium Lvl (test code = Sodium Lvl) 133 135-145 [facility]2017-12-31 10:37:00 Test Item Value Reference Range Interpretation Comments Potassium Lvl (test code = Potassium 3.7 3.5-5.1 Lvl) [facility]2017-12-31 10:37:00 Test Item Value Reference Range Interpretation Comments Chloride Lvl (test code = Chloride Lvl) 98 95-109 [facility]2017-12-31 10:37:00 Test Item Value Reference Range Interpretation Comments BUN (test code = BUN) 7 7-22 [facility]2017-12-31 10:37:00 Test Item Value Reference Range Interpretation Comments Creatinine Lvl (test code = Creatinine 0.40 0.50-1.40 Lvl) [facility]2017-12-31 10:37:00 Test Item Value Reference Range Interpretation Comments Glucose Lvl (test code = Glucose Lvl) 106 70-99 [facility]2017-12-31 10:37:00 Test Item Value Reference Range Interpretation Comments Calcium Lvl (test code = Calcium Lvl) 8.5 8.5-10.5 [facility]2017-12-31 10:37:00 Test Item Value Reference Range Interpretation Comments Magnesium Lvl (test code = Magnesium 2.3 1.8-2.4 Lvl) [facility]woodZrhvwvhXSZTIFKQXF3483-82-20 10:37:00 Test Item Value Reference Range Interpretation Comments Hct (test code = Hct) 35.3 36.0-48.0 [facility]woodNrgsyveYPRYHNRRDP9346-11-95 10:37:00 Test Item Value Reference Range Interpretation Comments RBC (test code = RBC) 3.71 4.20-5.40 [facility]woodMlyouweZLQMDJREBD4022-11-72 10:37:00 Test Item Value Reference Range Interpretation Comments Hgb (test code = Hgb) 11.9 12.0-16.0 [facility]woodNhdqxuiNLEXEBYTLL2057-32-10 10:37:00 Test Item Value Reference Range Interpretation Comments MCV (test code = MCV) 95.1 80.0-98.0 [facility]woodLtucyhuOQQIQCDOZB9835-17-60 10:37:00 Test Item Value Reference Range Interpretation Comments MCHC (test code = MCHC) 33.8 32.0-36.0 [facility]woodWehtevxZLFQQCSEYV3567-92-13 10:37:00 Test Item Value Reference Range Interpretation Comments MCH (test code = MCH) 32.2 pg 27.0-31.0 [facility]woodNfqvnasRJNXQBZMCX5966-08-43 10:37:00 Test Item Value Reference Range Interpretation Comments MPV (test code = MPV) 7.7 7.4-10.4 [facility]woodEvajqggITUISQEHTS3228-64-27 10:37:00 Test Item Value Reference Range Interpretation Comments RDW (test code = RDW) 13.7 11.5-14.5 [facility]woodNieyqewILYPRNHQBT2896-66-11 10:37:00 Test Item Value Reference Range Interpretation Comments Platelet (test code = Platelet) 498 952-450 [facility]woodBmplfokVGXUOZUNNA7132-27-57 10:37:00 Test Item Value Reference Range Interpretation Comments WBC (test code = WBC) 18.2 3.7-10.4 [facility]woodCglplvlEBCJSKYRXB8053-97-56 10:37:00 Test Item Value Reference Range Interpretation Comments Segs-Bands # (test code = Segs-Bands #) 12.4 1.5-8.1 [facility]woodJhrlqsjZPKYFIFKPR8269-15-03 10:37:00 Test Item Value Reference Range Interpretation Comments Basophils (test code = 0.4 See_Comment [Aut omated message] The Basophils) system which ge nerated this result tra nsmitted reference range : <=1.0. The reference r jodi was not used to int erpret this result as normal/abnormal . [facility]woodIjzjhkpCCLLLPKJAL9751-64-04 10:37:00 Test Item Value Reference Range Interpretation Comments Segs (test code = Segs) 68.0 45.0-75.0 [facility]woodEfmwprjSZAWVKNYAK4840-82-19 10:37:00 Test Item Value Reference Range Interpretation Comments Lymphocytes (test code = Lymphocytes) 20.1 20.0-40.0 [facility]woodWfpscbkEHDRSNAWSW2729-22-93 10:37:00 Test Item Value Reference Range Interpretation Comments Monocytes (test code = Monocytes) 9.3 2.0-12.0 [facility]woodGfvauxxKRTYIQNYHE1277-07-28 10:37:00 Test Item Value Reference Range Interpretation Comments Eosinophils (test code = 2.2 See_Comment [A utomated message] The Eosinophils) system which ge nerated this result tra nsmitted reference range : <=4.0. The reference r jodi was not used to int erpret this result as normal/abnormal . [facility]woodHgablubESPQPDVBUE8974-74-77 10:37:00 Test Item Value Reference Range Interpretation Comments Basophils # (test code 0.1 See_Comment [Aut omated message] The = Basophils #) system which generated this result tra nsmitted reference range : <=0.2. The reference r jodi was not used to int erpret this result as normal/abnormal . [facility]woodAskwxgnFPYNPDGVNH0549-33-10 10:37:00 Test Item Value Reference Range Interpretation Comments Eosinophils # (test code 0.4 See_Comment [A utomated message] The = Eosinophils #) system whic h generated this result tra nsmitted reference range : <=0.5. The reference r jodi was not used to int erpret this result as normal/abnormal . [facility]woodPpklqukLLNLDOEBWG6171-82-92 10:37:00 Test Item Value Reference Range Interpretation Comments Monocytes # (test code 1.7 See_Comment [Aut omated message] The = Monocytes #) system which generated this result tra nsmitted reference range : <=0.8. The reference r jodi was not used to int erpret this result as normal/abnormal . [facility]woodCbzpyzaTEDMCVVOQB3617-62-64 10:37:00 Test Item Value Reference Range Interpretation Comments Lymphocytes # (test code = Lymphocytes 3.7 1.0-5.5 #) [facility]2017-12-31 10:37:00 Test Item Value Reference Range Interpretation Comments eGFR (test code = eGFR) 116 [facility]2017-12-31 10:37:00 Test Item Value Reference Range Interpretation Comments AGAP (test code = AGAP) 12.7 10.0-20.0 [facility]2017-12-31 10:37:00 Test Item Value Reference Range Interpretation Comments CO2 (test code = CO2) 26 24-32 [facility]2017-12-31 10:37:00 Test Item Value Reference Range Interpretation Comments Sodium Lvl (test code = Sodium Lvl) 133 135-145 [facility]2017-12-31 10:37:00 Test Item Value Reference Range Interpretation Comments Potassium Lvl (test code = Potassium 3.7 3.5-5.1 Lvl) [facility]2017-12-31 10:37:00 Test Item Value Reference Range Interpretation Comments Chloride Lvl (test code = Chloride Lvl) 98 95-109 [facility]2017-12-31 10:37:00 Test Item Value Reference Range Interpretation Comments BUN (test code = BUN) 7 7-22 [facility]2017-12-31 10:37:00 Test Item Value Reference Range Interpretation Comments Creatinine Lvl (test code = Creatinine 0.40 0.50-1.40 Lvl) [facility]2017-12-31 10:37:00 Test Item Value Reference Range Interpretation Comments Glucose Lvl (test code = Glucose Lvl) 106 70-99 [facility]2017-12-31 10:37:00 Test Item Value Reference Range Interpretation Comments Calcium Lvl (test code = Calcium Lvl) 8.5 8.5-10.5 [facility]2017-12-30 15:39:00 Test Item Value Reference Range Interpretation Comments eGFR (test code = eGFR) 102 [facility]2017-12-30 15:39:00 Test Item Value Reference Range Interpretation Comments Chloride Lvl (test code = Chloride Lvl) 93 95-109 [facility]2017-12-30 15:39:00 Test Item Value Reference Range Interpretation Comments CO2 (test code = CO2) 23 24-32 [facility]2017-12-30 15:39:00 Test Item Value Reference Range Interpretation Comments Calcium Lvl (test code = Calcium Lvl) 8.3 8.5-10.5 [facility]2017-12-30 15:39:00 Test Item Value Reference Range Interpretation Comments Sodium Lvl (test code = Sodium Lvl) 129 135-145 [facility]2017-12-30 15:39:00 Test Item Value Reference Range Interpretation Comments Potassium Lvl (test code = Potassium 3.5 3.5-5.1 Lvl) [facility]2017-12-30 15:39:00 Test Item Value Reference Range Interpretation Comments BUN (test code = BUN) 7 - [facility]2017-12-30 15:39:00 Test Item Value Reference Range Interpretation Comments Creatinine Lvl (test code = Creatinine 0.61 0.50-1.40 Lvl) [facility]2017-12-30 15:39:00 Test Item Value Reference Range Interpretation Comments Glucose Lvl (test code = Glucose Lvl) 148 70-99 [facility]2017-12-30 15:39:00 Test Item Value Reference Range Interpretation Comments AGAP (test code = AGAP) 16.5 10.0-20.0 [facility]2017-12-30 15:39:00 Test Item Value Reference Range Interpretation Comments Magnesium Lvl (test code = Magnesium 2.0 1.8-2.4 Lvl) [facility]woodUcsclarTLNOPJOKZK5104-03-65 15:39:00 Test Item Value Reference Range Interpretation Comments Platelet (test code = Platelet) 519 133-450 [facility]woodGttnbjkSFJVYBHSCH1718-15-02 15:39:00 Test Item Value Reference Range Interpretation Comments MPV (test code = MPV) 8.0 7.4-10.4 [facility]woodVpivmrnWBVWLLXBLB9399-14-15 15:39:00 Test Item Value Reference Range Interpretation Comments WBC (test code = WBC) 16.0 3.7-10.4 [facility]woodBlcvrweYGXWOLKTYQ9748-61-81 15:39:00 Test Item Value Reference Range Interpretation Comments RBC (test code = RBC) 3.82 4.20-5.40 [facility]woodFynchrpIRNFPJBKFM6089-20-39 15:39:00 Test Item Value Reference Range Interpretation Comments Hct (test code = Hct) 37.2 36.0-48.0 [facility]woodUbrraryJBQDKADMQN4639-31-15 15:39:00 Test Item Value Reference Range Interpretation Comments Hgb (test code = Hgb) 12.6 12.0-16.0 [facility]woodQkwlhocROKYQQWSJZ8126-33-93 15:39:00 Test Item Value Reference Range Interpretation Comments MCV (test code = MCV) 97.2 80.0-98.0 [facility]woodWwiluwlRCUWKSMGAR4050-08-83 15:39:00 Test Item Value Reference Range Interpretation Comments MCHC (test code = MCHC) 34.0 32.0-36.0 [facility]woodUjvgagxZXIDTRYWYJ4359-61-36 15:39:00 Test Item Value Reference Range Interpretation Comments MCH (test code = MCH) 33.1 pg 27.0-31.0 [facility]woodJgylopnCMXWEVRLGT2180-62-02 15:39:00 Test Item Value Reference Range Interpretation Comments RDW (test code = RDW) 13.3 11.5-14.5 [facility]woodCpcqfqcPJSAUYTDNR0823-57-13 15:39:00 Test Item Value Reference Range Interpretation Comments Atypical Lymphs (test code = Atypical 1.0 Lymphs) [place] [address]-12-30 15:39:00 Test Item Value Reference Range Interpretation Comments RBC Morph (test code = Normal (10/29/17 9:39 RBC Morph) AM) [facility]woodNvqdakiEEFIJEFVPN7136-51-65 15:39:00 Test Item Value Reference Range Interpretation Comments Metamyelocytes (test code 3.0 See_Comment [ Automated message] = Metamyelocytes) The system which generated this result transmitted ref erence range: <=1.0. T he reference range was not used to int erpret this result as normal/abnormal . [facility]woodNuwuifnXAAZZCCJEJ1023-42-71 15:39:00 Test Item Value Reference Range Interpretation Comments Eosinophils (test code = 4.0 See_Comment [A utomated message] The Eosinophils) system which ge nerated this result tra nsmitted reference range : <=4.0. The reference r jodi was not used to int erpret this result as normal/abnormal . [facility]woodJzcktvnRINKCBPCVX2658-02-38 15:39:00 Test Item Value Reference Range Interpretation Comments Monocytes (test code = Monocytes) 13.0 2.0-12.0 [facility]woodWmnlfktXLQDHRWSIX3291-50-69 15:39:00 Test Item Value Reference Range Interpretation Comments Plt Morph (test code = Clumped (10/29/17 9:39 Plt Morph) AM) [facility]woodNyiiypyBBDNTSJMTQ6769-45-08 15:39:00 Test Item Value Reference Range Interpretation Comments Segs (test code = Segs) 60.0 45.0-75.0 [facility]woodWvoxygzGGNPGFLVKP0736-27-72 15:39:00 Test Item Value Reference Range Interpretation Comments Monocytes # (test code 2.1 See_Comment [Aut omated message] The = Monocytes #) system which generated this result tra nsmitted reference range : <=0.8. The reference r jodi was not used to int erpret this result as normal/abnormal . [facility]woodIfzjegsBTLEWMZXFE4642-41-17 15:39:00 Test Item Value Reference Range Interpretation Comments Bands (test code = 0.0 See_Comment [Automat ed message] The Bands) system which ge nerated this result transmit narayan reference range : <=11.0. The reference r jodi was not used to interpr et this result as shreya l/abnormal. [facility]woodJwmgvldHEKAJGICLU0122-44-69 15:39:00 Test Item Value Reference Range Interpretation Comments Eosinophils # (test code 0.6 See_Comment [A utomated message] The = Eosinophils #) system whic h generated this result tra nsmitted reference range : <=0.5. The reference r jodi was not used to int erpret this result as normal/abnormal . [facility]woodQnmrmknGXZJMGRWGP5689-22-26 15:39:00 Test Item Value Reference Range Interpretation Comments Lymphocytes (test code = Lymphocytes) 19.0 20.0-40.0 [facility]woodPczzjtpDOTKMEZRRJ8178-37-78 15:39:00 Test Item Value Reference Range Interpretation Comments Lymphocytes # (test code = Lymphocytes 3.2 1.0-5.5 #) [facility]woodBuclneqFBABICIIDL0766-41-41 15:39:00 Test Item Value Reference Range Interpretation Comments Segs-Bands # (test code = Segs-Bands #) 9.6 1.5-8.1 [facility]2017-12-30 15:39:00 Test Item Value Reference Range Interpretation Comments eGFR (test code = eGFR) 102 [facility]2017-12-30 15:39:00 Test Item Value Reference Range Interpretation Comments Chloride Lvl (test code = Chloride Lvl) 93 95-109 [facility]2017-12-30 15:39:00 Test Item Value Reference Range Interpretation Comments CO2 (test code = CO2) 23 24-32 [facility]2017-12-30 15:39:00 Test Item Value Reference Range Interpretation Comments Calcium Lvl (test code = Calcium Lvl) 8.3 8.5-10.5 [facility]2017-12-30 15:39:00 Test Item Value Reference Range Interpretation Comments Sodium Lvl (test code = Sodium Lvl) 129 135-145 [facility]2017-12-30 15:39:00 Test Item Value Reference Range Interpretation Comments Potassium Lvl (test code = Potassium 3.5 3.5-5.1 Lvl) [facility]2017-12-30 15:39:00 Test Item Value Reference Range Interpretation Comments BUN (test code = BUN) 7 7-22 [facility]2017-12-30 15:39:00 Test Item Value Reference Range Interpretation Comments Creatinine Lvl (test code = Creatinine 0.61 0.50-1.40 Lvl) [facility]2017-12-30 15:39:00 Test Item Value Reference Range Interpretation Comments Glucose Lvl (test code = Glucose Lvl) 148 70-99 [facility]2017-12-30 15:39:00 Test Item Value Reference Range Interpretation Comments AGAP (test code = AGAP) 16.5 10.0-20.0 [facility]2017-12-30 15:39:00 Test Item Value Reference Range Interpretation Comments Magnesium Lvl (test code = Magnesium 2.0 1.8-2.4 Lvl) [facility]woodKlnvhhdUWBUHPPFIN7430-87-07 15:39:00 Test Item Value Reference Range Interpretation Comments Platelet (test code = Platelet) 519 133-450 [facility]woodUdniwozUYLMUHQSWB1590-30-23 15:39:00 Test Item Value Reference Range Interpretation Comments MPV (test code = MPV) 8.0 7.4-10.4 [facility]woodHrsiyieSIEHPACGWN1786-42-37 15:39:00 Test Item Value Reference Range Interpretation Comments WBC (test code = WBC) 16.0 3.7-10.4 [facility]woodOhvqvsgBIGZAUCXUN6400-68-62 15:39:00 Test Item Value Reference Range Interpretation Comments RBC (test code = RBC) 3.82 4.20-5.40 [facility]woodFugirsyFYVTJSVGBG4490-35-10 15:39:00 Test Item Value Reference Range Interpretation Comments Hct (test code = Hct) 37.2 36.0-48.0 [facility]woodQfilcmkRJHNIOTVID4411-73-12 15:39:00 Test Item Value Reference Range Interpretation Comments Hgb (test code = Hgb) 12.6 12.0-16.0 [facility]woodLkwjbdmIPARIMVONK5463-57-84 15:39:00 Test Item Value Reference Range Interpretation Comments MCV (test code = MCV) 97.2 80.0-98.0 [facility]woodFxdhrlsAHKZVVQCIM5498-50-53 15:39:00 Test Item Value Reference Range Interpretation Comments MCHC (test code = MCHC) 34.0 32.0-36.0 [facility]woodDjedddxYRSBKERLAJ4717-97-68 15:39:00 Test Item Value Reference Range Interpretation Comments MCH (test code = MCH) 33.1 pg 27.0-31.0 [facility]woodDfxxnoeCGVENWXECZ2260-47-96 15:39:00 Test Item Value Reference Range Interpretation Comments RDW (test code = RDW) 13.3 11.5-14.5 [facility]woodQgdzygcPFVXRYBPKA4483-21-00 15:39:00 Test Item Value Reference Range Interpretation Comments Atypical Lymphs (test code = Atypical 1.0 Lymphs) [facility]woodSxkzfxkRGHMMGTXCG8521-84-82 15:39:00 Test Item Value Reference Range Interpretation Comments RBC Morph (test code = Normal (10/29/17 9:39 RBC Morph) AM) [facility]woodFtnfziqAPUTFPYAPH0222-99-51 15:39:00 Test Item Value Reference Range Interpretation Comments Metamyelocytes (test code 3.0 See_Comment [ Automated message] = Metamyelocytes) The system which generated this result transmitted ref erence range: <=1.0. T he reference range was not used to int erpret this result as normal/abnormal . [facility]woodGntgmaeAAAPCDQKKN3199-38-86 15:39:00 Test Item Value Reference Range Interpretation Comments Eosinophils (test code = 4.0 See_Comment [A utomated message] The Eosinophils) system which ge nerated this result tra nsmitted reference range : <=4.0. The reference r jodi was not used to int erpret this result as normal/abnormal . [facility]woodNjlsnuzITQWOTJBGE8334-04-43 15:39:00 Test Item Value Reference Range Interpretation Comments Monocytes (test code = Monocytes) 13.0 2.0-12.0 [facility]woodGpziooqTGDSVWAMWQ3400-24-82 15:39:00 Test Item Value Reference Range Interpretation Comments Plt Morph (test code = Clumped (10/29/17 9:39 Plt Morph) AM) [facility]woodQyqesbyVWJLOBPRNY7077-56-42 15:39:00 Test Item Value Reference Range Interpretation Comments Segs (test code = Segs) 60.0 45.0-75.0 [facility]woodNvgoducIUJRIKOIDH8639-50-86 15:39:00 Test Item Value Reference Range Interpretation Comments Monocytes # (test code 2.1 See_Comment [Aut omated message] The = Monocytes #) system which generated this result tra nsmitted reference range : <=0.8. The reference r jodi was not used to int erpret this result as normal/abnormal . [place] [address]-12-30 15:39:00 Test Item Value Reference Range Interpretation Comments Bands (test code = 0.0 See_Comment [Automat ed message] The Bands) system which ge nerated this result transmit narayan reference range : <=11.0. The reference r jodi was not used to interpr et this result as shreya l/abnormal. [facility]VaacpxwYYZDSXXYOT6578-55-97 15:39:00 Test Item Value Reference Range Interpretation Comments Eosinophils # (test code 0.6 See_Comment [A utomated message] The = Eosinophils #) system whic h generated this result tra nsmitted reference range : <=0.5. The reference r jodi was not used to int erpret this result as normal/abnormal . [facility]woodSnhmcojFYAEDJPMQP7731-48-59 15:39:00 Test Item Value Reference Range Interpretation Comments Lymphocytes (test code = Lymphocytes) 19.0 20.0-40.0 [facility]woodEvxyhqmKWXMERWMSY4278-88-48 15:39:00 Test Item Value Reference Range Interpretation Comments Lymphocytes # (test code = Lymphocytes 3.2 1.0-5.5 #) [facility]woodFvhupelKPSRWJWLYE1248-56-28 15:39:00 Test Item Value Reference Range Interpretation Comments Segs-Bands # (test code = Segs-Bands #) 9.6 1.5-8.1 [facility]2017-12-29 12:40:00 Test Item Value Reference Range Interpretation Comments Magnesium Lvl (test code = Magnesium 2.4 1.8-2.4 Lvl) [facility]EpqzdpcIZKYGKHWTIPZ7339-65-85 12:40:00 Test Item Value Reference Range Interpretation Comments Chloride Lvl (test code = Chloride Lvl) 96 95-109 [facility] HospitalGczrsbsJLWABGJPKBWU2353-03-42 12:40:00 Test Item Value Reference Range Interpretation Comments Potassium Lvl (test code = Potassium 3.4 3.5-5.1 Lvl) [facility] HospitalVzfxzaoUDVAZFBQPFBR9139-28-19 12:40:00 Test Item Value Reference Range Interpretation Comments Calcium Lvl (test code = Calcium Lvl) 8.5 8.5-10.5 [facility] HospitalLijnwlqYAHIEESQSTGS0576-40-88 12:40:00 Test Item Value Reference Range Interpretation Comments CO2 (test code = CO2) 28 24-32 [facility] HospitalMsbvdajKMUDFCDNHPSS1394-73-11 12:40:00 Test Item Value Reference Range Interpretation Comments BUN (test code = BUN) 6 7-22 [facility] HospitalQczzzmxUEQYRFXGFKHJ7210-90-29 12:40:00 Test Item Value Reference Range Interpretation Comments Glucose Lvl (test code = Glucose Lvl) 119 70-99 [facility] HospitalTbsifndMAIOCJHZVPBE7774-53-91 12:40:00 Test Item Value Reference Range Interpretation Comments Creatinine Lvl (test code = Creatinine 0.41 0.50-1.40 Lvl) [facility] HospitalXovxbkfMCYYMJHWFQIS3097-34-88 12:40:00 Test Item Value Reference Range Interpretation Comments Sodium Lvl (test code = Sodium Lvl) 132 135-145 [facility] HospitalSibjidsECFASFDDGNXG2830-95-29 12:40:00 Test Item Value Reference Range Interpretation Comments eGFR (test code = eGFR) 116 [facility] HospitalRrcwmguTUWGATVXSJBF8370-29-89 12:40:00 Test Item Value Reference Range Interpretation Comments AGAP (test code = AGAP) 11.4 10.0-20.0 [facility]woodGhfbnwiGAAWBRDPVO9926-94-75 12:40:00 Test Item Value Reference Range Interpretation Comments MPV (test code = MPV) 7.9 7.4-10.4 [facility]woodUbevjbiPWGNHEPOMT7054-81-72 12:40:00 Test Item Value Reference Range Interpretation Comments Platelet (test code = Platelet) 481 133-450 [facility]woodGloxdavOITJSLAOMA2931-74-90 12:40:00 Test Item Value Reference Range Interpretation Comments RDW (test code = RDW) 13.3 11.5-14.5 [facility]woodXzviqxoYTYUGJWGDC5128-29-85 12:40:00 Test Item Value Reference Range Interpretation Comments MCHC (test code = MCHC) 33.9 32.0-36.0 [facility]woodNkmyhjjJDDATTWDGI2095-49-20 12:40:00 Test Item Value Reference Range Interpretation Comments RBC (test code = RBC) 3.89 4.20-5.40 [facility]woodJsrqwuwLEYIKMRVJE4364-86-23 12:40:00 Test Item Value Reference Range Interpretation Comments WBC (test code = WBC) 18.2 3.7-10.4 [facility]woodNccgurzPFVJFUNUCN1151-25-64 12:40:00 Test Item Value Reference Range Interpretation Comments Hgb (test code = Hgb) 12.5 12.0-16.0 [facility]woodWqptiiuIHFVUOUKQB1637-61-35 12:40:00 Test Item Value Reference Range Interpretation Comments MCV (test code = MCV) 94.9 80.0-98.0 [facility]woodLndtpzeUXIBQLWGWO1869-87-00 12:40:00 Test Item Value Reference Range Interpretation Comments MCH (test code = MCH) 32.2 pg 27.0-31.0 [facility]woodMyzwuleDZLROPOOED9386-92-33 12:40:00 Test Item Value Reference Range Interpretation Comments Hct (test code = Hct) 36.9 36.0-48.0 [facility]woodBqxdtvyHUVLTPLWSR8615-09-32 12:40:00 Test Item Value Reference Range Interpretation Comments Lymphocytes # (test code = Lymphocytes 2.9 1.0-5.5 #) [facility]woodGtwgbhsJPYYJKEGUS4233-05-53 12:40:00 Test Item Value Reference Range Interpretation Comments Eosinophils # (test code 0.2 See_Comment [A utomated message] The = Eosinophils #) system whic h generated this result tra nsmitted reference range : <=0.5. The reference r jodi was not used to int erpret this result as normal/abnormal . [facility]woodXvufjwmLLAFSTUTIK4738-63-67 12:40:00 Test Item Value Reference Range Interpretation Comments Monocytes # (test code 1.3 See_Comment [Aut omated message] The = Monocytes #) system which generated this result tra nsmitted reference range : <=0.8. The reference r jodi was not used to int erpret this result as normal/abnormal . [facility]woodMdvenznNIOLNODZGU9823-18-11 12:40:00 Test Item Value Reference Range Interpretation Comments Basophils # (test code 0.1 See_Comment [Aut omated message] The = Basophils #) system which generated this result tra nsmitted reference range : <=0.2. The reference r jodi was not used to int erpret this result as normal/abnormal . [facility]woodLrppyrpRJJNTLOVSE0816-76-23 12:40:00 Test Item Value Reference Range Interpretation Comments Segs-Bands # (test code = Segs-Bands #) 13.6 1.5-8.1 [facility]woodFbihqgwZACIHLIXKY2569-89-25 12:40:00 Test Item Value Reference Range Interpretation Comments Basophils (test code = 0.7 See_Comment [Aut omated message] The Basophils) system which ge nerated this result tra nsmitted reference range : <=1.0. The reference r jodi was not used to int erpret this result as normal/abnormal . [facility]woodZyfnsfkBKBRCCQQIK4459-13-20 12:40:00 Test Item Value Reference Range Interpretation Comments Eosinophils (test code = 1.3 See_Comment [A utomated message] The Eosinophils) system which ge nerated this result tra nsmitted reference range : <=4.0. The reference r jodi was not used to int erpret this result as normal/abnormal . [facility]woodRusjxfvLNTQFYYGLY2317-65-23 12:40:00 Test Item Value Reference Range Interpretation Comments Monocytes (test code = Monocytes) 7.2 2.0-12.0 [facility]woodBpdamymSTBNVITFCN0437-78-78 12:40:00 Test Item Value Reference Range Interpretation Comments Lymphocytes (test code = Lymphocytes) 16.2 20.0-40.0 [facility]woodEccthixIOXIADJRZM0033-81-60 12:40:00 Test Item Value Reference Range Interpretation Comments Segs (test code = Segs) 74.6 45.0-75.0 [facility] ChildrenCHEM PMROT3568-39-65 12:40:00 Test Item Value Reference Range Interpretation Comments Magnesium Lvl (test code = Magnesium 2.4 1.8-2.4 Lvl) [facility] HospitalWznfaycHZFTZSPURJVI0742-50-39 12:40:00 Test Item Value Reference Range Interpretation Comments Chloride Lvl (test code = Chloride Lvl) 96 95-109 [facility] HospitalOnnzpubZWBVFDICMJQR2592-02-30 12:40:00 Test Item Value Reference Range Interpretation Comments Potassium Lvl (test code = Potassium 3.4 3.5-5.1 Lvl) [facility] HospitalUdpwdduKFZGOMFASOZW1904-43-50 12:40:00 Test Item Value Reference Range Interpretation Comments Calcium Lvl (test code = Calcium Lvl) 8.5 8.5-10.5 [facility] HospitalUkzitmqUUHWERFZGBLJ3242-04-40 12:40:00 Test Item Value Reference Range Interpretation Comments CO2 (test code = CO2) 28 24-32 [facility] HospitalGgzejplZKIRKQKDDOAR7325-88-99 12:40:00 Test Item Value Reference Range Interpretation Comments BUN (test code = BUN) 6 7-22 [facility] HospitalGzgqhgxACANRWYWCVJE3087-56-45 12:40:00 Test Item Value Reference Range Interpretation Comments Glucose Lvl (test code = Glucose Lvl) 119 70-99 [facility] HospitalKyytinrDYXWXMCUZMAD7439-27-43 12:40:00 Test Item Value Reference Range Interpretation Comments Creatinine Lvl (test code = Creatinine 0.41 0.50-1.40 Lvl) [facility] HospitalLfxeqfdJOFELIRCYRJZ8250-45-33 12:40:00 Test Item Value Reference Range Interpretation Comments Sodium Lvl (test code = Sodium Lvl) 132 135-145 [facility] HospitalFyjiulmIJQREHXDSCHV3909-48-85 12:40:00 Test Item Value Reference Range Interpretation Comments eGFR (test code = eGFR) 116 [facility] HospitalLkjiuxiFNOBTBMDXTKD5974-06-79 12:40:00 Test Item Value Reference Range Interpretation Comments AGAP (test code = AGAP) 11.4 10.0-20.0 [facility]woodTgbxeprGYPEDIDWNP5691-81-72 12:40:00 Test Item Value Reference Range Interpretation Comments MPV (test code = MPV) 7.9 7.4-10.4 [facility]woodQyeujlkYKUFWQVLPW8155-45-24 12:40:00 Test Item Value Reference Range Interpretation Comments Platelet (test code = Platelet) 481 133-450 [facility]woodMqoxjzdIJKVVSVNPB6208-96-04 12:40:00 Test Item Value Reference Range Interpretation Comments RDW (test code = RDW) 13.3 11.5-14.5 [facility]woodGyeiwtyYQXBPQITFI1442-28-63 12:40:00 Test Item Value Reference Range Interpretation Comments MCHC (test code = MCHC) 33.9 32.0-36.0 [facility]woodAlewddpEDXCUDOLGJ9592-80-15 12:40:00 Test Item Value Reference Range Interpretation Comments RBC (test code = RBC) 3.89 4.20-5.40 [facility]woodLpjqfnrCGCPRDXEHX6251-88-95 12:40:00 Test Item Value Reference Range Interpretation Comments WBC (test code = WBC) 18.2 3.7-10.4 [facility]woodGaafomeRWHATKUOYF3639-80-46 12:40:00 Test Item Value Reference Range Interpretation Comments Hgb (test code = Hgb) 12.5 12.0-16.0 [facility]woodNhxyjgtPSPHASXZLN4375-37-82 12:40:00 Test Item Value Reference Range Interpretation Comments MCV (test code = MCV) 94.9 80.0-98.0 [facility]woodKxvlscrHXKLBVXVDB7265-46-14 12:40:00 Test Item Value Reference Range Interpretation Comments MCH (test code = MCH) 32.2 pg 27.0-31.0 [facility]woodIvhnjnvVQBVGZAFKI1391-51-77 12:40:00 Test Item Value Reference Range Interpretation Comments Hct (test code = Hct) 36.9 36.0-48.0 [facility]woodVjozlwoILUTVSHQYT2387-68-48 12:40:00 Test Item Value Reference Range Interpretation Comments Lymphocytes # (test code = Lymphocytes 2.9 1.0-5.5 #) [facility]woodHhdzcpmPXQZVDHTVK7163-30-02 12:40:00 Test Item Value Reference Range Interpretation Comments Eosinophils # (test code 0.2 See_Comment [A utomated message] The = Eosinophils #) system whic h generated this result tra nsmitted reference range : <=0.5. The reference r jodi was not used to int erpret this result as normal/abnormal . [facility]woodMfbppdiWAMIOPQKME8769-52-78 12:40:00 Test Item Value Reference Range Interpretation Comments Monocytes # (test code 1.3 See_Comment [Aut omated message] The = Monocytes #) system which generated this result tra nsmitted reference range : <=0.8. The reference r jodi was not used to int erpret this result as normal/abnormal . [facility]woodXvjldrmFCOCNBGZUK7477-90-41 12:40:00 Test Item Value Reference Range Interpretation Comments Basophils # (test code 0.1 See_Comment [Aut omated message] The = Basophils #) system which generated this result tra nsmitted reference range : <=0.2. The reference r jodi was not used to int erpret this result as normal/abnormal . [facility]woodUorkblcXUPHYKJOEG5682-88-10 12:40:00 Test Item Value Reference Range Interpretation Comments Segs-Bands # (test code = Segs-Bands #) 13.6 1.5-8.1 [facility]woodSogyrtdSQANJAUHQS4838-10-31 12:40:00 Test Item Value Reference Range Interpretation Comments Basophils (test code = 0.7 See_Comment [Aut omated message] The Basophils) system which ge nerated this result tra nsmitted reference range : <=1.0. The reference r jodi was not used to int erpret this result as normal/abnormal . [facility]woodUqaetbpCIQPFLRVAF3279-70-94 12:40:00 Test Item Value Reference Range Interpretation Comments Eosinophils (test code = 1.3 See_Comment [A utomated message] The Eosinophils) system which ge nerated this result tra nsmitted reference range : <=4.0. The reference r jodi was not used to int erpret this result as normal/abnormal . [facility]woodSoaikoqGRITMVLHXS9502-03-20 12:40:00 Test Item Value Reference Range Interpretation Comments Monocytes (test code = Monocytes) 7.2 2.0-12.0 [facility]woodFzasljhYLTOOPVLOQ3876-80-38 12:40:00 Test Item Value Reference Range Interpretation Comments Lymphocytes (test code = Lymphocytes) 16.2 20.0-40.0 [facility]woodBdjkccbYXMHHKJNYD0000-92-18 12:40:00 Test Item Value Reference Range Interpretation Comments Segs (test code = Segs) 74.6 45.0-75.0 [facility]woodChfiqdqAXVMWJYZLU4089-99-21 12:26:00 Test Item Value Reference Range Interpretation Comments Basophils (test code = 0.6 See_Comment [Aut omated message] The Basophils) system which ge nerated this result tra nsmitted reference range : <=1.0. The reference r jodi was not used to int erpret this result as normal/abnormal . [facility]woodAgryzafBSDEUHRYOP4195-07-84 12:26:00 Test Item Value Reference Range Interpretation Comments Basophils # (test code 0.1 See_Comment [Aut omated message] The = Basophils #) system which generated this result tra nsmitted reference range : <=0.2. The reference r jodi was not used to int erpret this result as normal/abnormal . [facility]woodCdcaauoRCRTUNXIOU8441-61-54 12:26:00 Test Item Value Reference Range Interpretation Comments RBC Morph (test code = Normal (10/26/17 6:26 RBC Morph) AM) [facility]woodCgrwqxpJVGJLDYNSP6015-28-29 12:26:00 Test Item Value Reference Range Interpretation Comments Plt Morph (test code = Normal (10/26/17 6:26 Plt Morph) AM) [facility]woodUmsuffuSWKBLAMERT4580-62-91 12:26:00 Test Item Value Reference Range Interpretation Comments Basophils (test code = 0.6 See_Comment [Aut omated message] The Basophils) system which ge nerated this result tra nsmitted reference range : <=1.0. The reference r jodi was not used to int erpret this result as normal/abnormal . [facility]woodQhybsydNSXEXSGBBS2254-68-81 12:26:00 Test Item Value Reference Range Interpretation Comments Basophils # (test code 0.1 See_Comment [Aut omated message] The = Basophils #) system which generated this result tra nsmitted reference range : <=0.2. The reference r jodi was not used to int erpret this result as normal/abnormal . [facility] KingwoodArlmksaNPRWKRAQNS1859-30-15 12:26:00 Test Item Value Reference Range Interpretation Comments RBC Morph (test code = Normal (10/26/17 6:26 RBC Morph) AM) [facility] KingwoodDtdnextXUWYNYRGZZ5401-87-90 12:26:00 Test Item Value Reference Range Interpretation Comments Plt Morph (test code = Normal (10/26/17 6:26 Plt Morph) AM) [facility]MerchantCircle VJWUGSO2156-92-21 05:00:00 Test Item Value Reference Range Interpretation Comments BNP (test code = BNP) 119 [facility] ChildrenAndersonBrecon TTWXEDZ9408-02-38 05:00:00 Test Item Value Reference Range Interpretation Comments Troponin-I (test code no gt See_Comment [Auto mated message] The = Troponin-I) system which g enerated this result transmit narayan reference range : <=0.40. The reference r jodi was not used to interpr et this result as shreya l/abnormal. [facility] HospitalLuminescent TechnologiesYCZRY1261-30-47 05:00:00 Test Item Value Reference Range Interpretation Comments A/G Ratio (test code = A/G Ratio) 0.4 0.7-1.6 [facility]Image [facility] [id number] 05:00:00 Test Item Value Reference Range Interpretation Comments Globulin (test code = Globulin) 5.0 2.7-4.2 [facility]Image [facility] [id number] 05:00:00 Test Item Value Reference Range Interpretation Comments B/C Ratio (test code = B/C Ratio) 22 6-25 [facility] [employer] NAHIY4299-68-56 05:00:00 Test Item Value Reference Range Interpretation Comments AST (test code = AST) 23 See_Comment [Auto mated message] The system which ge nerated this result transmit narayan reference range : <=37. The reference range was not used to interpr et this result as shreya l/abnormal. [facility]2017-12-25 05:00:00 Test Item Value Reference Range Interpretation Comments ALT (test code = ALT) 21 See_Comment [Auto mated message] The system which ge nerated this result transmit narayan reference range : <=65. The reference range was not used to interpr et this result as shreya l/abnormal. [facility]2017-12-25 05:00:00 Test Item Value Reference Range Interpretation Comments Albumin Lvl (test code = Albumin Lvl) 2.0 3.5-5.0 [facility]2017-12-25 05:00:00 Test Item Value Reference Range Interpretation Comments Total Protein (test code = Total 7.0 6.4-8.4 Protein) [facility]2017-12-25 05:00:00 Test Item Value Reference Range Interpretation Comments Alk Phos (test code = Alk Phos) 79 39-136 [facility]2017-12-25 05:00:00 Test Item Value Reference Range Interpretation Comments Bili Total (test code = Bili Total) 0.2 0.2-1.3 [facility] KingwoodDazxxdrQVBZDZDYXJ2819-49-38 05:00:00 Test Item Value Reference Range Interpretation Comments Neut Vac (test code = Neut Vac) Slight [facility]woodHwpbmpeFDUCMJGCJO8876-35-48 05:00:00 Test Item Value Reference Range Interpretation Comments Toxic Gran (test code Moderate *ABN*(10/23/17 = Toxic Gran) 11:00 PM) [facility]woodFejlmbnXVGZIDODKV3572-52-47 05:00:00 Test Item Value Reference Range Interpretation Comments Plt Morph (test code = Normal (10/23/17 11:00 Plt Morph) PM) [facility]woodOzlfgyfZEMDGROGLO6081-72-64 05:00:00 Test Item Value Reference Range Interpretation Comments RBC Morph (test code = Normal (10/23/17 11:00 RBC Morph) PM) [facility] KingwoodSwaqbffUFFARAGDDZ0936-36-17 05:00:00 Test Item Value Reference Range Interpretation Comments PT (test code = PT) 13.0 s 12.0-14.7 [place] [address]-12-25 05:00:00 Test Item Value Reference Range Interpretation Comments PTT (test code = PTT) 31.2 s 22.9-35.8 [facility] KingwoodSmjrivoUBFNROXSRA8820-78-98 05:00:00 Test Item Value Reference Range Interpretation Comments INR (test code = INR) 0.98 0.85-1.17 [facility] HSKMAUZ3534-36-24 05:00:00 Test Item Value Reference Range Interpretation Comments BNP (test code = BNP) 119 [facility] DXDSULS1783-90-86 05:00:00 Test Item Value Reference Range Interpretation Comments Troponin-I (test code no gt See_Comment [Auto mated message] The = Troponin-I) system which g enerated this result transmit narayan reference range : <=0.40. The reference r jodi was not used to interpr et this result as shreya l/abnormal. [facility]Image [facility] [id number] 05:00:00 Test Item Value Reference Range Interpretation Comments A/G Ratio (test code = A/G Ratio) 0.4 0.7-1.6 [facility] ChildrenSawto[facility] Ideas [id number] 05:00:00 Test Item Value Reference Range Interpretation Comments Globulin (test code = Globulin) 5.0 2.7-4.2 [facility] ChildrenSawto[facility] Ideas [id number] 05:00:00 Test Item Value Reference Range Interpretation Comments B/C Ratio (test code = B/C Ratio) 22 6-25 [facility]2017-12-25 05:00:00 Test Item Value Reference Range Interpretation Comments AST (test code = AST) 23 See_Comment [Auto mated message] The system which ge nerated this result transmit narayan reference range : <=37. The reference range was not used to interpr et this result as shreya l/abnormal. [facility]Image [facility] [id number] 05:00:00 Test Item Value Reference Range Interpretation Comments ALT (test code = ALT) 21 See_Comment [Auto mated message] The system which ge nerated this result transmit narayan reference range : <=65. The reference range was not used to interpr et this result as shreya l/abnormal. [facility]Image [facility] [id number] 05:00:00 Test Item Value Reference Range Interpretation Comments Albumin Lvl (test code = Albumin Lvl) 2.0 3.5-5.0 [facility]2017-12-25 05:00:00 Test Item Value Reference Range Interpretation Comments Total Protein (test code = Total 7.0 6.4-8.4 Protein) [facility]2017-12-25 05:00:00 Test Item Value Reference Range Interpretation Comments Alk Phos (test code = Alk Phos) 79 39-136 [facility]2017-12-25 05:00:00 Test Item Value Reference Range Interpretation Comments Bili Total (test code = Bili Total) 0.2 0.2-1.3 [facility]woodKbxuptzRBFVBYKIWN0058-04-46 05:00:00 Test Item Value Reference Range Interpretation Comments Neut Vac (test code = Neut Vac) Slight [facility]woodPhaddseELZPUGSSQP0866-22-36 05:00:00 Test Item Value Reference Range Interpretation Comments Toxic Gran (test code Moderate *ABN*(10/23/17 = Toxic Gran) 11:00 PM) [facility]woodNvhdortISFRUOGACI4624-20-87 05:00:00 Test Item Value Reference Range Interpretation Comments Plt Morph (test code = Normal (10/23/17 11:00 Plt Morph) PM) [facility]woodHexubtyOHQJHRLKMR4986-97-90 05:00:00 Test Item Value Reference Range Interpretation Comments RBC Morph (test code = Normal (10/23/17 11:00 RBC Morph) PM) [facility]woodGcmyhybCGFRJLQUJN3191-65-22 05:00:00 Test Item Value Reference Range Interpretation Comments PT (test code = PT) 13.0 s 12.0-14.7 [facility] KingwoodBlrpvybOKFWJPZNCM0122-08-72 05:00:00 Test Item Value Reference Range Interpretation Comments PTT (test code = PTT) 31.2 s 22.9-35.8 [place] [address]-12-25 05:00:00 Test Item Value Reference Range Interpretation Comments INR (test code = INR) 0.98 0.85-1.17 [facility]
[2022-12-09 18:58] LABS: Absolute Lymphocytes (CBC) 2.8 K/uL (0.7-4.9); Hematocrit 38.8 % (36.0-45.0); Lymphocytes % 30.6 % (15.3-44.8); MCV 103.3 fL (80-100); MPV 8.3 fL (7.6-11.3); RBC Red Blood Cell Count 3.75 M/uL (3.86-4.86)
[2022-12-09 19:08] LABS: Protime INR 1.05
--- NOTE | 2022-12-09 19:17 | RAD REPORT ---
EXAM DESCRIPTION: RAD - Chest Single View - 12/09/2022 6:57 pm CLINICAL HISTORY: CHEST PAIN Chest pain. COMPARISON: Chest Single View dated 07/14/2022; Chest Pa And Lat (2 Views) dated 10/20/2017; Chest Si ngle View dated 10/19/2017; CHEST SINGLE VIEW dated 05/30/2015 FINDINGS: Portable technique limits examination quality. The lungs are emphysematous with a small calcified granuloma in right upper lobe. The heart is normal in size. No displaced fractures. IMPRESSION: COPD.
[2022-12-09 19:32] LABS: Potassium 4.2 mmol/L (3.5-5.1)
--- NOTE | 2022-12-09 19:36 | ER ---
Nurse's Notes [facility] Name: Tonya Michael Age: 62 yrs Sex: Female : 1960 Arrival Date: 12/09/2022 Time: 18:19 Bed 19 Private MD: Diagnosis: Chest pain, unspecified Presentation: 12/09 18:28 Chief complaint: Patient states: "I started having really bad chest pain today that mb9 comes and goes. It travels to both sides of my chest. I feel short of breath and been nauseous, vomiting, and having diarrhea. I had a cardiac arrest in July of 2022 and usually have chest pain but today it was worse". Coronavirus screen: Vaccine status: Patient reports receiving the 2nd dose of the covid vaccine. Ebola Screen: No symptoms or risks identified at this time. Initial Sepsis Screen: Does the patient meet any 2 criteria? No. Patient's initial sepsis screen is negative. Does the patient have a suspected source of infection? No. Patient's initial sepsis screen is negative. Risk Assessment: Do you want to hurt yourself or someone else? Patient reports no desire to harm self or others. Onset of symptoms was December 09, 2022. 18:28 Method Of Arrival: Wheelchair mb9 18:28 Acuity: MARGARET 3 mb9 Historical: - Allergies: 18:26 No Known Drug Allergies; ll1 - PMHx: 18:26 Atrial fibrillation; CHF; COPD; ll1 - PSHx: 18:26 Cholecystectomy; ll1 - Immunization history:: Adult Immunizations up to date. - Social history:: Smoking status: . Screenin:59 Abuse screen: Denies threats or abuse. Nutritional screening: No deficits noted. ll1 Tuberculosis screening: No symptoms or risk factors identified. 22:17 [facility] ED Fall Risk Assessment (Adult) History of falling in the last 3 months, aa9 including since admission No falls in past 3 months (0 pts) Confusion or Disorientation No (0 pts) Intoxicated or Sedated No (0 pts) Impaired Gait No (0 pts) Mobility Assist Device Used No (0 pt) Altered Elimination No (0 pt) Score/Fall Risk Level 0 - 2 = Low Risk Oriented to surroundings, Maintained a safe environment. Assessment: 18:30 General: Appears in no apparent distress. Behavior is calm, cooperative, appropriate ll1 for age. Pain: Complains of pain in chest Pain began 1 day ago. Neuro: Reports weakness. Cardiovascular: Reports chest pain, fatigue, shortness of breath. Respiratory: Reports shortness of breath. GI: Reports diarrhea, nausea, vomiting. 19:47 General: Appears in no apparent distress. comfortable, unkempt, Behavior is calm, aa9 cooperative, appropriate for age. Pain: Complains of pain in chest Pain currently is 5 out of 10 on a pain scale. level that patient reports is acceptable is 5 out of 10 on a pain scale. Respiratory: Airway is patent Respiratory effort is even, unlabored. : No signs and/or symptoms were reported regarding the genitourinary system. Derm: Skin is intact, is fragile. 22:00 Reassessment: Patient appears in no apparent distress at this time. Patient and/or aa9 family updated on plan of care and expected duration. Pain level reassessed. Patient is alert, oriented x 3, equal unlabored respirations, skin warm/dry/pink. 22:18 Pain: Pain does not radiate. aa9 Vital Signs: 18:28 BP 124 / 76; Pulse 66; Resp 19; Temp 98.6; Pulse Ox 99% on R/A; Weight 86.18 kg; Height mb9 5 ft. 7 in. (170.18 cm); 18:59 BP 118 / 64; Pulse 61; ll1 19:30 BP 118 / 67; Pulse 59; Resp 11 S; Pulse Ox 97% on R/A; aa9 20:30 BP 131 / 66; Pulse 60; Resp 19 S; Pulse Ox 97% on R/A; aa9 22:00 BP 149 / 65; Pulse 69; Resp 19 S; Pulse Ox 98% on R/A; aa9 18:28 Body Mass Index 29.76 (86.18 kg, 170.18 cm) mb9 ED Course: 18:19 Patient arrived in ED. as 18:32 Elvin Rodríguez, SHERWIN is Primary Nurse. ll1 18:38 Krysten Szymanski FNP-C is PHCP. snw 18:38 Martin Fuller MD is Attending Physician. snw 18:38 Arm band placed on. EKG completed in triage. Results shown to . iw 18:55 Initial lab(s) drawn, by slab conditioner supervisor, sent to lab. Missed attempt(s): 22 gauge in right ll1 forearm. Bleeding controlled, band aid applied, catheter tip intact. 18:59 XRAY Chest (1 view) In Process Unspecified. EDMS 18:59 Patient has correct armband on for positive identification. Bed in low position. Call ll1 light in reach. Client placed on continuous cardiac and pulse oximetry monitoring. NIBP monitoring applied. hospital monitor on. 18:59 Patient maintains SpO2 saturation greater than 95% on room air. ll1 19:35 Fabian Gaviria MD is Hospitalizing Provider. snw 19:58 Inserted saline lock: 20 gauge in left forearm, using aseptic technique. aa9 22:16 No provider procedures requiring assistance completed. Patient admitted, IV remains in aa9 place. Administered Medications: No medications were administered Medication: 22:16 VIS not applicable for this client. aa9 Outcome: 19:35 Decision to Hospitalize by Provider. snw 22:17 Admitted to ER Hold. Please see [facility] for further documentation. aa9 22:17 Condition: stable 22:17 Instructed on the need for admit. 12/10 11:08 Patient left the ED. rt Signatures: Dispatcher [employer] EDMS Krysten Szymanski, BINDING CUTTER-C BINDING CUTTER-Csnw Rose Marie Bolivar Irene, RN RN iw Elvin Rodríguez RN RN ll1 Arina Delgadillo RN RN aa9 Stephanie Nunez RN RN mb9 Martin Fuller MD MD rt Corrections: (The following items were deleted from the chart) 12/09 18:34 18:27 Chief complaint: Patient states: SOB and malaise. O2 5L NC with long O2 tubing iw 88%. A\\T\\A TX en route, 100%. No known fever. ll1 18:34 18:27 Coronavirus screen: Vaccine status: Patient reports receiving the 2nd dose of the iw covid vaccine. Client denies travel out of the [place] in the last 14 days. cough unrelated to allergies, difficulty breathing, shortness of breath, ll1 18:34 18:27 Ebola Screen: Patient denies travel to an Ebola-affected area in the 21 days iw before illness onset. ll1 18:34 18:27 Initial Sepsis Screen: Does the patient meet any 2 criteria? No. Patient's iw initial sepsis screen is negative. Does the patient have a suspected source of infection? Yes: Productive cough/pneumonia [facility] 34 18:27 Risk Assessment: Do you want to hurt yourself or someone else? Patient reports no desire to harm self or others. [facility] 34 18:27 Onset of symptoms was December 09, 2022 [facility] 18:27 Method Of Arrival: EMS [facility] :34 18:27 BP 125 / 68; Pulse 114bpm; Resp 22bpm; Pulse Ox 96% 4 lpm Nasal Cannula; Temp iw 98.3F; 74.84 kg; Height 5 ft. 8 in.; BMI: 25.0; Pain 0/10; [facility] 18:35 18:26 PMHx: stage 4 lung CA; [facility] :35 18:27 Acuity: MARGARET 3 [place] [id number] 18:36 18:26 Arm band placed on Patient placed in an exam room, on a stretcher, [place] [address] 18:36 18:30 General: Appears uncomfortable, ill, Behavior is cooperative, appropriate for [facility] age, [facility] 18:36 18:30 Pain: Denies pain. [place] [address] 18:36 18:30 Cardiovascular: Reports shortness of breath, [place] [address] 18:36 18:30 Respiratory: Reports shortness of breath labored breathing [place] [address] 18:45 18:29 Triage completed. [place] [address] 18:45 18:29 Maintain EMS IV. Dressing intact. Good blood return noted. Site clean \\T\\ dry. 1 Gauge \\T\\ site: 18 R FA. [facility] 18:45 18:29 Oxygen administration via nasal cannula \\T\\ 5L/min [place] [address] 18:46 18:26 Immunization history: Client reports receiving the 2nd dose of the Covid vaccine, [place] [address] 18:46 18:26 Social history: Smoking status: Patient reports the use of cigarette tobacco [facility] products, Patient/guardian denies using tobacco, [facility]
--- NOTE | 2022-12-09 19:36 | EDPHYS ---
Physician Documentation [facility] Name: Tonya Michael Age: 62 yrs Sex: Female : 1960 Arrival Date: 12/09/2022 Time: 18:19 Bed 19 Private MD: ED Physician Martin Fuller HPI: 12/09 19:33 This 62 yrs old Female presents to ER via Wheelchair with complaints of Chest Pain. snw 19:33 The patient or guardian reports chest pain that is located primarily in the anterior snw chest wall, left. Onset: acutely, intermittent with associated dizziness and shortness of breath. The chest pain is described as squeezing, palpitations. The patient has experienced similar episodes in the past. Saw Dr. Cofefy in clinic on Tuesday. Historical: - Allergies: 18:26 No Known Drug Allergies; ll1 - PMHx: 18:26 Atrial fibrillation; CHF; COPD; ll1 - PSHx: 18:26 Cholecystectomy; ll1 - Immunization history:: Adult Immunizations up to date. - Social history:: Smoking status: . ROS: 19:32 Constitutional: Negative for fever, chills, and weight loss, Eyes: Negative for injury, snw pain, redness, and discharge, ENT: Negative for injury, pain, and discharge, Neck: Negative for injury, pain, and swelling, Respiratory: Negative for shortness of breath, cough, wheezing, and pleuritic chest pain, Back: Negative for injury and pain, : Negative for injury, bleeding, discharge, and swelling, MS/Extremity: Negative for injury and deformity, Skin: Negative for injury, rash, and discoloration, Neuro: Negative for headache, weakness, numbness, tingling, and seizure, Psych: Negative for depression, anxiety, suicide ideation, homicidal ideation, and hallucinations. 19:32 Cardiovascular: Positive for chest pain, palpitations. 19:32 Abdomen/GI: Positive for nausea, vomiting, and diarrhea. Exam: 19:31 Constitutional: This is a well developed, well nourished patient who is awake, alert, snw and in no acute distress. Head/Face: Normocephalic, atraumatic. Eyes: Pupils equal round and reactive to light, extra-ocular motions intact. Lids and lashes normal. Conjunctiva and sclera are non-icteric and not injected. Cornea within normal limits. Periorbital areas with no swelling, redness, or edema. 19:31 Neck: Trachea midline, no thyromegaly or masses palpated, and no cervical lymphadenopathy. Supple, full range of motion without nuchal rigidity, or vertebral point tenderness. No Meningismus. Chest/axilla: Normal chest wall appearance and motion. Nontender with no deformity. No lesions are appreciated. 19:31 Respiratory: Lungs have equal breath sounds bilaterally, clear to auscultation and percussion. No rales, rhonchi or wheezes noted. No increased work of breathing, no retractions or nasal flaring. Abdomen/GI: Soft, non-tender, with hyperactive bowel sounds. No distension or tympany. No guarding or rebound. No evidence of tenderness throughout. Back: No spinal tenderness. No costovertebral tenderness. Full range of motion. Skin: Warm, dry with normal turgor. Normal color with no rashes, no lesions, and no evidence of cellulitis. MS/ Extremity: Pulses equal, no cyanosis. Neurovascular intact. Full, normal range of motion. Neuro: Awake and alert, GCS 15, oriented to person, place, time, and situation. Cranial nerves II-XII grossly intact. Motor strength 5/5 in all extremities. Sensory grossly intact. Cerebellar exam normal. Normal gait. Psych: Awake, alert, with orientation to person, place and time. Behavior, mood, and affect are within normal limits. 19:31 ENT: Voice: is hoarse. 19:31 Cardiovascular: Rate: normal, Rhythm: regular, Heart sounds: normal, Edema: is not appreciated. Vital Signs: 18:28 BP 124 / 76; Pulse 66; Resp 19; Temp 98.6; Pulse Ox 99% on R/A; Weight 86.18 kg; Height mb9 5 ft. 7 in. (170.18 cm); 18:59 BP 118 / 64; Pulse 61; ll1 19:30 BP 118 / 67; Pulse 59; Resp 11 S; Pulse Ox 97% on R/A; aa9 20:30 BP 131 / 66; Pulse 60; Resp 19 S; Pulse Ox 97% on R/A; aa9 22:00 BP 149 / 65; Pulse 69; Resp 19 S; Pulse Ox 98% on R/A; aa9 18:28 Body Mass Index 29.76 (86.18 kg, 170.18 cm) mb9 MDM: 18:58 Patient medically screened. snw 19:29 Differential diagnosis: bronchitis, pneumonia arrhythmia. Data reviewed: vital signs, snw nurses notes, lab test result(s), EKG, radiologic studies. Consideration of Admission/Observation Patient was admitted/placed on observation. Management of patient was discussed with the following: Hospitalist: Tre Aguilar. Care significantly affected by the following chronic conditions: Hypertension, Congestive Heart Failure, Chronic Obstructive Pulmonary Disease. Counseling: I had a detailed discussion with the patient and/or guardian regarding: the historical points, exam findings, and any diagnostic results supporting the discharge/admit diagnosis, lab results, radiology results, the need for further work-up and treatment in the hospital. ED course: Saw Dr. Coffey in clinic on Tuesday. 19:34 The patient was not given aspirin in the Emergency Department. ED course: pt takes snw Eliquis. 12/09 18:32 Order name: Basic Metabolic Panel; Complete Time: 19:36 iw 12/09 18:32 Order name: CBC with Diff; Complete Time: 19:17 iw 12/09 18:32 Order name: PT-INR; Complete Time: 19:17 iw 12/09 18:32 Order name: Troponin HS; Complete Time: 19:36 iw 12/09 19:22 Order name: SARS RAPID; Complete Time: 20:07 snw 12/10 00:03 Order name: Troponin High Sensitivity; Complete Time: 00:03 EDMS 12/10 02:35 Order name: CBC with Automated Diff; Complete Time: 02:55 EDMS 12/10 02:52 Order name: Basic Metabolic Panel; Complete Time: 02:55 EDMS 12/10 02:52 Order name: Phosphorus; Complete Time: 02:55 EDMS 12/10 02:52 Order name: Troponin High Sensitivity; Complete Time: 02:55 EDMS 12/10 02:52 Order name: NT PRO-BNP; Complete Time: 02:55 EDMS 12/10 02:52 Order name: Lipid Profile; Complete Time: 02:55 EDMS 12/10 02:52 Order name: Magnesium; Complete Time: 02:55 EDMS 12/10 03:05 Order name: Osmolality, Serum; Complete Time: 03:06 EDMS 12/09 18:32 Order name: XRAY Chest (1 view); Complete Time: 19:17 iw 12/09 18:32 Order name: EKG; Complete Time: 18:32 iw 12/09 18:32 Order name: Cardiac monitoring; Complete Time: 18:32 iw 12/09 18:32 Order name: EKG - Nurse/Tech; Complete Time: 18:32 iw 12/09 18:32 Order name: IV Saline Lock; Complete Time: 18:32 iw 12/09 18:32 Order name: Labs collected and sent; Complete Time: 18:32 iw 12/09 18:32 Order name: O2 Per Protocol; Complete Time: 18:32 iw 12/09 18:32 Order name: O2 Sat Monitoring; Complete Time: 18:32 iw EC:29 Rate is 66 beats/min. Rhythm is regular. Right axis deviation noted. QRS is positive in snw leads aVL, aVR, V1. QT interval is prolonged. Clinical impression: Abnormal EKG without significant change. Administered Medications: No medications were administered Disposition: 12/10 13:12 Co-signature as Attending Physician, Martin Fuller MD I reviewed the patient's care rt provided by the Advanced Practice Provider and agree with the diagnosis and treatment plan. Disposition Summary: 12/09/22 19:35 Hospitalization Ordered Hospitalization Status: Inpatient Admission snw Provider: Fabian Gaviria snw Condition: Stable snw Problem: an acute exacerbation snw Symptoms: are unchanged snw Bed/Room Type: Standard snw Location: Telemetry/MedSurg (Inpatient)(12/10/22 10:22) dw Room Assignment: 416(12/10/22 10:22) Diagnosis - Chest pain, unspecified snw Forms: - Medication Reconciliation Form snw - SBAR form snw Signatures: Dispatcher [employer] EDTisha Soliz RN RN mw Woody, Diana, RN RN dw Waters, Shelly, PIPE COVERER HELPER-C PIPE COVERER HELPER-Nayw Alva Gomez, SHERWIN COURTNEY iw Elvin Rodríguez RN RN ll1 Paulina Espinoza PA-C PAMoeC sb4 Martin Fuller MD MD rt Corrections: (The following items were deleted from the chart) 12/09 18:35 18:26 PMHx: stage 4 lung CA; ll1 iw 18:46 18:26 Immunization history: Client reports receiving the 2nd dose of the Covid vaccine, ll1 ll1 18:46 18:26 Social history: Smoking status: Patient reports the use of cigarette tobacco ll1 products, Patient/guardian denies using tobacco, ll1 19:33 19:31 Respiratory: Lungs have equal breath sounds bilaterally, clear to auscultation snw and percussion. No rales, rhonchi or wheezes noted. No increased work of breathing, no retractions or nasal flaring. Abdomen/GI: Soft, non-tender, with normal bowel sounds. No distension or tympany. No guarding or rebound. No evidence of tenderness throughout. Back: No spinal tenderness. No costovertebral tenderness. Full range of motion. Skin: Warm, dry with normal turgor. Normal color with no rashes, no lesions, and no evidence of cellulitis. MS/ Extremity: Pulses equal, no cyanosis. Neurovascular intact. Full, normal range of motion. Neuro: Awake and alert, GCS 15, oriented to person, place, time, and situation. Cranial nerves II-XII grossly intact. Motor strength 5/5 in all extremities. Sensory grossly intact. Cerebellar exam normal. Normal gait. Psych: Awake, alert, with orientation to person, place and time. Behavior, mood, and affect are within normal limits. snw 20:38 19:35 Telemetry/MedSurg (Inpatient) snw mw 20:38 19:35 snw mw 12/10 10:22 12/09 20:38 [facility] ER HOLD mw dw 12/10 10:12/09 20:38 ERHOLD- mw dw
[2022-12-09 19:58] LABS: SARS-CoV-2 Antigen Rapid Res Negative (Negative)
--- NOTE | 2022-12-09 20:12 | P.HP ---
Certification for Inpatient Patient admitted to: Inpatient With expected LOS: >2 Midnights Patient will require the following post-hospital care: None Practitioner: I am a practitioner with admitting privileges, knowledge of patient current condition, hospital course, and medical plan of care. Services: Services provided to patient in accordance with Admission requirements found in Title 42 Section 412.3 of the Code of Federal Regulations Patient History Date of Service: 12/10/22 Reason for admission: Chest Pain History of Present Illness: Patient is a 62 year old female with past medical history of atrial fibrillation on eliquis, chronic congestive heart failure, chronic obstructive pulmonary disease, depression, anxiety, and tobacco use disorder who presented to the emergency department with chest pain, shortness of breath, and dizziness. She reports the pain as a squeezing that radiates to both sides of her chest. Reports it waxes and wanes. She has been followed closely by cardiology for her atrial fibrillation and an episode of cardiac arrest back in July 2022, last seen by Dr. Coffey 3 days ago. Today her EKG shows NSR with prolonged QT interval. Her labs are unremarkable. Vital signs have been stable. She is on daily eliquis so aspirin was not given. ED provider wishes to admit patient for further management. Allergies No Known Drug Allergies Allergy (Verified 05/30/15 21:56) Unknown No Known Allergies Allergy (Uncoded 10/19/17 22:16) Unknown Home medications list reviewed: Yes Home Medications: Aspirin [Aspirin EC 81 MG] 1 tab PO DAILY 10/19/17 PARoxetine HCL [Paxil] 40 mg PO DAILY 10/19/17 ALPRAZolam [Xanax*] 0.25 mg PO Q8H #30 tab 10/22/17 Budesonide/Formoterol Fumarate [Budesonide-Formoterol 160-4.5] 2 puff IN BID 07/14/22 Losartan Potassium [Cozaar*] 50 mg PO DAILY 07/14/22 Amiodarone HCl [Cordarone*] 400 mg PO BID #30 tab 07/18/22 Apixaban [Eliquis] 5 mg PO BID 30 Days #60 tablet 07/18/22 Metoprolol Tartrate [Lopressor*] 50 mg PO BID #60 tab 07/18/22 - Past Medical/Surgical History Diabetic: No -: COPD -: CHF -: AFib -: Depression -: tubal ligation Psychosocial/ Personal History: Patient is . - Family History Mother -: Heart disease, Lung disease, Diabetes Father -: Cancer Notes: colon cancer - Social History Smoking Status: Light Tobacco smoker (1-9 cigarettes/day) Alcohol use: No CD- Drugs: No Caffeine use: No Place of Residence: Home Review of Systems Cardiovascular: Chest Pain Gastrointestinal: Nausea, Vomiting, Diarrhea Physical Examination - Vital Signs Temperature: 98.6 F Blood Pressure: 118/67 Pulse: 59 Respirations: 11 Pulse Ox (%): 97 - Physical Exam General: Alert, In no apparent distress HEENT: Atraumatic, EOMI, Sclerae nonicteric Neck: Supple, 2+ carotid pulse no bruit Respiratory: Clear to auscultation bilaterally, Normal air movement Cardiovascular: Regular rate/rhythm, Normal S1 S2 Gastrointestinal: Normal bowel sounds, No tenderness Musculoskeletal: No tenderness Integumentary: No rashes Neurological: Normal speech, Normal affect - Studies Laboratory Data (last 24 hrs) 12/09/22 18:43: PT 11.6, INR 1.05 12/09/22 18:43: WBC 9.20, Hgb 13.3, Hct 38.8, Plt Count 309 12/09/22 18:43: Sodium 128 L, Potassium 4.2, BUN 10, Creatinine 0.87, Glucose 142 H Assessment and Plan - Problems (Diagnosis) (1) Chest pain Current Visit: Yes Status: Acute Qualifiers: Chest pain type: unspecified Qualified Code(s): R07.9 - Chest pain, unspecified (2) COPD (chronic obstructive pulmonary disease) Current Visit: Yes Status: Chronic Qualifiers: COPD type: emphysema Emphysema type: unspecified Qualified Code(s): J43.9 - Emphysema, unspecified (3) Atrial fibrillation Current Visit: Yes Status: Chronic Qualifiers: Atrial fibrillation type: paroxysmal Qualified Code(s): I48.0 - Paroxysmal atrial fibrillation (4) Hyponatremia Current Visit: Yes Status: Acute - Plan Patient is admitted for further management of chest pain. Initial troponin negative. Will trend. Cardiology consult. Recent echocardiogram was normal. Monitor on telemetry. Hold home paroxetine given prolonged QTc interval. Tobacco cessation counseling provided. Etiology of hyponatremia is unclear. No other electrolyte abnormalities. Will recheck in AM as well as serum osmolality. Monitor and replete electrolytes per protocol. Reconcile and continue home medications. Continue home eliquis for VTE prophylaxis. Full code. Discharge Plan: Home Plan to discharge in: Greater than 2 days - Advance Directives Does patient have a Living Will: No Does patient have a Durable POA for Healthcare: No - Code Status/Comfort Care Code Status Assessed: Yes Code Status: Full Code Physician Review: Patient Assessed, Agree with Above Assessment and Plan Critical Care: No Time Spent Managing Pts Care (In Minutes): 50
[2022-12-09] MEDS ORDERED: IPRATROPIUM BROM 0.5MG/2.5ML NEB PRN (22:20)
[2022-12-09] MEDS ORDERED: ALBUTEROL 2.5 MG/3 ML NEB SOL NEB PRN (22:20)
[2022-12-09] MEDS ORDERED: ACETAMINOPHEN 500 MG TAB PO PRN (22:20)
[2022-12-10 02:32] LABS: Absolute Lymphocytes (CBC) 2.7 K/uL (0.7-4.9); Hematocrit 36.5 % (36.0-45.0); Lymphocytes % 37.8 % (15.3-44.8); MPV 7.8 fL (7.6-11.3); RBC Red Blood Cell Count 3.54 M/uL (3.86-4.86)
[2022-12-10 02:50] LABS: Magnesium 2.1 mg/dL (1.6-2.4); Phosphorus 3.1 mg/dL (2.5-4.9); Potassium 3.3 mmol/L (3.5-5.1); Troponin High Sensitivity 4.9 pg/mL (<58.9)
[2022-12-10 04:10] VITALS: BMI 29.6
[2022-12-10] MEDS ORDERED: POTASSIUM 25 MEQ EFFERV TAB PO ONE (07:35)
[2022-12-10] MEDS ORDERED: ASPIRIN EC 81 MG TAB PO ONE (08:04)
[2022-12-10] MEDS ORDERED: AMIODARONE HCL 200 MG TAB ONE (08:04)
[2022-12-10] MEDS ORDERED: LOSARTAN POTASSIUM 50 MG TABLET ONE (08:04)
[2022-12-10] MEDS ORDERED: APIXABAN 5 MG TABLET ONE (08:05)
[2022-12-10] MEDS ORDERED: POTASSIUM 25 MEQ EFFERV TAB ONE (08:05)
[2022-12-10] MEDS ORDERED: APIXABAN 5 MG TABLET PO SCH ×2 (09:00)
[2022-12-10] MEDS ORDERED: METOPROLOL TAR 50 MG TAB PO SCH (09:00)
[2022-12-10] MEDS ORDERED: LOSARTAN POTASSIUM 50 MG TABLET PO SCH (09:00)
[2022-12-10] MEDS ORDERED: ASPIRIN EC 81 MG TAB PO SCH (09:00)
[2022-12-10] MEDS ORDERED: PARoxetine HCL 10 MG TAB PO SCH (09:00)
[2022-12-10] MEDS ORDERED: AMIODARONE HCL 200 MG TAB PO SCH (09:00)
[2022-12-10] MEDS ORDERED: INFLUENZA VACCINE (for 6+ mo) 0.5 ML DOSE IMVAC ONE (10:00)
[2022-12-10 10:22] VITALS: O2SAT 98
[2022-12-10] MEDS ORDERED: ALPRAZOLAM 0.25 MG TABLET PO ONE (10:29)
--- NOTE | 2022-12-10 10:41 | P.DS ---
Discharge Date: 12/10/22 Disposition: ROUTINE DISCHARGE Discharge Condition: GOOD Reason for Admission: Chest Pain Brief History of Present Illness: Patient is a 62 year old female with past medical history of atrial fibrillation on eliquis, chronic congestive heart failure, chronic obstructive pulmonary disease, depression, anxiety, and tobacco use disorder who presented to the emergency department with chest pain, shortness of breath, and dizziness. She reports the pain as a squeezing that radiates to both sides of her chest. Reports it waxes and wanes. She has been followed closely by cardiology for her atrial fibrillation and an episode of cardiac arrest back in July 2022, last seen by Dr. Coffey 3 days ago. Today her EKG shows NSR with prolonged QT interval. Her labs are unremarkable. Vital signs have been stable. She is on daily eliquis so aspirin was not given. ED provider wishes to admit patient for further management. Hospital Course: Patient has done well during the hospitalization. I spoke with cardiology and they recommended outpatient stress test. Patient also will get anxiolytics we will give her some prednisone and antibiotics at discharge as she does have an upper respiratory infection. She has a history of COPD. She has nebulizer treatments and inhaler therapy at home. At this time, she is been ruled out for acute coronary syndrome. Cardiology recently saw the patient and are recomm ending outpatient stress test. Vital Signs/Physical Exam: Temp Pulse Resp BP Pulse Ox 99.0 F 59 16 122/72 99 12/10/22 08:00 12/10/22 09:00 12/10/22 08:00 12/10/22 09:00 12/10/22 08:00 General: Alert, In no apparent distress, Oriented x3 Laboratory Data at Discharge: WBC 7.00 K/uL (4.3-10.9) 12/10/22 02:10 Hgb 12.5 g/dL (12.0-15.0) 12/10/22 02:10 Hct 36.5 % (36.0-45.0) 12/10/22 02:10 Plt Count 249 K/uL (152-406) 12/10/22 02:10 PT 11.6 SECONDS (9.5-12.5) 12/09/22 18:43 INR 1.05 12/09/22 18:43 Sodium 134 mmol/L (136-145) L D 12/10/22 02:10 Potassium 3.3 mmol/L (3.5-5.1) L D 12/10/22 02:10 BUN 10 mg/dL (7-18) 12/10/22 02:10 Creatinine 0.78 mg/dL (0.55-1.02) 12/10/22 02:10 Glucose 117 mg/dL (74-106) H 12/10/22 02:10 Phosphorus 3.1 mg/dL (2.5-4.9) 12/10/22 02:10 Magnesium 2.1 mg/dL (1.6-2.4) 12/10/22 02:10 Triglycerides 137 mg/dL (<150) 12/10/22 02:10 Cholesterol 192 mg/dL (<200) 12/10/22 02:10 HDL Cholesterol 80 mg/dL (40-60) H 12/10/22 02:10 Cholesterol/HDL Ratio 2.40 12/10/22 02:10 Home Medications: Aspirin [Aspirin EC 81 MG] 1 tab PO DAILY 10/19/17 PARoxetine HCL [Paxil] 40 mg PO DAILY 10/19/17 Budesonide/Formoterol Fumarate [Budesonide-Formoterol 160-4.5] 2 puff IN BID 07/14/22 Losartan Potassium [Cozaar*] 100 mg PO DAILY 07/14/22 Apixaban [Eliquis] 5 mg PO BID 30 Days #60 tablet 07/18/22 ALPRAZolam [Xanax] 0.5 mg PO BID PRN #30 tab 12/10/22 Albuterol Sulfate [Proair Hfa] 2 puff PRN PRN 12/10/22 Amiodarone HCl [Cordarone*] 200 mg PO BID 12/10/22 Amiodarone HCl [Cordarone*] 200 mg PO BID #0 tab 12/10/22 Apixaban [Eliquis] 5 mg PO BID 12/10/22 Cefdinir [Cefdinir*] 300 mg PO BID #14 cap 12/10/22 Metoprolol Tartrate 25 mg PO BID 12/10/22 predniSONE [Deltasone] 20 mg PO BID #11 tab 12/10/22 New Medications: Cefdinir [Cefdinir*] 300 mg PO BID #14 cap predniSONE [Deltasone] 20 mg PO BID #11 tab ALPRAZolam [Xanax] 0.5 mg PO BID PRN #30 tab PRN Reason: Anxiety Physician Discharge Instructions: -DC IV and DC home -Follow-up with PCP in 1 to 2 weeks -Follow-up with Cardiology in 1 to 2 weeks -Please call Dr. Gaviria at [phone] if any questions regarding hospital stay -Please call nursing station at [phone] if any nursing or medication questions -Return to the emergency room if symptoms worsen Diet: AHA Activity: Fall precautions Followup: Robles Tabor MD [Primary Care Provider] - Time spent managing pt's care (in minutes): 35
[2022-12-10] MEDS ORDERED: ALBUTEROL 2.5 MG/3 ML NEB SOL NEB PRN (12:00)
[2022-12-10 13:15] VITALS: BP 148/86; TEMP 98.8
--- NOTE | 2022-12-14 17:31 | EKG ---
Test Date: 2022-12-09 Test Time: 18:26:37 Music Education Director: MARCUS MEASUREMENT RESULTS: Intervals: Rate: 66 OH: 178 QRSD: 92 QT: 526 QTc: 551 [place]: P: 87 OH: 178 QRS: 95 T: 82 INTERPRETIVE STATEMENTS: Normal sinus rhythm Rightward axis Prolonged QT Abnormal ECG Compared to ECG 07/15/2022 08:21:46 Right-axis deviation now present Prolonged QT interval now present Electronically Signed On 12-14-22 17:19:15 VEST BASTER by Anderson Coffey
== END 2022-12-10 13:55 | disposition home or self-care (01) | DRG 313 ==
LOC: ER 18:18 → ERHOLD 19:49 → 4TH 12-10 10:48
PROVIDERS: ADMIT Hospitalist; ATTEND Hospitalist
DX: R07.9 Chest pain, unspecified (principal); E87.1 Hypo-osmolality and hyponatremia; J06.9 Acute upper respiratory infection, unspecified; I48.0 Paroxysmal atrial fibrillation; J43.9 Emphysema, unspecified; F41.9 Anxiety disorder, unspecified; I50.9 Heart failure, unspecified; F32.A Depression, unspecified; R42 Dizziness and giddiness; R11.2 Nausea with vomiting, unspecified; R19.7 Diarrhea, unspecified; F17.210 Nicotine dependence, cigarettes, uncomplicated; Z71.6 Tobacco abuse counseling; Z20.822 Contact with and (suspected) exposure to COVID-19; Z79.01 Long term (current) use of anticoagulants; Z79.899 Other long term (current) drug therapy; Z90.49 Acquired absence of other specified parts of digestive tract; Z98.51 Tubal ligation status; Z82.49 Family history of ischemic heart disease and other diseases of the circulatory system; Z83.3 Family history of diabetes mellitus; Z80.0 Family history of malignant neoplasm of digestive organs
CPT/HCPCS: 36415; 71045; 80048; 80061; 83735; 83880; 83930; 84100; 84484; 85025; 85610; 87811; 93005; 94760; 99285

== ENCOUNTER 2022-12-31 12:00 | Day surgery (SDC) | payer SELFPAY ==
[2022-12-28 11:39] LABS: Protime INR 1.1
[2022-12-28 11:48] LABS: Potassium 3.8 mmol/L (3.5-5.1)
[2022-12-28 11:55] LABS: Absolute Lymphocytes (CBC) 2.4 K/uL (0.7-4.9); Hematocrit 37.4 % (36.0-45.0); Lymphocytes % 28.2 % (15.3-44.8); MCV 103.9 fL (80-100); MPV 7.7 fL (7.6-11.3)
--- NOTE | 2022-12-28 12:48 | EKG ---
Test Date: 2022-12-28 Test Time: 11:21:35 [employer] Controller: PARISH MEASUREMENT RESULTS: Intervals: Rate: 63 [place]: QRSD: 88 QT: 526 QTc: 538 [place]: P: [place]: QRS: 84 T: 92 INTERPRETIVE STATEMENTS: Normal sinus rhythm Nonspecific ST abnormality Prolonged QT Abnormal ECG Compared to ECG 12/09/2022 18:26:37 ST (T wave) deviation now present Right-axis deviation no longer present Electronically Signed On 12-28-22 12:47:30 PROMOTIONS EXECUTIVE by Anderson Coffey
[2022-12-31] MEDS ORDERED: NA CHLORIDE 0.9% 500 ML ONE (12:57)
[2022-12-31] MEDS ORDERED: HEPA 1000U/500MLS 2,000 UNIT/1,000 ML BAG IV ONE (14:26)
[2022-12-31] MEDS ORDERED: VERAPAMIL HCL 10 MG/4 ML VIAL IV ONE (14:27)
[2022-12-31] MEDS ORDERED: TICAGRELOR 90 MG TABLET PO ONE (14:27)
[2022-12-31] MEDS ORDERED: ASPIRIN 325 MG TAB ONE (14:27)
[2022-12-31] MEDS ORDERED: FENTANYL CITR 100 MCG/2 ML ONE (14:27)
[2022-12-31] MEDS ORDERED: LIDOCAINE 1% 20 ML MDV ONE (14:27)
[2022-12-31] MEDS ORDERED: MIDAZOLAM HCL 2 MG/2 ML INJ ONE (14:27)
[2022-12-31] MEDS ORDERED: HEPARIN 10,000 UNIT/10 ML VIAL IV ONE (14:27)
[2022-12-31] MEDS ORDERED: ATROPINE SULF 1 MG/10 ML SYR IV ONE (14:28)
[2022-12-31] MEDS ORDERED: HEPARIN 5000 UNIT/ML 1 ML VIAL ONE (14:28)
[2022-12-31 16:43] VITALS: O2SAT 100
[2022-12-31 16:44] VITALS: BP 136/72
--- NOTE | 2023-01-01 02:10 | OP ---
Date of Procedure: 12/31/2022 Surgeon: BONI SHEPPARD Procedures Performed: 1.Selective coronary angiogram. 2.Left heart catheterization. Indication: Ventricular tachycardia and chest pain. Access: Left femoral artery 6-Bhutanese, closed with 6-Bhutanese Angio-Seal. Complications: None. Bleeding: Less than 10 mL. Description Of Procedure: After risks, benefits, and alternatives were explained, the patient agreed to procedure and signed informed consent. Patient was brought into [facility] cardiac catheter[facility] and prepped and draped in sterile fashion. Then I accessed the right femoral artery using a m icropuncture kit, fluoroscopy, and ultrasound guidance, and placed a 6-[place] sheath and too k a 6-[place]ut[place] JL4 catheter and the aortic root, engaged left main. Next, for 6-[place]hut[place] JR4 catheter en gaged RCA and took standard views in both systems and then the JR catheter over the J-wire was advanc ed into the LV, measured the LVEDP and pullback did not record any gradient. Then removed the cathet er and sheath and placed a 6-Bhut[place] Angio-Seal for closure with good hemostasis. Findings: 1.Left main: Large and normal. 2.LAD: Large vessel with very long proximal segment before the diagonal takeoff and right before di agonal takeoff, there is a long 30% stenosis and then the LAD becomes normal. 3.Left circumflex is normal and there is a codominant circulation. 4.RCA: Large size vessel, co-dominant with mid 30% to 40% stenosis. 5.LVEDP, borderline elevated between 10 and 15 mmHg. Conclusion: 1.Mild to moderate nonobstructive coronary artery disease. 2.Borderline elevated LVEDP. Recommendation: Medical management. SR/MODL Voice ID: [id number] Report ID: [id number]
== END 2022-12-31 16:55 | disposition home or self-care (01) ==
LOC: CCL 12:00
PROVIDERS: ATTEND Internal Medicine
PROC: 4A023N7 Measurement of Cardiac Sampling and Pressure, Left Heart, Percutaneous Approach (ICD-10-PCS; principal; 2022-12-31)
PROC: B2111ZZ Fluoroscopy of Multiple Coronary Arteries using Low Osmolar Contrast (ICD-10-PCS; 2022-12-31)
DX: I25.10 Atherosclerotic heart disease of native coronary artery without angina pectoris (principal); I47.20 Ventricular tachycardia, unspecified; I48.0 Paroxysmal atrial fibrillation; I10 Essential (primary) hypertension; E78.5 Hyperlipidemia, unspecified; Z87.891 Personal history of nicotine dependence; Z82.49 Family history of ischemic heart disease and other diseases of the circulatory system
CPT/HCPCS: 36415; 80048; 85025; 85610; 85730; 93005; 93458; C1760; C1893; G0269; J0461; J1644; J2001; J2250; J3010; J7040; Q9966

== ENCOUNTER 2023-01-06 17:25 | Emergency (ER) | payer SELFPAY ==
--- OUTSIDE RECORDS SUMMARY | 2023-01-06 17:36 | XMS REPORT | Continuity of Care Document ---
:1960 Author Organization [facility] t Address [address] [place] [address] [address] [place] [address] Care Team Providers Name Role Phone Cecilia Jimenez Primary Care Physician Remedios Sullivan Attending Clinician Unavailable Chayito Dick Attending Clinician Unavailable SISSON_Padmini Attending Clinician Unavailable KAILA BERGER Attending Clinician [...] Gauthier Attending Clinician Chadd Perez Attending Clinician SISSON_Padmini Admitting Clinician Unavailable KAILA BERGER Admitting Clinician [...] NG, CHEST 00 PAIN, HRA Active 03/28/2018 [facility] COPD COPD Diagnosis Active 2018-03-29 Mem oria EXACERBATI EXACERBATI 03-28 10:12:00 l ON ON Active 00:00: Jonah 03/28/2018 00 [facility] PNA PNA Diagnosis Active 2016-102017-11-08 Mem oria Active 12-24 21:57:00 l 10/23/2017 00:00: Dean mo [address] Ganglion Ganglion Problem Active 2022-02-23 Memoria cyst cyst 00:35:14 l (disorder) (disorder) He rmann Active Problem 02/23/2022 [facility] Hand pain Hand pain Problem Active 2022-02-23 Memoria (finding) (finding) 00:35:14 l Active [place] Problem 02/23/2022 [facility] PNEUMONIA, PNEUMONIA Diagnosis Active 2017-11-08 Memoria UNSPECIFIE , 21:57:00 l D ORGANISM UNSPECIFIE He rmann D ORGANISM Active [facility] CHRONIC CHRONIC Diagnosis Active 2018-03-29 Memoria OBSTRUCTIV OBSTRUCTIV 10:12:00 l E E [place] PULMONARY PULMONARY DISEASE W DISEASE W Active [facility] 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 10:11:00 l (GENERAL) EXAM [place] (ROUTINE) (GENERAL) (ROUTINE) Active [facility] OTHER OTHER Diagnosis Active 2018-03-29 Mem oria SPECIFIED SPECIFIED 10:11:00 l NONINFLAMM NONINFLAMM He rmann ATORY ATORY DISORDER DISORDER Active [facility] Pneumonia, Pneumonia Problem 2017-11-02 Memoria unspecifie , 01:13:22 l d organism unspecifie He rmann d organism 8 [facility] Chronic Chronic Problem 2018-04-02 Me moria obstructiv obstructiv 01:43:25 Nicole pulmonary pulmonary disease disease with with (acute) (acute) exacerbati exacerbati on on 04/02/2018 [facility] [id number] 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 - [facility] [id number] [place] [id number] osteoarthr Spirit itis of - [facility] right knee [facility] [id number] Other tear Problem Active Co mmon of lateral Spirit meniscus - [facility] of right knee as [facility] current Medical injury, Center subsequent encounter [id number] Status Problem Active Common post Spirit arthroscop - [facility] y of knee [facility] [id number] Chronic Problem Active Common obstructiv [facility] e - [facility] Center type [id number] Depression Problem Active Co mmon with Spirit anxiety - [facility] [id number] Hypertensi Problem Active Com mon on, Spirit unspecifie - [facility] d type [facility] [id number] Allergic Problem Active Commo n rhinitis, Spirit unspecifie - [facility]I d [facility] y, Medical unspecifie Center d trigger [id number] Neuropathi Problem Active Co mmon c pain Spirit - [facility] [id number] Hyperglyce Problem Active Com mon birgit Spirit - [facility] [id number] Hypothyroi Problem Active Co mmon dism Spirit (acquired[facility] [id number] Abnormal Problem Active Comm on thyroid [facility] function - [facility]I test [facility] [id number] Abnormal Problem Active Comm on liver [facility] function - [facility] test [facility] [id number] Gastroesop Problem Active Co mmon hageal [facility] reflux - [facility], [facility] Medica l not Center specified [id number] Congestive Problem Active Com mon heart Spirit failure, - [facility] unspecifie [facility] HF kes chronicity Medica l , Center unspecifie d heart failure type [id number] Centrilobu Problem Active Com mon lar Spirit emphysema - [facility] [phone] Pain in Problem Active Comm on [id number] right hand Spiri t - [facility] [id number] Pain, [place] [id number] joint, Spirit knee, - [facility] right [facility] [id number] Bilateral Problem Active Com mon hand Spirit numbness - [facility] [id number] Pain in Problem Active Comm on left hand Spirit - [facility] No known No known Disease Unive rs active active ity of problems problems [facility] Allergies, Adverse Reactions, Alerts Allergy Allergy Status Severity Reaction(s) Onset Inactive Treating Comm ents Source Name Type Date Date Clinician No Known No Known Active Memori a Medicati Medicati l on on Jonah Allergie Allergie s s NO KNOWN Drug Active Univers ALLERGIE Class ity of S [facility] Social History Social Habit Start Date Stop Date Quantity Comments Source History of Tobacco Common Spirit - [facility] Use [facility] Tobacco use and 2021-07-11 2021-07-11 Never used [facility] [place] exposure 00:00:00 00:00:00 Medical Branch Social History 2018-03-29 2018-03-29 [facility] Jennifer cifuentesclara 03:48:29 03:48:29 Sex Ass[birth year] At [birth year] [facility] 00:00:00 00:00:00 Smoking Status Start Date Stop Date Source Tobacco smoking [facility] consumption unknown Former Smoker 2022-02-10 00:00:00 2022-02-10 Common Spiri t - [facility] 00:00:00 [facility] nter Current some day smoker 2021-07-11 00:00:00 [facility] Medications Ordered Filled Start Stop Current Ordering Indication Dosage Frequency Signature Comments Components Source Medication Medication Date Date Medication? 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 diphenoxyla Yes [id number] 2{tbl} Take 2 Univers te-atropine 9-11 tablets [...] 04-06 Puff. ity of (FLOVENT 00:00: 04:59 [place] HFA) 110 00 :00 Medical mcg/actuati Branch on inhaler PARoxetine 2019-10 Yes 40mg Take 40 mg U nivers 40 mg 2-18 by mouth. ity of tablet 00:00: 00 Medical Branch ALPRAZolam 2019-10 Yes TAKE 1 Unive rs 0.5 mg 2-02 TABLET BY ity of tablet 00:00: MOUTH THREE Medical TIMES A Branch DAY NEEDED FOR ANXIETY PROAIR HFA 2019-10 Yes INHALE 2 Uni vers 90 1-16 PUFFS BY ity of mcg/actuati 00:00: MOUTH on inhaler 00 EVERY 4 TO Med ical 6 HOURS Branch NEEDED levothyroxi 2019-10 Yes TAKE 1 Univ ers ne 50 mcg 1-12 TABLET BY ity o f tablet 00:00: MOUTH ON AN EMPTY Medical STOMACH Branch Famotidine Famotidine [...] 1{table QD Famotidine 10 MG 10 MG -03 t_as_ne 10 MG 00:00: eded} Nebulizer - Nebulizer - 2019-10 No Nebulizer 11-02 - 00:00: 00 Nebulizer - Nebulizer - 2019-10 No Nebulizer 11-02 - 00:00: 00 Famotidine Famotidine 2019-10 No 1{table QD Famotidine 10 MG 10 MG -03 t_as_ne 10 MG 00:00: eded} Nebulizer - Nebulizer - 2019-10 No Nebulizer 11-02 - 00:00: 00 Famotidine Famotidine 2019-10 No 1{table QD Famotidine 10 MG 10 MG -03 t_as_ne 10 MG 00:00: eded} Nebulizer - Nebulizer - 2019-10 No Nebulizer 11-02 - 00:00: 00 Famotidine Famotidine 2019-10 No 1{table QD Famotidine 10 MG 10 MG -03 t_as_ne 10 MG 00:00: eded} Nebulizer - [...] [place] 00 daily. Medical Branch Levothyroxi Levothyroxi 2020-0 Yes Remedios 1 tablet Common ne Sodium ne Sodium 7-13 [place] in the Sp david 00:00: morning on - [facility]I 00 an empty [facility] Levothyroxi Levothyroxi 2020-0 No QD Levothyrox ne [...] MCG 00:00: 50 MCG 00 Solumedrol Solumedrol 2018- No 125mg Common 125mg/2ml 125mg/2ml 0-01 Spiri t 00:00: - CHI 00 [facility] Solumedrol Solumedrol 2019-1 No 125mg Common 125mg/2ml 125mg/2ml 0-01 Spiri t 00:00: - CHI 00 [facility] Solumedrol Solumedrol 2019-1 No 125mg Common 125mg/2ml 125mg/2ml 0-01 Spiri t 00:00: - CHI 00 [facility] Solumedrol Solumedrol 2019-1 No 125mg Common 125mg/2ml 125mg/2ml 0-01 Spiri t 00:00: - CHI 00 [facility] Solumedrol Solumedrol 2019-1 No 125mg Common 125mg/2ml 125mg/2ml 0-01 Spiri t 00:00: - CHI 00 [facility] Solumedrol Solumedrol 2019-1 No 125mg Common 125mg/2ml 125mg/2ml 0-01 Spiri t 00:00: - CHI 00 [facility] Solumedrol Solumedrol 2018-1 No C ommon 125mg/2ml 125mg/2ml 2-20 Spiri t 00:00: - CHI 00 [facility] Solumedrol Solumedrol 2018-1 No C ommon 125mg/2ml 125mg/2ml 2-20 Spiri t 00:00: - CHI 00 [facility] Solumedrol Solumedrol 2018-1 No C ommon 125mg/2ml 125mg/2ml 2-20 Spiri t 00:00: - CHI 00 [facility] Solumedrol Solumedrol 2018-1 No C ommon 125mg/2ml 125mg/2ml 2-20 Spiri t 00:00: - CHI 00 [facility] Solumedrol Solumedrol 2018-1 No C ommon 125mg/2ml 125mg/2ml 2-20 Spiri t 00:00: - CHI 00 [facility] Solumedrol Solumedrol 2018-1 No C ommon 125mg/2ml 125mg/2ml 2-20 Spiri t 00:00: - CHI 00 [facility] Solumedrol Solumedrol 2018- No 125mg Common 125mg/2ml 125mg/2ml 2-07 Spiri t 00:00: - CHI 00 [facility] Solumedrol Solumedrol 2018-1 No 125mg Common 125mg/2ml 125mg/2ml 2- Spiri t 00:00: - CHI 00 [facility] Solumedrol Solumedrol 2018- No 125mg Common 125mg/2ml 125mg/2ml 2- Spiri t 00:00: - CHI 00 [facility] Solumedrol Solumedrol 2018- No 125mg Common 125mg/2ml 125mg/2ml 2 Spiri t 00:00: - CHI [facility] Solumedrol Solumedrol 2017- No 125mg Common 125mg/2ml 125mg/2ml 2 Spiri t 00:00: - CHI [facility] Solumedrol Solumedrol 2017- No 125mg Common 125mg/2ml 125mg/2ml 2 Spiri t 00:00: - CHI [facility] carvedilol 2017-0 No Notes: Memor ia 6-01 Give with l 02:00: food. Jonah 00 (Same As: Coreg) carvedilol 0 No Notes: Memor ia 6-01 Give with l 02:00: food. (Same As: Coreg) carvedilol No Notes: Memor ia 6-01 Give with l 02:00: food. [place] 00 (Same As: Coreg) Albuterol 0 Yes 3 mL, NEB, Me moria 0.833 MG/ML 5-31 QID, PRN l / 22:31: as needed Jonah Ipratropium 09 for [place] shortness 0.167 MG/ML of breath Inhalant or Solution wheezing, # 180 mL, 2 Refill(s), Pharmacy: [facility] Albuterol 0 Yes 3 mL, NEB, Me moria 0.833 MG/ML 5-31 QID, PRN l / 22:31: as needed Jonah Ipratropium 09 for [place] shortness 0.167 MG/ML of breath Inhalant or Solution wheezing, # 180 mL, 2 Refill(s), Pharmacy: [place] [address] Albuterol Yes 3 mL, NEB, Me moria 0.833 MG/ML 5-31 QID, PRN l / 22:31: as needed [place] Ipratropium 09 for [place] shortness 0.167 MG/ML of breath Inhalant or Solution wheezing, # 180 mL, 2 Refill(s), Pharmacy: [place] [address] Ventcohutta Yes 2 puff, Memori a HFA 90 5-31 INHALER, l mcg/inh 22:31: Q4H, PRN Dean n inhalation 02 wheezing, aerosol coughing, with or adapter shortness of breath, # 1 ea, 1 Refill(s), Pharmacy: [address] Yes 2 puff, Memori a HFA 90 5-31 INHALER, l mcg/inh 22:31: Q4H, PRN Dean n inhalation 02 wheezing, aerosol coughing, with or adapter shortness of breath, # 1 ea, 1 Refill(s), Pharmacy: [address] Yes 2 puff, Memori a HFA 90 5-31 INHALER, l mcg/inh 22:31: Q4H, PRN Dean n inhalation 02 wheezing, aerosol coughing, with or adapter shortness of breath, # 1 ea, 1 Refill(s), Pharmacy: [place] [address] doxycycline Yes 100 mg = 1 Memoria hyclate 100 5-31 tab, PO, l MG Oral 22:30: Q12H, X 10 Herm clara Tablet 50 day, # 20 tab, 0 Refill(s), Pharmacy: [place] [address] doxycycline Yes 100 mg = 1 Memoria hyclate 100 5-31 tab, PO, l MG Oral 22:30: Q12H, X 10 Herm clara Tablet 50 day, # 20 tab, 0 Refill(s), Pharmacy: [place] [address] doxycycline Yes 100 mg = 1 Memoria hyclate 100 5-31 tab, PO, l MG Oral 22:30: Q12H, X 10 Herm clara Tablet 50 day, # 20 tab, 0 Refill(s), Pharmacy: [facility] losartan 50 0 Yes 50 mg = 1 M emoria mg oral 5-31 tab, PO, l tablet 19:00: Daily, # [place] 36 30 tab, 2 Refill(s), Pharmacy: [facility] losartan 50 0 Yes 50 mg = 1 M emoria mg oral 5-31 tab, PO, l tablet 19:00: Daily, # [place] 36 30 tab, 2 Refill(s), Pharmacy: [facility] losartan 50 0 Yes 50 mg = 1 M emoria mg oral 5-31 tab, PO, l tablet 19:00: Daily, # [place] 36 30 tab, 2 Refill(s), Pharmacy: [place] [address] Guaifenesin Yes 200 mg = Me moria 20 MG/ML 5-31 10 mL, PO, l Oral 19:00: QID, X 7 Jonah Solution 27 day, # 280 mL, 0 Refill(s), Pharmacy: [place] [address] Guaifenesin Yes 200 mg = Me moria 20 MG/ML 5-31 10 mL, PO, l Oral 19:00: QID, X 7 Jonah Solution 27 day, # 280 mL, 0 Refill(s), Pharmacy: [place] [address] Guaifenesin Yes 200 mg = Me moria 20 MG/ML 5-31 10 mL, PO, l Oral 19:00: QID, X 7 Jonah Solution 27 day, # 280 mL, 0 Refill(s), Pharmacy: [place] [address] Famotidine Yes 20 mg = 1 Me moria 20 MG Oral 5-31 tab, PO, l Tablet 19:00: Q12H, # 60 Paula nn [Pepcid] 16 tab, 0 Refill(s), Pharmacy: [facility] Famotidine Yes 20 mg = 1 Me moria 20 MG Oral 5-31 tab, PO, l Tablet 19:00: Q12H, # 60 Paula nn [Pepcid] 16 tab, 0 Refill(s), Pharmacy: [place] [address] Famotidine Yes 20 mg = 1 Me moria 20 MG Oral 5-31 tab, PO, l Tablet 19:00: Q12H, # 60 Paula nn [Pepcid] 16 tab, 0 Refill(s), Pharmacy: [place] [address] carvedilol 2017- Yes 3.125 mg, Me moria 3.125 mg 5-31 PO, Q12H, l oral tablet 18:59: Hold if HR Jonah 38 is less than 60, # 60 tab, 0 Refill(s), Pharmacy: [facility] carvedilol 2017- Yes 3.125 mg, Me moria 3.125 mg 5-31 PO, Q12H, l oral tablet 18:59: Hold if HR [place] 38 is less than 60, # 60 tab, 0 Refill(s), Pharmacy: [facility] carvedilol 2017- Yes 3.125 mg, Me moria 3.125 mg 5-31 PO, Q12H, l oral tablet 18:59: Hold if HR Jonah 38 is less than 60, # 60 tab, 0 Refill(s), Pharmacy: [place] [address] Ventolin No 2 puff, Memori a HFA [...] 18:59: as needed Jonah Ipratropium 15 for [place] shortness 0.167 MG/ML of breath Inhalant or Solution wheezing, # 180 mL, 2 Refill(s) Albuterol 2018-0 No 3 mL, NEB, Me moria 0.833 MG/ML 5-31 QID, PRN l / 18:59: as needed Jonah Ipratropium 15 for [place] shortness 0.167 MG/ML of breath Inhalant or Solution wheezing, # 180 mL, 2 Refill(s) Albuterol 2017-0 No 3 mL, NEB, Me moria 0.833 MG/ML 5-31 QID, PRN l / 18:59: as needed [place] Ipratropium 15 for [place] shortness 0.167 MG/ML of breath Inhalant or Solution wheezing, # 180 mL, 2 Refill(s) doxycycline 2017-0 No 100 mg = 1 [...] day, # 20 tab, 0 Refill(s) Ventolin 0 No 2 puff, Memori a HFA 90 5-31 INHALER, l mcg/inh 18:31: Q4H, PRN Dean n inhalation 46 wheezing, aerosol coughing, with or adapter shortness of breath, # 1 ea, 1 Refill(s), Pharmacy: [facility] Ventolin 2018-0 No 2 puff, Memori a HFA 90 5-31 INHALER, l mcg/inh 18:31: Q4H, PRN Dean n inhalation 46 wheezing, aerosol coughing, with or adapter shortness of breath, # 1 ea, 1 Refill(s), Pharmacy: [facility] Ventolin 2018-0 No 2 puff, Memori a HFA 90 5-31 INHALER, l mcg/inh 18:31: Q4H, PRN Dean n inhalation 46 wheezing, aerosol coughing, with or adapter shortness of breath, # 1 ea, 1 Refill(s), Pharmacy: [facility] Albuterol 2018-0 No 3 mL, NEB, Me moria 0.833 MG/ML 5-31 QID, PRN l / 18:31: as needed [place] Ipratropium 41 for [place] shortness 0.167 MG/ML of breath Inhalant or Solution wheezing, # 180 mL, 2 Refill(s), Pharmacy: [facility] Albuterol 2018-0 No 3 mL, NEB, Me moria 0.833 MG/ML 5-31 QID, PRN l / 18:31: as needed [place] Ipratropium 41 for [place] shortness 0.167 MG/ML of breath Inhalant or Solution wheezing, # 180 mL, 2 Refill(s), Pharmacy: [facility] Albuterol 2018-0 No 3 mL, NEB, Me moria 0.833 MG/ML 5-31 QID, PRN l / 18:31: as needed [place] Ipratropium 41 for [place] shortness 0.167 MG/ML of breath Inhalant or Solution wheezing, # 180 mL, 2 Refill(s), Pharmacy: [facility] carvedilol 2018-0 No 3.125 mg, Me moria 3.125 mg 5-31 PO, Q12H, l oral tablet 18:31: Hold if HR [place] 00 is less than 60, # 60 [...] 0 Refill(s), Pharmacy: [facility] predniSONE 2017-0 Yes See Memoria 20 mg oral 5-31 [...] day, # 280 mL, 0 Refill(s), Pharmacy: [facility] carvedilol No 3.125 mg, Me moria 3.125 mg 5-31 PO, Q12H, l oral tablet 18:31: Hold if HR [place] 00 is less than 60, # 60 tab, 0 Refill(s), Pharmacy: [facility] doxycycline No 100 mg = 1 Memoria hyclate 100 5-31 tab, PO, l MG Oral 18:31: Q12H, X 10 Herm clara Tablet 00 day, # 20 tab, 0 Refill(s), Pharmacy: [facility] Famotidine No 20 mg = 1 Me moria 20 MG Oral 5-31 tab, PO, l Tablet 18:31: Q12H, # 60 Paula nn [Pepcid] 00 tab, 0 Refill(s), Pharmacy: [facility] predniSONE Yes See Memoria 20 [...] day, # 24 tab, 0 Refill(s) Guaifenesin 2017-0 No 200 mg = Me moria 20 MG/ML 5-31 10 mL, PO, l Oral 18:31: QID, X 7 Jonah Solution 00 day, # 280 mL, 0 Refill(s), Pharmacy: [facility] carvedilol No 3.125 mg, Me moria 3.125 mg 5-31 PO, Q12H, l oral tablet 18:31: Hold if HR [place] 00 is less than 60, # 60 tab, 0 Refill(s), Pharmacy: [facility] doxycycline No 100 mg = 1 Memoria hyclate 100 5-31 tab, PO, l MG Oral 18:31: Q12H, X 10 Herm clara Tablet 00 day, # 20 tab, 0 Refill(s), Pharmacy: [facility] Famotidine No 20 mg = 1 Me moria 20 MG Oral 5-31 tab, PO, l Tablet 18:31: Q12H, # 60 Paula nn [Pepcid] 00 tab, 0 Refill(s), Pharmacy: [facility] predniSONE Yes See Memoria 20 [...] day, # 280 mL, 0 Refill(s), Pharmacy: [facility] Acetaminoph No Notes: Yadiel felipe en 325 MG / 5-31 (Same as: l Hydrocodone 18:28: [place] Paula nn Bitartrate 00 325/5) Do 5 MG Oral not exceed Tablet 4gm/day of acetaminop hen. Acetaminoph No Notes: Yadiel felipe en 325 MG / 5-31 (Same as: l Hydrocodone 18:28: [place] Paula nn Bitartrate 00 325/5) Do 5 MG Oral not exceed Tablet 4gm/day of acetaminop hen. Acetaminoph No Notes: Yadiel felipe en 325 MG / 5-31 (Same as: l Hydrocodone 18:28: [place] Paula nn Bitartrate 00 325/5) Do 5 MG Oral not exceed Tablet 4gm/day of acetaminop hen. Guaifenesin No Notes: Yadiel felipe 5-30 (Same as: l 22:00: Robitussin ) Guaifenesin No Notes: Yadiel felipe 5-30 (Same as: l 22:00: Robitussin Jonah 00 ) Guaifenesin No Notes: Yadiel felipe 5-30 (Same as: l 22:00: Robitussin ) Aspirin No Notes: Memoria 5-30 Take with l 14:00: food. Alprazolam No Notes: Memor ia 1 MG Oral 5-30 With food l Tablet 14:00: or milk [place] 00 (Same as: Xanax) Losartan No Notes: Memoria 5-30 (Same as: l 14:00: Cozaar) Levofloxaci No Notes: Yadiel felipe n 5-30 (Same l 14:00: as:Levaqui Jonah 00 n) Famotidine No Notes: Memor ia 20 MG Oral 5-30 (Same as: l Tablet 14:00: Pepcid) [Pepcid] Aspirin No Notes: Memoria 5-30 Take with l 14:00: food. Aspirin No Notes: Memoria 5-30 Take with l 14:00: food. Alprazolam No Notes: Memor ia 1 MG Oral 5-30 With food l Tablet 14:00: or milk Jonah 00 (Same as: Xanax) Alprazolam No Notes: Memor ia 1 MG Oral 5-30 With food l Tablet 14:00: or milk Jonah 00 (Same as: Xanax) Losartan No Notes: Memoria 5-30 (Same as: l 14:00: Cozaar) Levofloxaci No Notes: Yadiel felipe n 5-30 (Same l 14:00: as:Levaqui [place] 00 n) Famotidine No Notes: Memor ia 20 MG Oral 5-30 (Same as: l Tablet 14:00: Pepcid) Jonah [Pepcid] 00 Losartan No Notes: Memoria 5-30 (Same as: l 14:00: Cozaar) Levofloxaci No Notes: Yadiel felipe n 5-30 (Same l 14:00: as:Levaqui Jonah 00 n) Famotidine No Notes: Memor ia 20 MG Oral 5-30 (Same as: l Tablet 14:00: Pepcid) [Pepcid] 00 methylPREDN No Notes: Yadiel felipe [...] Memoria 5-30 (Same as: l 06:00: Lovenox) Lovenox No Notes: Memoria 5-30 (Same as: l 06:00: Lovenox) Lovenox No Notes: Memoria 5-30 (Same as: [...] 5-30 (Same as: l / 04:00: Duoneb) Jonah Ipratropium 00 [place] 0.167 MG/ML Inhalant Solution Albuterol No Notes: Memori a 0.833 MG/ML 5-30 (Same as: l / 04:00: Duoneb) Jonah Ipratropium 00 [place] 0.167 MG/ML Inhalant Solution Albuterol No Notes: Memori a 0.833 MG/ML 5-30 (Same as: l / 04:00: Duoneb) [place] Ipratropium 00 [place] 0.167 MG/ML Inhalant Solution NS 1,000 mL No 1,000 mL, M emoria 5-30 Rate: 75 l 03:51: ml/hr, [place] 00 Infuse over: 13.3 hr, Route: IV, Dosing Weight 96 kg, Total Volume: 1,000, Start date: 03/28/18 22:51:00 CDT, Duration: 30 day, Stop date: 04/27/18 22:50:00 CDT, 2.17, m2 NS 1,000 mL No 1,000 mL, M emoria 5-30 Rate: 75 l 03:51: ml/hr, [place] 00 Infuse over: 13.3 hr, Route: IV, Dosing Weight 96 kg, Total Volume: 1,000, Start date: 03/28/18 22:51:00 CDT, Duration: 30 day, Stop date: 04/27/18 22:50:00 CDT, 2.17, m2 NS 1,000 mL No 1,000 mL, M emoria 5-30 Rate: 75 l 03:51: ml/hr, [place] 00 Infuse over: 13.3 hr, Route: IV, Dosing [...] Solution 00 ION (Same as: Proventil) Alprazolam 2017- Yes 1 mg = 1 Mem oria 1 MG Oral 5-30 tab, PO, l Tablet 03:49: BID, 0 Jonah 00 Refill(s) Alprazolam 2017- Yes 1 mg = 1 Mem oria 1 MG Oral 5-30 tab, PO, l Tablet 03:49: BID, 0 Jonah 00 Refill(s) Alprazolam 2017-0 Yes 1 mg = 1 Mem oria 1 MG Oral 5-30 tab, PO, l Tablet 03:49: BID, 0 Jonah 00 Refill(s) Ceftriaxone No Notes: Yadiel felipe 5-30 (Same As: l 02:17: Rocephin). [place] 00 Use with 100 mL NS and infuse over 30 min MEDICATION WASTE Product Size: 1000 mg Product Wasted: ___ mg Azithromyci No Notes: Yadiel felipe n 5-30 (Same As: l 02:17: Zithromax Jonah 00 IV) Ceftriaxone No Notes: Yadiel felipe 5-30 (Same As: l 02:17: Rocephin). Jonah 00 Use with 100 mL NS and infuse over 30 min MEDICATION WASTE Product Size: 1000 mg Product Wasted: ___ mg Azithromyci No Notes: Yadiel felipe n 5-30 (Same As: l 02:17: Zithromax [place] 00 IV) Ceftriaxone No Notes: Yadiel felipe 5-30 (Same As: l 02:17: Rocephin). [place] 00 Use with 100 mL NS and infuse over 30 min MEDICATION WASTE Product Size: 1000 mg Product Wasted: ___ mg Azithromyci No Notes: Yadiel felipe n 5-30 (Same As: l 02:17: Zithromax Jonah 00 IV) Magnesium No Notes: Memori a Sulfate 5-30 WASTE: F/P l 01:47: - Sink; E [place] 00 - Municipal Trash Bin Magnesium No Notes: Memori a Sulfate 5-30 WASTE: F/P l 01:47: - Sink; E Jonah 00 - Municipal Trash Bin Magnesium No Notes: Memori a Sulfate 5-30 WASTE: F/P l 01:47: - Sink; E [place] 00 - Municipal Trash Bin methylPREDN No Notes: Yadiel felipe ISolone 5-29 (Same l SODium 23:36: as:Solu-ME Paula nn SUCCinate 00 DROL, A-Methapre d) Albuterol No Notes: Memori a 0.833 MG/ML 5-29 (Same as: l / 23:36: Duoneb) [place] Ipratropium 00 [place] 0.167 MG/ML Inhalant Solution methylPREDN No Notes: Yadiel felipe ISolone 5-29 (Same l SODium 23:36: as:Solu-ME Paula nn SUCCinate 00 DROL, A-Methapre d) Albuterol No Notes: Memori a 0.833 MG/ML 5-29 (Same as: l / 23:36: Duoneb) [place] Ipratropium 00 [place] 0.167 MG/ML Inhalant Solution methylPREDN No Notes: Yadiel felipe ISolone 5-29 (Same l SODium 23:36: as:Solu-ME Paula nn SUCCinate 00 DROL, A-Methapre d) Albuterol No Notes: Memori a 0.833 MG/ML 5-29 (Same as: l / 23:36: Duoneb) [place] Ipratropium 00 [place] 0.167 MG/ML Inhalant Solution Saline No Notes: Memoria Flush 0.9% 5-29 (Same as: l 20:07: BD [place] 00 Posiflush) Saline No Notes: Memoria Flush 0.9% 5-29 (Same as: l 20:07: BD [place] 00 Posiflush) Saline No Notes: Memoria Flush 0.9% 5-29 (Same as: l 20:07: BD [place] 00 Posiflush) Reglan No Notes: Memoria 5-29 (Same as: l 20:06: Reglan) [place] 00 Reglan No Notes: Memoria 5-29 (Same as: l 20:06: Reglan) [place] 00 Reglan No Notes: Memoria 5-29 (Same as: l 20:06: Reglan) [place] 00 Albuterol No Notes: Memori a 0.833 MG/ML 5-29 (Same as: l / 20:05: Duoneb) [place] Ipratropium 00 [place] 0.167 MG/ML Inhalant Solution [DuoNeb] Dexamethaso No 10 mg, 2.5 Memoria ne 5-29 mL, Route: l 20:05: IVP, Drug [place] 00 form: INJ, ONCE, Dosing Weight 90.273, kg, Priority: STAT, Start date: 03/28/18 15:05:00 CDT, Stop date: 03/28/18 15:05:00 CDT Albuterol No Notes: Memori a 0.833 MG/ML 5-29 (Same as: l :05: Duoneb) [place] Ipratropium 00 [place] 0.167 MG/ML Inhalant Solution [DuoNeb] Dexamethaso No 10 mg, 2.5 Memoria ne 5-29 mL, Route: l 20:05: IVP, Drug [place] 00 form: INJ, ONCE, Dosing Weight 90.273, kg, Priority: STAT, Start date: 03/28/18 15:05:00 CDT, Stop date: 03/28/18 15:05:00 CDT Albuterol No Notes: Memori a 0.833 MG/ML 5-29 (Same as: l / 20:05: Duoneb) [place] Ipratropium 00 [place] 0.167 MG/ML Inhalant Solution [DuoNeb] Dexamethaso No [...] l Oral Tablet 18:13: Daily, X 2 [place] [Levaquin] 00 day, # 2 tab, 0 Refill(s) Levofloxaci 2016-10 No 750 mg = 1 Memoria n 750 MG 2-31 tab, PO, l Oral Tablet 18:13: Daily, X 2 [place] [Levaquin] day, # 2 tab, 0 Refill(s) Levofloxaci 2016-10 No 750 mg = 1 Memoria n 750 MG 2-31 tab, PO, l Oral Tablet 18:13: Daily, X 2 [place] [Levaquin] 00 day, # 2 tab, 0 [...] Memoria 2-31 MISC, PRN, l 18:10: PRN [place] 00 Shortness of breath, # 1 btl, 2 Refill(s) Paroxetine 2016-10 Yes 30 mg = 1 Me moria 30 MG Oral 2-31 tab, PO, l Tablet 18:05: Daily, # [place] [Paxil] 00 30 tab, 2 Refill(s), Pharmacy: [facility] Symbicort 2016-10 Yes 1 puff, Memor ia 80/4.5 2-31 INHALATION l inhalation 18:05: , BID, # 1 H ermann aerosol 00 ea, 2 with Refill(s), adapter Pharmacy: [facility] losartan 50 2016-10 Yes 50 mg = 1 M emoria mg oral 2-31 tab, PO, l tablet 18:05: Daily, # [place] 00 30 tab, 2 Refill(s), Pharmacy: [facility] Alprazolam 2016-10 Yes 0.25 mg [...] breath, # 1 ea, 1 Refill(s), Pharmacy: [facility] predniSONE 2016-10 Yes See Memoria [...] 18:05: as needed [place] Ipratropium 00 for [place] shortness 0.167 MG/ML of breath Inhalant or Solution wheezing, # 180 mL, 2 Refill(s), Pharmacy: [facility] Paroxetine 2016-10 Yes 30 mg = 1 Me moria 30 MG Oral 2-31 tab, PO, l Tablet 18:05: Daily, # [place] [Paxil] 00 30 tab, 2 Refill(s), Pharmacy: [facility] Symbicort 2016-10 Yes 1 puff, Memor ia 80/4.5 2-31 INHALATION l inhalation 18:05: , BID, # 1 H ermann aerosol 00 ea, 2 with Refill(s), adapter Pharmacy: [facility] losartan 50 2016-10 Yes 50 mg = 1 M emoria mg oral 2-31 tab, PO, l tablet 18:05: Daily, # [place] 00 30 tab, 2 Refill(s), Pharmacy: [facility] Alprazolam 2016-10 Yes 0.25 mg [...] breath, # 1 ea, 1 Refill(s), Pharmacy: [facility] predniSONE 2016-10 Yes See Memoria [...] 18:05: as needed [place] Ipratropium 00 for [place] shortness 0.167 MG/ML of breath Inhalant or Solution wheezing, # 180 mL, 2 Refill(s), [facility]: [facility] Paroxetine 2016-10 Yes 30 mg = 1 Me moria 30 MG Oral 2-31 tab, PO, l Tablet 18:05: Daily, # [place] [Paxil] 00 30 tab, 2 Refill(s), Pharmacy: [...] breath, # 1 ea, 1 Refill(s), Pharmacy: [facility] predniSONE 2016-10 Yes See Memoria [...] QID, PRN l / 18:05: as needed [place] Ipratropium 00 for [place] shortness 0.167 MG/ML of breath Inhalant or Solution wheezing, # 180 mL, 2 Refill(s), Pharmacy: [facility] Prednisone 2016-10 No Notes: Memor ia 2-31 Take with l 15:00: food. [place] 00 Prednisone 2016-10 No Notes: Memor ia 2-31 Take with l 15:00: food. [place] 00 Prednisone 2016-10 No Notes: Memor ia 2-31 Take with l 15:00: food. [place] 00 Alprazolam 2016-10 No Notes: Memor ia 2-30 With food l 23:00: or milk [place] 00 (Same as: Xanax) Alprazolam 2016-10 No Notes: Memor ia 2-30 With food l 23:00: or milk [place] 00 (Same as: Xanax) Alprazolam 2016-10 No Notes: Memor ia 2-30 With food l 23:00: or milk [place] 00 (Same as: Xanax) Albuterol 2016-10 No Notes: Memori a 0.833 MG/ML 2-30 (Same as: l / 15:25: Duoneb) [place] Ipratropium 00 [place] 0.167 MG/ML Inhalant Solution Albuterol 2016-10 No Notes: Memori a 0.833 MG/ML 2-30 (Same as: l / 15:25: Duoneb) [place] Ipratropium 00 [place] 0.167 MG/ML Inhalant Solution Albuterol 2016-10 No Notes: Memori a 0.833 MG/ML 2-30 (Same as: l / 15:25: Duoneb) [place] Ipratropium 00 [place] 0.167 MG/ML Inhalant Solution methylPREDN 2016-10 No [...] felipe 2-29 not give l 16:00: w/antacids [place] 00 , dairy pdt & minerals Take 1 hr before or 2 hr after dairy pdt (Same as:Levaqui n) Levaquin 2016-10 No Notes: Do Yadiel felipe 2-29 not give l 16:00: w/antacids [place] 00 , dairy pdt & minerals Take 1 hr before or 2 hr after dairy pdt (Same as:Levaqui n) Lasix 2016-10 No Notes: Memoria 2-29 (Same as: l 15:34: Lasix) [place] Lasix 2016-10 No Notes: Memoria 2-29 (Same as: l 15:34: Lasix) [place] 00 Lasix 2016-10 No Notes: Memoria 2-29 (Same as: l 15:34: Lasix) [place] K-Dur 2016-10 No Notes: Memoria 2-29 (Same as: l 15:29: K-Dur 20) [place] "Do Not Crush" With food and full glass of water K-Dur 20 2016-10 No Notes: Memoria 2-29 (Same as: l 15:29: K-Dur 20) [place] 00 "Do Not Crush" With food and full glass of water K-Dur 20 2016-10 No Notes: Memoria 2-29 (Same as: l 15:29: K-Dur 20) [place] 00 "Do Not Crush" With food and full glass of water Lasix 2016-10 No Notes: Memoria 2-28 (Same as: l 16:25: Lasix) [place] Lasix 2016-10 No Notes: Memoria 2-28 (Same as: l 16:25: Lasix) [place] 00 Lasix 2016-10 No Notes: Memoria 2-28 (Same as: l 16:25: Lasix) [place] Famotidine 2016-10 No Notes: Memor ia 20 [...] mEq oral 14:13: K-Dur 20) Herm clara , 00 "Do Not extended Crush" release With [...] n 2-26 Take 1 l 05:00: hour [place] 00 before or 2 hours after meals. (Same As: Zithromax) Mupirocin 2016-10 No 1 appl, Memor ia 0.02 MG/MG 2-26 Route: l Topical 03:00: TOP, Q12H, Herm clara Ointment 00 Drug form: OINT, Start date: 10/24/17 21:00:00 RUBY ON RA[employer] CONSULTANT, Duration: 5 day, Stop date: 10/29/17 9:00:00 RUBY ON [employer] Mupirocin 2016-10 No 1 appl, Memor ia 0.02 MG/MG 2-26 Route: l Topical 03:00: TOP, Q12H, Herm clara Ointment 00 Drug form: OINT, Start date: 10/24/17 21:00:00 RUBY ON RAILS CONSULTANT, Duration: 5 day, Stop date: 10/29/17 9:00:00 RUBY ON [employer]SULTANT Mupirocin 2016-10 No 1 appl, Memor ia 0.02 MG/MG 2-26 Route: l Topical 03:00: TOP, Q12H, Herm clara Ointment 00 Drug form: OINT, Start date: 10/24/17 21:00:00 RUBY ON RAILS CONSULTANT, Duration: 5 day, Stop date: 10/29/17 9:00:00 RUBY ON [employer]SULTANT Benadryl 2016-10 No Notes: Memoria 2-26 (Same as: l 01:22: Benadryl) [place] Famotidine 2016-10 No Notes: Memor ia 40 MG Oral 2-26 (Same as: l Tablet 01:22: Pepcid) [place] [Pepcid] 00 Benadryl 2016-10 No Notes: Memoria 2-26 (Same as: l 01:22: Benadryl) [place] 00 Famotidine 2016-10 No Notes: Memor ia 40 MG Oral 2-26 (Same as: l Tablet 01:22: Pepcid) [place] [Pepcid] 00 Benadryl 2016-10 No Notes: Memoria 2-26 (Same as: l 01:22: Benadryl) [place] 00 Famotidine 2016-10 No Notes: Memor ia 40 MG Oral 2-26 (Same as: l Tablet 01:22: Pepcid) [place] [Pepcid] Benadryl 2016-10 No Notes: Memoria 2-25 (Same as: l 19:59: Benadryl) [place] 00 Benadryl 2016-10 No Notes: Memoria 2-25 (Same as: l 19:59: Benadryl) [place] Benadryl 2016-10 No Notes: Memoria 2-25 (Same [...] 2-25 (Same as: l / 08:00: Duoneb) [place] Ipratropium 00 [place] 0.167 MG/ML Inhalant Solution Albuterol 2016-10 No Notes: Memori a 0.833 MG/ML 2-25 (Same as: l / 08:00: Duoneb) [place] Ipratropium 00 [place] 0.167 MG/ML Inhalant Solution Albuterol 2016-10 No Notes: Memori a 0.833 MG/ML 2-25 (Same as: / 08:00: Duoneb) [place] Ipratropium 00 [place] 0.167 MG/ML Inhalant Solution Paroxetine 2016-10 No 30 mg = 1 [...] l / 06:11: Refill(s) [place] Ipratropium 00 [place] 0.167 MG/ML Inhalant Solution ProAir HFA 2016-10 No 2 puff, Yadiel felipe 2-25 PO, Q4H, l 06:11: PRN [place] 00 Wheezing / cough / shortness of breath, # 1 ea, 0 Refill(s) Aspirin 2016-10 Yes 81 mg, PO, Yadiel felipe 2-25 Daily, 0 l 06:11: Refill(s) [place] 00 Alprazolam 2016-10 No 0.25 mg = Me moria 0.25 MG 2-25 1 tab, PO, l Oral Tablet 06:11: BID, 0 Herm clara [Xanax] 00 Refill(s) Paroxetine 2016-10 No 30 mg = 1 Me moria 30 MG Oral 2-25 tab, PO, l Tablet 06:11: Daily, # [place] [Paxil] 00 30 tab, 0 Refill(s) Acetaminoph 2016-10 Yes 1 tab, PO, Memoria en 300 MG / 2-25 Q4H, PRN l Codeine 06:11: Pain, # 42 Herm clara Phosphate 00 tab, 0 30 MG Oral Refill(s) Tablet [Tylenol with Codeine #3] losartan 50 2016-10 No 50 mg = 1 M emoria mg oral 2-25 tab, PO, l tablet 06:11: Daily, # [place] 00 30 tab, 0 Refill(s) Symbicort 2016-10 No 1 puff, Memor ia 80/4.5 2-25 INHALATION l inhalation 06:11: , BID, 0 Her aquino aerosol 00 Refill(s) with adapter Albuterol 2016-10 No 3 mL, NEB, Me moria 0.833 MG/ML 2-25 PRN, 0 l / 06:11: Refill(s) [place] Ipratropium 00 [place] 0.167 MG/ML Inhalant Solution ProAir HFA 2016-10 No 2 puff, Yadiel felipe 2-25 PO, Q4H, l 06:11: PRN [place] 00 Wheezing / cough / shortness of breath, # 1 ea, 0 Refill(s) Aspirin 2016-10 Yes 81 mg, PO, Yadiel felipe 2-25 Daily, 0 l 06:11: Refill(s) [place] 00 Alprazolam 2016-10 No 0.25 mg = Me moria 0.25 MG 2-25 1 tab, PO, l Oral Tablet 06:11: BID, 0 Herm clara [Xanax] 00 Refill(s) Aspirin 2016-10 Yes 81 mg, PO, Yadile felipe 2-25 Daily, 0 l 06:11: Refill(s) [place] 00 Alprazolam 2016-10 No 0.25 mg = Me moria 0.25 MG 2-25 1 tab, PO, l Oral Tablet 06:11: BID, 0 Herm clara [Xanax] 00 Refill(s) Paroxetine 2016-10 No 30 mg = 1 Me moria 30 MG Oral 2-25 tab, PO, l Tablet 06:11: Daily, # [place] [Paxil] 00 30 tab, 0 Refill(s) Acetaminoph [...] 2-25 PRN, 0 l / 06:11: Refill(s) [place] Ipratropium 00 [place] 0.167 MG/ML Inhalant Solution ProAir HFA 2016-10 [...] Notes: Memoria 2-25 porcine l 06:00: heparin [place] 00 methylPREDN 2016-10 No Notes: Yadiel felipe ISolone 2-25 (Same l SODium 06:00: as:Solu-ME Paula nn SUCCinate 00 DROL, A-Methapre d) heparin 2016-10 No Notes: Memoria 2-25 porcine l 06:00: heparin [place] 00 methylPREDN 2016-10 No Notes: Yadiel felipe [...] felipe n 2-25 (Same l 05:00: as:Levaqui [place] 00 n) Ceftriaxone 2016-10 No Notes: Yadiel felipe 2-25 (Same As: l 05:00: Rocephin). [place] 00 Use with 100 mL NS and infuse over 30 min MEDICATION WASTE Product Size: 1000 mg Product Wasted: ___ mg Levofloxaci 2016-10 No Notes: Yadiel felipe n 2-25 (Same l 05:00: as:Levaqui [place] 00 n) Ceftriaxone 2016-10 No Notes: Yadiel felipe 2-25 (Same As: l 05:00: Rocephin). [place] 00 Use with 100 mL NS and infuse over 30 min MEDICATION WASTE Product Size: 1000 mg Product Wasted: ___ mg Levofloxaci 2016-10 No Notes: Yadiel felipe n 2-25 (Same l 05:00: as:Levaqui [place] 00 n) azithromyci 2016-10 No Notes: Yadiel felipe n 250 mg 2-25 Take 1 l oral tablet 04:47: hour [place] 00 before or 2 hours after meals. (Same As: Zithromax) azithromyci 2016-10 No Notes: Yadiel felipe n 250 mg 2-25 Take 1 l oral tablet 04:47: hour [place] 00 before or 2 hours after meals. (Same As: Zithromax) azithromyci 2017-1 No Notes: Yadiel felipe n 250 mg 2-25 Take 1 l oral tablet 04:47: hour [place] 00 before or 2 hours after meals. (Same As: Zithromax) Diphenhydra 2016-10 No 25 mg, 1 Me moria mine 2-25 tab, l Hydrochlori 04:37: Route: PO, [place] de 25 MG 00 Drug form: Disintegrat TAB, ONCE, ing Tablet Dosing Weight 90.273, kg, Priority: STAT, Start date: 10/23/17 22:37:00 RUBY ON RA[employer] CONSULTANT, Stop date: 10/23/17 22:37:00 RUBY ON RA[employer]SULTANT Diphenhydra 2016-10 No 25 mg, 1 Me moria mine 2-25 tab, l Hydrochlori 04:37: Route: PO, [place] de 25 MG 00 Drug form: Disintegrat TAB, ONCE, ing Tablet Dosing Weight 90.273, kg, Priority: STAT, Start date: 10/23/17 22:37:00 RUBY ON RAILS CONSULTANT, Stop date: 10/23/17 22:37:00 RUBY ON RA[employer] CONSULTANT Diphenhydra 2016-10 No 25 mg, 1 Me moria mine 2-25 tab, l Hydrochlori 04:37: Route: PO, [place] de 25 MG 00 Drug form: Disintegrat TAB, ONCE, ing Tablet Dosing Weight 90.273, kg, Priority: STAT, Start date: 10/23/17 22:37:00 RUBY ON RAILS CONSULTANT, Stop date: 10/23/17 22:37:00 RUBY ON RA[employer]S CONSULTANT Albuterol 2016-10 No Notes: SEE Me moria [...] pneumococcal 2017-10-25 Completed [facility] 23-valent vaccine 14:46:00 [place] pneumococcal 2017-10-25 Completed [facility] 23-valent vaccine 14:46:00 [place] pneumococcal 2017-10-25 Completed [facility] 23-valent vaccine 14:46:00 [place] Vital Signs Vital Name Observation Time Observation Value Comments Source height 2022-02-10 15:15:00 68.00 [in_i] [facility] weight 2022-02-10 15:15:00 185 [lb_av] [facility] bmi 2022-02-10 15:15:00 28.13 kg/m2 [facility] blood pressure 2022-02-10 15:15:00 132 mm[Hg] [facility] blood pressure 2022-02-10 15:15:00 72 mm[Hg] [facility] - diastolic [facility] height 2022-01-11 09:45:00 68.00 [in_i] [facility] - [facility] weight 2022-01-11 09:45:00 185 [lb_av] [facility] - [facility] bmi 2022-01-11 09:45:00 28.13 kg/m2 [facility] - [facility] blood pressure 2022-01-11 09:45:00 132 mm[Hg] [facility] blood pressure 2022-01-11 09:45:00 72 mm[Hg] [facility] diastolic [facility] height 2021-12-03 13:15:00 68.00 [in_i] [facility] - [facility] weight 2021-12-03 13:15:00 184 [lb_av] [facility] - [facility] bmi 2021-12-03 13:15:00 27.97 kg/m2 [facility] - [facility] blood pressure 2021-12-03 13:15:00 132 mm[Hg] [facility] blood pressure 2021-12-03 13:15:00 74 mm[Hg] [facility] height 2021-11-25 10:30:00 68.00 [in_i] [facility] - [facility] weight 2021-11-25 10:30:00 185 [lb_av] [facility] - [facility] bmi 2021-11-25 10:30:00 28.13 kg/m2 [facility] - [facility] blood pressure 2021-11-25 10:30:00 130 mm[Hg] [facility] blood pressure 2021-11-25 10:30:00 72 mm[Hg] [facility] Systolic (mm Hg) 2022-01-04 15:39:00 Yadiel Mckenzie Diastolic (mm Hg) 2022-01-04 15:39:00 Mem orial [place] Heart Rate 2022-01-04 15:39:00 [facility] [place] Respitory Rate 2022-01-04 15:39:00 Memori al [place] Height 2022-01-04 15:39:00 170.18 cm [facility] [place] Weight 2022-01-04 15:39:00 [facility] [place] BMI Calculated 2022-01-04 15:39:00 Memori al [place] Systolic (mm Hg) 2021-12-18 16:08:00 Yadiel rial [place] Diastolic (mm Hg) 2021-12-18 16:08:00 Mem orial [place] Heart Rate 2021-12-18 16:08:00 [facility] [place] Respitory Rate 2021-12-18 16:08:00 Memori al [place] Height 2021-12-18 16:08:00 170.18 cm [facility] [place] Weight 2021-12-18 16:08:00 [facility] [place] BMI Calculated 2021-12-18 16:08:00 Memori al [place] Heart Rate 2018-03-30 21:23:00 [facility] [place] Temperature Oral (F) 2018-03-30 21:23:00 98.1 F [facility] [place] Systolic (mm Hg) 2018-03-30 21:23:00 Yadiel rial [place] Diastolic (mm Hg) 2018-03-30 21:23:00 Mem orial [place] Heart Rate 2018-03-30 16:21:00 [facility] [place] Temperature Oral (F) 2018-03-30 16:21:00 98.2 F [facility] [place] Systolic (mm Hg) 2018-03-30 16:21:00 Yadiel rial [place] Diastolic (mm Hg) 2018-03-30 16:21:00 Mem orial [place] Respitory Rate 2018-03-30 16:21:00 Memori al [place] Respitory Rate 2018-03-30 12:30:00 Memori al [place] Systolic (mm Hg) 2018-03-30 12:26:00 Yadiel rial [place] Diastolic (mm Hg) 2018-03-30 12:26:00 Mem orial [place] Temperature Oral (F) 2018-03-30 12:26:00 98.2 F [facility] [place] Heart Rate 2018-03-30 12:26:00 [facility] [place] Respitory Rate 2018-03-30 08:36:00 Memori al [place] Height 2018-03-29 03:26:00 172.72 cm [facility] [place] Weight 2018-03-29 03:26:00 [facility] [place] BMI Calculated 2018-03-29 03:26:00 Memori al [place] Heart Rate 2017-10-30 17:49:00 [facility] [place] Respitory Rate 2017-10-30 17:49:00 Memori al [place] Systolic (mm Hg) 2017-10-30 17:49:00 Yadiel rial [place] Diastolic (mm Hg) 2017-10-30 17:49:00 Mem orial [place] Temperature Oral (F) 2017-10-30 17:49:00 98.0 F [facility] [place] Respitory Rate 2017-10-30 15:24:00 Memori al [place] Heart Rate 2017-10-30 14:06:00 [facility] [place] Temperature Oral (F) 2017-10-30 14:06:00 98.5 F [facility] [place] Respitory Rate 2017-10-30 14:06:00 Memori al [place] Systolic (mm Hg) 2017-10-30 14:06:00 Yadiel rial [place] Diastolic (mm Hg) 2017-10-30 14:06:00 Mem orial [place] Systolic (mm Hg) 2017-10-30 09:30:00 Yadiel rial [place] Diastolic (mm Hg) 2017-10-30 09:30:00 Mem orial [place] Heart Rate 2017-10-30 09:30:00 [facility] [place] Temperature Oral (F) 2017-10-30 09:30:00 98.0 F [facility] [place] BMI Calculated 2017-10-24 04:03:00 Memori al [place] Weight 2017-10-24 04:03:00 [facility] [place] Height 2017-10-24 04:03:00 172.72 cm [facility] Procedures Procedure Date / Time Performed Performing Clinician Sourc e Oophorectomy [facility] Plan of Care Planned Activity Planned Date Details Comments Source Future Scheduled 2022-10-25 BREAST CANCER [facility] Test 10:54:08 SCREENING [code = BREAST CANCER SCREENING] Future Scheduled 2022-10-25 INFLUENZA VACCINE [facility] 10:54:08 [code = INFLUENZA VACCINE] Future Scheduled 2022-10-25 COVID-19 VACCINE (#1) [facility] Test 10:54:08 [code = COVID-19 VACCINE (#1)] Future Scheduled 2022-10-25 Hepatitis C screening [facility] Test 10:54:08 (procedure) [code = 030054744] Future Scheduled 2022-10-25 Screening for [facility] Test 10:54:08 malignant neoplasm of cervix (procedure) [code = 963252878] Future Scheduled 2022-10-25 BREAST CANCER [facility] Test 10:54:08 SCREENING [code = BREAST CANCER SCREENING] Future Scheduled 2022-10-25 COLONOSCOPY SCREENING [facility] Test 10:54:08 [code = COLONOSCOPY SCREENING] Future Scheduled 2022-10-25 [facility]IN[facility] Test 10:54:08 of 2) [code = SHINGLES VACCINES (1 of 2)] Future Scheduled 2022-10-25 COLONOSCOPY SCREENING [facility] Test 10:54:08 [code = COLONOSCOPY SCREENING] Future Scheduled 2022-10-25 SHINGLES VACCINES ([facility] Test 10:54:08 of 2) [code = SHINGLES VACCINES (1 of 2)] Future Scheduled 2022-10-25 INFLUENZA VACCINE [facility] Test 10:54:08 [code = INFLUENZA VACCINE] Future Scheduled 2022-10-25 COVID-19 VACCINE (#1) Me [facility] Test 10:54:08 [code = COVID-19 VACCINE (#1)] Future Scheduled 2022-10-25 Hepatitis C screening [facility] Test 10:54:08 (procedure) [code = 723226492] Future Scheduled 2022-10-25 Screening for [facility] Test 10:54:08 malignant neoplasm of cervix (procedure) [code = 915026310] Future Scheduled 2022-07-02 Hepatitis C screening [facility] Test 21:47:45 (procedure) [code = 769468666] Future Scheduled 2022-07-02 Screening for [facility] Test 21:47:45 malignant neoplasm of cervix (procedure) [code = 126901774] Future Scheduled 2022-07-02 BREAST CANCER [facility] Test 21:47:45 SCREENING [code = BREAST CANCER SCREENING] Future Scheduled 2022-07-02 COLONOSCOPY SCREENING [facility] Test 21:47:45 [code = COLONOSCOPY SCREENING] Future Scheduled 2022-07-02 SHINGLES VACCINES [facility] 21:47:45 of 2) [code = SHINGLES VACCINES (1 of 2)] Future Scheduled 2022-07-02 INFLUENZA VACCINE [facility] Test 21:47:45 [code = INFLUENZA VACCINE] Future Scheduled 2022-07-02 HEPATITIS B VACCINES [facility] Test 21:47:45 (1 of 3 - 3-dose series) [code = HEPATITIS B VACCINES (1 of 3 - 3-dose series)] Future Scheduled 2022-07-02 COVID-19 VACCINE (#1) [facility] Test 21:47:45 [code = COVID-19 VACCINE (#1)] Future Scheduled 2022-07-02 Hepatitis C screening [facility] Test 21:47:45 (procedure) [code = 502644056] Future Scheduled 2022-07-02 Screening for [facility] Test 21:47:45 malignant neoplasm of cervix (procedure) [code = 077989386] Future Scheduled 2022-07-02 BREAST CANCER [facility] Test 21:47:45 SCREENING [code = BREAST CANCER SCREENING] Future Scheduled 2022-07-02 COLONOSCOPY SCREENING [facility] Test 21:47:45 [code = COLONOSCOPY SCREENING] Future Scheduled 2022-07-02 SHINGLES VACCINES (1 [facility] Test 21:47:45 of 2) [code = SHINGLES VACCINES (1 of 2)] Future Scheduled 2022-07-02 INFLUENZA VACCINE [facility] Test 21:47:45 [code = INFLUENZA VACCINE] Future Scheduled 2022-07-02 HEPATITIS B VACCINES [facility] Test 21:47:45 (1 of 3 - 3-dose series) [code = HEPATITIS B VACCINES (1 of 3 - 3-dose series)] Future Scheduled 2022-07-02 COVID-19 VACCINE (#1) [facility] Test 21:47:45 [code = COVID-19 VACCINE (#1)] Encounters Start End Encounter Admission Attending Care Care Encounter Source Date/Time Date/Time Type Type Clinicians Facility Department ID 2022-09-16 Outpatient [facility] [id number] [place] 16:08:46 [id number] [facility] 2022-08-04 Outpatient [facility] [id number] [place] 09:32:09 [id number] [facility] 2022-02-09 Outpatient KULWANT Sullivan [facility] [id number] Common 09:47:00 [facility] 2022-01-21 Outpatient [place], STLMLC STLMLC [id number] Common 10:25:01 [facility] 2021-11-25 Outpatient Nate, STLMLC STLMLC [id number] Common 14:36:53 [facility] 2021-11-25 Outpatient Nate, STLMLC STLMLC [id number] Common 12:27:48 [facility] 2021-11-25 Outpatient Nate, STLMLC STLMLC [id number] Common 12:12:39 [facility] [address] [facility] 2021-11-25 Outpatient Nate, STLMLC STLMLC [id number] Common 11:29:59 [facility] [address] [facility] 2021-11-25 Outpatient [place], STLMLC STLMLC [id number] Common 11:29:54 [place] [address] [facility] 2021-11-25 Outpatient [place], STLMLC STLMLC [id number] Common 11:29:09 [place] [address] [facility] 2021-11-25 Outpatient [place], STLMLC STLMLC [id number] Common 11:16:08 [place] [id number] [facility] 2021-11-25 Outpatient Millender, STLMLC STLMLC [id number] Common 11:01:11 [place] [address] [facility] 2021-11-25 Outpatient Millender, STLMLC STLMLC [id number] Common 10:57:44 [place] [address] [facility] 2021-11-25 Outpatient Millender, STLMLC STLMLC [id number] Common 10:57:35 [place] [address] [facility] 2022-07-28 2022-07-28 Outpatient SISSON_C [facility] [id number] [place] 00:00:00 00:00:00 0928 [facility] 2022-07-10 2022-07-13 Inpatient AB [facility] MED 2253 [facility] 20:04:00 17:04:00 KAILA 2022-07-10 2022-07-10 Emergency E MYAH, [facility] [id number] [facility] 10:20:00 19:08:00 CLIVE 2022-02-19 2022-02-21 Outside nullFlavo MNA [id number] [facility]oria 14:47:36 04:59:59 Medical r Neurology 01 l Records Bryan Mckenzie 2022-02-19 2022-02-21 Outside nullFlavo MNA [id number] Memoria 14:47:36 04:59:59 Medical r Neurology 01 l Records Bryan Mckenzie 2022-02-19 2022-02-20 Outpatient MHMISCHER MHMISCHER [id number] 09:47:36 23:59:59 2022-02-10 2022-02-10 Postop STLMLC STLMLC [id number] Co mmon 00:00:00 00:00:00 visit [facility] 2022-01-25 2022-01-25 (TEL) STLMLC STLMLC [id number] Co mmon 00:00:00 00:00:00 [facility] 2022-01-21 2022-01-21 (TEL) STLMLC STLMLC [id number] Co mmon 00:00:00 00:00:00 [facility] 2022-01-18 2022-01-20 Outside nullFlavo MNA [id number] Memoria 15:32:25 04:59:59 Medical r Neurology 00 l Records Bryan Mckenzie 2022-01-18 2022-01-20 Outside nullFlavo MNA [id number] Memoria 15:32:25 04:59:59 Medical r Neurology 00 l Records Bryan Mckenzie 2022-01-18 2022-01-19 Outpatient MHMISCHER MHMISCHER [id number] 10:32:25 23:59:59 00 2022-01-11 2022-01-11 OFFICE STLMLC STLMLC [id number] Co mmon 00:00:00 00:00:00 VISIT EST Spir it PT LEVEL [address] [place] [address] 2022-01-04 2022-01-05 Outpatient nullFlavo MNA [id number] [facility] 15:30:00 05:59:59 r Neurology 01 l Bryan Mckenzie 2022-01-04 2022-01-05 Outpatient nullFlavo MNA [id number] [facility] 15:30:00 05:59:59 r Neurology 01 l Bryan Mckenzie 2022-01-05 2022-01-05 (TEL) STLMLC STLMLC [id number] Co mmon 00:00:00 00:00:00 [facility] 2022-01-04 2022-01-04 Outpatient NATHAN AngelSCHER MISCHER [id number] 09:30:00 23:59:59 Juno 01 Frandy 2022-01-04 2022-01-04 Outpatient MHIE MHIE [id number] Memoria 09:30:00 09:30:00 01 reyes Mckenzie 2021-12-30 2021-12-30 (TEL) STLMLC STLMLC [id number] Co mmon 00:00:00 00:00:00 [facility] 2021-12-18 2021-12-19 Outpatient nullFlavo MNA [id number] [facility] 16:00:00 05:59:59 r Neurology 00 l Bryan Mckenzie 2021-12-18 2021-12-19 Outpatient nullFlavo MNA [id number] Memoria 16:00:00 05:59:59 r Neurology 00 l Bryan Mckenzie 2021-12-18 2021-12-18 Outpatient DEBBIE Angel MISCHER [id number] 10:00:00 23:59:59 Juno 00 Frandy 2021-12-18 2021-12-18 Outpatient MHIE MHIE [id number] Memoria 10:00:00 10:00:00 00 reyes Mckenzie 2021-12-04 2021-12-04 (TEL) STLMLC STLMLC [id number] Co mmon 00:00:00 00:00:00 [facility] 2021-12-03 2021-12-03 OFFICE STLMLC STLMLC [id number] Co mmon 00:00:00 00:00:00 VISIT EST Spir it PT LEVEL 3 [facility] 2021-12-01 2021-12-01 (TEL) STLMLC STLMLC [id number] Co mmon 00:00:00 00:00:00 [facility] 2021-11-25 2021-11-25 (TEL) STLMLC STLMLC [id number] Co mmon 00:00:00 00:00:00 [facility] 2021-11-25 2021-11-25 (TEL) STLMLC STLMLC [id number] Co mmon 00:00:00 00:00:00 [facility] 2021-11-25 2021-11-25 OFFICE STLMLC STLMLC [id number] Co mmon 00:00:00 00:00:00 VISIT NEW Spir it PT LEVEL 4 [facility] 2021-09-08 2021-09-08 Telephone Bakari [facility] [id number] [facility] 00:00:00 [facility]:00[facility] [id number] it y of [place] [id number] Francisco Javier as YONG?BLEA [id number] [address] MEDICAL OFFICE BUILDING 2021-07-12 2021-07-12 Telephone LUCHO Lozoya [id number] [facility] 00:00:00 00:00:00 Laura COVARRUBIAS [id number] [facility] [id number] Francisco Javier as [id number] [address] 2021-07-11 2021-07-11 Urgent Lesa Villegas [facility] [id number] Univers 09:40:57 10:59:01 Care Unknown, [facility] [id number] ity of [place] [id number] Francisco Javier as Yong?Blea [id number] [facility] [address] [facility] 2021-07-11 2021-07-11 Outpatient R UNKNOWN, [facility] [id number] [facility] 10:00:00 10:00:00 ATTENDING itdickson [facility] 2021-02-18 2021-02-18 Outpatient [facility] [id number] [place] 00:00:00 00:00:[address] 2021-02-18 2021-02-18 Outpatient LESLYE [facility] [id number] [place] 00:00:00 00:00:00 MAY 029 Method i 2021-02-09 2021-02-09 Outpatient STLMLC STLMLC [id number] Common 00:00:00 00:00:00 [facility] 2020-12-03 2020-12-03 Outpatient STLMLC STLC [id number] Common 00:00:00 00:00:00 [facility] 2020-10-22 2020-10-22 Telemedici [facility] [id number] Univers 15:02:12 15:17:12 ne Visit [facility] [id number] i ty of Surgical [id number] Francisco Javier as Specialti [id number] Ks dical es [address] [facility] 2020-10-22 2020-10-22 [facility]patient [facility] [id number] Univers 15:00:00 15:00:00 [facility] 2020-10-21 2020-10-21 Telephone [facility] [id number] Univers 00:00:00 00:00:00 [facility] [id number] it y of Surgical [id number] Francisco Javier as Specialti [id number] Ks dical es [address] [facility] 2020-10-15 2020-10-15 [facility] [id number] Univers 14:48:59 23:59:00 Encounter [facility] [id number] ity of Surgical [id number] Francisco Javier as Specialti [phone] Me dical es 8[address] [facility] 2020-10-15 2020-10-15 [facility] [id number] Univers 14:48:59 23:59:00 [facility] 2020-10-15 2020-10-15 Digester Capper Juan, Aw[facility] [id number] Univers 15:29:39 15:44:39 Visit Adalberto Whitney [place] [id number] ity of [place] [id number] Gallito Villar [id number] Ks dical nal 353 [facility] 2020-10-15 2020-10-15 Office Devonte [facility] [id number] Univers 14:22:13 15:03:47 Visit Adalberto Khanna [facility] [id number] it y of Surgical [id number] Francisco Javier as Specialti [phone] Ks dical es [address] [facility] 2020-09-11 2020-09-11 Outpatient STLMLC STLMLC [id number] Common 00:00:00 00:00:00 [facility] 2020-09-09 2020-09-09 Outpatient STLMLC STLMLC [id number] Common 00:00:00 00:00:00 [facility] 2020-09-09 2020-09-09 Outpatient STLMLC STLMLC [id number] Common 00:00:00 00:00:00 [facility] 2020-09-02 2020-09-02 Outpatient STLMLC STLMLC [id number] Common 00:00:00 00:00:00 [facility] 2020-08-04 2020-08-04 Outpatient STLMLC STLMLC [id number] Common 00:00:00 00:00:00 [facility] 2020-07-22 2020-07-22 Outpatient STLMLC STLMLC [id number] Common 00:00:00 00:00:00 [facility] 2020-07-22 2020-07-22 Outpatient STLMLC STLMLC [id number] Common 00:00:00 00:00:00 [facility] 2020-07-15 2020-07-15 Outpatient STLMLC STLMLC [id number] Common 00:00:00 00:00:00 [facility] 2020-07-09 2020-07-09 Out[facility] [id number] Common 13:46:00 13:46:00 [facility] 2020-05-12 2020-05-12 Outpatient [facility] [id number] Common 17:56:00 17:56:[address] [facility] 2020-05-12 2020-05-12 Outpatient [facility] [id number] Common 16:29:00 16:29:[address] [facility] 2020-05-05 2020-05-05 Outpatient [facility] [id number] Common 14:20:00 14:20:[address] [facility] 2020-01-17 2020-01-17 Outpatient [facility] [id number] Common 10:06:00 10:06:[address] [facility] 2019-12-31 2019-12-31 Outpatient [facility] [id number] Common 08:14:00 08:14:[address] [facility] 2019-11-30 2019-11-30 Out[facility] [id number] Common 10:00:00 10:00:[address] [facility] 2019-11-16 2019-11-16 Out[facility] [id number] Common 08:15:00 08:15:[address] [facility] 2019-11-02 2019-11-02 Outpatient [facility] [id number] Common 11:03:00 11:03:[address] [facility] 2019-09-07 2019-09-07 Outpatient [facility] [id number] Common 15:40:00 15:40:[address] [facility] 2019-07-31 2019-07-31 Outpatient [facility] [id number] Common 15:00:00 15:00:[address] [facility] 2018-03-28 2018-03-30 Inpatient [facility] [id number] Memoria 19:51:00 20:00:00 r [place] 00 l [facility] 2018-03-28 2018-03-30 Inpatient [facility] [id number] Memoria 19:51:00 20:00:00 r [place] 00 l [facility] 2018-03-28 2018-03-30 Outpatient Disha MHSE MHSE [id number] 14:51:00 15:00:00 Jeffry K 00 2017-10-24 2017-10-30 Inpatient [facility] [id number] Memoria 03:14:00 19:52:00 r [place] 58 l [facility] 2017-10-24 2017-10-30 Inpatient [facility] [id number] Memoria 03:14:00 19:52:00 r [place] 58 [facility] 2017-10-23 2017-10-30 Outpatient Chris, MHSE [place] [id number] 21:14:00 13:52:00 Peter 58 Results Test Description Test Time Test Comments Results Result Comments Source [facility] 2018-03-30 17:04:00 Test Item Value Reference Range Interpretation Comme nts CO2 (test code = CO2) 21 [facility]lpguciUJTUHFVCTZIZ8405-58-75 17:04:00 Test Item Value Reference Range Interpretation Comments Calcium Lvl (test code = Calcium Lvl) 8.2 8.5-10.5 [facility] HospitalJdhtmgwVTIDVNDIMGLE3984-98-57 17:04:00 Test Item Value Reference Range Interpretation Comments eGFR (test code = eGFR) 90 [facility] HospitalYzbqcdcIYIISDWADPMF2725-43-09 17:04:00 Test Item Value Reference Range Interpretation Comments Glucose Lvl (test code = Glucose Lvl) 141 70-99 [facility] HospitalHnvcqotNJSZWNEGOZFH7464-58-52 17:04:00 Test Item Value Reference Range Interpretation Comments Sodium Lvl (test code = Sodium Lvl) 135 135-145 [facility] HospitalDhveqqmOBVSGZAEIHHR7177-71-07 17:04:00 Test Item Value Reference Range Interpretation Comments Chloride Lvl (test code = Chloride Lvl) 106 95-109 [facility] HospitalQyuwwlkFYSWJUXCJLYM5054-42-83 17:04:00 Test Item Value Reference Range Interpretation Comments Potassium Lvl (test code = Potassium 4.3 3.5-5.1 Lvl) [facility] HospitalTvktjmzJQQIARQKEWPM5375-76-54 17:04:00 Test Item Value Reference Range Interpretation Comments Creatinine Lvl (test code = Creatinine 0.74 0.50-1.40 Lvl) [facility] HospitalNdjtqsiIWNEINSDTHHE4114-76-91 17:04:00 Test Item Value Reference Range Interpretation Comments BUN (test code = BUN) 11 7-22 [facility] HospitalMjllxanKJZYMCBIQDEX8345-16-79 17:04:00 Test Item Value Reference Range Interpretation Comments AGAP (test code = AGAP) 12.3 10.0-20.0 [facility]BicxzuxEMEZLPXXTT8246-67-03 17:04:00 Test Item Value Reference Range Interpretation Comments Basophils # (test code 0.1 See_Comment [Aut omated message] The = Basophils #) system which generated this result tra nsmitted reference range : <=0.2. The reference r jodi was not used to int erpret this result as normal/abnormal . [facility]landsLvyisvtFJXTPOFWOL1418-31-15 17:04:00 Test Item Value Reference Range Interpretation Comments Monocytes # (test code 1.4 See_Comment [Aut omated message] The = Monocytes #) system which generated this result tra nsmitted reference range : <=0.8. The reference r jodi was not used to int erpret this result as normal/abnormal . [facility]landsEzjydugJQHNERRZZJ9833-27-56 17:04:00 Test Item Value Reference Range Interpretation Comments Lymphocytes # (test code = Lymphocytes 1.7 1.0-5.5 #) [facility]landsZrldslkJNJFKGSUPD2704-84-11 17:04:00 Test Item Value Reference Range Interpretation Comments Segs-Bands # (test code = Segs-Bands #) 19.4 1.5-8.1 [facility]landsRxengdpSICFOQAZVE8762-91-56 17:04:00 Test Item Value Reference Range Interpretation Comments Basophils (test code = 0.4 See_Comment [Aut omated message] The Basophils) system which ge nerated this result tra nsmitted reference range : <=1.0. The reference r jodi was not used to int erpret this result as normal/abnormal . [facility]landsJznleouYABWBYIJHM2701-32-31 17:04:00 Test Item Value Reference Range Interpretation Comments Monocytes (test code = Monocytes) 6.1 2.0-12.0 [facility]landsCvumjvxUTSDSASEZB9842-05-11 17:04:00 Test Item Value Reference Range Interpretation Comments Lymphocytes (test code = Lymphocytes) 7.7 20.0-40.0 [facility]landsEyglyipDMAGFETGBQ2968-13-01 17:04:00 Test Item Value Reference Range Interpretation Comments Segs (test code = Segs) 85.8 45.0-75.0 [facility]landsUnshyrjNNGAWZFBCT6961-82-23 17:04:00 Test Item Value Reference Range Interpretation Comments MPV (test code = MPV) 7.4 7.4-10.4 [facility]landsEqooexxVKADQLNERH6235-16-65 17:04:00 Test Item Value Reference Range Interpretation Comments Platelet (test code = Platelet) 387 133-450 [facility]landsYfmnbijFZWRYXABGT0165-60-37 17:04:00 Test Item Value Reference Range Interpretation Comments MCHC (test code = MCHC) 34.1 32.0-36.0 [facility]landsYlmajncXYGSZJPROZ4764-72-95 17:04:00 Test Item Value Reference Range Interpretation Comments RDW (test code = RDW) 14.1 11.5-14.5 [facility]landsZzucchrWRYGWDPALG4623-90-69 17:04:00 Test Item Value Reference Range Interpretation Comments MCH (test code = MCH) 32.8 pg 27.0-31.0 [facility]landsOsnrazyHYJSAHUBGJ1693-65-09 17:04:00 Test Item Value Reference Range Interpretation Comments MCV (test code = MCV) 96.3 80.0-98.0 [facility]landsCizekhrAFVEZLCWEQ5903-19-31 17:04:00 Test Item Value Reference Range Interpretation Comments Hct (test code = Hct) 37.7 36.0-48.0 [facility]landsCdiytylQMOHVYCNLK3650-75-90 17:04:00 Test Item Value Reference Range Interpretation Comments Hgb (test code = Hgb) 12.9 12.0-16.0 [facility]landsHgqacpjFOEYMDZPSI4128-02-58 17:04:00 Test Item Value Reference Range Interpretation Comments RBC (test code = RBC) 3.92 4.20-5.40 [facility]OchjiakOPCGGLETRR1700-55-19 17:04:00 Test Item Value Reference Range Interpretation Comments WBC (test code = WBC) 22.6 3.7-10.4 [facility] CenterVomtdyxCTGDYJJYKJWP9721-77-70 17:04:00 Test Item Value Reference Range Interpretation Comments CO2 (test code = CO2) 21 24-32 [facility] HospitalYvfbcmjIMKUQDMKEHJE5009-21-12 17:04:00 Test Item Value Reference Range Interpretation Comments Calcium Lvl (test code = Calcium Lvl) 8.2 8.5-10.5 [facility] HospitalBcepbvoUVBXHUHVPKWA3189-53-38 17:04:00 Test Item Value Reference Range Interpretation Comments eGFR (test code = eGFR) 90 [facility] HospitalFvwbbdeXQYZYLDUGWCV6489-52-78 17:04:00 Test Item Value Reference Range Interpretation Comments Glucose Lvl (test code = Glucose Lvl) 141 70-99 [facility] HospitalUuklzfnSCUPIFCDMFZM0325-11-30 17:04:00 Test Item Value Reference Range Interpretation Comments Sodium Lvl (test code = Sodium Lvl) 135 135-145 [facility] HospitalLdorktiLKGOVPPPWWKI8317-68-56 17:04:00 Test Item Value Reference Range Interpretation Comments Chloride Lvl (test code = Chloride Lvl) 106 95-109 [facility] HospitalIqflswvJINXMWZEUCMK4167-21-37 17:04:00 Test Item Value Reference Range Interpretation Comments Potassium Lvl (test code = Potassium 4.3 3.5-5.1 Lvl) [facility] HospitalGejchigELVNURVVTXRL9184-08-78 17:04:00 Test Item Value Reference Range Interpretation Comments Creatinine Lvl (test code = Creatinine 0.74 0.50-1.40 Lvl) [facility] HospitalHecgkasKEWVUJNTCQRA5135-21-13 17:04:00 Test Item Value Reference Range Interpretation Comments BUN (test code = BUN) 11 7-22 [facility] HospitalHwahwptPTDYDEPCCXRY8310-87-51 17:04:00 Test Item Value Reference Range Interpretation Comments AGAP (test code = AGAP) 12.3 10.0-20.0 [facility]landsJkijkgrNRUPIYZOEY1877-77-16 17:04:00 Test Item Value Reference Range Interpretation Comments Basophils # (test code 0.1 See_Comment [Aut omated message] The = Basophils #) system which generated this result tra nsmitted reference range : <=0.2. The reference r jodi was not used to int erpret this result as normal/abnormal . [facility]landsDertbjxBLICBOUADR2624-99-80 17:04:00 Test Item Value Reference Range Interpretation Comments Monocytes # (test code 1.4 See_Comment [Aut omated message] The = Monocytes #) system which generated this result tra nsmitted reference range : <=0.8. The reference r jodi was not used to int erpret this result as normal/abnormal . [facility]landsXgejnzmEGUFWZYETP5276-09-25 17:04:00 Test Item Value Reference Range Interpretation Comments Lymphocytes # (test code = Lymphocytes 1.7 1.0-5.5 #) [facility]landsTtwvcxoURSLZCSHQP0231-85-61 17:04:00 Test Item Value Reference Range Interpretation Comments Segs-Bands # (test code = Segs-Bands #) 19.4 1.5-8.1 [facility]landsWdymgxmUSJXZOCWSC5901-39-45 17:04:00 Test Item Value Reference Range Interpretation Comments Basophils (test code = 0.4 See_Comment [Aut omated message] The Basophils) system which ge nerated this result tra nsmitted reference range : <=1.0. The reference r jodi was not used to int erpret this result as normal/abnormal . [facility]landsOvgshssDXOBGGGPJF0730-73-85 17:04:00 Test Item Value Reference Range Interpretation Comments Monocytes (test code = Monocytes) 6.1 2.0-12.0 [facility]landsNihciafAFCRGNZJCI5040-44-21 17:04:00 Test Item Value Reference Range Interpretation Comments Lymphocytes (test code = Lymphocytes) 7.7 20.0-40.0 [facility]landsZvaupsuTKHHSNOXWW7365-78-89 17:04:00 Test Item Value Reference Range Interpretation Comments Segs (test code = Segs) 85.8 45.0-75.0 [facility]landsRwvvvsgLWSXDTCPSP8525-70-97 17:04:00 Test Item Value Reference Range Interpretation Comments MPV (test code = MPV) 7.4 7.4-10.4 [facility]landsDjiutvcSOKTGUHQOM5899-16-38 17:04:00 Test Item Value Reference Range Interpretation Comments Platelet (test code = Platelet) 387 133-450 [facility]landsZpylmbsVFLHWTMNWN7687-76-17 17:04:00 Test Item Value Reference Range Interpretation Comments MCHC (test code = MCHC) 34.1 32.0-36.0 [facility]landsKgexxvcARODYQCFVN1357-30-95 17:04:00 Test Item Value Reference Range Interpretation Comments RDW (test code = RDW) 14.1 11.5-14.5 [facility]landsOvlsegsIKDNOHYKIX1787-20-79 17:04:00 Test Item Value Reference Range Interpretation Comments MCH (test code = MCH) 32.8 pg 27.0-31.0 [facility]landsColdggbZIKKWBUGVJ0720-27-39 17:04:00 Test Item Value Reference Range Interpretation Comments MCV (test code = MCV) 96.3 80.0-98.0 [facility]landsQvaqhuxSHIRNHBMYP7776-02-29 17:04:00 Test Item Value Reference Range Interpretation Comments Hct (test code = Hct) 37.7 36.0-48.0 [facility]landsXwqywunBKUDEMTZGC2324-58-81 17:04:00 Test Item Value Reference Range Interpretation Comments Hgb (test code = Hgb) 12.9 12.0-16.0 [facility]landsDczrpjpIFJHIZTZZF4515-96-33 17:04:00 Test Item Value Reference Range Interpretation Comments RBC (test code = RBC) 3.92 4.20-5.40 [facility]landsSkptovsLKTULUJHZU7202-05-93 17:04:00 Test Item Value Reference Range Interpretation Comments WBC (test code = WBC) 22.6 3.7-10.4 [facility] HospitalSnxasshUHJEKXZCJYTQ0712-28-84 17:04:00 Test Item Value Reference Range Interpretation Comments CO2 (test code = CO2) 21 24-32 [facility] HospitalDafgevgPPMXUOCYUPWK2815-95-83 17:04:00 Test Item Value Reference Range Interpretation Comments Calcium Lvl (test code = Calcium Lvl) 8.2 8.5-10.5 [facility] HospitalXpfjimjNNFAUEUCPWSA6245-88-16 17:04:00 Test Item Value Reference Range Interpretation Comments eGFR (test code = eGFR) 90 [facility] HospitalZgsfxvuRIIILSWATEGO8857-56-79 17:04:00 Test Item Value Reference Range Interpretation Comments Glucose Lvl (test code = Glucose Lvl) 141 70-99 [facility] HospitalCcufdgdGBHZVEIKZOIY6549-18-73 17:04:00 Test Item Value Reference Range Interpretation Comments Sodium Lvl (test code = Sodium Lvl) 135 135-145 [facility] HospitalSilpuqeSNEUQFQWNGEN5057-22-41 17:04:00 Test Item Value Reference Range Interpretation Comments Chloride Lvl (test code = Chloride Lvl) 106 95-109 [facility] HospitalJvqqebyBWWHWBUHVIQT5470-08-07 17:04:00 Test Item Value Reference Range Interpretation Comments Potassium Lvl (test code = Potassium 4.3 3.5-5.1 Lvl) [facility] HospitalJucyptsMXQQKGFORHDQ4411-62-57 17:04:00 Test Item Value Reference Range Interpretation Comments Creatinine Lvl (test code = Creatinine 0.74 0.50-1.40 Lvl) [facility] HospitalGnshbblUBUEBZQATGSO5794-87-15 17:04:00 Test Item Value Reference Range Interpretation Comments BUN (test code = BUN) 11 7-22 [facility] HospitalSosjkflOBQLYPVVKYXY1903-01-63 17:04:00 Test Item Value Reference Range Interpretation Comments AGAP (test code = AGAP) 12.3 10.0-20.0 [facility]landsUjnypxrMWQBCZECDP6232-10-46 17:04:00 Test Item Value Reference Range Interpretation Comments Basophils # (test code 0.1 See_Comment [Aut omated message] The = Basophils #) system which generated this result tra nsmitted reference range : <=0.2. The reference r jodi was not used to int erpret this result as normal/abnormal . [facility]landsOlkezxyEZDLAJXTYT3925-78-63 17:04:00 Test Item Value Reference Range Interpretation Comments Monocytes # (test code 1.4 See_Comment [Aut omated message] The = Monocytes #) system which generated this result tra nsmitted reference range : <=0.8. The reference r jodi was not used to int erpret this result as normal/abnormal . [facility]landsMlcenqcUYYAQWCUEQ5570-43-96 17:04:00 Test Item Value Reference Range Interpretation Comments Lymphocytes # (test code = Lymphocytes 1.7 1.0-5.5 #) [facility]landsLwhvyvpXZLOFWFUGD3250-69-58 17:04:00 Test Item Value Reference Range Interpretation Comments Segs-Bands # (test code = Segs-Bands #) 19.4 1.5-8.1 [facility]landsPdnaxwmWYTTBGXTJF9589-59-06 17:04:00 Test Item Value Reference Range Interpretation Comments Basophils (test code = 0.4 See_Comment [Aut omated message] The Basophils) system which ge nerated this result tra nsmitted reference range : <=1.0. The reference r jodi was not used to int erpret this result as normal/abnormal . [facility]LsxbjlbNSGSFZXUCR4305-06-14 17:04:00 Test Item Value Reference Range Interpretation Comments Monocytes (test code = Monocytes) 6.1 2.0-12.0 [facility]YvpbaucPVCIVMIVUN7895-43-62 17:04:00 Test Item Value Reference Range Interpretation Comments Lymphocytes (test code = Lymphocytes) 7.7 20.0-40.0 [facility]landsGqwjrhtZERZCNNANC1570-68-79 17:04:00 Test Item Value Reference Range Interpretation Comments Segs (test code = Segs) 85.8 45.0-75.0 [facility]landsKeccfqmYQWSWIJNLY2764-02-56 17:04:00 Test Item Value Reference Range Interpretation Comments MPV (test code = MPV) 7.4 7.4-10.4 [facility]landsNvcpptfIDPRWNTBAW4413-29-49 17:04:00 Test Item Value Reference Range Interpretation Comments Platelet (test code = Platelet) 387 133-450 [facility]landsAanayxmMBQVHFKYYQ0065-11-43 17:04:00 Test Item Value Reference Range Interpretation Comments MCHC (test code = MCHC) 34.1 32.0-36.0 [facility]landsDgkcpwtCBTAJPTSDB0085-67-51 17:04:00 Test Item Value Reference Range Interpretation Comments RDW (test code = RDW) 14.1 11.5-14.5 [facility]landsFtfkknzGZXVZMBDJS1371-79-18 17:04:00 Test Item Value Reference Range Interpretation Comments MCH (test code = MCH) 32.8 pg 27.0-31.0 [facility]landsSvhxffxZXDNMKSJAG9514-29-91 17:04:00 Test Item Value Reference Range Interpretation Comments MCV (test code = MCV) 96.3 80.0-98.0 [facility]landsPbhjcryBWUBLYFEBQ4101-69-50 17:04:00 Test Item Value Reference Range Interpretation Comments Hct (test code = Hct) 37.7 36.0-48.0 [facility]landsRkiadigPIJJOWEUWP2505-35-52 17:04:00 Test Item Value Reference Range Interpretation Comments Hgb (test code = Hgb) 12.9 12.0-16.0 [facility]landsQwfmxynIFLGMZTUTU6601-15-69 17:04:00 Test Item Value Reference Range Interpretation Comments RBC (test code = RBC) 3.92 4.20-5.40 [facility]landsQreslwgUDPMRAAVUK8898-44-48 17:04:00 Test Item Value Reference Range Interpretation Comments WBC (test code = WBC) 22.6 3.7-10.4 [facility] [id number] 15:41:24 Test Item Value Reference Range Interpretation Comments Hgb A1C (test code = Hgb A1C) 5.5 [facility] CenterannMamaherbIAL [id number] 15:41:24 Test Item Value Reference Range Interpretation Comments Hgb A1C (test code = Hgb A1C) 5.5 [facility] [id number] 15:41:24 Test Item Value Reference Range Interpretation Comments Hgb A1C (test code = Hgb A1C) 5.5 [facility] CenterTarisaAC [id number] 11:37:00 Test Item Value Reference Range Interpretation Comments Total CK (test code = Total CK) 99 12-191 [facility] LakewayFlavorvanil [id number] 11:37:00 Test Item Value Reference Range Interpretation Comments Troponin-I (test code no gt See_Comment [Auto mated message] The = Troponin-I) system which g enerated this result transmit narayan reference range : <=0.40. The reference r jodi was not used to interpr et this result as shreya l/abnormal. [facility] CenterPeople Operating Technology2018-05-30 11:37:00 Test Item Value Reference Range Interpretation Comments CK MB Index (test no gt See_Comment [Automate d message] The code = CK MB Index) [facility] generated this result transmit narayan reference range : <=2.5. The reference range was not used to interpr et this result as shreya l/abnormal. [facility] CenterPeople Operating Technology2018-05-30 11:37:00 Test Item Value Reference Range Interpretation Comments CK MB (test code = CK MB) no gt 0.5-3.6 [facility] CenterInterrad Medical [id number] 11:37:00 Test Item Value Reference Range Interpretation Comments Total CK (test code = Total CK) 99 12-191 [facility] LakewayFlavorvanil [id number] 11:37:00 Test Item Value Reference Range Interpretation Comments Troponin-I (test code no gt See_Comment [Auto mated message] The = Troponin-I) system which g enerated this result transmit narayan reference range : <=0.40. The reference r jodi was not used to interpr et this result as shreya l/abnormal. [facility] [employer] [id number] 11:37:00 Test Item Value Reference Range Interpretation Comments CK MB Index (test no gt See_Comment [Automate d message] The code = CK MB Index) system w [employer] generated this result transmit narayan reference range : <=2.5. The reference range was not used to interpr et this result as shreya l/abnormal. [employer]2018-05-30 11:37:00 Test Item Value Reference Range Interpretation Comments CK MB (test code = CK MB) no gt 0.5-3.6 [facility] [employer]2018-05-30 11:37:00 Test Item Value Reference Range Interpretation Comments Total CK (test code = Total CK) 99 12-191 [facility] [employer]2018-05-30 11:37:00 Test Item Value Reference Range Interpretation Comments Troponin-I (test code no gt See_Comment [Auto mated message] The = Troponin-I) system which g enerated this result transmit narayan reference range : <=0.40. The reference r jodi was not used to interpr et this result as shreya l/abnormal. [employer]2018-05-30 11:37:00 Test Item Value Reference Range Interpretation Comments CK MB Index (test no gt See_Comment [Automate d message] The code = CK MB Index) system w [employer] generated this result transmit narayan reference range : <=2.5. The reference range was not used to interpr et this result as shreya l/abnormal. [employer]2018-05-30 11:37:00 Test Item Value Reference Range Interpretation Comments CK MB (test code = CK MB) no gt 0.5-3.6 [facility] [employer] [facility]2018-05-30 07:00:00 Test Item Value Reference Range Interpretation Comments CK MB Index (test 1.0 1 See_Comment [Automate d message] The code = CK MB Index) system w [employer] generated this result transmit narayan reference range : <=2.5. The reference range was not used to interpr et this result as shreya l/abnormal. [employer]2018-05-30 07:00:00 Test Item Value Reference Range Interpretation Comments CK MB (test code = CK MB) 1.2 0.5-3.6 [employer]2018-05-30 07:00:00 Test Item Value Reference Range Interpretation Comments Troponin-I (test code no gt See_Comment [Auto mated message] The = Troponin-I) system which g enerated this result transmit narayan reference range : <=0.40. The reference r jodi was not used to interpr et this result as shreya l/abnormal. [facility] LakewayCARDIAC [id number] 07:00:00 Test Item Value Reference Range Interpretation Comments Total CK (test code = Total CK) 117 12-191 [facility] CenterValue [employer] [id number] 07:00:00 Test Item Value Reference Range Interpretation Comments eGFR (test code = eGFR) 94 [facility]2018-05-30 07:00:00 Test Item Value Reference Range Interpretation Comments Bili Total (test code = Bili Total) 0.4 0.2-1.3 [facility]2018-05-30 07:00:00 Test Item Value Reference Range Interpretation Comments Alk Phos (test code = Alk Phos) 135 39-136 [facility] LakewayBrandkids [id number] 07:00:00 Test Item Value Reference Range Interpretation Comments Potassium Lvl (test code = Potassium 3.7 3.5-5.1 Lvl) [facility] CenterValue [facility] [employer] [id number] 07:00:00 Test Item Value Reference Range Interpretation Comments Chloride Lvl (test code = Chloride Lvl) 100 95-109 [facility] LakewayBrandkids [id number] 07:00:00 Test Item Value Reference Range Interpretation Comments Sodium Lvl (test code = Sodium Lvl) 130 135-145 [facility]2018-05-30 07:00:00 Test Item Value Reference Range Interpretation Comments Calcium Lvl (test code = Calcium Lvl) 8.6 8.5-10.5 [facility] CenterValue [facility] [employer] [id number] 07:00:00 Test Item Value Reference Range Interpretation Comments B/C Ratio (test code = B/C Ratio) 6 1 6-25 [facility]2018-05-30 07:00:00 Test Item Value Reference Range Interpretation Comments Total Protein (test code = Total 7.4 6.4-8.4 Protein) [facility]2018-05-30 07:00:00 Test Item Value Reference Range Interpretation Comments BUN (test code = BUN) 4 7-22 [facility]2018-05-30 07:00:00 Test Item Value Reference Range Interpretation Comments Creatinine Lvl (test code = Creatinine 0.71 0.50-1.40 Lvl) [facility]2018-05-30 07:00:00 Test Item Value Reference Range Interpretation Comments ALT (test code = ALT) 15 See_Comment [Auto mated message] The system which ge nerated this result transmit narayan reference range : <=65. The reference range was not used to interpr et this result as shreya l/abnormal. [facility]2018-05-30 07:00:00 Test Item Value Reference Range Interpretation Comments AST (test code = AST) 17 See_Comment [Auto mated message] The system which ge nerated this result transmit narayan reference range : <=37. The reference range was not used to interpr et this result as shreya l/abnormal. [facility]2018-05-30 07:00:00 Test Item Value Reference Range Interpretation Comments AGAP (test code = AGAP) 11.7 10.0-20.0 [facility]2018-05-30 07:00:00 Test Item Value Reference Range Interpretation Comments CO2 (test code = CO2) 22 24-32 [facility]2018-05-30 07:00:00 Test Item Value Reference Range Interpretation Comments A/G Ratio (test code = A/G Ratio) 0.8 1 0.7-1.6 [facility]2018-05-30 07:00:00 Test Item Value Reference Range Interpretation Comments Albumin Lvl (test code = Albumin Lvl) 3.2 3.5-5.0 [facility]2018-05-30 07:00:00 Test Item Value Reference Range Interpretation Comments Globulin (test code = Globulin) 4.2 2.7-4.2 [facility]2018-05-30 07:00:00 Test Item Value Reference Range Interpretation Comments Glucose Lvl (test code = Glucose Lvl) 215 70-99 [facility]2018-05-30 07:00:00 Test Item Value Reference Range Interpretation Comments Osmolality (test code = Osmolality) 280 280-300 [facility] L[id number] 07:00:00 Test Item Value Reference Range Interpretation Comments MPV (test code = MPV) 7.3 7.4-10.4 [facility]landsGobbxqmAJSJBUAWVW8351-88-14 07:00:00 Test Item Value Reference Range Interpretation Comments MCHC (test code = MCHC) 34.5 32.0-36.0 [facility]landsGbzeryuRBSRYQWWOB4803-03-50 07:00:00 Test Item Value Reference Range Interpretation Comments RDW (test code = RDW) 13.8 11.5-14.5 [facility]landsDkzmgsuISWPUOKXQV1453-97-34 07:00:00 Test Item Value Reference Range Interpretation Comments MCH (test code = MCH) 32.4 pg 27.0-31.0 [facility]landsHzwcyqvEMQGMJDVJA9569-05-58 07:00:00 Test Item Value Reference Range Interpretation Comments Platelet (test code = Platelet) 389 133-450 [facility]landsDipsowqEZFYTWBIRW4392-25-13 07:00:00 Test Item Value Reference Range Interpretation Comments WBC (test code = WBC) 16.1 3.7-10.4 [facility]landsVerwzcwQPSTFWOZIW3270-78-37 07:00:00 Test Item Value Reference Range Interpretation Comments RBC (test code = RBC) 4.35 4.20-5.40 [facility]landsTccwxygAROOAFATCW2189-66-14 07:00:00 Test Item Value Reference Range Interpretation Comments Hgb (test code = Hgb) 14.1 12.0-16.0 [facility]landsMticcmbLQKHANVXKN1228-01-99 07:00:00 Test Item Value Reference Range Interpretation Comments Hct (test code = Hct) 40.9 36.0-48.0 [facility]landsJwejarqQXVJYWCUYO1381-79-20 07:00:00 Test Item Value Reference Range Interpretation Comments MCV (test code = MCV) 94.0 80.0-98.0 [facility]landsHcaphxoIKROEPHZLO7493-84-59 07:00:00 Test Item Value Reference Range Interpretation Comments Lymphocytes # (test code = Lymphocytes 0.6 1.0-5.5 #) [facility]landsDphcjopFWWKBOROIB7553-46-92 07:00:00 Test Item Value Reference Range Interpretation Comments Segs-Bands # (test code = Segs-Bands #) 15.3 1.5-8.1 [facility]landsPgvlmurQDQAUOZDHR9601-27-58 07:00:00 Test Item Value Reference Range Interpretation Comments Basophils (test code = 0.1 See_Comment [Aut omated message] The Basophils) system which ge nerated this result tra nsmitted reference range : <=1.0. The reference r jodi was not used to int erpret this result as normal/abnormal . [facility] CenterJibinguWJAGDPEJDV0407-18-01 07:00:00 Test Item Value Reference Range Interpretation Comments Lymphocytes (test code = Lymphocytes) 3.5 20.0-40.0 [facility] CenterZcxbhewGZMCQWSJPJ8000-80-28 07:00:00 Test Item Value Reference Range Interpretation Comments Monocytes (test code = Monocytes) 1.2 2.0-12.0 [facility] CenterZjwwialXMALMHAETM9935-17-86 07:00:00 Test Item Value Reference Range Interpretation Comments Monocytes # (test code 0.2 See_Comment [Aut omated message] The = Monocytes #) system which generated this result tra nsmitted reference range : <=0.8. The reference r jodi was not used to int erpret this result as normal/abnormal . [facility]XiyexvfSMELDIQMHR4226-28-11 07:00:00 Test Item Value Reference Range Interpretation Comments RBC Morph (test code = Normal (03/29/18 2:00 RBC Morph) AM) [facility] LakewayRujhzkeLPSJOWFYAS3951-39-59 07:00:00 Test Item Value Reference Range Interpretation Comments Segs (test code = Segs) 95.2 45.0-75.0 [facility] CenterXpoapcjEDXHDHKVLN2821-48-35 07:00:00 Test Item Value Reference Range Interpretation Comments Plt Morph (test code = Normal (03/29/18 2:00 Plt Morph) AM) [facility] LakewayUpptalkVAPXWUH3607-71-83 07:00:00 Test Item Value Reference Range Interpretation Comments CK MB Index (test 1.0 1 See_Comment [Automate d message] The code = CK MB Index) system w [facility] generated this result transmit narayan reference range : <=2.5. The reference range was not used to interpr et this result as shreya l/abnormal. [facility] CenterInterrad Medical [id number] 07:00:00 Test Item Value Reference Range Interpretation Comments CK MB (test code = CK MB) 1.2 0.5-3.6 [facility] CenterPeople [employer]2018-05-30 07:00:00 Test Item Value Reference Range Interpretation Comments Troponin-I (test code no gt See_Comment [Auto mated message] The = Troponin-I) system which g enerated this result transmit narayan reference range : <=0.40. The reference r jodi was not used to interpr et this result as shreya l/abnormal. [facility] LakewayCARDIAC [id number] 07:00:00 Test Item Value Reference Range Interpretation Comments Total CK (test code = Total CK) 117 12-191 [facility]2018-05-30 07:00:00 Test Item Value Reference Range Interpretation Comments eGFR (test code = eGFR) 94 [facility]2018-05-30 07:00:00 Test Item Value Reference Range Interpretation Comments Bili Total (test code = Bili Total) 0.4 0.2-1.3 [facility]2018-05-30 07:00:00 Test Item Value Reference Range Interpretation Comments Alk Phos (test code = Alk Phos) 135 39-136 [facility]2018-05-30 07:00:00 Test Item Value Reference Range Interpretation Comments Potassium Lvl (test code = Potassium 3.7 3.5-5.1 Lvl) [facility]2018-05-30 07:00:00 Test Item Value Reference Range Interpretation Comments Chloride Lvl (test code = Chloride Lvl) 100 95-109 [facility]2018-05-30 07:00:00 Test Item Value Reference Range Interpretation Comments Sodium Lvl (test code = Sodium Lvl) 130 135-145 [facility]2018-05-30 07:00:00 Test Item Value Reference Range Interpretation Comments Calcium Lvl (test code = Calcium Lvl) 8.6 8.5-10.5 [facility]2018-05-30 07:00:00 Test Item Value Reference Range Interpretation Comments B/C Ratio (test code = B/C Ratio) 6 1 6-25 [facility]2018-05-30 07:00:00 Test Item Value Reference Range Interpretation Comments Total Protein (test code = Total 7.4 6.4-8.4 Protein) [facility]2018-05-30 07:00:00 Test Item Value Reference Range Interpretation Comments BUN (test code = BUN) 4 7-22 [facility]2018-05-30 07:00:00 Test Item Value Reference Range Interpretation Comments Creatinine Lvl (test code = Creatinine 0.71 0.50-1.40 Lvl) [facility]2018-05-30 07:00:00 Test Item Value Reference Range Interpretation Comments ALT (test code = ALT) 15 See_Comment [Auto mated message] The system which ge nerated this result transmit narayan reference range : <=65. The reference range was not used to interpr et this result as shreya l/abnormal. [facility]2018-05-30 07:00:00 Test Item Value Reference Range Interpretation Comments AST (test code = AST) 17 See_Comment [Auto mated message] The system which ge nerated this result transmit narayan reference range : <=37. The reference range was not used to interpr et this result as shreya l/abnormal. [id number] 07:00:00 Test Item Value Reference Range Interpretation Comments AGAP (test code = AGAP) 11.7 10.0-20.0 [facility]2018-05-30 07:00:00 Test Item Value Reference Range Interpretation Comments CO2 (test code = CO2) 22 24-32 [facility]2018-05-30 07:00:00 Test Item Value Reference Range Interpretation Comments A/G Ratio (test code = A/G Ratio) 0.8 1 0.7-1.6 [place] [id number] 07:00:00 Test Item Value Reference Range Interpretation Comments Albumin Lvl (test code = Albumin Lvl) 3.2 3.5-5.0 [facility]2018-05-30 07:00:00 Test Item Value Reference Range Interpretation Comments Globulin (test code = Globulin) 4.2 2.7-4.2 [place] 423368-05-30 07:00:00 Test Item Value Reference Range Interpretation Comments Glucose Lvl (test code = Glucose Lvl) 215 70-99 [facility]2018-05-30 07:00:00 Test Item Value Reference Range Interpretation Comments Osmolality (test code = Osmolality) 280 280-300 [facility] LakewayXdqhlvoKGAVOFUNZW3072-11-03 07:00:00 Test Item Value Reference Range Interpretation Comments MPV (test code = MPV) 7.3 7.4-10.4 [facility]landsLezaoncIFFJMTGXNJ3353-07-92 07:00:00 Test Item Value Reference Range Interpretation Comments MCHC (test code = MCHC) 34.5 32.0-36.0 [facility]landsXklhvtvKXAHCCBDRG2478-09-43 07:00:00 Test Item Value Reference Range Interpretation Comments RDW (test code = RDW) 13.8 11.5-14.5 [facility]landsCgfhezlWMTBVTYKKQ7614-70-69 07:00:00 Test Item Value Reference Range Interpretation Comments MCH (test code = MCH) 32.4 pg 27.0-31.0 [facility]landsJmaysgbSMMESVSPSC2283-04-94 07:00:00 Test Item Value Reference Range Interpretation Comments Platelet (test code = Platelet) 389 133-450 [facility]landsEjnetvkDTNAWQELQZ2907-78-47 07:00:00 Test Item Value Reference Range Interpretation Comments WBC (test code = WBC) 16.1 3.7-10.4 [facility]landsEokskmkIQAGZRDFKP4399-80-70 07:00:00 Test Item Value Reference Range Interpretation Comments RBC (test code = RBC) 4.35 4.20-5.40 [facility]landsStszoviQBTJCPWNGG8605-42-43 07:00:00 Test Item Value Reference Range Interpretation Comments Hgb (test code = Hgb) 14.1 12.0-16.0 [facility]landsWxdtpkvAEVDNTBHDZ0846-75-61 07:00:00 Test Item Value Reference Range Interpretation Comments Hct (test code = Hct) 40.9 36.0-48.0 [facility]landsSanbcnfNKVHQBEXLS2233-34-07 07:00:00 Test Item Value Reference Range Interpretation Comments MCV (test code = MCV) 94.0 80.0-98.0 [facility]landsQipzwtgBYXSLFBHHR7775-11-00 07:00:00 Test Item Value Reference Range Interpretation Comments Lymphocytes # (test code = Lymphocytes 0.6 1.0-5.5 #) [facility]landsUdjeznlZJTZCZXBUF9997-37-20 07:00:00 Test Item Value Reference Range Interpretation Comments Segs-Bands # (test code = Segs-Bands #) 15.3 1.5-8.1 [facility]landsUjfyyjxTUHFGTDKCQ4794-72-94 07:00:00 Test Item Value Reference Range Interpretation Comments Basophils (test code = 0.1 See_Comment [Aut omated message] The Basophils) system which ge nerated this result tra nsmitted reference range : <=1.0. The reference r jodi was not used to int erpret this result as normal/abnormal . [facility] CenterCmlskpiNJHGJKJDNM9966-14-87 07:00:00 Test Item Value Reference Range Interpretation Comments Lymphocytes (test code = Lymphocytes) 3.5 20.0-40.0 [facility] HospitalPwcyowwSISINNSSOK0169-51-41 07:00:00 Test Item Value Reference Range Interpretation Comments Monocytes (test code = Monocytes) 1.2 2.0-12.0 [facility] CenterEhbiaccVGGSCFPPVZ3036-34-79 07:00:00 Test Item Value Reference Range Interpretation Comments Monocytes # (test code 0.2 See_Comment [Aut omated message] The = Monocytes #) system which generated this result tra nsmitted reference range : <=0.8. The reference r jodi was not used to int erpret this result as normal/abnormal . [facility] HospitalVwpvxdeVNFXAGWSMV5422-83-53 07:00:00 Test Item Value Reference Range Interpretation Comments RBC Morph (test code = Normal (03/29/18 2:00 RBC Morph) AM) [facility] HospitalQzauzobOQMTHZJJQD8997-11-75 07:00:00 Test Item Value Reference Range Interpretation Comments Segs (test code = Segs) 95.2 45.0-75.0 [facility] HospitalMveqdhzIDABYCWSYR8837-26-82 07:00:00 Test Item Value Reference Range Interpretation Comments Plt Morph (test code = Normal (03/29/18 2:00 Plt Morph) AM) [facility] LakewayUpptalkWCEDSMA7107-38-05 07:00:00 Test Item Value Reference Range Interpretation Comments CK MB Index (test 1.0 1 See_Comment [Automate d message] The code = CK MB Index) system [facility] generated this result transmit narayan reference range : <=2.5. The reference range was not used to interpr et this result as shreya l/abnormal. [facility] CenterPeople [employer]2018-05-30 07:00:00 Test Item Value Reference Range Interpretation Comments CK MB (test code = CK MB) 1.2 0.5-3.6 [facility] LakewayBHIVE Social Media LabsMemorandomBRSPTNI7765-70-73 07:00:00 Test Item Value Reference Range Interpretation Comments Troponin-I (test code no gt See_Comment [Auto mated message] The = Troponin-I) system which g enerated this result transmit narayan reference range : <=0.40. The reference r jodi was not used to interpr et this result as shreya l/abnormal. [facility] [facility] [id number] 07:00:00 Test Item Value Reference Range Interpretation Comments Total CK (test code = Total CK) 117 12-191 [facility] [employer] [id number] 07:00:00 Test Item Value Reference Range Interpretation Comments eGFR (test code = eGFR) 94 [facility] [id number] 07:00:00 Test Item Value Reference Range Interpretation Comments Bili Total (test code = Bili Total) 0.4 0.2-1.3 [facility]2018-05-30 07:00:00 Test Item Value Reference Range Interpretation Comments Alk Phos (test code = Alk Phos) 135 39-136 [facility] [id number] 07:00:00 Test Item Value Reference Range Interpretation Comments Potassium Lvl (test code = Potassium 3.7 3.5-5.1 Lvl) [facility] [id number] 07:00:00 Test Item Value Reference Range Interpretation Comments Chloride Lvl (test code = Chloride Lvl) 100 95-109 [facility] [id number] 07:00:00 Test Item Value Reference Range Interpretation Comments Sodium Lvl (test code = Sodium Lvl) 130 135-145 [facility] [id number] 07:00:00 Test Item Value Reference Range Interpretation Comments Calcium Lvl (test code = Calcium Lvl) 8.6 8.5-10.5 [facility] [id number] 07:00:00 Test Item Value Reference Range Interpretation Comments B/C Ratio (test code = B/C Ratio) 6 1 6-25 [facility] [id number] 07:00:00 Test Item Value Reference Range Interpretation Comments Total Protein (test code = Total 7.4 6.4-8.4 Protein) [facility]2018-05-30 07:00:00 Test Item Value Reference Range Interpretation Comments BUN (test code = BUN) 4 7-22 [facility] [id number] 07:00:00 Test Item Value Reference Range Interpretation Comments Creatinine Lvl (test code = Creatinine 0.71 0.50-1.40 Lvl) [facility]2018-05-30 07:00:00 Test Item Value Reference Range Interpretation Comments ALT (test code = ALT) 15 See_Comment [Auto mated message] The system which ge nerated this result transmit narayan reference range : <=65. The reference range was not used to interpr et this result as shreya l/abnormal. [facility]2018-05-30 07:00:00 Test Item Value Reference Range Interpretation Comments AST (test code = AST) 17 See_Comment [Auto mated message] The system which ge nerated this result transmit narayan reference range : <=37. The reference range was not used to interpr et this result as shreya l/abnormal. [facility]2018-05-30 07:00:00 Test Item Value Reference Range Interpretation Comments AGAP (test code = AGAP) 11.7 10.0-20.0 [facility]2018-05-30 07:00:00 Test Item Value Reference Range Interpretation Comments CO2 (test code = CO2) 22 24-32 [place] [id number] 07:00:00 Test Item Value Reference Range Interpretation Comments A/G Ratio (test code = A/G Ratio) 0.8 1 0.7-1.6 [facility]2018-05-30 07:00:00 Test Item Value Reference Range Interpretation Comments Albumin Lvl (test code = Albumin Lvl) 3.2 3.5-5.0 [facility]2018-05-30 07:00:00 Test Item Value Reference Range Interpretation Comments Globulin (test code = Globulin) 4.2 2.7-4.2 [facility]2018-05-30 07:00:00 Test Item Value Reference Range Interpretation Comments Glucose Lvl (test code = Glucose Lvl) 215 70-99 [facility]2018-05-30 07:00:00 Test Item Value Reference Range Interpretation Comments Osmolality (test code = Osmolality) 280 280-300 [id number] 07:00:00 Test Item Value Reference Range Interpretation Comments MPV (test code = MPV) 7.3 7.4-10.4 [place] [id number] 07:00:00 Test Item Value Reference Range Interpretation Comments MCHC (test code = MCHC) 34.5 32.0-36.0 [id number] 07:00:00 Test Item Value Reference Range Interpretation Comments RDW (test code = RDW) 13.8 11.5-14.5 [id number] 07:00:00 Test Item Value Reference Range Interpretation Comments MCH (test code = MCH) 32.4 pg 27.0-31.0 [facility]landsBnngwggWXZBGZLLLG7825-84-11 07:00:00 Test Item Value Reference Range Interpretation Comments Platelet (test code = Platelet) 389 133-450 [facility]landsBognjkoHNZFFYADDV4298-36-30 07:00:00 Test Item Value Reference Range Interpretation Comments WBC (test code = WBC) 16.1 3.7-10.4 [facility]landsEvzyajiPBMNOZHBES0573-20-00 07:00:00 Test Item Value Reference Range Interpretation Comments RBC (test code = RBC) 4.35 4.20-5.40 [facility]landsIrlrmtnWWDFOTSFYB4220-87-25 07:00:00 Test Item Value Reference Range Interpretation Comments Hgb (test code = Hgb) 14.1 12.0-16.0 [id number] 07:00:00 Test Item Value Reference Range Interpretation Comments Hct (test code = Hct) 40.9 36.0-48.0 [facility]landsHyczonkDULJHCVGKL1586-35-47 07:00:00 Test Item Value Reference Range Interpretation Comments MCV (test code = MCV) 94.0 80.0-98.0 [id number] 07:00:00 Test Item Value Reference Range Interpretation Comments Lymphocytes # (test code = Lymphocytes 0.6 1.0-5.5 #) [facility]landsNxroewaXBPBNHTQBJ1746-44-07 07:00:00 Test Item Value Reference Range Interpretation Comments Segs-Bands # (test code = Segs-Bands #) 15.3 1.5-8.1 [id number] 07:00:00 Test Item Value Reference Range Interpretation Comments Basophils (test code = 0.1 See_Comment [Aut omated message] The Basophils) system which ge nerated this result tra nsmitted reference range : <=1.0. The reference r jodi was not used to int erpret this result as normal/abnormal . [facility][id number] 07:00:00 Test Item Value Reference Range Interpretation Comments Lymphocytes (test code = Lymphocytes) 3.5 20.0-40.0 [facility]landsGfypqflHZVYZGOPIR0563-15-29 07:00:00 Test Item Value Reference Range Interpretation Comments Monocytes (test code = Monocytes) 1.2 2.0-12.0 [facility]landsIwvubmzLOTAJNAXNR5294-51-04 07:00:00 Test Item Value Reference Range Interpretation Comments Monocytes # (test code 0.2 See_Comment [Aut omated message] The = Monocytes #) system which generated this result tra nsmitted reference range : <=0.8. The reference r jodi was not used to int erpret this result as normal/abnormal . [facility]landsKulreddYSRKNKCMRA5642-45-79 07:00:00 Test Item Value Reference Range Interpretation Comments RBC Morph (test code = Normal (03/29/18 2:00 RBC Morph) AM) [facility][id number] 07:00:00 Test Item Value Reference Range Interpretation Comments Segs (test code = Segs) 95.2 45.0-75.0 [id number] 07:00:00 Test Item Value Reference Range Interpretation Comments Plt Morph (test code = Normal (03/29/18 2:00 Plt Morph) AM) [facility]2018-05-30 05:14:00 Test Item Value Reference Range Interpretation Comments Lactic Acid Lvl (test code = Lactic 1.7 0.5-2.2 Acid Lvl) [facility]2018-05-30 05:14:00 Test Item Value Reference Range Interpretation Comments Lactic Acid Lvl (test code = Lactic 1.7 0.5-2.2 Acid Lvl) [facility]2018-05-30 05:14:00 Test Item Value Reference Range Interpretation Comments Lactic Acid Lvl (test code = Lactic 1.7 0.5-2.2 Acid Lvl) [facility]2018-05-30 03:04:00 Test Item Value Reference Range Interpretation Comments Lactic Acid Lvl (test code = Lactic 3.5 0.5-2.2 Acid Lvl) [facility]2018-05-30 03:04:00 Test Item Value Reference Range Interpretation Comments Lactic Acid Lvl (test code = Lactic 3.5 0.5-2.2 Acid Lvl) [facility]2018-05-30 03:04:00 Test Item Value Reference Range Interpretation Comments Lactic Acid Lvl (test code = Lactic 3.5 0.5-2.2 Acid Lvl) [facility] AND [id number] 20:23:00 Test Item Value Reference Range Interpretation Comments UA Urobilinogen (test code = UA <=1.0 mg/dL 0.1-1.0 Urobilinogen) [facility] AND [id number] 20:23:00 Test Item Value Reference Range Interpretation Comments UA Color (test code = UA Color) Ltyellow [facility] AND [id number] 20:23:00 Test Item Value Reference Range Interpretation Comments UA Nitrite (test code Negative (03/28/18 3:23 = UA Nitrite) PM) [facility] AND [id number] 20:23:00 Test Item Value Reference Range Interpretation Comments UA Leuk Est (test Negative (03/28/18 3:23 code = UA Leuk Est) PM) [facility] AND [id number] 20:23:00 Test Item Value Reference Range Interpretation Comments UA Bili (test code = Negative *NA*(03/28/18 UA Bili) 3:23 PM) [facility] AND [id number] 20:23:00 Test Item Value Reference Range Interpretation Comments UA Blood (test code = Negative (03/28/18 3:23 UA Blood) PM) [facility] AND [id number] 20:23:00 Test Item Value Reference Range Interpretation Comments UA Sq Epi (test code = UA Sq Epi) None Seen [facility] AND [id number] 20:23:00 Test Item Value Reference Range Interpretation Comments UA Glucose (test code = UA Negative mg/dL Glucose) [facility] AND [id number] 20:23:00 Test Item Value Reference Range Interpretation Comments UA Ketones (test code = UA Negative mg/dL Ketones) [facility] AND [id number] 20:23:00 Test Item Value Reference Range Interpretation Comments UA Protein (test code = UA Negative mg/dL Protein) [facility] AND [id number] 20:23:00 Test Item Value Reference Range Interpretation Comments UA pH (test code = UA pH) 6.0 1 5.0-8.0 [facility] AND [id number] 20:23:00 Test Item Value Reference Range Interpretation Comments UA Turbidity (test code = Clear (03/28/18 3:23 UA Turbidity) PM) [facility] AND [id number] 20:23:00 Test Item Value Reference Range Interpretation Comments UA Spec Grav (test code = UA Spec 1.002 1 Grav) [facility] AND [id number] 20:23:00 Test Item Value Reference Range Interpretation Comments UA Urobilinogen (test code = UA <=1.0 mg/dL 0.1-1.0 Urobilinogen) [facility] AND [id number] 20:23:00 Test Item Value Reference Range Interpretation Comments UA Color (test code = UA Color) Ltyellow [facility] AND [id number] 20:23:00 Test Item Value Reference Range Interpretation Comments UA Nitrite (test code Negative (03/28/18 3:23 = UA Nitrite) PM) [facility] AND [id number] 20:23:00 Test Item Value Reference Range Interpretation Comments UA Leuk Est (test Negative (03/28/18 3:23 code = UA Leuk Est) PM) [facility] AND [id number] 20:23:00 Test Item Value Reference Range Interpretation Comments UA Bili (test code = Negative *NA*(03/28/18 UA Bili) 3:23 PM) [facility] AND [id number] 20:23:00 Test Item Value Reference Range Interpretation Comments UA Blood (test code = Negative (03/28/18 3:23 UA Blood) PM) [facility] AND [id number] 20:23:00 Test Item Value Reference Range Interpretation Comments UA Sq Epi (test code = UA Sq Epi) None Seen [facility] AND [id number] 20:23:00 Test Item Value Reference Range Interpretation Comments UA Glucose (test code = UA Negative mg/dL Glucose) [facility] AND [id number] 20:23:00 Test Item Value Reference Range Interpretation Comments UA Ketones (test code = UA Negative mg/dL Ketones) [facility] AND [id number] 20:23:00 Test Item Value Reference Range Interpretation Comments UA Protein (test code = UA Negative mg/dL Protein) [facility] AND [id number] 20:23:00 Test Item Value Reference Range Interpretation Comments UA pH (test code = UA pH) 6.0 1 5.0-8.0 [facility] AND [id number] 20:23:00 Test Item Value Reference Range Interpretation Comments UA Turbidity (test code = Clear (03/28/18 3:23 UA Turbidity) PM) [facility] AND [id number] 20:23:00 Test Item Value Reference Range Interpretation Comments UA Spec Grav (test code = UA Spec 1.002 1 Grav) [facility] AND [id number] 20:23:00 Test Item Value Reference Range Interpretation Comments UA Urobilinogen (test code = UA <=1.0 mg/dL 0.1-1.0 Urobilinogen) [facility] AND [id number] 20:23:00 Test Item Value Reference Range Interpretation Comments UA Color (test code = UA Color) Ltyellow [facility] AND [id number] 20:23:00 Test Item Value Reference Range Interpretation Comments UA Nitrite (test code Negative (03/28/18 3:23 = UA Nitrite) PM) [facility] AND [id number] 20:23:00 Test Item Value Reference Range Interpretation Comments UA Leuk Est (test Negative (03/28/18 3:23 code = UA Leuk Est) PM) [facility] AND [id number] 20:23:00 Test Item Value Reference Range Interpretation Comments UA Bili (test code = Negative *NA*(03/28/18 UA Bili) 3:23 PM) [facility] AND [id number] 20:23:00 Test Item Value Reference Range Interpretation Comments UA Blood (test code = Negative (03/28/18 3:23 UA Blood) PM) [facility] AND [id number] 20:23:00 Test Item Value Reference Range Interpretation Comments UA Sq Epi (test code = UA Sq Epi) None [facility] [id number] 20:23:00 Test Item Value Reference Range Interpretation Comments UA Glucose (test code = UA Negative mg/dL Glucose) [facility] [id number] 20:23:00 Test Item Value Reference Range Interpretation Comments UA Ketones (test code = UA Negative mg/dL Ketones) [facility] AND [id number] 20:23:00 Test Item Value Reference Range Interpretation Comments UA Protein (test code = UA Negative mg/dL Protein) [facility] AND [id number] 20:23:00 Test Item Value Reference Range Interpretation Comments UA pH (test code = UA pH) 6.0 1 5.0-8.0 [facility] [id number] 20:23:00 Test Item Value Reference Range Interpretation Comments UA Turbidity (test code = Clear (03/28/18 3:23 UA Turbidity) PM) [facility] AND [id number] 20:23:00 Test Item Value Reference Range Interpretation Comments UA Spec Grav (test code = UA Spec 1.002 1 Grav) [facility]annCARDIAC [id number] 20:10:00 Test Item Value Reference Range Interpretation Comments BNP (test code = BNP) no gt [facility] HermannCARDIAC [id number] 20:10:00 Test Item Value Reference Range Interpretation Comments Troponin-I (test code no gt See_Comment [Auto mated message] The = Troponin-I) system which g enerated this result transmit narayan reference range : <=0.40. The reference r jodi was not used to interpr et this result as shreya l/abnormal. [facility]annCARD[facility]AC [id number] 20:10:00 Test Item Value Reference Range Interpretation Comments proBNP (test code = 30 See_Comment [Automa narayan message] The proBNP) system which ge nerated this result tra nsmitted reference range : <=125. The reference r jodi was not used to int erpret this result as shreya l/abnormal. [facility]annCHEM [id number] 20:10:00 Test Item Value Reference Range Interpretation Comments Lipase Lvl (test code = Lipase Lvl) 71 73-393 [facility]KmomtihKVUDAGAPMXCZ7693-98-68 20:10:00 Test Item Value Reference Range Interpretation Comments AGAP (test code = AGAP) 15.9 10.0-20.0 [facility] Hospi[id number] 20:10:00 Test Item Value Reference Range Interpretation Comments A/G Ratio (test code = A/G Ratio) 0.7 1 0.7-1.6 [facility] HospitalKzwebyzHVWIBTFEQZPZ1206-50-30 20:10:00 Test Item Value Reference Range Interpretation Comments Globulin (test code = Globulin) 4.8 2.7-4.2 [facility] HospitalZxrhpunCGLMRDAZKSYK2660-90-07 20:10:00 Test Item Value Reference Range Interpretation Comments B/C Ratio (test code = B/C Ratio) 6 1 6-25 [facility] HospitalChjerrxENRXTWOBBWAD1238-48-47 20:10:00 Test Item Value Reference Range Interpretation Comments eGFR (test code = eGFR) 99 [facility] HospitalNippttxSSVDEWACGCWU5411-87-97 20:10:00 Test Item Value Reference Range Interpretation Comments Bili Total (test code = Bili Total) 0.5 0.2-1.3 [facility] HospitalBoogenfKKLDNTNEWIQS2677-34-42 20:10:00 Test Item Value Reference Range Interpretation Comments Alk Phos (test code = Alk Phos) 147 39-136 [facility] HospitalVfkhkysCUSACEFZOJBZ6151-07-43 20:10:00 Test Item Value Reference Range Interpretation Comments AST (test code = AST) 17 See_Comment [Auto mated message] The system which ge nerated this result transmit narayan reference range : <=37. The reference range was not used to interpr et this result as shreya l/abnormal. [facility] HospitalCgmxqcqZXQFBPRMPZQM2137-17-26 20:10:00 Test Item Value Reference Range Interpretation Comments ALT (test code = ALT) 18 See_Comment [Auto mated message] The system which ge nerated this result transmit narayan reference range : <=65. The reference range was not used to interpr et this result as shreya l/abnormal. [facility] HospitalBydyrddFPWNBHKYXRQC3765-58-15 20:10:00 Test Item Value Reference Range Interpretation Comments CO2 (test code = CO2) 21 24-32 [facility] Hosp[id number] 20:10:00 Test Item Value Reference Range Interpretation Comments Calcium Lvl (test code = Calcium Lvl) 8.8 8.5-10.5 [facility] HospitalFzudurlEBQNTYOMSXWW9698-04-84 20:10:00 Test Item Value Reference Range Interpretation Comments Chloride Lvl (test code = Chloride Lvl) 94 95-109 [facility] HospitalBgsysttWKPKYLPNLCZO0814-05-85 20:10:00 Test Item Value Reference Range Interpretation Comments Potassium Lvl (test code = Potassium 3.9 3.5-5.1 Lvl) [facility] HospitalRzyrmakOSKDPJMLLOZV7757-36-59 20:10:00 Test Item Value Reference Range Interpretation Comments Sodium Lvl (test code = Sodium Lvl) 127 135-145 [facility] HospitalUbpvaiuURMHGUTFBUBV9714-55-68 20:10:00 Test Item Value Reference Range Interpretation Comments BUN (test code = BUN) 4 7-22 [facility] HospitalWlcyfceQRXQTPWQRKGK9320-60-64 20:10:00 Test Item Value Reference Range Interpretation Comments Creatinine Lvl (test code = Creatinine 0.66 0.50-1.40 Lvl) [facility] HospitalKkntjiwGCZIVTFYDGWW1623-62-84 20:10:00 Test Item Value Reference Range Interpretation Comments Glucose Lvl (test code = Glucose Lvl) 92 70-99 [facility] HospitalUlhlqjrYCDUCPGNKIRX6554-84-34 20:10:00 Test Item Value Reference Range Interpretation Comments Albumin Lvl (test code = Albumin Lvl) 3.4 3.5-5.0 [facility] HospitalXzkgjpiOUFYTZBHOQEO9991-53-73 20:10:00 Test Item Value Reference Range Interpretation Comments Total Protein (test code = Total 8.2 6.4-8.4 Protein) [facility]KzlyzbaXGPJSSWKNP9472-81-65 20:10:00 Test Item Value Reference Range Interpretation Comments Basophils (test code = 0.9 See_Comment [Aut omated message] The Basophils) system which ge nerated this result tra nsmitted reference range : <=1.0. The reference r jodi was not used to int erpret this result as normal/abnormal . [facility]landsWtalxrpVYCKYPVLZX1637-57-31 20:10:00 Test Item Value Reference Range Interpretation Comments Eosinophils (test code = 3.7 See_Comment [A utomated message] The Eosinophils) system which ge nerated this result tra nsmitted reference range : <=4.0. The reference r jodi was not used to int erpret this result as normal/abnormal . [facility]landsSwbccreTPFNKSNRVG8126-00-08 20:10:00 Test Item Value Reference Range Interpretation Comments Monocytes (test code = Monocytes) 8.1 2.0-12.0 [facility]landsGjzainrEHKBTYJRQW8201-78-97 20:10:00 Test Item Value Reference Range Interpretation Comments Lymphocytes (test code = Lymphocytes) 15.5 20.0-40.0 [facility]landsJcshwulXSNIAFRIQU6944-06-09 20:10:00 Test Item Value Reference Range Interpretation Comments Segs-Bands # (test code = Segs-Bands #) 14.3 1.5-8.1 [id number] 20:10:00 Test Item Value Reference Range Interpretation Comments Segs (test code = Segs) 71.8 45.0-75.0 [facility]landsUrrwuzoBCBOHOWKPL4118-08-94 20:10:00 Test Item Value Reference Range Interpretation Comments Basophils # (test code 0.2 See_Comment [Aut omated message] The = Basophils #) system which generated this result tra nsmitted reference range : <=0.2. The reference r jodi was not used to int erpret this result as normal/abnormal . [facility]landsDkotzzjZIDFMJFBMJ1796-62-84 20:10:00 Test Item Value Reference Range Interpretation Comments Eosinophils # (test code 0.7 See_Comment [A utomated message] The = Eosinophils #) system whic h generated this result tra nsmitted reference range : <=0.5. The reference r jodi was not used to int erpret this result as normal/abnormal . [facility]landsQnwnzaqPMCVBTOBWV0023-02-39 20:10:00 Test Item Value Reference Range Interpretation Comments Monocytes # (test code 1.6 See_Comment [Aut omated message] The = Monocytes #) system which generated this result tra nsmitted reference range : <=0.8. The reference r jodi was not used to int erpret this result as normal/abnormal . [facility]landsBoociriSAVBNNDOQW5427-45-51 20:10:00 Test Item Value Reference Range Interpretation Comments Lymphocytes # (test code = Lymphocytes 3.1 1.0-5.5 #) [facility]landsEzdeqxnZSJSRIRYBK3326-61-39 20:10:00 Test Item Value Reference Range Interpretation Comments MCHC (test code = MCHC) 35.0 32.0-36.0 [facility]wayEtccjzoQBMMLJTRHB1776-84-67 20:10:00 Test Item Value Reference Range Interpretation Comments RDW (test code = RDW) 14.1 11.5-14.5 [facility]TzeepucGXZKRJGZHT4630-55-09 20:10:00 Test Item Value Reference Range Interpretation Comments MCH (test code = MCH) 33.1 pg 27.0-31.0 [facility] HospitalFrgfrwrXKZVTTJWMK4297-70-45 20:10:00 Test Item Value Reference Range Interpretation Comments MCV (test code = MCV) 94.5 80.0-98.0 [facility] HospitalGtsqhctOQOLROYBEO2663-81-89 20:10:00 Test Item Value Reference Range Interpretation Comments MPV (test code = MPV) 7.5 7.4-10.4 [facility] HospitalHnhqdxxMBHVEYHOPP7311-66-44 20:10:00 Test Item Value Reference Range Interpretation Comments Platelet (test code = Platelet) 405 133-450 [facility] HospitalCkdqrgvPLVRSIWFKU3326-92-58 20:10:00 Test Item Value Reference Range Interpretation Comments RBC (test code = RBC) 4.56 4.20-5.40 [facility] HospitalWbqyfixHXUGALAXCJ2470-02-30 20:10:00 Test Item Value Reference Range Interpretation Comments Hgb (test code = Hgb) 15.1 12.0-16.0 [facility] CenterBywiavqIBQGTCIQFG9617-17-05 20:10:00 Test Item Value Reference Range Interpretation Comments WBC (test code = WBC) 20.0 3.7-10.4 [facility]VxbmduvGGMRPYHPUQ2789-74-31 20:10:00 Test Item Value Reference Range Interpretation Comments Hct (test code = Hct) 43.1 36.0-48.0 [facility] CenterSafelloCARAlana HealthCareIBUKDVF4499-08-28 20:10:00 Test Item Value Reference Range Interpretation Comments BNP (test code = BNP) no gt [facility] IP FabricsCARXOJETAC GEUTBVB4024-54-16 20:10:00 Test Item Value Reference Range Interpretation Comments Troponin-I (test code no gt See_Comment [Auto mated message] The = Troponin-I) system which g enerated this result transmit narayan reference range : <=0.40. The reference r jodi was not used to interpr et this result as shreya l/abnormal. [facility] CenterPeople Operating Technology2018-05-29 20:10:00 Test Item Value Reference Range Interpretation Comments proBNP (test code = 30 See_Comment [Automa narayan message] The proBNP) system which ge nerated this result tra nsmitted reference range : <=125. The reference r jodi was not used to int erpret this result as shreya l/abnormal. [facility]wayCHEM CLDST1005-44-19 20:10:00 Test Item Value Reference Range Interpretation Comments Lipase Lvl (test code = Lipase Lvl) 71 73-393 [facility] HospitalPlvesbgXBSSSEREUESN3124-77-51 20:10:00 Test Item Value Reference Range Interpretation Comments AGAP (test code = AGAP) 15.9 10.0-20.0 [facility] HospitalVeiaribIOPZIJWDTIUB1283-71-24 20:10:00 Test Item Value Reference Range Interpretation Comments A/G Ratio (test code = A/G Ratio) 0.7 1 0.7-1.6 [facility] HospitalRdqnwyhRFLLHWNDDVKH6514-50-59 20:10:00 Test Item Value Reference Range Interpretation Comments Globulin (test code = Globulin) 4.8 2.7-4.2 [facility] HospitalJkdkxklRHZVFTBATCVL9251-27-32 20:10:00 Test Item Value Reference Range Interpretation Comments B/C Ratio (test code = B/C Ratio) 6 1 6-25 [facility] HospitalHoslsksYXVFQCPSMAWB2816-55-69 20:10:00 Test Item Value Reference Range Interpretation Comments eGFR (test code = eGFR) 99 [facility] HospitalClzvumfVFLJWVPDUQQG0967-35-37 20:10:00 Test Item Value Reference Range Interpretation Comments Bili Total (test code = Bili Total) 0.5 0.2-1.3 [facility] HospitalYyinaprRSJMPMFOPQRJ2176-46-47 20:10:00 Test Item Value Reference Range Interpretation Comments Alk Phos (test code = Alk Phos) 147 39-136 [facility] HospitalAnojjysUKEAOCBAQZMW6837-42-86 20:10:00 Test Item Value Reference Range Interpretation Comments AST (test code = AST) 17 See_Comment [Auto mated message] The system which ge nerated this result transmit narayan reference range : <=37. The reference range was not used to interpr et this result as shreya l/abnormal. [facility] HospitalTqdrmjnOXCRSSPAKLLD7535-90-25 20:10:00 Test Item Value Reference Range Interpretation Comments ALT (test code = ALT) 18 See_Comment [Auto mated message] The system which ge nerated this result transmit narayan reference range : <=65. The reference range was not used to interpr et this result as shreya l/abnormal. [facility] HospitalGdqojxwWJLFUHQXXPRQ6462-20-74 20:10:00 Test Item Value Reference Range Interpretation Comments CO2 (test code = CO2) 21 24-32 [facility] HospitalBbkftnmAULDFQKEPTZQ0352-19-35 20:10:00 Test Item Value Reference Range Interpretation Comments Calcium Lvl (test code = Calcium Lvl) 8.8 8.5-10.5 [facility] HospitalHqfswjxFXRQBIRKVISY9253-81-87 20:10:00 Test Item Value Reference Range Interpretation Comments Chloride Lvl (test code = Chloride Lvl) 94 95-109 [facility] HospitalOrrucrsRRXDILAFUDSZ0376-83-99 20:10:00 Test Item Value Reference Range Interpretation Comments Potassium Lvl (test code = Potassium 3.9 3.5-5.1 Lvl) [facility] HospitalOwwtudyXVLPLFWNBZKO7462-43-28 20:10:00 Test Item Value Reference Range Interpretation Comments Sodium Lvl (test code = Sodium Lvl) 127 135-145 [facility] HospitalNumhjefWJJDQSCRNEAQ8559-14-29 20:10:00 Test Item Value Reference Range Interpretation Comments BUN (test code = BUN) 4 7-22 [facility] HospitalRnwpeguUOSBQNAFTACR1097-97-42 20:10:00 Test Item Value Reference Range Interpretation Comments Creatinine Lvl (test code = Creatinine 0.66 0.50-1.40 Lvl) [facility] HospitalKbgdsyxVDVUXHPWUYJS1881-77-73 20:10:00 Test Item Value Reference Range Interpretation Comments Glucose Lvl (test code = Glucose Lvl) 92 70-99 [facility] HospitalWwuujstEVGUWUDWVMQT3721-40-18 20:10:00 Test Item Value Reference Range Interpretation Comments Albumin Lvl (test code = Albumin Lvl) 3.4 3.5-5.0 [facility] HospitalIulauzgSRXDARNROMIF1124-28-90 20:10:00 Test Item Value Reference Range Interpretation Comments Total Protein (test code = Total 8.2 6.4-8.4 Protein) [facility] LakewayJazsjbeITRYXUCFWV2799-25-92 20:10:00 Test Item Value Reference Range Interpretation Comments Basophils (test code = 0.9 See_Comment [Aut omated message] The Basophils) system which ge nerated this result tra nsmitted reference range : <=1.0. The reference r jodi was not used to int erpret this result as normal/abnormal . [facility]landsVvigylnCFXRYKOUYH0056-78-23 20:10:00 Test Item Value Reference Range Interpretation Comments Eosinophils (test code = 3.7 See_Comment [A utomated message] The Eosinophils) system which ge nerated this result tra nsmitted reference range : <=4.0. The reference r jodi was not used to int erpret this result as normal/abnormal . [facility]landsDabxxzvUTEYIYPIES0537-03-30 20:10:00 Test Item Value Reference Range Interpretation Comments Monocytes (test code = Monocytes) 8.1 2.0-12.0 [facility]landsHmizbolQOUEEJUPML1154-08-63 20:10:00 Test Item Value Reference Range Interpretation Comments Lymphocytes (test code = Lymphocytes) 15.5 20.0-40.0 [facility]landsMlnpmvjXEJSKNWOIP1438-44-83 20:10:00 Test Item Value Reference Range Interpretation Comments Segs-Bands # (test code = Segs-Bands #) 14.3 1.5-8.1 [facility]landsVzzudeuZTKECINZMT6772-76-25 20:10:00 Test Item Value Reference Range Interpretation Comments Segs (test code = Segs) 71.8 45.0-75.0 [facility]landsSdemlpfXXCZIWZKMS3536-60-01 20:10:00 Test Item Value Reference Range Interpretation Comments Basophils # (test code 0.2 See_Comment [Aut omated message] The = Basophils #) system which generated this result tra nsmitted reference range : <=0.2. The reference r jodi was not used to int erpret this result as normal/abnormal . [facility]landsXhnpaupGEHNXXEFWO4221-81-67 20:10:00 Test Item Value Reference Range Interpretation Comments Eosinophils # (test code 0.7 See_Comment [A utomated message] The = Eosinophils #) system whic h generated this result tra nsmitted reference range : <=0.5. The reference r jodi was not used to int erpret this result as normal/abnormal . [facility]landsOsdleeiZRWYRLRWPL8024-46-99 20:10:00 Test Item Value Reference Range Interpretation Comments Monocytes # (test code 1.6 See_Comment [Aut omated message] The = Monocytes #) system which generated this result tra nsmitted reference range : <=0.8. The reference r jodi was not used to int erpret this result as normal/abnormal . [facility]landsYbhyueaTIDVRDQCLI4457-59-85 20:10:00 Test Item Value Reference Range Interpretation Comments Lymphocytes # (test code = Lymphocytes 3.1 1.0-5.5 #) [facility]landsEdxtmhkQROQZIUBWV4931-13-45 20:10:00 Test Item Value Reference Range Interpretation Comments MCHC (test code = MCHC) 35.0 32.0-36.0 [facility]landsHapswwoHLKVGAPGRU4331-65-17 20:10:00 Test Item Value Reference Range Interpretation Comments RDW (test code = RDW) 14.1 11.5-14.5 [facility]landsSyzjraiNWKOBQKTJI1664-34-72 20:10:00 Test Item Value Reference Range Interpretation Comments MCH (test code = MCH) 33.1 pg 27.0-31.0 [facility]landsWiecuiaZMTWOUYTNQ9901-75-46 20:10:00 Test Item Value Reference Range Interpretation Comments MCV (test code = MCV) 94.5 80.0-98.0 [facility]landsTrlkahsZGVOFDCBNJ6674-78-49 20:10:00 Test Item Value Reference Range Interpretation Comments MPV (test code = MPV) 7.5 7.4-10.4 [facility]landsNcuiivjUCPLZIMUKV9110-91-16 20:10:00 Test Item Value Reference Range Interpretation Comments Platelet (test code = Platelet) 405 133-450 [facility]landsGsdtsyaCGBGHOWSTY5935-63-86 20:10:00 Test Item Value Reference Range Interpretation Comments RBC (test code = RBC) 4.56 4.20-5.40 [facility]landsHzxecizXCLXWMRRJG7289-10-79 20:10:00 Test Item Value Reference Range Interpretation Comments Hgb (test code = Hgb) 15.1 12.0-16.0 [facility]landsHipgqicAJRMMPVYII2547-54-92 20:10:00 Test Item Value Reference Range Interpretation Comments WBC (test code = WBC) 20.0 3.7-10.4 [facility]landsFymlnxuAHUNADVCFC5495-77-07 20:10:00 Test Item Value Reference Range Interpretation Comments Hct (test code = Hct) 43.1 36.0-48.0 [facility] LakewayCARDIAC GTGWXAJ6566-73-90 20:10:00 Test Item Value Reference Range Interpretation Comments BNP (test code = BNP) no gt [facility] OYRVAAV8569-68-53 20:10:00 Test Item Value Reference Range Interpretation Comments Troponin-I (test code no gt See_Comment [Auto mated message] The = Troponin-I) system which g enerated this result transmit narayan reference range : <=0.40. The reference r jodi was not used to interpr et this result as shreya l/abnormal. [facility] IP FabricsCARXOJETAC ILOSXUI3144-12-37 20:10:00 Test Item Value Reference Range Interpretation Comments proBNP (test code = 30 See_Comment [Automa narayan message] The proBNP) system which ge nerated this result tra nsmitted reference range : <=125. The reference r jodi was not used to int erpret this result as shreya l/abnormal. [facility] IP FabricsCHEM IGPBY2144-53-51 20:10:00 Test Item Value Reference Range Interpretation Comments Lipase Lvl (test code = Lipase Lvl) 71 73-393 [facility] YejrltbXGOUZOMUOSBJ0570-06-21 20:10:00 Test Item Value Reference Range Interpretation Comments AGAP (test code = AGAP) 15.9 10.0-20.0 [facility] VwrpfwvKKGGWOXYNMLI9400-72-80 20:10:00 Test Item Value Reference Range Interpretation Comments A/G Ratio (test code = A/G Ratio) 0.7 1 0.7-1.6 [facility] FehrmvqRVHBJVOQCMGD6103-74-35 20:10:00 Test Item Value Reference Range Interpretation Comments Globulin (test code = Globulin) 4.8 2.7-4.2 [facility] WbyzhviHEWWTEJNDEFK4996-05-14 20:10:00 Test Item Value Reference Range Interpretation Comments B/C Ratio (test code = B/C Ratio) 6 1 6-25 [facility] OusbtikVBJWAZTSWJYQ9456-77-78 20:10:00 Test Item Value Reference Range Interpretation Comments eGFR (test code = eGFR) 99 [facility] DmdfngjPHNPFZLBJZEL1158-22-67 20:10:00 Test Item Value Reference Range Interpretation Comments Bili Total (test code = Bili Total) 0.5 0.2-1.3 [facility] LuxrupkQYDSLQLJJMOX1190-23-50 20:10:00 Test Item Value Reference Range Interpretation Comments Alk Phos (test code = Alk Phos) 147 39-136 [facility] HospitalObeofgaITMSCFBMPBUU7047-62-92 20:10:00 Test Item Value Reference Range Interpretation Comments AST (test code = AST) 17 See_Comment [Auto mated message] The system which ge nerated this result transmit narayan reference range : <=37. The reference range was not used to interpr et this result as shreya l/abnormal. [facility] HospitalZlwyiktMUYEPMJDXPVW9572-40-51 20:10:00 Test Item Value Reference Range Interpretation Comments ALT (test code = ALT) 18 See_Comment [Auto mated message] The system which ge nerated this result transmit narayan reference range : <=65. The reference range was not used to interpr et this result as shreya l/abnormal. [facility] HospitalMbibfdiYDDJDSSPLYXT4876-87-93 20:10:00 Test Item Value Reference Range Interpretation Comments CO2 (test code = CO2) 21 24-32 [facility] HospitalVenvkqzKAVMGCSCKQJE7585-41-75 20:10:00 Test Item Value Reference Range Interpretation Comments Calcium Lvl (test code = Calcium Lvl) 8.8 8.5-10.5 [facility] HospitalYahhpxkKMVLNQMUCJRW1949-39-49 20:10:00 Test Item Value Reference Range Interpretation Comments Chloride Lvl (test code = Chloride Lvl) 94 95-109 [facility] HospitalMzzmllgJSKAXKLLKSXM1969-27-07 20:10:00 Test Item Value Reference Range Interpretation Comments Potassium Lvl (test code = Potassium 3.9 3.5-5.1 Lvl) [facility] HospitalQojfuhwQGACHTQTDEPF5424-83-32 20:10:00 Test Item Value Reference Range Interpretation Comments Sodium Lvl (test code = Sodium Lvl) 127 135-145 [facility] HospitalYocmiyfOMMOUYWJTJGP3366-28-61 20:10:00 Test Item Value Reference Range Interpretation Comments BUN (test code = BUN) 4 7-22 [facility] HospitalQefyxosKFTVBKMSHZQY8748-52-56 20:10:00 Test Item Value Reference Range Interpretation Comments Creatinine Lvl (test code = Creatinine 0.66 0.50-1.40 Lvl) [facility] HospitalYdkyjwmVULBRZBSTWYQ6672-41-47 20:10:00 Test Item Value Reference Range Interpretation Comments Glucose Lvl (test code = Glucose Lvl) 92 70-99 [facility] HospitalQicdiniSCZTOPTISTVV3091-83-35 20:10:00 Test Item Value Reference Range Interpretation Comments Albumin Lvl (test code = Albumin Lvl) 3.4 3.5-5.0 [facility] HospitalKzjwfccVWGDQDNHNIZZ8875-52-48 20:10:00 Test Item Value Reference Range Interpretation Comments Total Protein (test code = Total 8.2 6.4-8.4 Protein) [facility]landsAzifowzHZQSVMPHEF3237-12-38 20:10:00 Test Item Value Reference Range Interpretation Comments Basophils (test code = 0.9 See_Comment [Aut omated message] The Basophils) system which ge nerated this result tra nsmitted reference range : <=1.0. The reference r jodi was not used to int erpret this result as normal/abnormal . [facility]landsEbacdqyNBOOZHFQYG7338-55-64 20:10:00 Test Item Value Reference Range Interpretation Comments Eosinophils (test code = 3.7 See_Comment [A utomated message] The Eosinophils) system which ge nerated this result tra nsmitted reference range : <=4.0. The reference r jodi was not used to int erpret this result as normal/abnormal . [facility]landsZfrxjigRKDHHGYMLZ4186-66-29 20:10:00 Test Item Value Reference Range Interpretation Comments Monocytes (test code = Monocytes) 8.1 2.0-12.0 [facility]landsNjxmturYJTFYLXXNW2221-26-84 20:10:00 Test Item Value Reference Range Interpretation Comments Lymphocytes (test code = Lymphocytes) 15.5 20.0-40.0 [facility]landsTiykvdcZQVBGYGNEY1648-91-60 20:10:00 Test Item Value Reference Range Interpretation Comments Segs-Bands # (test code = Segs-Bands #) 14.3 1.5-8.1 [facility]landsUgmiilmDZVJVLLRZK5600-91-74 20:10:00 Test Item Value Reference Range Interpretation Comments Segs (test code = Segs) 71.8 45.0-75.0 [facility]landsEnbmkeyJPRADSZUIB4252-93-90 20:10:00 Test Item Value Reference Range Interpretation Comments Basophils # (test code 0.2 See_Comment [Aut omated message] The = Basophils #) system which generated this result tra nsmitted reference range : <=0.2. The reference r jodi was not used to int erpret this result as normal/abnormal . [facility]landsJvtcqbxTWUHTXZAPB1830-49-73 20:10:00 Test Item Value Reference Range Interpretation Comments Eosinophils # (test code 0.7 See_Comment [A utomated message] The = Eosinophils #) system whic h generated this result tra nsmitted reference range : <=0.5. The reference r jodi was not used to int erpret this result as normal/abnormal . [facility]landsZketxidLGJBAMHJRS4430-72-16 20:10:00 Test Item Value Reference Range Interpretation Comments Monocytes # (test code 1.6 See_Comment [Aut omated message] The = Monocytes #) system which generated this result tra nsmitted reference range : <=0.8. The reference r jodi was not used to int erpret this result as normal/abnormal . [facility]landsRbczodoLCZOCGPZXY8160-09-65 20:10:00 Test Item Value Reference Range Interpretation Comments Lymphocytes # (test code = Lymphocytes 3.1 1.0-5.5 #) [facility]landsEqdeygpGFIFEIQMWV0907-44-93 20:10:00 Test Item Value Reference Range Interpretation Comments MCHC (test code = MCHC) 35.0 32.0-36.0 [facility]landsWxfligzAOXXRJMMPN0758-86-61 20:10:00 Test Item Value Reference Range Interpretation Comments RDW (test code = RDW) 14.1 11.5-14.5 [facility]landsLrrhrmeAAUVDNHPQB8621-33-73 20:10:00 Test Item Value Reference Range Interpretation Comments MCH (test code = MCH) 33.1 pg 27.0-31.0 [facility]landsSeopvwkQJYKPMQIAP8972-73-72 20:10:00 Test Item Value Reference Range Interpretation Comments MCV (test code = MCV) 94.5 80.0-98.0 [facility]landsVwvyrdhEJTGMINQYF4595-24-69 20:10:00 Test Item Value Reference Range Interpretation Comments MPV (test code = MPV) 7.5 7.4-10.4 [facility]landsMzjqorpPQYQTHOKBN6396-21-69 20:10:00 Test Item Value Reference Range Interpretation Comments Platelet (test code = Platelet) 405 133-450 [facility]landsUknemdnEMSOLGPCSR5149-13-09 20:10:00 Test Item Value Reference Range Interpretation Comments RBC (test code = RBC) 4.56 4.20-5.40 [facility]landsIbahdqwOUMSKWQEEQ1755-65-92 20:10:00 Test Item Value Reference Range Interpretation Comments Hgb (test code = Hgb) 15.1 12.0-16.0 [facility]landsDrzabvwUAHXESULSG8760-07-94 20:10:00 Test Item Value Reference Range Interpretation Comments WBC (test code = WBC) 20.0 3.7-10.4 [facility]landsAjnxawsWGRBGFNCAD0567-14-70 20:10:00 Test Item Value Reference Range Interpretation Comments Hct (test code = Hct) 43.1 36.0-48.0 [facility]2017-12-31 10:37:00 Test Item Value Reference Range Interpretation Comments eGFR (test code = eGFR) 116 [facility]2017-12-31 10:37:00 Test Item Value Reference Range Interpretation Comments AGAP (test code = AGAP) 12.7 10.0-20.0 [facility]2017-12-31 10:37:00 Test Item Value Reference Range Interpretation Comments CO2 (test code = CO2) 26 24-32 [facility]2017-12-31 10:37:00 Test Item Value Reference Range Interpretation Comments Sodium Lvl (test code = Sodium Lvl) 133 135-145 [facility]2017-12-31 10:37:00 Test Item Value Reference Range Interpretation Comments Potassium Lvl (test code = Potassium 3.7 3.5-5.1 Lvl) [facility]2017-12-31 10:37:00 Test Item Value Reference Range Interpretation Comments Chloride Lvl (test code = Chloride Lvl) 98 95-109 [facility]2017-12-31 10:37:00 Test Item Value Reference Range Interpretation Comments BUN (test code = BUN) 7 7-22 [facility]2017-12-31 10:37:00 Test Item Value Reference Range Interpretation Comments Creatinine Lvl (test code = Creatinine 0.40 0.50-1.40 Lvl) [facility]2017-12-31 10:37:00 Test Item Value Reference Range Interpretation Comments Glucose Lvl (test code = Glucose Lvl) 106 70-99 [facility]2017-12-31 10:37:00 Test Item Value Reference Range Interpretation Comments Calcium Lvl (test code = Calcium Lvl) 8.5 8.5-10.5 [facility]2017-12-31 10:37:00 Test Item Value Reference Range Interpretation Comments Magnesium Lvl (test code = Magnesium 2.3 1.8-2.4 Lvl) [facility]landsZzzxbfsDSWIWHIJJH5715-14-23 10:37:00 Test Item Value Reference Range Interpretation Comments Hct (test code = Hct) 35.3 36.0-48.0 [facility]landsPylldskHEIUYUZXOI4367-89-00 10:37:00 Test Item Value Reference Range Interpretation Comments RBC (test code = RBC) 3.71 4.20-5.40 [facility]landsYgyqjffJYCYFPZHYZ5816-16-39 10:37:00 Test Item Value Reference Range Interpretation Comments Hgb (test code = Hgb) 11.9 12.0-16.0 [facility]landsYoylsrbQXLIAQCDTF3893-44-50 10:37:00 Test Item Value Reference Range Interpretation Comments MCV (test code = MCV) 95.1 80.0-98.0 [facility]landsRowtnryLKYJDPCVPY0169-32-40 10:37:00 Test Item Value Reference Range Interpretation Comments MCHC (test code = MCHC) 33.8 32.0-36.0 [facility]landsZxjiojqLBQXTKNUVA7725-82-97 10:37:00 Test Item Value Reference Range Interpretation Comments MCH (test code = MCH) 32.2 pg 27.0-31.0 [facility]landsXeobfsbKGMPUOFPQA0405-74-25 10:37:00 Test Item Value Reference Range Interpretation Comments MPV (test code = MPV) 7.7 7.4-10.4 [facility]landsIzxasjuSVQCYZHZRI9299-08-44 10:37:00 Test Item Value Reference Range Interpretation Comments RDW (test code = RDW) 13.7 11.5-14.5 [facility]landsUnqonsxEFUGENRJHP3445-96-51 10:37:00 Test Item Value Reference Range Interpretation Comments Platelet (test code = Platelet) 498 305-450 [facility]landsDbpfxfqSBIPMCKGCG5925-49-95 10:37:00 Test Item Value Reference Range Interpretation Comments WBC (test code = WBC) 18.2 3.7-10.4 [facility]landsPoclmfuWCTJGAIWPW6063-41-50 10:37:00 Test Item Value Reference Range Interpretation Comments Segs-Bands # (test code = Segs-Bands #) 12.4 1.5-8.1 [facility]landsVaruqoaFZYUWGMFKC2461-96-25 10:37:00 Test Item Value Reference Range Interpretation Comments Basophils (test code = 0.4 See_Comment [Aut omated message] The Basophils) system which ge nerated this result tra nsmitted reference range : <=1.0. The reference r jodi was not used to int erpret this result as normal/abnormal . [facility]landsJousubsMTZRWZNYAI0098-58-03 10:37:00 Test Item Value Reference Range Interpretation Comments Segs (test code = Segs) 68.0 45.0-75.0 [facility]landsYopzyguJEESZHOENL4216-80-42 10:37:00 Test Item Value Reference Range Interpretation Comments Lymphocytes (test code = Lymphocytes) 20.1 20.0-40.0 [facility]landsSivwxuyLCBVKSCQNZ2216-07-66 10:37:00 Test Item Value Reference Range Interpretation Comments Monocytes (test code = Monocytes) 9.3 2.0-12.0 [facility]landsKnpibxiSIXAJCDRGS2069-75-00 10:37:00 Test Item Value Reference Range Interpretation Comments Eosinophils (test code = 2.2 See_Comment [A utomated message] The Eosinophils) system which ge nerated this result tra nsmitted reference range : <=4.0. The reference r jodi was not used to int erpret this result as normal/abnormal . [facility]landsXcuaecsXBJNKFKFDW0112-11-22 10:37:00 Test Item Value Reference Range Interpretation Comments Basophils # (test code 0.1 See_Comment [Aut omated message] The = Basophils #) system which generated this result tra nsmitted reference range : <=0.2. The reference r jodi was not used to int erpret this result as normal/abnormal . [facility] [place]EdvmjriFFUBAICIRX8494-31-10 10:37:00 Test Item Value Reference Range Interpretation Comments Eosinophils # (test code 0.4 See_Comment [A utomated message] The = Eosinophils #) system whic h generated this result tra nsmitted reference range : <=0.5. The reference r jodi was not used to int erpret this result as normal/abnormal . [id number] 10:37:00 Test Item Value Reference Range Interpretation Comments Monocytes # (test code 1.7 See_Comment [Aut omated message] The = Monocytes #) system which generated this result tra nsmitted reference range : <=0.8. The reference r jodi was not used to int erpret this result as normal/abnormal . [facility]lan[id number] 10:37:00 Test Item Value Reference Range Interpretation Comments Lymphocytes # (test code = Lymphocytes 3.7 1.0-5.5 #) [facility]2017-12-31 10:37:00 Test Item Value Reference Range Interpretation Comments eGFR (test code = eGFR) 116 [facility]2017-12-31 10:37:00 Test Item Value Reference Range Interpretation Comments AGAP (test code = AGAP) 12.7 10.0-20.0 [facility]2017-12-31 10:37:00 Test Item Value Reference Range Interpretation Comments CO2 (test code = CO2) 26 24-32 [facility]2017-12-31 10:37:00 Test Item Value Reference Range Interpretation Comments Sodium Lvl (test code = Sodium Lvl) 133 135-145 [facility]2017-12-31 10:37:00 Test Item Value Reference Range Interpretation Comments Potassium Lvl (test code = Potassium 3.7 3.5-5.1 Lvl) [facility]2017-12-31 10:37:00 Test Item Value Reference Range Interpretation Comments Chloride Lvl (test code = Chloride Lvl) 98 95-109 [facility]2017-12-31 10:37:00 Test Item Value Reference Range Interpretation Comments BUN (test code = BUN) 7 7-22 [facility]2017-12-31 10:37:00 Test Item Value Reference Range Interpretation Comments Creatinine Lvl (test code = Creatinine 0.40 0.50-1.40 Lvl) [facility]2017-12-31 10:37:00 Test Item Value Reference Range Interpretation Comments Glucose Lvl (test code = Glucose Lvl) 106 70-99 [facility]2017-12-31 10:37:00 Test Item Value Reference Range Interpretation Comments Calcium Lvl (test code = Calcium Lvl) 8.5 8.5-10.5 [facility]2017-12-31 10:37:00 Test Item Value Reference Range Interpretation Comments Magnesium Lvl (test code = Magnesium 2.3 1.8-2.4 Lvl) [facility]landsJkxokewYXXPUTCJER8970-30-00 10:37:00 Test Item Value Reference Range Interpretation Comments Hct (test code = Hct) 35.3 36.0-48.0 [facility]landsNcoxbbsQKPJKQGAWK3285-54-48 10:37:00 Test Item Value Reference Range Interpretation Comments RBC (test code = RBC) 3.71 4.20-5.40 [facility]landsPcpytofEKDUBAZNHT5991-18-80 10:37:00 Test Item Value Reference Range Interpretation Comments Hgb (test code = Hgb) 11.9 12.0-16.0 [facility]landsDqxusijRFAUYHLBQR6765-14-38 10:37:00 Test Item Value Reference Range Interpretation Comments MCV (test code = MCV) 95.1 80.0-98.0 [facility]landsUprdpubVFRNPIPOVB5603-05-28 10:37:00 Test Item Value Reference Range Interpretation Comments MCHC (test code = MCHC) 33.8 32.0-36.0 [facility]landsScndthnYXLXEJPKNU2318-30-54 10:37:00 Test Item Value Reference Range Interpretation Comments MCH (test code = MCH) 32.2 pg 27.0-31.0 [facility]landsHokfrskQZADXCDJKW2000-17-89 10:37:00 Test Item Value Reference Range Interpretation Comments MPV (test code = MPV) 7.7 7.4-10.4 [facility]landsWquetfgLPENVMQIAM2260-37-68 10:37:00 Test Item Value Reference Range Interpretation Comments RDW (test code = RDW) 13.7 11.5-14.5 [facility]landsYzcuynsPVVLDVDTBZ3278-48-86 10:37:00 Test Item Value Reference Range Interpretation Comments Platelet (test code = Platelet) 498 338-450 [facility]landsVbopyazBUSYIAGVHN9894-74-21 10:37:00 Test Item Value Reference Range Interpretation Comments WBC (test code = WBC) 18.2 3.7-10.4 [facility]landsDlyqxgpKNEIAVVQUS4331-74-72 10:37:00 Test Item Value Reference Range Interpretation Comments Segs-Bands # (test code = Segs-Bands #) 12.4 1.5-8.1 [facility]landsCdczmfhPABHVQBZGG3512-12-46 10:37:00 Test Item Value Reference Range Interpretation Comments Basophils (test code = 0.4 See_Comment [Aut omated message] The Basophils) system which ge nerated this result tra nsmitted reference range : <=1.0. The reference r jodi was not used to int erpret this result as normal/abnormal . [facility]landsCgacziqULILZUHTOO8319-53-59 10:37:00 Test Item Value Reference Range Interpretation Comments Segs (test code = Segs) 68.0 45.0-75.0 [facility]landsSohzplqWIIOAJSRNA6543-61-18 10:37:00 Test Item Value Reference Range Interpretation Comments Lymphocytes (test code = Lymphocytes) 20.1 20.0-40.0 [facility]landsFbzeunzTNVVQCGCNI3578-31-68 10:37:00 Test Item Value Reference Range Interpretation Comments Monocytes (test code = Monocytes) 9.3 2.0-12.0 [facility]landsCqmxwweWBUCSIBFZE1353-51-49 10:37:00 Test Item Value Reference Range Interpretation Comments Eosinophils (test code = 2.2 See_Comment [A utomated message] The Eosinophils) system which ge nerated this result tra nsmitted reference range : <=4.0. The reference r jodi was not used to int erpret this result as normal/abnormal . [facility]landsHsgvlqzFWAXUWKIBE1147-83-41 10:37:00 Test Item Value Reference Range Interpretation Comments Basophils # (test code 0.1 See_Comment [Aut omated message] The = Basophils #) system which generated this result tra nsmitted reference range : <=0.2. The reference r jodi was not used to int erpret this result as normal/abnormal . [facility]landsJozymutQOYSBGGAXG7909-97-40 10:37:00 Test Item Value Reference Range Interpretation Comments Eosinophils # (test code 0.4 See_Comment [A utomated message] The = Eosinophils #) system [facility] h generated this result tra nsmitted reference range : <=0.5. The reference r jodi was not used to int erpret this result as normal/abnormal . [facility]landsBgiqwwvJWGQRHAAQO8245-51-91 10:37:00 Test Item Value Reference Range Interpretation Comments Monocytes # (test code 1.7 See_Comment [Aut omated message] The = Monocytes #) system which generated this result tra nsmitted reference range : <=0.8. The reference r jodi was not used to int erpret this result as normal/abnormal . [facility]landsAoopxalXMIWNIOZQY9735-10-71 10:37:00 Test Item Value Reference Range Interpretation Comments Lymphocytes # (test code = Lymphocytes 3.7 1.0-5.5 #) [facility]2017-12-31 10:37:00 Test Item Value Reference Range Interpretation Comments eGFR (test code = eGFR) 116 [facility]2017-12-31 10:37:00 Test Item Value Reference Range Interpretation Comments AGAP (test code = AGAP) 12.7 10.0-20.0 [facility]2017-12-31 10:37:00 Test Item Value Reference Range Interpretation Comments CO2 (test code = CO2) 26 24-32 [facility]2017-12-31 10:37:00 Test Item Value Reference Range Interpretation Comments Sodium Lvl (test code = Sodium Lvl) 133 135-145 [facility]2017-12-31 10:37:00 Test Item Value Reference Range Interpretation Comments Potassium Lvl (test code = Potassium 3.7 3.5-5.1 Lvl) [facility]2017-12-31 10:37:00 Test Item Value Reference Range Interpretation Comments Chloride Lvl (test code = Chloride Lvl) 98 95-109 [facility]2017-12-31 10:37:00 Test Item Value Reference Range Interpretation Comments BUN (test code = BUN) 7 7-22 [facility]2017-12-31 10:37:00 Test Item Value Reference Range Interpretation Comments Creatinine Lvl (test code = Creatinine 0.40 0.50-1.40 Lvl) [facility]2017-12-31 10:37:00 Test Item Value Reference Range Interpretation Comments Glucose Lvl (test code = Glucose Lvl) 106 70-99 [facility]2017-12-31 10:37:00 Test Item Value Reference Range Interpretation Comments Calcium Lvl (test code = Calcium Lvl) 8.5 8.5-10.5 [facility]2017-12-31 10:37:00 Test Item Value Reference Range Interpretation Comments Magnesium Lvl (test code = Magnesium 2.3 1.8-2.4 Lvl) [facility]landsRxwpwmuGJZSZKTYDT3296-53-25 10:37:00 Test Item Value Reference Range Interpretation Comments Hct (test code = Hct) 35.3 36.0-48.0 [facility]landsWdtaqieOLDLCAYSCS7289-42-44 10:37:00 Test Item Value Reference Range Interpretation Comments RBC (test code = RBC) 3.71 4.20-5.40 [facility]landsZlggmprJAYXWMXMBI3302-10-08 10:37:00 Test Item Value Reference Range Interpretation Comments Hgb (test code = Hgb) 11.9 12.0-16.0 [facility]landsCgerufqWABDYIUYGN6018-31-38 10:37:00 Test Item Value Reference Range Interpretation Comments MCV (test code = MCV) 95.1 80.0-98.0 [facility]landsBkcqjfaIOVTEYVMRO8008-92-13 10:37:00 Test Item Value Reference Range Interpretation Comments MCHC (test code = MCHC) 33.8 32.0-36.0 [facility]landsPnuxffvMZDFKGTPKE1259-15-08 10:37:00 Test Item Value Reference Range Interpretation Comments MCH (test code = MCH) 32.2 pg 27.0-31.0 [facility]landsJpmstffVPWEERJDCS6050-23-82 10:37:00 Test Item Value Reference Range Interpretation Comments MPV (test code = MPV) 7.7 7.4-10.4 [facility]landsEyjcsagDCEMTMMGBY8478-66-08 10:37:00 Test Item Value Reference Range Interpretation Comments RDW (test code = RDW) 13.7 11.5-14.5 [facility]landsAkpdezxHTKNYEOJIX3117-43-78 10:37:00 Test Item Value Reference Range Interpretation Comments Platelet (test code = Platelet) 498 164-450 [facility]landsLqitiujAZDMFEQCVH2848-56-73 10:37:00 Test Item Value Reference Range Interpretation Comments WBC (test code = WBC) 18.2 3.7-10.4 [facility]landsIgnbvuuWCQATSZFUU1127-51-10 10:37:00 Test Item Value Reference Range Interpretation Comments Segs-Bands # (test code = Segs-Bands #) 12.4 1.5-8.1 [facility]landsCsdxppkMHWDXNERWJ5002-68-22 10:37:00 Test Item Value Reference Range Interpretation Comments Basophils (test code = 0.4 See_Comment [Aut omated message] The Basophils) system which ge nerated this result tra nsmitted reference range : <=1.0. The reference r jodi was not used to int erpret this result as normal/abnormal . [facility]landsHgdsgtsQKLTNBBUSB0308-83-97 10:37:00 Test Item Value Reference Range Interpretation Comments Segs (test code = Segs) 68.0 45.0-75.0 [facility]landsNvxsqyyPRYXWTYJNS6919-50-67 10:37:00 Test Item Value Reference Range Interpretation Comments Lymphocytes (test code = Lymphocytes) 20.1 20.0-40.0 [facility]landsRpvgkopXXUEJCUKSQ2012-16-83 10:37:00 Test Item Value Reference Range Interpretation Comments Monocytes (test code = Monocytes) 9.3 2.0-12.0 [facility]landsJiejdqoGNPGAMCZVO2805-54-37 10:37:00 Test Item Value Reference Range Interpretation Comments Eosinophils (test code = 2.2 See_Comment [A utomated message] The Eosinophils) system which ge nerated this result tra nsmitted reference range : <=4.0. The reference r jodi was not used to int erpret this result as normal/abnormal . [facility]landsWirinmlOLPKMUMWOI5671-00-13 10:37:00 Test Item Value Reference Range Interpretation Comments Basophils # (test code 0.1 See_Comment [Aut omated message] The = Basophils #) system which generated this result tra nsmitted reference range : <=0.2. The reference r jodi was not used to int erpret this result as normal/abnormal . [facility]landsAcmovliOTFNTRMXUP3116-52-55 10:37:00 Test Item Value Reference Range Interpretation Comments Eosinophils # (test code 0.4 See_Comment [A utomated message] The = Eosinophils #) system whic h generated this result tra nsmitted reference range : <=0.5. The reference r jodi was not used to int erpret this result as normal/abnormal . [facility]landsCepfygdRWSUOSEGTJ5841-45-62 10:37:00 Test Item Value Reference Range Interpretation Comments Monocytes # (test code 1.7 See_Comment [Aut omated message] The = Monocytes #) system which generated this result tra nsmitted reference range : <=0.8. The reference r jodi was not used to int erpret this result as normal/abnormal . [facility]landsRkxcpiaYRLIAVMTAR8504-19-77 10:37:00 Test Item Value Reference Range Interpretation Comments Lymphocytes # (test code = Lymphocytes 3.7 1.0-5.5 #) [facility]2017-12-30 15:39:00 Test Item Value Reference Range Interpretation Comments eGFR (test code = eGFR) 102 [facility]2017-12-30 15:39:00 Test Item Value Reference Range Interpretation Comments Chloride Lvl (test code = Chloride Lvl) 93 95-109 [facility]2017-12-30 15:39:00 Test Item Value Reference Range Interpretation Comments CO2 (test code = CO2) 23 24-32 [facility]2017-12-30 15:39:00 Test Item Value Reference Range Interpretation Comments Calcium Lvl (test code = Calcium Lvl) 8.3 8.5-10.5 [facility]2017-12-30 15:39:00 Test Item Value Reference Range Interpretation Comments Sodium Lvl (test code = Sodium Lvl) 129 135-145 [facility]2017-12-30 15:39:00 Test Item Value Reference Range Interpretation Comments Potassium Lvl (test code = Potassium 3.5 3.5-5.1 Lvl) [facility]2017-12-30 15:39:00 Test Item Value Reference Range Interpretation Comments BUN (test code = BUN) 7 7-22 [facility]2017-12-30 15:39:00 Test Item Value Reference Range Interpretation Comments Creatinine Lvl (test code = Creatinine 0.61 0.50-1.40 Lvl) [facility]2017-12-30 15:39:00 Test Item Value Reference Range Interpretation Comments Glucose Lvl (test code = Glucose Lvl) 148 70-99 [facility]2017-12-30 15:39:00 Test Item Value Reference Range Interpretation Comments AGAP (test code = AGAP) 16.5 10.0-20.0 [facility]2017-12-30 15:39:00 Test Item Value Reference Range Interpretation Comments Magnesium Lvl (test code = Magnesium 2.0 1.8-2.4 Lvl) [facility]landsWadiokmOUJBYWGMMV6510-50-15 15:39:00 Test Item Value Reference Range Interpretation Comments Platelet (test code = Platelet) 519 133-450 [facility]landsMlgewhlPOVNVYRLXL4324-00-04 15:39:00 Test Item Value Reference Range Interpretation Comments MPV (test code = MPV) 8.0 7.4-10.4 [facility]landsMwclugtCQUUTUOQGS5313-74-54 15:39:00 Test Item Value Reference Range Interpretation Comments WBC (test code = WBC) 16.0 3.7-10.4 [facility]landsJmuprakYBZBSRWXLH5245-09-81 15:39:00 Test Item Value Reference Range Interpretation Comments RBC (test code = RBC) 3.82 4.20-5.40 [facility]landsJukzgzzDUBGRUNMKN6765-98-97 15:39:00 Test Item Value Reference Range Interpretation Comments Hct (test code = Hct) 37.2 36.0-48.0 [facility]landsDeernvdKLZSRCPONV7205-50-74 15:39:00 Test Item Value Reference Range Interpretation Comments Hgb (test code = Hgb) 12.6 12.0-16.0 [facility]landsBgxjldmFOOFJBYEDI6145-47-42 15:39:00 Test Item Value Reference Range Interpretation Comments MCV (test code = MCV) 97.2 80.0-98.0 [facility]landsBbhkrlbBVJKBOHTTO7751-10-86 15:39:00 Test Item Value Reference Range Interpretation Comments MCHC (test code = MCHC) 34.0 32.0-36.0 [facility]landsLbfnrsxTTAOBXDGSR4945-47-07 15:39:00 Test Item Value Reference Range Interpretation Comments MCH (test code = MCH) 33.1 pg 27.0-31.0 [facility]landsOorvnqjSXHAJCIDCD6128-99-79 15:39:00 Test Item Value Reference Range Interpretation Comments RDW (test code = RDW) 13.3 11.5-14.5 [facility]landsCvejupcTTXSJIKMIF9241-26-58 15:39:00 Test Item Value Reference Range Interpretation Comments Atypical Lymphs (test code = Atypical 1.0 Lymphs) [facility]landsMnqcemsDINPZKXAGQ1394-56-24 15:39:00 Test Item Value Reference Range Interpretation Comments RBC Morph (test code = Normal (10/29/17 9:39 RBC Morph) AM) [facility]landsCjwtyboOCEMOSKBFF4804-72-66 15:39:00 Test Item Value Reference Range Interpretation Comments Metamyelocytes (test code 3.0 See_Comment [ Automated message] = Metamyelocytes) The system which generated this result transmitted ref erence range: <=1.0. T he reference range was not used to int erpret this result as normal/abnormal . [facility]landsKcnddbzQQLHMILENJ0506-15-05 15:39:00 Test Item Value Reference Range Interpretation Comments Eosinophils (test code = 4.0 See_Comment [A utomated message] The Eosinophils) system which ge nerated this result tra nsmitted reference range : <=4.0. The reference r jodi was not used to int erpret this result as normal/abnormal . [facility]landsEeoohdbSPMSNNGFZG5476-80-35 15:39:00 Test Item Value Reference Range Interpretation Comments Monocytes (test code = Monocytes) 13.0 2.0-12.0 [facility]landsCcfnwgfBTYRLXKMPN7897-74-21 15:39:00 Test Item Value Reference Range Interpretation Comments Plt Morph (test code = Clumped (10/29/17 9:39 Plt Morph) AM) [facility]landsDqrivzyVYXGRKFWGI6925-93-10 15:39:00 Test Item Value Reference Range Interpretation Comments Segs (test code = Segs) 60.0 45.0-75.0 [facility]landsUgozodhSOHYAKVEEA5340-17-23 15:39:00 Test Item Value Reference Range Interpretation Comments Monocytes # (test code 2.1 See_Comment [Aut omated message] The = Monocytes #) system which generated this result tra nsmitted reference range : <=0.8. The reference r jodi was not used to int erpret this result as normal/abnormal . [facility]landsHjyvcqcYTTFTMDUOY1091-05-73 15:39:00 Test Item Value Reference Range Interpretation Comments Bands (test code = 0.0 See_Comment [Automat ed message] The Bands) system which ge nerated this result transmit narayan reference range : <=11.0. The reference r jodi was not used to interpr et this result as shreya l/abnormal. [facility]landsEbvruuvJFKFQABAOT0864-32-19 15:39:00 Test Item Value Reference Range Interpretation Comments Eosinophils # (test code 0.6 See_Comment [A utomated message] The = Eosinophils #) system whic h generated this result tra nsmitted reference range : <=0.5. The reference r jodi was not used to int erpret this result as normal/abnormal . [facility]landsRdcalhjWDHFZYNKED7550-68-49 15:39:00 Test Item Value Reference Range Interpretation Comments Lymphocytes (test code = Lymphocytes) 19.0 20.0-40.0 [facility]landsApezhmwHBWCPUQERT2763-53-27 15:39:00 Test Item Value Reference Range Interpretation Comments Lymphocytes # (test code = Lymphocytes 3.2 1.0-5.5 #) [facility]landsExhhdjqQQOBJMNZFH5281-26-02 15:39:00 Test Item Value Reference Range Interpretation Comments Segs-Bands # (test code = Segs-Bands #) 9.6 1.5-8.1 [facility]2017-12-30 15:39:00 Test Item Value Reference Range Interpretation Comments eGFR (test code = eGFR) 102 [facility]2017-12-30 15:39:00 Test Item Value Reference Range Interpretation Comments Chloride Lvl (test code = Chloride Lvl) 93 95-109 [facility]2017-12-30 15:39:00 Test Item Value Reference Range Interpretation Comments CO2 (test code = CO2) 23 24-32 [facility]2017-12-30 15:39:00 Test Item Value Reference Range Interpretation Comments Calcium Lvl (test code = Calcium Lvl) 8.3 8.5-10.5 [facility]2017-12-30 15:39:00 Test Item Value Reference Range Interpretation Comments Sodium Lvl (test code = Sodium Lvl) 129 135-145 [facility]2017-12-30 15:39:00 Test Item Value Reference Range Interpretation Comments Potassium Lvl (test code = Potassium 3.5 3.5-5.1 Lvl) [facility]2017-12-30 15:39:00 Test Item Value Reference Range Interpretation Comments BUN (test code = BUN) 7 7-22 [facility]2017-12-30 15:39:00 Test Item Value Reference Range Interpretation Comments Creatinine Lvl (test code = Creatinine 0.61 0.50-1.40 Lvl) [facility]2017-12-30 15:39:00 Test Item Value Reference Range Interpretation Comments Glucose Lvl (test code = Glucose Lvl) 148 70-99 [facility]2017-12-30 15:39:00 Test Item Value Reference Range Interpretation Comments AGAP (test code = AGAP) 16.5 10.0-20.0 [facility]2017-12-30 15:39:00 Test Item Value Reference Range Interpretation Comments Magnesium Lvl (test code = Magnesium 2.0 1.8-2.4 Lvl) [facility]lan[id number] 15:39:00 Test Item Value Reference Range Interpretation Comments Platelet (test code = Platelet) 519 471-450 [facility]landsRpachdtPNEMREKHIS6774-03-48 15:39:00 Test Item Value Reference Range Interpretation Comments MPV (test code = MPV) 8.0 7.4-10.4 [facility]landsFavchyhINGPTPAYJV2638-59-99 15:39:00 Test Item Value Reference Range Interpretation Comments WBC (test code = WBC) 16.0 3.7-10.4 [facility]landsSdrktfnWIKVXEBAXZ3107-51-28 15:39:00 Test Item Value Reference Range Interpretation Comments RBC (test code = RBC) 3.82 4.20-5.40 [facility]landsKqspnxhUXSCXWAZQS6947-95-33 15:39:00 Test Item Value Reference Range Interpretation Comments Hct (test code = Hct) 37.2 36.0-48.0 [facility]landsZvwuzdwHVDFEAGWEE3482-30-37 15:39:00 Test Item Value Reference Range Interpretation Comments Hgb (test code = Hgb) 12.6 12.0-16.0 [facility]landsOrybmxnLOIQZMGKYY7801-09-91 15:39:00 Test Item Value Reference Range Interpretation Comments MCV (test code = MCV) 97.2 80.0-98.0 [facility]landsMpbqlyzVZUPVJTYJN0389-71-72 15:39:00 Test Item Value Reference Range Interpretation Comments MCHC (test code = MCHC) 34.0 32.0-36.0 [facility]landsBgmddvdNCEITRCYEH4161-89-94 15:39:00 Test Item Value Reference Range Interpretation Comments MCH (test code = MCH) 33.1 pg 27.0-31.0 [facility]landsBqvkmnaTHCDXOJBKI8238-45-96 15:39:00 Test Item Value Reference Range Interpretation Comments RDW (test code = RDW) 13.3 11.5-14.5 [facility]landsLndtfupDLBRZMIZVS7808-66-91 15:39:00 Test Item Value Reference Range Interpretation Comments Atypical Lymphs (test code = Atypical 1.0 Lymphs) [facility]landsBqvwknnTUASSKRCBS8359-77-64 15:39:00 Test Item Value Reference Range Interpretation Comments RBC Morph (test code = Normal (10/29/17 9:39 RBC Morph) AM) [facility]landsAwkqfygEUKIBYXYJR7163-44-73 15:39:00 Test Item Value Reference Range Interpretation Comments Metamyelocytes (test code 3.0 See_Comment [ Automated message] = Metamyelocytes) The system which generated this result transmitted ref erence range: <=1.0. T he reference range was not used to int erpret this result as normal/abnormal . [facility]AhxpgrfWLUJEYOFAV2008-88-56 15:39:00 Test Item Value Reference Range Interpretation Comments Eosinophils (test code = 4.0 See_Comment [A utomated message] The Eosinophils) system which ge nerated this result tra nsmitted reference range : <=4.0. The reference r jodi was not used to int erpret this result as normal/abnormal . [facility]landsOmgluaiROUDTZIHGB2571-31-04 15:39:00 Test Item Value Reference Range Interpretation Comments Monocytes (test code = Monocytes) 13.0 2.0-12.0 [facility]landsRlymgyeAYFJBNDEDQ8589-21-71 15:39:00 Test Item Value Reference Range Interpretation Comments Plt Morph (test code = Clumped (10/29/17 9:39 Plt Morph) AM) [facility]landsFyubxseYFILZGQGPZ7715-25-54 15:39:00 Test Item Value Reference Range Interpretation Comments Segs (test code = Segs) 60.0 45.0-75.0 [facility]landsLoucxqyDGPIMFIZOP7458-76-46 15:39:00 Test Item Value Reference Range Interpretation Comments Monocytes # (test code 2.1 See_Comment [Aut omated message] The = Monocytes #) system which generated this result tra nsmitted reference range : <=0.8. The reference r jodi was not used to int erpret this result as normal/abnormal . [facility]landsYvakowjKJFSSYPLHY3543-39-71 15:39:00 Test Item Value Reference Range Interpretation Comments Bands (test code = 0.0 See_Comment [Automat ed message] The Bands) system which ge nerated this result transmit narayan reference range : <=11.0. The reference r jodi was not used to interpr et this result as shreya l/abnormal. [facility]landsZfjyttrMHEQFJCAJY9096-56-76 15:39:00 Test Item Value Reference Range Interpretation Comments Eosinophils # (test code 0.6 See_Comment [A utomated message] The = Eosinophils #) system whic h generated this result tra nsmitted reference range : <=0.5. The reference r jodi was not used to int erpret this result as normal/abnormal . [facility]landsPckrobjFMNYTUVWUP8716-48-05 15:39:00 Test Item Value Reference Range Interpretation Comments Lymphocytes (test code = Lymphocytes) 19.0 20.0-40.0 [facility]landsKjguhroXYFWEPDJMW3450-98-95 15:39:00 Test Item Value Reference Range Interpretation Comments Lymphocytes # (test code = Lymphocytes 3.2 1.0-5.5 #) [facility]landsDqzppzdUZMVNLAUIV6791-14-05 15:39:00 Test Item Value Reference Range Interpretation Comments Segs-Bands # (test code = Segs-Bands #) 9.6 1.5-8.1 [facility]2017-12-30 15:39:00 Test Item Value Reference Range Interpretation Comments eGFR (test code = eGFR) 102 [facility]2017-12-30 15:39:00 Test Item Value Reference Range Interpretation Comments Chloride Lvl (test code = Chloride Lvl) 93 95-109 [facility]2017-12-30 15:39:00 Test Item Value Reference Range Interpretation Comments CO2 (test code = CO2) 23 24-32 [facility]2017-12-30 15:39:00 Test Item Value Reference Range Interpretation Comments Calcium Lvl (test code = Calcium Lvl) 8.3 8.5-10.5 [facility]2017-12-30 15:39:00 Test Item Value Reference Range Interpretation Comments Sodium Lvl (test code = Sodium Lvl) 129 135-145 [facility]2017-12-30 15:39:00 Test Item Value Reference Range Interpretation Comments Potassium Lvl (test code = Potassium 3.5 3.5-5.1 Lvl) [facility]2017-12-30 15:39:00 Test Item Value Reference Range Interpretation Comments BUN (test code = BUN) 7 7-22 [facility]2017-12-30 15:39:00 Test Item Value Reference Range Interpretation Comments Creatinine Lvl (test code = Creatinine 0.61 0.50-1.40 Lvl) [facility]2017-12-30 15:39:00 Test Item Value Reference Range Interpretation Comments Glucose Lvl (test code = Glucose Lvl) 148 70-99 [facility]2017-12-30 15:39:00 Test Item Value Reference Range Interpretation Comments AGAP (test code = AGAP) 16.5 10.0-20.0 [facility]2017-12-30 15:39:00 Test Item Value Reference Range Interpretation Comments Magnesium Lvl (test code = Magnesium 2.0 1.8-2.4 Lvl) [facility]landsCicnrgoINTCYGRTNT9273-26-73 15:39:00 Test Item Value Reference Range Interpretation Comments Platelet (test code = Platelet) 519 133-450 [facility]landsRnvvfzzZFJMHHWADO0515-69-51 15:39:00 Test Item Value Reference Range Interpretation Comments MPV (test code = MPV) 8.0 7.4-10.4 [facility]landsQhwfpikADFHMOKDTW9958-94-87 15:39:00 Test Item Value Reference Range Interpretation Comments WBC (test code = WBC) 16.0 3.7-10.4 [facility]landsTgwiqgvXZKCKZUJWV7426-10-91 15:39:00 Test Item Value Reference Range Interpretation Comments RBC (test code = RBC) 3.82 4.20-5.40 [facility]landsXqlmnrwVVUFFMZMMB9029-22-29 15:39:00 Test Item Value Reference Range Interpretation Comments Hct (test code = Hct) 37.2 36.0-48.0 [facility]landsWuajhifUTBOXCCVYF6979-02-78 15:39:00 Test Item Value Reference Range Interpretation Comments Hgb (test code = Hgb) 12.6 12.0-16.0 [facility]landsXaakgezVDTVJMBBZR9788-00-76 15:39:00 Test Item Value Reference Range Interpretation Comments MCV (test code = MCV) 97.2 80.0-98.0 [facility]landsFywmeboEXGUBHZCDU7933-94-79 15:39:00 Test Item Value Reference Range Interpretation Comments MCHC (test code = MCHC) 34.0 32.0-36.0 [facility]landsCwvjpihABZJGHPAFU7129-87-04 15:39:00 Test Item Value Reference Range Interpretation Comments MCH (test code = MCH) 33.1 pg 27.0-31.0 [facility]landsLwkoyagTKGPAIFNLF1884-86-10 15:39:00 Test Item Value Reference Range Interpretation Comments RDW (test code = RDW) 13.3 11.5-14.5 [facility]landsKulwtylQWNGPCIHVO7155-18-09 15:39:00 Test Item Value Reference Range Interpretation Comments Atypical Lymphs (test code = Atypical 1.0 Lymphs) [facility]CxsvskfKCYFSXXLHH5331-94-61 15:39:00 Test Item Value Reference Range Interpretation Comments RBC Morph (test code = Normal (10/29/17 9:39 RBC Morph) AM) [facility]landsRyvfdwwLGPRTLJXSX5942-73-82 15:39:00 Test Item Value Reference Range Interpretation Comments Metamyelocytes (test code 3.0 See_Comment [ Automated message] = Metamyelocytes) The system which generated this result transmitted ref erence range: <=1.0. T he reference range was not used to int erpret this result as normal/abnormal . [facility]landsYkrpwgdOAZRNLMXLT0996-48-87 15:39:00 Test Item Value Reference Range Interpretation Comments Eosinophils (test code = 4.0 See_Comment [A utomated message] The Eosinophils) system which ge nerated this result tra nsmitted reference range : <=4.0. The reference r jodi was not used to int erpret this result as normal/abnormal . [facility]landsIkqvdbpDMCVBLJRDL2005-65-21 15:39:00 Test Item Value Reference Range Interpretation Comments Monocytes (test code = Monocytes) 13.0 2.0-12.0 [facility]landsByhqyqpQBVPRITMJG2761-16-49 15:39:00 Test Item Value Reference Range Interpretation Comments Plt Morph (test code = Clumped (10/29/17 9:39 Plt Morph) AM) [facility]landsBudltdeARANHXXBZV0542-10-05 15:39:00 Test Item Value Reference Range Interpretation Comments Segs (test code = Segs) 60.0 45.0-75.0 [facility]landsFwsphagCRCKNSBESY4295-68-08 15:39:00 Test Item Value Reference Range Interpretation Comments Monocytes # (test code 2.1 See_Comment [Aut omated message] The = Monocytes #) system which generated this result tra nsmitted reference range : <=0.8. The reference r jodi was not used to int erpret this result as normal/abnormal . [facility]landsVezbqbyWACIETMMCX1335-65-78 15:39:00 Test Item Value Reference Range Interpretation Comments Bands (test code = 0.0 See_Comment [Automat ed message] The Bands) system which ge nerated this result transmit narayan reference range : <=11.0. The reference r jodi was not used to interpr et this result as shreya l/abnormal. [facility]landsEiznumxRCOYACHHIB8141-20-74 15:39:00 Test Item Value Reference Range Interpretation Comments Eosinophils # (test code 0.6 See_Comment [A utomated message] The = Eosinophils #) system Aristotlic h generated this result tra nsmitted reference range : <=0.5. The reference r jodi was not used to int erpret this result as normal/abnormal . [facility]landsRfjsnpjWTJRAPDPUU3769-15-49 15:39:00 Test Item Value Reference Range Interpretation Comments Lymphocytes (test code = Lymphocytes) 19.0 20.0-40.0 [facility]landsSboxekzHQBYCQXAOU8481-15-30 15:39:00 Test Item Value Reference Range Interpretation Comments Lymphocytes # (test code = Lymphocytes 3.2 1.0-5.5 #) [facility]landsRtwcaqvWNKOIBCGHU2375-96-95 15:39:00 Test Item Value Reference Range Interpretation Comments Segs-Bands # (test code = Segs-Bands #) 9.6 1.5-8.1 [facility]2017-12-29 12:40:00 Test Item Value Reference Range Interpretation Comments Magnesium Lvl (test code = Magnesium 2.4 1.8-2.4 Lvl) [facility]hxnggCTABUXCVXXYS1873-31-54 12:40:00 Test Item Value Reference Range Interpretation Comments Chloride Lvl (test code = Chloride Lvl) 96 95-109 [facility] HospitalJbababaPNIDMWFUEPDZ1017-79-52 12:40:00 Test Item Value Reference Range Interpretation Comments Potassium Lvl (test code = Potassium 3.4 3.5-5.1 Lvl) [facility] HospitalUgtoehfPZGASPMNSILY2989-71-07 12:40:00 Test Item Value Reference Range Interpretation Comments Calcium Lvl (test code = Calcium Lvl) 8.5 8.5-10.5 [facility] HospitalUalejwzQSWDRPSVOBAB4826-29-13 12:40:00 Test Item Value Reference Range Interpretation Comments CO2 (test code = CO2) 28 24-32 [facility] HospitalJzewwbkSZWFJEHUIUHH7358-94-95 12:40:00 Test Item Value Reference Range Interpretation Comments BUN (test code = BUN) 6 7-22 [facility] HospitalUmhkjhzAJELKDZVKIFU7462-37-00 12:40:00 Test Item Value Reference Range Interpretation Comments Glucose Lvl (test code = Glucose Lvl) 119 70-99 [facility] HospitalGwpoxakCPRUDNADDWFX1053-79-07 12:40:00 Test Item Value Reference Range Interpretation Comments Creatinine Lvl (test code = Creatinine 0.41 0.50-1.40 Lvl) [facility] HospitalLvjqlxbTVPFSWKDECRI5545-85-56 12:40:00 Test Item Value Reference Range Interpretation Comments Sodium Lvl (test code = Sodium Lvl) 132 135-145 [facility] HospitalMohocchDMHXPQQFPQWQ4067-45-72 12:40:00 Test Item Value Reference Range Interpretation Comments eGFR (test code = eGFR) 116 [facility] HospitalBwmnfjvTGUYOJYHZTJU9384-07-73 12:40:00 Test Item Value Reference Range Interpretation Comments AGAP (test code = AGAP) 11.4 10.0-20.0 [facility]MqkscxqMJEWXCVHAS2916-57-25 12:40:00 Test Item Value Reference Range Interpretation Comments MPV (test code = MPV) 7.9 7.4-10.4 [facility]landsUnteyqvMZXOPBPXTX9069-51-65 12:40:00 Test Item Value Reference Range Interpretation Comments Platelet (test code = Platelet) 481 133-450 [facility]landsAfeuihmHHBGGUDNZU4476-06-56 12:40:00 Test Item Value Reference Range Interpretation Comments RDW (test code = RDW) 13.3 11.5-14.5 [facility]landsVgttbvvXDMCQYDLLL1173-66-60 12:40:00 Test Item Value Reference Range Interpretation Comments MCHC (test code = MCHC) 33.9 32.0-36.0 [facility]landsLzamrhzMTGVLRKBDU8931-32-83 12:40:00 Test Item Value Reference Range Interpretation Comments RBC (test code = RBC) 3.89 4.20-5.40 [facility]landsOozkbgaSATXTOCTFY1964-79-02 12:40:00 Test Item Value Reference Range Interpretation Comments WBC (test code = WBC) 18.2 3.7-10.4 [facility]KcthsrjXJHEZGXNCG3253-04-67 12:40:00 Test Item Value Reference Range Interpretation Comments Hgb (test code = Hgb) 12.5 12.0-16.0 [facility]landsNayykljMFOVCCVNRV1526-67-61 12:40:00 Test Item Value Reference Range Interpretation Comments MCV (test code = MCV) 94.9 80.0-98.0 [facility]landsNletuvfPNLAYEABXP8785-24-50 12:40:00 Test Item Value Reference Range Interpretation Comments MCH (test code = MCH) 32.2 pg 27.0-31.0 [facility]QgajrcwQYQGVEMHZI6266-21-60 12:40:00 Test Item Value Reference Range Interpretation Comments Hct (test code = Hct) 36.9 36.0-48.0 [facility]landsMqpgozlBBREYDRWGK1203-64-08 12:40:00 Test Item Value Reference Range Interpretation Comments Lymphocytes # (test code = Lymphocytes 2.9 1.0-5.5 #) [facility]landsDokkhupSNWXAAMZLU0428-79-85 12:40:00 Test Item Value Reference Range Interpretation Comments Eosinophils # (test code 0.2 See_Comment [A utomated message] The = Eosinophils #) system whic h generated this result tra nsmitted reference range : <=0.5. The reference r jodi was not used to int erpret this result as normal/abnormal . [facility]landsObkcrnwBQGRVNKCGF1642-00-24 12:40:00 Test Item Value Reference Range Interpretation Comments Monocytes # (test code 1.3 See_Comment [Aut omated message] The = Monocytes #) system which generated this result tra nsmitted reference range : <=0.8. The reference r jodi was not used to int erpret this result as normal/abnormal . [facility]landsBsbzjskCWRFMCUKNR2416-73-78 12:40:00 Test Item Value Reference Range Interpretation Comments Basophils # (test code 0.1 See_Comment [Aut omated message] The = Basophils #) system which generated this result tra nsmitted reference range : <=0.2. The reference r jodi was not used to int erpret this result as normal/abnormal . [facility]landsOimedyuQKZWECGDQT5188-63-39 12:40:00 Test Item Value Reference Range Interpretation Comments Segs-Bands # (test code = Segs-Bands #) 13.6 1.5-8.1 [facility]landsIohfspoXVNJTFSXUN6266-29-12 12:40:00 Test Item Value Reference Range Interpretation Comments Basophils (test code = 0.7 See_Comment [Aut omated message] The Basophils) system which ge nerated this result tra nsmitted reference range : <=1.0. The reference r jodi was not used to int erpret this result as normal/abnormal . [facility]landsLjxzagcBHSGGUQJEM1325-19-99 12:40:00 Test Item Value Reference Range Interpretation Comments Eosinophils (test code = 1.3 See_Comment [A utomated message] The Eosinophils) system which ge nerated this result tra nsmitted reference range : <=4.0. The reference r jodi was not used to int erpret this result as normal/abnormal . [facility]landsCfnksidWAHESLLGGW0080-66-21 12:40:00 Test Item Value Reference Range Interpretation Comments Monocytes (test code = Monocytes) 7.2 2.0-12.0 [facility]landsUjgmiqdWSZIFSVZBF7719-40-19 12:40:00 Test Item Value Reference Range Interpretation Comments Lymphocytes (test code = Lymphocytes) 16.2 20.0-40.0 [facility]landsVapihthXLGLYUUHOP2755-17-20 12:40:00 Test Item Value Reference Range Interpretation Comments Segs (test code = Segs) 74.6 45.0-75.0 [facility]2017-12-29 12:40:00 Test Item Value Reference Range Interpretation Comments Magnesium Lvl (test code = Magnesium 2.4 1.8-2.4 Lvl) [facility] HospitalEavonyfHONKOFPPUVSA4888-19-89 12:40:00 Test Item Value Reference Range Interpretation Comments Chloride Lvl (test code = Chloride Lvl) 96 95-109 [facility] HospitalQsovthtRIEALRWSQQCH5458-99-14 12:40:00 Test Item Value Reference Range Interpretation Comments Potassium Lvl (test code = Potassium 3.4 3.5-5.1 Lvl) [facility] HospitalKnobxasYGDVKEEGBIMO1772-05-05 12:40:00 Test Item Value Reference Range Interpretation Comments Calcium Lvl (test code = Calcium Lvl) 8.5 8.5-10.5 [facility] HospitalPjptrjpEKEYYAMQAUAJ9000-13-67 12:40:00 Test Item Value Reference Range Interpretation Comments CO2 (test code = CO2) 28 24-32 [facility] HospitalEdfoemmWKREXLUQSTFG8595-74-60 12:40:00 Test Item Value Reference Range Interpretation Comments BUN (test code = BUN) 6 7-22 [facility] HospitalVukneliHMQWLXVQHLDK1634-95-96 12:40:00 Test Item Value Reference Range Interpretation Comments Glucose Lvl (test code = Glucose Lvl) 119 70-99 [facility] HospitalNeijbtbUOAWXKYICXNY4908-49-62 12:40:00 Test Item Value Reference Range Interpretation Comments Creatinine Lvl (test code = Creatinine 0.41 0.50-1.40 Lvl) [facility] HospitalBcuyuvqWZDPNGABBPYW9463-74-32 12:40:00 Test Item Value Reference Range Interpretation Comments Sodium Lvl (test code = Sodium Lvl) 132 135-145 [facility] HospitalXhgymcnVIUMCMUQKFHP1116-03-59 12:40:00 Test Item Value Reference Range Interpretation Comments eGFR (test code = eGFR) 116 [facility] HospitalEwegvvyDXIYFVSADYCJ4127-75-47 12:40:00 Test Item Value Reference Range Interpretation Comments AGAP (test code = AGAP) 11.4 10.0-20.0 [facility]landsXaxzmjyQWINLNDGZY2487-40-81 12:40:00 Test Item Value Reference Range Interpretation Comments MPV (test code = MPV) 7.9 7.4-10.4 [facility]landsBibucuqCEOTXAKJBZ0978-93-80 12:40:00 Test Item Value Reference Range Interpretation Comments Platelet (test code = Platelet) 481 133-450 [facility]landsIioasnbQFDFVMVRRM3669-95-32 12:40:00 Test Item Value Reference Range Interpretation Comments RDW (test code = RDW) 13.3 11.5-14.5 [facility]landsGiyxcefODEXOMMXLR0886-69-99 12:40:00 Test Item Value Reference Range Interpretation Comments MCHC (test code = MCHC) 33.9 32.0-36.0 [facility]landsFcstokqKLFHEMDVVT7314-59-33 12:40:00 Test Item Value Reference Range Interpretation Comments RBC (test code = RBC) 3.89 4.20-5.40 [facility]landsXcntrktAALMZKDRJF7025-48-59 12:40:00 Test Item Value Reference Range Interpretation Comments WBC (test code = WBC) 18.2 3.7-10.4 [facility]landsGrfioaqJSXAWWVAPI6855-89-56 12:40:00 Test Item Value Reference Range Interpretation Comments Hgb (test code = Hgb) 12.5 12.0-16.0 [facility]landsWczqwazCMJVLWPFVJ3208-02-07 12:40:00 Test Item Value Reference Range Interpretation Comments MCV (test code = MCV) 94.9 80.0-98.0 [facility]landsRvxnfqdXHOTCRCCSS7499-87-93 12:40:00 Test Item Value Reference Range Interpretation Comments MCH (test code = MCH) 32.2 pg 27.0-31.0 [facility]landsCvrjnteGIBUPRZDCI0322-56-38 12:40:00 Test Item Value Reference Range Interpretation Comments Hct (test code = Hct) 36.9 36.0-48.0 [facility]landsGipyqpzKGDYJWCYBE2270-40-68 12:40:00 Test Item Value Reference Range Interpretation Comments Lymphocytes # (test code = Lymphocytes 2.9 1.0-5.5 #) [facility]landsWjmrmvyKZWUKMZIGA2483-14-20 12:40:00 Test Item Value Reference Range Interpretation Comments Eosinophils # (test code 0.2 See_Comment [A utomated message] The = Eosinophils #) system whic h generated this result tra nsmitted reference range : <=0.5. The reference r jodi was not used to int erpret this result as normal/abnormal . [facility]landsKzzrfxnIEYHKEEIQI8111-67-20 12:40:00 Test Item Value Reference Range Interpretation Comments Monocytes # (test code 1.3 See_Comment [Aut omated message] The = Monocytes #) system which generated this result tra nsmitted reference range : <=0.8. The reference r jodi was not used to int erpret this result as normal/abnormal . [facility]landsMigqmcjIBTOQICHVE3174-26-63 12:40:00 Test Item Value Reference Range Interpretation Comments Basophils # (test code 0.1 See_Comment [Aut omated message] The = Basophils #) system which generated this result tra nsmitted reference range : <=0.2. The reference r jodi was not used to int erpret this result as normal/abnormal . [facility]landsZkkblafWOLJCBLGAM5198-92-83 12:40:00 Test Item Value Reference Range Interpretation Comments Segs-Bands # (test code = Segs-Bands #) 13.6 1.5-8.1 [facility]landsKukgpqlIXSXHGUQYS4895-42-56 12:40:00 Test Item Value Reference Range Interpretation Comments Basophils (test code = 0.7 See_Comment [Aut omated message] The Basophils) system which ge nerated this result tra nsmitted reference range : <=1.0. The reference r jodi was not used to int erpret this result as normal/abnormal . [facility]landsVvpdxzoNCPALDXSBS4392-06-31 12:40:00 Test Item Value Reference Range Interpretation Comments Eosinophils (test code = 1.3 See_Comment [A utomated message] The Eosinophils) system which ge nerated this result tra nsmitted reference range : <=4.0. The reference r jodi was not used to int erpret this result as normal/abnormal . [facility]landsBnwhgigQHJZIATFTV9141-83-61 12:40:00 Test Item Value Reference Range Interpretation Comments Monocytes (test code = Monocytes) 7.2 2.0-12.0 [facility]landsPzlmmjaFPMEJSCIAZ7907-24-10 12:40:00 Test Item Value Reference Range Interpretation Comments Lymphocytes (test code = Lymphocytes) 16.2 20.0-40.0 [facility]landsSzpididRXETZZQDVN7162-02-16 12:40:00 Test Item Value Reference Range Interpretation Comments Segs (test code = Segs) 74.6 45.0-75.0 [facility]2017-12-29 12:40:00 Test Item Value Reference Range Interpretation Comments Magnesium Lvl (test code = Magnesium 2.4 1.8-2.4 Lvl) [facility] HospitalWznzdmlKFOPPHENVXFL0687-41-35 12:40:00 Test Item Value Reference Range Interpretation Comments Chloride Lvl (test code = Chloride Lvl) 96 95-109 [facility] HospitalBkdsedaQSGMNPWYATAD7914-48-24 12:40:00 Test Item Value Reference Range Interpretation Comments Potassium Lvl (test code = Potassium 3.4 3.5-5.1 Lvl) [facility] HospitalGdznuowNVYNBRKPCCRT3014-96-86 12:40:00 Test Item Value Reference Range Interpretation Comments Calcium Lvl (test code = Calcium Lvl) 8.5 8.5-10.5 [facility] HospitalWqobdzhYOFFQMSOMNMO3799-87-61 12:40:00 Test Item Value Reference Range Interpretation Comments CO2 (test code = CO2) 28 24-32 [facility] HospitalCsklavgJUUQNNJEVMBQ7960-14-31 12:40:00 Test Item Value Reference Range Interpretation Comments BUN (test code = BUN) 6 7-22 [facility] HospitalXlrdlrsKYZJEMOBNVBV8586-52-20 12:40:00 Test Item Value Reference Range Interpretation Comments Glucose Lvl (test code = Glucose Lvl) 119 70-99 [facility] HospitalPihtsreIXYAAIZELKOQ0130-35-11 12:40:00 Test Item Value Reference Range Interpretation Comments Creatinine Lvl (test code = Creatinine 0.41 0.50-1.40 Lvl) [facility] HospitalZopqqttEUNTJGRDJCPH1386-03-20 12:40:00 Test Item Value Reference Range Interpretation Comments Sodium Lvl (test code = Sodium Lvl) 132 135-145 [facility] HospitalXkjmsqgMFCRZSHEZREP8195-19-30 12:40:00 Test Item Value Reference Range Interpretation Comments eGFR (test code = eGFR) 116 [facility] HospitalFhenafrTSEOAINAGFSR5792-62-50 12:40:00 Test Item Value Reference Range Interpretation Comments AGAP (test code = AGAP) 11.4 10.0-20.0 [facility] WoodlandsLhnueveCKZSUDWIZT0223-81-80 12:40:00 Test Item Value Reference Range Interpretation Comments MPV (test code = MPV) 7.9 7.4-10.4 [facility]lan[id number] 12:40:00 Test Item Value Reference Range Interpretation Comments Platelet (test code = Platelet) 481 133-450 [facility]landsNuhzttjEKSRUWHMKM7946-12-67 12:40:00 Test Item Value Reference Range Interpretation Comments RDW (test code = RDW) 13.3 11.5-14.5 [facility]landsKggflbiJXIVZBPGTN7253-84-50 12:40:00 Test Item Value Reference Range Interpretation Comments MCHC (test code = MCHC) 33.9 32.0-36.0 [facility]landsLxpmnwkZAYKFNAJPY5593-06-10 12:40:00 Test Item Value Reference Range Interpretation Comments RBC (test code = RBC) 3.89 4.20-5.40 [facility]landsTsgavqaSEITEIEEAQ2444-64-30 12:40:00 Test Item Value Reference Range Interpretation Comments WBC (test code = WBC) 18.2 3.7-10.4 [facility]landsTrgvomvJWRKCUZCAK7348-21-39 12:40:00 Test Item Value Reference Range Interpretation Comments Hgb (test code = Hgb) 12.5 12.0-16.0 [facility]landsFhjtebgDIOEEGMJMW7576-28-70 12:40:00 Test Item Value Reference Range Interpretation Comments MCV (test code = MCV) 94.9 80.0-98.0 [facility]landsIhnwwrnNKPTKWZJEU0584-60-41 12:40:00 Test Item Value Reference Range Interpretation Comments MCH (test code = MCH) 32.2 pg 27.0-31.0 [facility]landsWkxuzhrVMFFBVLASJ2580-95-44 12:40:00 Test Item Value Reference Range Interpretation Comments Hct (test code = Hct) 36.9 36.0-48.0 [facility]landsGbdzokzRWSGJMOORL4028-28-09 12:40:00 Test Item Value Reference Range Interpretation Comments Lymphocytes # (test code = Lymphocytes 2.9 1.0-5.5 #) [facility]landsDcjfgqwLWZCSQMDLB6007-26-03 12:40:00 Test Item Value Reference Range Interpretation Comments Eosinophils # (test code 0.2 See_Comment [A utomated message] The = Eosinophils #) system whic h generated this result tra nsmitted reference range : <=0.5. The reference r jodi was not used to int erpret this result as normal/abnormal . [facility]landsWeszyoxGAIRYTSDEN6153-53-47 12:40:00 Test Item Value Reference Range Interpretation Comments Monocytes # (test code 1.3 See_Comment [Aut omated message] The = Monocytes #) system which generated this result tra nsmitted reference range : <=0.8. The reference r jodi was not used to int erpret this result as normal/abnormal . [facility]landsNailozfJNQMYDDOOW8812-93-36 12:40:00 Test Item Value Reference Range Interpretation Comments Basophils # (test code 0.1 See_Comment [Aut omated message] The = Basophils #) system which generated this result tra nsmitted reference range : <=0.2. The reference r jodi was not used to int erpret this result as normal/abnormal . [facility]lan[id number] 12:40:00 Test Item Value Reference Range Interpretation Comments Segs-Bands # (test code = Segs-Bands #) 13.6 1.5-8.1 [facility]lan[id number] 12:40:00 Test Item Value Reference Range Interpretation Comments Basophils (test code = 0.7 See_Comment [Aut omated message] The Basophils) system which ge nerated this result tra nsmitted reference range : <=1.0. The reference r jodi was not used to int erpret this result as normal/abnormal . [facility]lan[id number] 12:40:00 Test Item Value Reference Range Interpretation Comments Eosinophils (test code = 1.3 See_Comment [A utomated message] The Eosinophils) system which ge nerated this result tra nsmitted reference range : <=4.0. The reference r jodi was not used to int erpret this result as normal/abnormal . [facility]lan[id number] 12:40:00 Test Item Value Reference Range Interpretation Comments Monocytes (test code = Monocytes) 7.2 2.0-12.0 [facility]landsQidzxccUIYZLHHZVI1421-78-72 12:40:00 Test Item Value Reference Range Interpretation Comments Lymphocytes (test code = Lymphocytes) 16.2 20.0-40.0 [id number] 12:40:00 Test Item Value Reference Range Interpretation Comments Segs (test code = Segs) 74.6 45.0-75.0 [facility]landsLjjzehoRXSIXADQER5978-87-21 12:26:00 Test Item Value Reference Range Interpretation Comments Basophils (test code = 0.6 See_Comment [Aut omated message] The Basophils) system which ge nerated this result tra nsmitted reference range : <=1.0. The reference r jodi was not used to int erpret this result as normal/abnormal . [facility]lan[id number] 12:26:00 Test Item Value Reference Range Interpretation Comments Basophils # (test code 0.1 See_Comment [Aut omated message] The = Basophils #) system which generated this result tra nsmitted reference range : <=0.2. The reference r jodi was not used to int erpret this result as normal/abnormal . [facility]lan[id number] 12:26:00 Test Item Value Reference Range Interpretation Comments RBC Morph (test code = Normal (10/26/17 6:26 RBC Morph) AM) [facility]landsInguwwyWVTCLTXTJB2169-13-56 12:26:00 Test Item Value Reference Range Interpretation Comments Plt Morph (test code = Normal (10/26/17 6:26 Plt Morph) AM) [facility]lan[id number] 12:26:00 Test Item Value Reference Range Interpretation Comments Basophils (test code = 0.6 See_Comment [Aut omated message] The Basophils) system which ge nerated this result tra nsmitted reference range : <=1.0. The reference r jodi was not used to int erpret this result as normal/abnormal . [facility]landsHpjopszIUCLCDPUQB1769-31-53 12:26:00 Test Item Value Reference Range Interpretation Comments Basophils # (test code 0.1 See_Comment [Aut omated message] The = Basophils #) system which generated this result tra nsmitted reference range : <=0.2. The reference r jodi was not used to int erpret this result as normal/abnormal . [facility]landsUyiaayoPYZVTFRUBD2124-35-77 12:26:00 Test Item Value Reference Range Interpretation Comments RBC Morph (test code = Normal (10/26/17 6:26 RBC Morph) AM) [facility]lan[id number] 12:26:00 Test Item Value Reference Range Interpretation Comments Plt Morph (test code = Normal (10/26/17 6:26 Plt Morph) AM) [facility]landsYybxaewKBITHGSPDR5708-88-09 12:26:00 Test Item Value Reference Range Interpretation Comments Basophils (test code = 0.6 See_Comment [Aut omated message] The Basophils) system which ge nerated this result tra nsmitted reference range : <=1.0. The reference r jodi was not used to int erpret this result as normal/abnormal . [facility]lan[id number] 12:26:00 Test Item Value Reference Range Interpretation Comments Basophils # (test code 0.1 See_Comment [Aut omated message] The = Basophils #) system which generated this result tra nsmitted reference range : <=0.2. The reference r jodi was not used to int erpret this result as normal/abnormal . [facility]landsErovaaiSSBYAGEZEK5174-40-12 12:26:00 Test Item Value Reference Range Interpretation Comments RBC Morph (test code = Normal (10/26/17 6:26 RBC Morph) AM) [facility][id number] 12:26:00 Test Item Value Reference Range Interpretation Comments Plt Morph (test code = Normal (10/26/17 6:26 Plt Morph) AM) [facility]DI[facility] [id number] 05:00:00 Test Item Value Reference Range Interpretation Comments BNP (test code = BNP) 119 [facility] [id number] 05:00:00 Test Item Value Reference Range Interpretation Comments Troponin-I (test code no gt See_Comment [Auto mated message] The = Troponin-I) system which g enerated this result transmit narayan reference range : <=0.40. The reference r jodi was not used to interpr et this result as shreya l/abnormal. [facility] [id number] 05:00:00 Test Item Value Reference Range Interpretation Comments A/G Ratio (test code = A/G Ratio) 0.4 0.7-1.6 [facility]2017-12-25 05:00:00 Test Item Value Reference Range Interpretation Comments Globulin (test code = Globulin) 5.0 2.7-4.2 [facility]2017-12-25 05:00:00 Test Item Value Reference Range Interpretation Comments B/C Ratio (test code = B/C Ratio) 22 6-25 [facility]2017-12-25 05:00:00 Test Item Value Reference Range Interpretation Comments AST (test code = AST) 23 See_Comment [Auto mated message] The system which ge nerated this result transmit narayan reference range : <=37. The reference range was not used to interpr et this result as shreya l/abnormal. [facility]2017-12-25 05:00:00 Test Item Value Reference Range Interpretation Comments ALT (test code = ALT) 21 See_Comment [Auto mated message] The system which ge nerated this result transmit narayan reference range : <=65. The reference range was not used to interpr et this result as shreya l/abnormal. [facility]2017-12-25 05:00:00 Test Item Value Reference Range Interpretation Comments Albumin Lvl (test code = Albumin Lvl) 2.0 3.5-5.0 [facility]2017-12-25 05:00:00 Test Item Value Reference Range Interpretation Comments Total Protein (test code = Total 7.0 6.4-8.4 Protein) [facility]2017-12-25 05:00:00 Test Item Value Reference Range Interpretation Comments Alk Phos (test code = Alk Phos) 79 39-136 [facility]2017-12-25 05:00:00 Test Item Value Reference Range Interpretation Comments Bili Total (test code = Bili Total) 0.2 0.2-1.3 [facility]landsIkchldsFSMWXUKOHQ3910-08-44 05:00:00 Test Item Value Reference Range Interpretation Comments Neut Vac (test code = Neut Vac) Slight [facility][id number] 05:00:00 Test Item Value Reference Range Interpretation Comments Toxic Gran (test code Moderate *ABN*(10/23/17 = Toxic Gran) 11:00 PM) [facility]landsNxqchzxNWQBDVCIFA9293-16-26 05:00:00 Test Item Value Reference Range Interpretation Comments Plt Morph (test code = Normal (10/23/17 11:00 Plt Morph) PM) [facility][id number] 05:00:00 Test Item Value Reference Range Interpretation Comments RBC Morph (test code = Normal (10/23/17 11:00 RBC Morph) PM) [facility]landsNorcxvuIYJBXBAEZN7430-69-85 05:00:00 Test Item Value Reference Range Interpretation Comments PT (test code = PT) 13.0 s 12.0-14.7 [facility]landsDpdfcdjQQXDROJBNB7967-76-75 05:00:00 Test Item Value Reference Range Interpretation Comments PTT (test code = PTT) 31.2 s 22.9-35.8 [facility]landsJhivsrgPEVPHXANWX7501-97-20 05:00:00 Test Item Value Reference Range Interpretation Comments INR (test code = INR) 0.98 0.85-1.17 [facility] LakewayFlavorvanil [id number] 05:00:00 Test Item Value Reference Range Interpretation Comments BNP (test code = BNP) 119 [facility] LakewayBHIVE Social Media LabsSOU[facility] [id number] 05:00:00 Test Item Value Reference Range Interpretation Comments Troponin-I (test code no gt See_Comment [Auto mated message] The = Troponin-I) system which g enerated this result transmit narayan reference range : <=0.40. The reference r jodi was not used to interpr et this result as shreya l/abnormal. [facility] [employer] [id number] 05:00:00 Test Item Value Reference Range Interpretation Comments A/G Ratio (test code = A/G Ratio) 0.4 0.7-1.6 [facility]Value [facility] [employer] [id number] 05:00:00 Test Item Value Reference Range Interpretation Comments Globulin (test code = Globulin) 5.0 2.7-4.2 [facility]wayBrand[facility] [id number] 05:00:00 Test Item Value Reference Range Interpretation Comments B/C Ratio (test code = B/C Ratio) 22 6-25 [facility] [employer] [id number] 05:00:00 Test Item Value Reference Range Interpretation Comments AST (test code = AST) 23 See_Comment [Auto mated message] The system which ge nerated this result transmit narayan reference range : <=37. The reference range was not used to interpr et this result as shreya l/abnormal. [facility]2017-12-25 05:00:00 Test Item Value Reference Range Interpretation Comments ALT (test code = ALT) 21 See_Comment [Auto mated message] The system which ge nerated this result transmit narayan reference range : <=65. The reference range was not used to interpr et this result as shreya l/abnormal. [facility]2017-12-25 05:00:00 Test Item Value Reference Range Interpretation Comments Albumin Lvl (test code = Albumin Lvl) 2.0 3.5-5.0 [facility]2017-12-25 05:00:00 Test Item Value Reference Range Interpretation Comments Total Protein (test code = Total 7.0 6.4-8.4 Protein) [facility]2017-12-25 05:00:00 Test Item Value Reference Range Interpretation Comments Alk Phos (test code = Alk Phos) 79 39-136 [facility]2017-12-25 05:00:00 Test Item Value Reference Range Interpretation Comments Bili Total (test code = Bili Total) 0.2 0.2-1.3 [facility]landsOitcwngGWHYSRUPZN1390-10-12 05:00:00 Test Item Value Reference Range Interpretation Comments Neut Vac (test code = Neut Vac) Slight [facility]landsBygqkxdOSKFJTDYDS3839-34-01 05:00:00 Test Item Value Reference Range Interpretation Comments Toxic Gran (test code Moderate *ABN*(10/23/17 = Toxic Gran) 11:00 PM) [id number] 05:00:00 Test Item Value Reference Range Interpretation Comments Plt Morph (test code = Normal (10/23/17 11:00 Plt Morph) PM) [facility]landsHigiirmPKJAMNDTKE2225-42-15 05:00:00 Test Item Value Reference Range Interpretation Comments RBC Morph (test code = Normal (10/23/17 11:00 RBC Morph) PM) [facility]landsYcwlbngWHFZMTJRDH1594-58-11 05:00:00 Test Item Value Reference Range Interpretation Comments PT (test code = PT) 13.0 s 12.0-14.7 [place] [id number] 05:00:00 Test Item Value Reference Range Interpretation Comments PTT (test code = PTT) 31.2 s 22.9-35.8 [id number] 05:00:00 Test Item Value Reference Range Interpretation Comments INR (test code = INR) 0.98 0.85-1.17 [facility] [id number] 05:00:00 Test Item Value Reference Range Interpretation Comments BNP (test code = BNP) 119 [facility] [id number] 05:00:00 Test Item Value Reference Range Interpretation Comments Troponin-I (test code no gt See_Comment [Auto mated message] The = Troponin-I) system which g enerated this result transmit narayan reference range : <=0.40. The reference r jodi was not used to interpr et this result as shreya l/abnormal. [facility]2017-12-25 05:00:00 Test Item Value Reference Range Interpretation Comments A/G Ratio (test code = A/G Ratio) 0.4 0.7-1.6 [place] [id number] 05:00:00 Test Item Value Reference Range Interpretation Comments Globulin (test code = Globulin) 5.0 2.7-4.2 [facility]2017-12-25 05:00:00 Test Item Value Reference Range Interpretation Comments B/C Ratio (test code = B/C Ratio) 22 6-25 [facility]2017-12-25 05:00:00 Test Item Value Reference Range Interpretation Comments AST (test code = AST) 23 See_Comment [Auto mated message] The system which ge nerated this result transmit narayan reference range : <=37. The reference range was not used to interpr et this result as shreya l/abnormal. [facility]wayBrandkids [id number] 05:00:00 Test Item Value Reference Range Interpretation Comments ALT (test code = ALT) 21 See_Comment [Auto mated message] The system which ge nerated this result transmit narayan reference range : <=65. The reference range was not used to interpr et this result as shreya l/abnormal. [facility]wayBrand[facility] [id number] 05:00:00 Test Item Value Reference Range Interpretation Comments Albumin Lvl (test code = Albumin Lvl) 2.0 3.5-5.0 [facility]2017-12-25 05:00:00 Test Item Value Reference Range Interpretation Comments Total Protein (test code = Total 7.0 6.4-8.4 Protein) [facility]2017-12-25 05:00:00 Test Item Value Reference Range Interpretation Comments Alk Phos (test code = Alk Phos) 79 39-136 [facility]2017-12-25 05:00:00 Test Item Value Reference Range Interpretation Comments Bili Total (test code = Bili Total) 0.2 0.2-1.3 [facility][id number] 05:00:00 Test Item Value Reference Range Interpretation Comments Neut Vac (test code = Neut Vac) Slight [facility]landsEdubaplCSVTRMUBAZ0120-15-99 05:00:00 Test Item Value Reference Range Interpretation Comments Toxic Gran (test code Moderate *ABN*(10/23/17 = Toxic Gran) 11:00 PM) [id number] 05:00:00 Test Item Value Reference Range Interpretation Comments Plt Morph (test code = Normal (10/23/17 11:00 Plt Morph) PM) [id number] 05:00:00 Test Item Value Reference Range Interpretation Comments RBC Morph (test code = Normal (10/23/17 11:00 RBC Morph) PM) [id number] 05:00:00 Test Item Value Reference Range Interpretation Comments PT (test code = PT) 13.0 s 12.0-14.7 [facility]landsPtrmafaARHRLGHUQD0526-15-70 05:00:00 Test Item Value Reference Range Interpretation Comments PTT (test code = PTT) 31.2 s 22.9-35.8 [place] [id number] 05:00:00 Test Item Value Reference Range Interpretation Comments INR (test code = INR) 0.98 0.85-1.17 [facility]
[2023-01-06 18:11] LABS: Protime INR 0.89
[2023-01-06 18:13] LABS: Absolute Lymphocytes (CBC) 2.7 K/uL (0.7-4.9); Lymphocytes % 27.7 % (15.3-44.8); MCV 101.8 fL (80-100); MPV 7.6 fL (7.6-11.3); RBC Red Blood Cell Count 3.83 M/uL (3.86-4.86)
--- NOTE | 2023-01-06 18:17 | RAD REPORT ---
EXAM DESCRIPTION: RAD - Chest Single View - 01/06/2023 6:12 pm CLINICAL HISTORY: CHEST PAIN Chest pain. COMPARISON: Chest Single View dated 12/09/2022; Chest Single View dated 07/14/2022; Chest Pa And Lat (2 Views) dated 10/20/2017; Chest Single View dated 10/19/2017 FINDINGS: Portable technique limits examination quality. The lungs are emphysematous but grossly clear. The heart is normal in size. No displaced fractures. IMPRESSION: Knlk-om-rylexuya COPD.
[2023-01-06 18:28] LABS: Magnesium 2.2 mg/dL (1.6-2.4); Potassium 3.9 mmol/L (3.5-5.1); Troponin High Sensitivity 3.8 pg/mL (<58.9)
--- NOTE | 2023-01-06 19:19 | RAD REPORT ---
EXAM DESCRIPTION: US - Extremity Venous Uni Ltd - 01/06/2023 7:09 pm CLINICAL HISTORY: PAIN Leg swelling and edema. COMPARISON: Extremity Nonvascular Complete dated 05/07/2020 FINDINGS: Right lower extremity venous system was interrogated with Doppler technique. Normal flow, compressibility and augmentation was noted. There is no DVT present. IMPRESSION: No evidence of right lower extremity deep venous thrombosis.
--- NOTE | 2023-01-06 19:20 | RAD REPORT ---
EXAM DESCRIPTION: US - Lower Extremity Artery Uni Ltd - 01/06/2023 7:09 pm CLINICAL HISTORY: PAIN COMPARISON: No comparisons FINDINGS: Doppler interrogation of the right lower extremity arterial system was performed. No signi ficant flow abnormality seen. No abnormality seen in the region of recent femoral access. IMPRESSION: Negative study.
--- NOTE | 2023-01-06 21:05 | RAD REPORT ---
EXAM DESCRIPTION: CT - Head Brain Wo Cont - 01/06/2023 9:00 pm CLINICAL HISTORY: SYNCOPE Headache, drowsiness COMPARISON: No comparisons TECHNIQUE: All CT scans are performed using dose optimization technique as appropriate and may inclu de automated exposure control or mA/KV adjustment according to patient size. FINDINGS: No intracranial hemorrhage, hydrocephalus or extra-axial fluid collection.No areas of brai n edema or evidence of midline shift. The paranasal sinuses and mastoids are clear. The calvarium is intact. IMPRESSION: No acute intracranial abnormality.
--- NOTE | 2023-01-06 21:11 | RAD REPORT ---
EXAM DESCRIPTION: CT - Angio Aorta For Dissection - 01/06/2023 9:00 pm CLINICAL HISTORY: Chest pain radiating to the back. chest pain COMPARISON: No comparisons TECHNIQUE: CT angiography of the aorta was performed with MIPs. All CT scans are performed using dose optimization technique as appropriate and may include automated exposure control or mA/KV adjustment according to patient size. FINDINGS: A left aortic arch is present with normal branching pattern of the great vessels.No acute aortic finding is seen such as aneurysm, penetrating ulcer or dissection. The celiac axis, SMA, ZEINA and renal arteries are patent. No evidence of pulmonary embolism. The lungs are clear. The liver demonstrates no focal mass or biliary dilatation.The spleen, pancreas, adrenal glands and k idneys are within normal limits for arterial phase imaging. No bowel obstruction, free fluid or abscess.No pathologic enlarged lymphadenopathy identified. There is a moderate to large right lower quadrant hematoma suspected measuring up to 10 x 8 cm. No ac tive bleeding suspected. No fracture or worrisome bone lesion seen. IMPRESSION: Moderate to large right right-sided retroperitoneal hematoma.No finding to suspect activ e bleeding. No acute vascular abnormality.
[2023-01-06] MEDS ORDERED: NA CHLORIDE 0.9% 500 ML ONE (21:22)
[2023-01-06 22:07] LABS: SARS-CoV-2 Antigen Rapid Res Negative (Negative)
[2023-01-06] MEDS ORDERED: NA CHLORIDE 0.9% 100 ML ONE (23:53)
[2023-01-06] MEDS ORDERED: PIPERACIL/TAZO 3.375 GM VIAL IV ONE (23:54)
[2023-01-07 00:58] LABS: Urine Blood Negative (Negative); Urine Glucose Negative (Negative); Urine Protein Negative (Negative)
[2023-01-07] MEDS ORDERED: NA CHLORIDE 0.9% 500 ML ONE (01:32)
[2023-01-07 02:39] VITALS: TEMP 97.9
[2023-01-07 02:40] VITALS: BP 101/64; O2SAT 98
[2023-01-07 03:18] LABS: Urine Bacteria <20 /HPF (<20); Urine RBC <5 /HPF (None Seen)
--- NOTE | 2023-01-10 13:15 | EKG ---
Test Date: 2023-01-06 Test Time: 20:02:44 Bank Runner: KEILA MEASUREMENT RESULTS: Intervals: Rate: 76 NV: 156 QRSD: 84 QT: 444 QTc: 499 [place]: P: 65 NV: 156 QRS: 71 T: 62 INTERPRETIVE STATEMENTS: Normal sinus rhythm ST abnormality, possible digitalis effect Prolonged QT Abnormal ECG Compared to ECG 01/06/2023 18:12:03 ST (T wave) deviation now present T-wave abnormality no longer present Electronically Signed On 01-10-23 13:08:49 CDT by Anderson Coffey
--- NOTE | 2023-01-10 13:16 | EKG ---
Test Date: 2023-01-06 Test Time: 18:12:03 Motorcycle Designer: SUZANNE MEASUREMENT RESULTS: Intervals: Rate: 67 MS: 182 QRSD: 92 QT: 452 QTc: 477 [place]: P: 70 MS: 182 QRS: 79 T: 52 INTERPRETIVE STATEMENTS: Normal sinus rhythm Nonspecific T wave abnormality Prolonged QT Abnormal ECG Compared to ECG 12/28/2022 11:21:35 T-wave abnormality now present ST (T wave) deviation no longer present Electronically Signed On 01-10-23 13:09:03 CDT by Anderson Coffey
--- NOTE | 2023-01-21 15:12 | ER ---
Nurse's Notes [facility] Name: Tonya Michael Age: 62 yrs Sex: Female : 1960 Arrival Date: 01/06/2023 Time: 17:26 Bed 6 Private MD: Srikanth Clifford Diagnosis: Syncope;Postprocedural hematoma of a circulatory system organ or structure following a cardiac catheterization Presentation: 01/06 17:33 Chief complaint: Had angio-seal last Tuesday, c/o worsening pain in right groin over hb last few days, and chest pain and SOB today. Coronavirus screen: At this time, the client does not indicate any symptoms associated with coronavirus-19. Ebola Screen: No symptoms or risks identified at this time. Initial Sepsis Screen: Does the patient meet any 2 criteria? No. Patient's initial sepsis screen is negative. Does the patient have a suspected source of infection? No. Patient's initial sepsis screen is negative. Risk Assessment: Do you want to hurt yourself or someone else? Patient reports no desire to harm self or others. Onset of symptoms was December 30, 2022. 17:33 Method Of Arrival: Ambulatory hb 17:33 Acuity: MARGARET 3 hb Historical: - Allergies: 17:36 No Known Allergies; hb - PMHx: 17:36 Atrial fibrillation; CHF; COPD; hb - PSHx: 17:36 Cholecystectomy; hb - Immunization history:: Adult Immunizations up to date. - Social history:: Smoking status: Patient denies any tobacco usage or history of. Screenin/10 02:04 [facility] ED Fall Risk Assessment (Adult) Score/Fall Risk Level 3 or more points = High as6 Risk. Abuse screen: Denies threats or abuse. Denies injuries from another. Nutritional screening: No deficits noted. Tuberculosis screening: No symptoms or risk factors identified. Assessment: 01/06 17:52 General: Appears uncomfortable, Behavior is cooperative, appropriate for age. Pain: ll1 Complains of pain in chest Pain does not radiate. Pain began 1 day ago. Cardiovascular: Reports chest pain, shortness of breath. Respiratory: Reports shortness of breath. Derm: Reports pain R groin pain. 18:16 Reassessment: No changes from previously documented assessment. Patient and/or family jl7 updated on plan of care and expected duration. Pain level reassessed. Patient is alert, oriented x 3, equal unlabored respirations, skin warm/dry/pink. Vital Signs: 17:33 BP 158 / 100; Pulse 71; Resp 20; Temp 97; Pulse Ox 99% on R/A; Weight 86.18 kg; Height hb 5 ft. 7 in. ; Pain 9/10; 19:00 BP 112 / 82; Pulse 67; Resp 12 S; Pulse Ox 96% on 2 lpm NC; as6 20:00 BP 92 / 63; Pulse 76; Resp 13 S; Pulse Ox 99% on 2 lpm NC; as6 21:00 BP 92 / 74; Pulse 76; Resp 13 S; Pulse Ox 99% on 2 lpm NC; as6 22:00 BP 110 / 79; Pulse 68; Resp 13 S; Pulse Ox 100% on 2 lpm NC; as6 23:00 BP 110 / 76; Pulse 67; Resp 14 S; Pulse Ox 99% on 2 lpm NC; as6 03 00:00 BP 92 / 63; Pulse 67; Resp 13 S; Pulse Ox 100% on 2 lpm NC; as6 01:06 BP 95 / 59; Pulse 64; Resp 16 S; Pulse Ox 100% on 2 lpm NC; as6 01:08 Temp 97.9(TE); as6 01:37 BP 101 / 64; Pulse 65; Resp 13 S; Pulse Ox 98% on 2 lpm NC; as6 01/06 17:33 Body Mass Index 29.76 (86.18 kg, 170.18 cm) hb 03 17:33 Pain Scale: Adult hb ED Course: 01/06 17:26 Patient arrived in ED. mr 17:27 Srikanth Clifford is Private Physician. mr 17:36 Triage completed. hb 17:37 Arm band placed on. hb 17:38 Chepe Carrasco PA is PHCP. cp 17:38 Kaushal Johnston MD is Attending Physician. cp 17:42 Elvin Rodríguez, SHERWIN is Primary Nurse. ll1 17:43 Patient placed in an exam room, on a stretcher. ll1 17:52 Missed attempt(s): 22 gauge in right wrist. Bleeding controlled, band aid applied, ll1 catheter tip intact. 18:02 Initial lab(s) drawn, by tx, sent to lab. Inserted saline lock: 22 gauge in left wrist, em1 using aseptic technique. Blood collected. 18:14 XRAY Chest (1 view) In Process Unspecified. EDMS 19:10 US Extremity Venous Unilateral Ltd In Process Unspecified. EDMS 19:10 US LE Artery Uni Ltd: history of cardiac catheterization, r/o pseudoaneurysm In Process EDMS Unspecified. 21:02 CT Aorta for Dissection In Process Unspecified. EDMS 21:02 CT Head Brain wo Cont In Process Unspecified. EDMS 21:45 Chepe Bhatt MD is Attending Physician. cp 01/07 00:35 Lactate w/ 2H reflex if indic. Sent. kj1 00:35 CBC w/o diff Sent. kj1 00:43 Hemoglobin Sent. kj1 02:04 Placed in gown. Bed in low position. Call light in reach. Side rails up X2. as6 02:05 No provider procedures requiring assistance completed. Patient transferred, IV remains as6 in place. Administered Medications: 01/06 19:49 CANCELLED (Physician Discretion): NS 0.9% IV 500 ml IV at bolus once cp 20:45 CANCELLED (Physician Discretion): fentaNYL (PF) IVP 25 mcg IVP once cp 20:45 CANCELLED (Physician Discretion): NS 0.9% IV 250 ml IV at bolus once cp 20:46 CANCELLED (Physician Discretion): fentaNYL (PF) IVP 25 mcg IVP once cp 21:18 Drug: NS 0.9% IV 500 ml Route: IV; Rate: bolus; Site: left wrist; as6 01/07 02:06 Follow up: Response: No adverse reaction; IV Status: Completed infusion; IV Intake: as6 500ml 01/06 23:56 Drug: Piperacillin-Tazobactam IVPB 3.375 grams Route: IVPB; Infused Over: 60 mins; as6 Site: right wrist; 01/07 02:05 Follow up: Response: No adverse reaction; IV Status: Completed infusion; IV Intake: as6 100ml 01:29 Drug: NS 0.9% IV 500 ml Route: IV; Rate: bolus; Site: right hand; as6 02:05 Follow up: Response: No adverse reaction; IV Status: Completed infusion; IV Intake: as6 500ml Medication: 02:05 VIS not applicable for this client. as6 Intake: 02:05 IV: 500ml; Total: 500ml. as6 02:05 IV: 100ml; Total: 600ml. as6 02:06 IV: 500ml; Total: 1100ml. as6 Outcome: 01/06 21:40 ER care complete, transfer ordered by . анна 01/07 02:05 Transferred by ground EMS to [facility], Transfer form completed. as6 X-rays sent w/ patient. Condition: stable Instructed on the need for transfer. 02:06 Patient left the ED. as6 Signatures: Dispatcher [employer]W[place] Stephanie Bolivar, em1 Chepe Carrasco PA PA cp Baxter, Heather, RN RN hb Bill Brunner RN RN jl7 Lucy Gonzalez1 Elvin Rodríguez RN RN ll1 Mohit Beltran RN RN as6
--- NOTE | 2023-01-21 15:12 | EDPHYS ---
Physician Documentation [facility] Name: Tonya Michael Age: 62 yrs Sex: Female : 1960 Arrival Date: 01/06/2023 Time: 17:26 Bed 6 Private MD: Srikanth Clifford ED Physician Chepe Bhatt HPI: 01/06 18:00 This 62 yrs old Female presents to ER via Ambulatory with complaints of Chest Pain, cp High Blood Pressure, Post Surgical Pain. 18:00 The patient or guardian reports chest pain that is located primarily in the anterior cp chest wall. Onset: yesterday. 18:00 Associated signs and symptoms: Pertinent positives: lower extremity pain, cp lightheadedness, shortness of breath, Pertinent negatives: cough, diaphoresis, palpitations. 18:00 The chest pain is described as a pressure. Severity of pain: in the emergency cp department the pain is unchanged despite home interventions. 18:00 Patient reports history of cardiac catheterization performed by DR Coffey on 12-31-2022. cp Patient reports f/u appointment 2 days ago with no complications. Historical: - Allergies: 17:36 No Known Allergies; hb - PMHx: 17:36 Atrial fibrillation; CHF; COPD; hb - PSHx: 17:36 Cholecystectomy; hb - Immunization history:: Adult Immunizations up to date. - Social history:: Smoking status: Patient denies any tobacco usage or history of. ROS: 18:05 Constitutional: Negative for body aches, chills, fever, poor PO intake. cp 18:05 Eyes: Negative for injury, pain, redness, and discharge. cp 18:05 Cardiovascular: Positive for chest pain, Negative for palpitations. cp 18:05 Respiratory: Positive for shortness of breath, at rest. Negative for cough, wheezing. cp 18:05 Abdomen/GI: Positive for abdominal pain, of the right lower quadrant, Negative for vomiting, diarrhea, constipation, black/tarry stool, rectal bleeding. 18:05 Back: Negative for radiated pain. 18:05 : Negative for urinary symptoms. 18:05 Neuro: Positive for weakness, Negative for altered mental status, headache, syncope. 18:05 All other systems are negative. Exam: 18:10 Constitutional: The patient appears in no acute distress, alert, awake, cp non-diaphoretic, non-toxic, well developed, well nourished, obese. 18:10 Head/Face: Normocephalic, atraumatic. cp 18:10 Eyes: Periorbital structures: appear normal, Conjunctiva: normal, no exudate, no injection, Sclera: no appreciated abnormality, Lids and lashes: appear normal, bilaterally. 18:10 ENT: External ear(s): are unremarkable, Nose: is normal, Mouth: Lips: moist, Oral mucosa: pink and intact, moist, Posterior pharynx: is normal, airway is patent, no erythema, no exudate. 18:10 Neck: ROM/movement: is normal, is supple, without pain, no range of motions limitations. 18:10 Chest/axilla: Inspection: normal. cp 18:10 Cardiovascular: Rate: normal, Rhythm: regular, Edema: is not appreciated, JVD: is not cp appreciated. 18:10 Respiratory: the patient does not display signs of respiratory distress, Respirations: normal, no use of accessory muscles, no retractions, labored breathing, is not present, Breath sounds: are clear throughout, no decreased breath sounds, no stridor, no wheezing. 18:10 Abdomen/GI: Inspection: abdomen appears normal, Bowel sounds: active, all quadrants, Palpation: soft, in all quadrants, moderate abdominal tenderness, in the right lower quadrant. 18:10 Back: CVA tenderness, is absent. 18:10 Musculoskeletal/extremity: Extremities: noted in the right groin: pain, ROM: limited passive range of motion due to pain, in the right hip. 18:10 Skin: cellulitis, is not appreciated, no rash present. 18:10 Neuro: Orientation: to person, place \T\ time. Mentation: is normal, Cerebellar function: is grossly normal, Motor: moves all fours, strength is normal, Sensation: is normal. 18:17 ECG was reviewed by the Attending Physician. cp 20:06 ECG was reviewed by the Attending Physician. cp Vital Signs: 17:33 BP 158 / 100; Pulse 71; Resp 20; Temp 97; Pulse Ox 99% on R/A; Weight 86.18 kg; Height hb 5 ft. 7 in. ; Pain 9/10; 19:00 BP 112 / 82; Pulse 67; Resp 12 S; Pulse Ox 96% on 2 lpm NC; as6 20:00 BP 92 / 63; Pulse 76; Resp 13 S; Pulse Ox 99% on 2 lpm NC; as6 21:00 BP 92 / 74; Pulse 76; Resp 13 S; Pulse Ox 99% on 2 lpm NC; as6 22:00 BP 110 / 79; Pulse 68; Resp 13 S; Pulse Ox 100% on 2 lpm NC; as6 23:00 BP 110 / 76; Pulse 67; Resp 14 S; Pulse Ox 99% on 2 lpm NC; as6 0310 00:00 BP 92 / 63; Pulse 67; Resp 13 S; Pulse Ox 100% on 2 lpm NC; as6 01:06 BP 95 / 59; Pulse 64; Resp 16 S; Pulse Ox 100% on 2 lpm NC; as6 01:08 Temp 97.9(TE); as6 01:37 BP 101 / 64; Pulse 65; Resp 13 S; Pulse Ox 98% on 2 lpm NC; as6 01/06 17:33 Body Mass Index 29.76 (86.18 kg, 170.18 cm) hb 01/06 17:33 Pain Scale: Adult hb MDM: 01/06 17:39 Patient medically screened. cp 21:30 Data reviewed: vital signs, nurses notes, lab test result(s), EKG, radiologic studies, cp CT scan, plain films, ultrasound. 21:30 Independent interpretation of the following test(s) in the Emergency Department EKG: cp See my EKG interpretation above. Care significantly affected by the following chronic conditions: Congestive Heart Failure, Chronic Obstructive Pulmonary Disease. 21:45 Management of patient was discussed with the following: Aerophysics Engineer: DR Coffey who cp recommends transfer for vascular services after discussing results of labs, EKG and radiology studies. 01/06 17:53 Order name: Basic Metabolic Panel; Complete Time: 19:47 cp 01/06 19:48 Interpretation: Normal except: NA 126; CL 97; GLUC 120; GFR 84. cp 01/06 17:53 Order name: CBC with Diff; Complete Time: 19:47 cp 01/06 19:48 Interpretation: Normal except: RBC 3.83; MCV 101.8. cp 01/06 17:53 Order name: Magnesium; Complete Time: 19:47 cp 01/06 17:53 Order name: NT PRO-BNP; Complete Time: 19:47 cp 01/06 19:49 Interpretation: NT PRO-BNP 507; Reviewed. cp 01/06 17:53 Order name: PT-INR; Complete Time: 19:47 cp 01/06 17:53 Order name: Troponin HS; Complete Time: 19:47 cp 01/06 18:22 Order name: Urine Microscopic Only cp 01/06 21:24 Order name: SARS RAPID; Complete Time: 22:47 bb 01/06 21:41 Order name: Type And Screen; Complete Time: 00:54 cp 01/06 21:41 Order name: Lactate w/ 2H reflex if indic.; Complete Time: 00:54 cp 01/06 21:41 Order name: Blood Culture Adult (2) cp 01/07 00:35 Order name: Hemoglobin; Complete Time: 00:54 kj1 01/07 00:54 Interpretation: Abnormal: HGB 10.5. cp 01/07 00:59 Order name: Urine Dipstick-Ancillary; Complete Time: 01:14 EDMS 01/07 01:30 Order name: ABO/RH no charge EDMS 01/06 17:53 Order name: XRAY Chest (1 view); Complete Time: 19:47 cp 01/06 17:59 Order name: CT Aorta for Dissection; Complete Time: 21:24 cp 01/06 17:59 Order name: Extremity Venous Unilateral Ltd; Complete Time: 19:47 cp 01/06 17:59 Order name: LE Artery Uni Ltd: history of cardiac catheterization, r/o cp pseudoaneurysm; Complete Time: 19:47 01/06 19:47 Order name: CT Head Brain wo Cont; Complete Time: 21:24 cp 01/06 17:53 Order name: EKG; Complete Time: 17:53 cp 01/06 17:53 Order name: Cardiac monitoring; Complete Time: 18:16 cp 01/06 17:53 Order name: EKG - Nurse/Tech; Complete Time: 18:16 cp 01/06 17:53 Order name: IV Saline Lock; Complete Time: 18:02 cp 01/06 17:53 Order name: Labs collected and sent; Complete Time: 18:02 cp 01/06 17:53 Order name: O2 Per Protocol; Complete Time: 17:54 cp 01/06 17:53 Order name: O2 Sat Monitoring; Complete Time: 17:54 cp 01/06 18:22 Order name: Bladder Scanner; Complete Time: 01:01 cp 01/06 18:22 Order name: Urine Dipstick-Ancillary (obtain specimen); Complete Time: 01: cp 01/06 21:41 Order name: Georgette; Complete Time: 01:00 cp EC:17 Rate is 67 beats/min. Rhythm is regular. CT interval is normal. QRS interval is normal. cp QT interval is prolonged at 452 msec. T waves are Inverted in lead aVR. Interpreted by me. Reviewed by me. 20:06 Rate is 76 beats/min. Rhythm is regular. CT interval is normal. QRS interval is normal. cp QT interval is normal. T waves are Inverted in lead aVR. Interpreted by me. Reviewed by me. Administered Medications: 19:49 CANCELLED (Physician Discretion): NS 0.9% IV 500 ml IV at bolus once cp 20:45 CANCELLED (Physician Discretion): fentaNYL (PF) IVP 25 mcg IVP once cp 20:45 CANCELLED (Physician Discretion): NS 0.9% IV 250 ml IV at bolus once cp 20:46 CANCELLED (Physician Discretion): fentaNYL (PF) IVP 25 mcg IVP once cp 21:18 Drug: NS 0.9% IV 500 ml Route: IV; Rate: bolus; Site: left wrist; as6 01/07 02:06 Follow up: Response: No adverse reaction; IV Status: Completed infusion; IV Intake: as6 500ml 01/06 23:56 Drug: Piperacillin-Tazobactam IVPB 3.375 grams Route: IVPB; Infused Over: 60 mins; as6 Site: right wrist; 01/07 02:05 Follow up: Response: No adverse reaction; IV Status: Completed infusion; IV Intake: as6 100ml 01:29 Drug: NS 0.9% IV 500 ml Route: IV; Rate: bolus; Site: right hand; as6 02:05 Follow up: Response: No adverse reaction; IV Status: Completed infusion; IV Intake: as6 500ml Disposition Summary: 01/06/23 21:40 Transfer Ordered Transfer Location: [facility] cp Reason: Higher level of care cp Condition: Stable cp Problem: new cp Symptoms: have improved cp Accepting Physician: Doctor(01/07/23 02:06) as6 Diagnosis - Syncope cp - Postprocedural hematoma of a circulatory system organ or structure following a cp cardiac catheterization Forms: - Medication Reconciliation Form cp - SBAR form cp Signatures: Dispatcher [employer] EDChepe López MD MD cha Page, Corey, URSUAL VERGARA cp Sharmin Beyer, Elvin Singh RN, RN RN ll1 Mohit Beltran RN RN as6 Corrections: (The following items were deleted from the chart) 01/06 19:49 19:48 NS 0.9% IV 500 ml IV at bolus once ordered. cp cp 20:45 19:07 fentaNYL (PF) IVP 25 mcg IVP once ordered. cp cp 20:45 19:49 NS 0.9% IV 250 ml IV at bolus once ordered. cp cp 20:46 18:22 fentaNYL (PF) IVP 25 mcg IVP once ordered. cp cp 20:46 18:57 fentaNYL (PF) IVP 25 mcg IVP once ordered. ll1 cp 21:40 21:40 Doctor cp cp 01/07 02:06 01/06 21:40 Doctor cp as6
== END 2023-01-07 02:06 | disposition short-term general hospital (02) ==
LOC: ER 17:25
DX: R55 Syncope and collapse (principal); I97.630 Postprocedural hematoma of a circulatory system organ or structure following a cardiac catheterization; Z20.822 Contact with and (suspected) exposure to COVID-19
CPT/HCPCS: 36415; 70450; 71045; 71275; 74175; 80048; 81003; 81015; 83605; 83735; 83880; 84484; 85018; 85025; 85610; 86850; 86900; 86901; 87040; 87811; 93005; 93926; 93971; 96361; 96365; 96366; 99285; J2543; J7040; Q9967